=== PATIENT | male | born 1995 | race Caucasian/White ===

== ENCOUNTER 2016-10-26 19:13 | Inpatient (IN) | payer MEDICAID, OTHER ==
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
[2016-10-27] MEDS ORDERED: MAG HYDROX/AL HYDROX/SIMETH 30 ML CUP PO PRN (01:05)
[2016-10-27] MEDS ORDERED: ACETAMINOPHEN TAB 325 MG TAB PO PRN (01:05)
[2016-10-27] MEDS ORDERED: MAGNESIUM HYDROXIDE 2,400 MG/10 ML CUP PO PRN (01:05)
[2016-10-27] MEDS ORDERED: LORazepam 1 MG TAB PO PRN (01:11)
[2016-10-27] MEDS ORDERED: OLANZapine ODT 10 MG TAB PO PRN (01:12)
[2016-10-27] MEDS: CEPHALEXIN 500 MG CAP PO SCH ×4 (08:58→21:01)
[2016-10-27 09:10] LABS: Basophils % (A) 1 %; CH 30.6; Eosinophils # (A) 0.2 k/uL (0-0.7); Eosinophils % (A) 3 %; HCT 49.3 % (39.0-53.0); HDW 2.91; HGB 17.3 gm/dL (13.0-17.5); Luc # (Auto) 0.15; Luc % (Auto) 2; Lymphocytes # (A) 2.5 k/uL (1.0-4.8); Lymphocytes % (A) 33 %; MCH 30.9 pg (25.0-35.0); MCHC 35.2 g/dL (31.0-37.0); MCV 87.9 fL (80.0-100.0); Mean Platelet Volume 6.2; Monocytes # (A) 0.4 k/uL (0-1.0); Monocytes % (A) 5 %; Neutrophils # (A) 4.4 k/uL (1.3-7.7); Neutrophils % (A) 56 %; RBC 5.61 m/uL (4.30-5.90); RDW 13.1 % (11.5-15.5); WBC 7.7 k/uL (3.8-10.6); WBC (Perox) 7.45
[2016-10-27 09:47] LABS: ALT 40 U/L (21-72); AST 26 U/L (17-59); Alkaline Phosphatase 99 U/L (38-126); Anion Gap 15 mmol/L; Blood Urea Nitrogen 16 mg/dL (9-20); Calcium 10.3 mg/dL (8.4-10.2); Carbon Dioxide 27 mmol/L (22-30); Chloride 101 mmol/L (98-107); Glucose 90 mg/dL (74-99); Non-African American GFR(MDRD) >60 (>60 ml/min/1.73 sqM); Potassium 4.4 mmol/L (3.5-5.1); Sodium 143 mmol/L (137-145); Total Bilirubin 0.7 mg/dL (0.2-1.3); Total Protein 8.7 g/dL (6.3-8.2)
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
[2016-10-27] MEDS: lamoTRIgine 100 MG TAB PO SCH (16:08)
[2016-10-27] MEDS ORDERED: lamoTRIgine 100 MG TAB PO SCH (21:00)
[2016-10-27] MEDS: LACOSAMIDE 50 MG TABLET PO SCH (21:01)
[2016-10-28] MEDS: lamoTRIgine 100 MG TAB PO SCH ×3 (00:27→21:40)
[2016-10-28] MEDS: CEPHALEXIN 500 MG CAP PO SCH ×4 (09:11→21:41)
[2016-10-28] MEDS: LACOSAMIDE 50 MG TABLET PO SCH ×2 (09:12→21:40)
--- NOTE | 2016-10-28 10:11 | P.PN ---
Progress Note - Text Interval history: The patient is found in group he follows me to an interview room. He reports that his mood is down today. He reports he was able to sleep last night appetite is stable. He continues to have concerns regarding returning back to [facility]. We reviewed his medications. We discussed possibly adding an antidepressant. He just recently saw his outpatient clinician on Thursday I discussed contacting her to collaborate regarding his care. Mental status exam: The patient is alert he seated calmly hygiene is impaired he has a follow odor grooming is fair he demonstrates some gesturing with his hands that is consistent with his autism spectrum disorder diagnosis. He has abrupt speech at times and demonstrates an abnormal modulation of the tone of his voice and expression at times again related to his autism spectrum disorder. He is reporting no acute suicidal or homicidal ideation. In discussing hallucinations he states "I see the stars at night". No specific delusions endorsed. Insight and judgment limited cognitively he is limited. Plan: The patient will continue on his current medications I will confer with his outpatient nurse practitioner who recently saw him in the outpatient setting. He is encouraged to shower today as his ADLs are impaired. I will again confer with social work regarding placement options.
--- NOTE | 2016-10-28 10:17 | CONS ---
DATE OF CONSULTATION: 10/27/2016 REASON FOR CONSULT: Management of chronic medical conditions. HISTORY OF PRESENT ILLNESS: Mr. Salgado is a 21-year-old male with the past medical history of seizure disorders, ADHD, anxiety. Presented to [facility] saying that he cannot stay in the place where he is as he feels bullied by other people. Patient was also having suicidal thoughts and he also tried to kill himself with a pair of scissors. Patient has past medical history of autism, Asperger disorder, ADHD, seizure disorder. Currently, he does not have any suicidal ideation. He denies having any physical discomfort. REVIEW OF SYSTEMS: CONSTITUTIONAL: Denies having any fever, chills or rigors. RESPIRATORY: No cough. CARDIOVASCULAR: No palpitations. GI: No abdominal pain, nausea, vomiting or diarrhea. : No dysuria or hematuria. ENDOCRINE: Denies having any heat or cold intolerance. HEMATOLOGICAL: No history of easy bruising or recurrent infection. MUSCULOSKELETAL: No joint pains or aches. All the review of systems done and negative except the ones mentioned in the HPI. Past medical history is significant for seizure disorder, autism, asthma, ADHD. PAST SURGICAL HISTORY: None. SOCIAL HISTORY: Former smoking, no alcohol use. No history of drug abuse. FAMILY HISTORY: Denies having any family history of asthma or seizure disorders. On examination, patient's vital signs, temperature 97.5, heart rate 73, respiratory rate 18, blood pressure 112/55, saturating at 98% on room air. HEAD: Atraumatic, normocephalic. EYES: Pupils round and reactive to light and accommodation. NECK: No JVD. RESPIRATORY: Bilateral BS positive, no wheeze or crackles ABDOMEN: Soft, nontender, no organomegaly, bowel sounds are present. EXTREMITIES: No edema. No cyanosis. No clubbing. Peripheral pulses are palpable. PHOTO ENGRAVER: Awake, alert, oriented x3. No focal deficits. PSYCHIATRIC: Appropriate mood. SKIN: No rashes. Patient's labs: White count 7.7, hemoglobin 17.3, platelets 319, sodium 143, potassium 4.4, chloride 101, bicarb 27, BUN 16, creatinine 0.78. UDS is negative for any illicit substances. ASSESSMENT AND PLAN: 1. Depression with suicidal ideation. 2. History of asthma. 3. Seizure disorder. 4. Attention deficient hyperactivity disorder. PLAN: The patient does not have any active ongoing medical issue, acute symptoms are being managed by Psychiatry team. Will follow the patient on as-needed basis. Thank you, Dr. Nicole for the consult. RONNIE
[2016-10-28] MEDS: IBUPROFEN 600 MG TAB PO PRN (22:38)
--- NOTE | 2016-10-29 08:38 | P.PN ---
Progress Note - Text Interval history: The patient is found in the hallway he follows me to an interview room. He states he was able to sleep last night he continues to be stressed by the thought of returning to [facility] as he felt bullied there. Appetite stable. He reports feeling safe here in the hospital. I did have the opportunity to speak with his nurse practitioner with [facility] this morning. She did not recommend any medication changes at this time. She clarified that he is not specifically ordered to [facility] and he was placed there as there was no other available housing. Apparently he continues to demonstrate hoarding behavior which has caused him to be evicted from several other apartments. She felt that if a [facility] bed was available that would be appropriate temporarily. She did not feel he required an antidepressant as she recently saw him. She felt that he has done the best with the Strattera and she would consider titrating the dose further. Mental status exam: The patient is alert he seated calmly eye contact is appropriate speech is fluent. He reports his mood is okay but he is troubled as he is not sure where he will be placed next. He reports feeling safe here in the hospital with no acute suicidal ideation no homicidal ideation. He is endorsing no auditory or visual hallucinations. Hygiene is improved she did shower yesterday. He is demonstrating no verbal or physical aggressiveness. He continues to demonstrate behavior that is typical of his autism spectrum disorder in terms of affect and movements. Plan: The patient will continue on his current medication we are trying to get the Strattera brought up to the unit as it is not formulary. Again we will discuss placement opportunities. I anticipate discharging him sometime this week. We will monitor him for safety and encourage his participation in the milieu.
[2016-10-29] MEDS: CEPHALEXIN 500 MG CAP PO SCH ×4 (09:08→21:23)
[2016-10-29] MEDS: lamoTRIgine 100 MG TAB PO SCH ×2 (09:09→20:22)
[2016-10-29] MEDS: LACOSAMIDE 50 MG TABLET PO SCH ×2 (09:10→20:22)
[2016-10-29] MEDS: IBUPROFEN 600 MG TAB PO PRN (21:25)
[2016-10-30] MEDS: LACOSAMIDE 50 MG TABLET PO SCH ×2 (08:59→20:07)
[2016-10-30] MEDS: CEPHALEXIN 500 MG CAP PO SCH ×4 (08:59→20:09)
[2016-10-30] MEDS: lamoTRIgine 100 MG TAB PO SCH ×2 (09:00→20:07)
--- NOTE | 2016-10-30 09:03 | P.PN ---
Progress Note - Text Interval history: The patient is found in the dining room he follows me to an interview room. He reports that he slept well last night appetite is stable. He describes having some sinus congestion. We discussed the possibility of him having to go back to [facility] but people are looking into other options. He has been compliant with his medication. Mental status exam: The patient is alert he seated calmly eye contact is appropriate he has exaggerated smiling and laughter he does frequently change position while seated in his chair. His speech can be inadvertently abrupt. No suicidal or homicidal ideation intent or plan he is endorsing no auditory or visual hallucinations. He endorses no specific delusions. Thought process is linear during our brief session he demonstrates no tangential thinking loose associations or flight of ideas. Hygiene adequate grooming fair. He demonstrates no verbal or physical aggressiveness. Plan: The patient will continue on his current medications. We will continue to monitor him for safety. We continue to explore placement options for him but we'll discharge him tomorrow even if it is to [facility]. He appears to be stabilizing on the mental health unit with the supportive milieu. Vital signs reviewed.
[2016-10-30] MEDS ORDERED: LORazepam 2 MG/ML SYRINGE IM STA (10:26)
[2016-10-31 06:11] VITALS: BP 115/59; PULSE 78; RESP 16; TEMP 98
--- NOTE | 2016-10-31 08:54 | P.DS ---
Providers Date of admission: 10/26/16 22:58 Expected date of discharge: 10/31/16 Attending physician: Syed Nicole Consults: 10/27/16 01:05 Consult Physician Routine Consulting Provider: Frederick Smith Consult Reason/Comments: H and P with medical follow up Do you want consulting provider notified?: Yes, Notify in am Primary care physician: Peace Martini - Discharge Diagnosis(es) (1) Autism spectrum disorder Current Visit: Yes Status: Acute Priority: High (2) ADHD (attention deficit hyperactivity disorder) Current Visit: Yes Status: Acute Priority: Medium Hospital Course: Brief summary of admission note: This patient is a 21-year-old single male who was admitted to the mental health unit through the emergency room from [facility] with suicidal ideation and agitated behavior. The patient had been placed at [facility] as part of his mental health court program as there was no other housing available. The patient had recently been evicted and has a history of being evicted from numerous apartments. He was charged with assault on a precinct police captain during his last evening injection process. The patient stated he felt bullied at [facility] and felt overwhelmed. He has an established diagnosis of autism Spectrum disorder, ADHD, depression unspecified , rule out OCD. Summary of hospital course: The patient was admitted to the mental health unit he signed in voluntarily. His presenting symptoms were reviewed. He has been treated with Haldol Decanoate 50 mg every 2 weeks he has been on Lamictal and Vimpat for seizures and Strattera for ADHD symptoms. It seems that his reactions were an adjustment reaction to being placed at [facility]. I was able to speak with his outpatient prescriber Virgiina Arreola and we agreed no medication changes were required at this time. We did explore senior care placement for him temporarily however none are available. The patient was cooperative during the hospitalization he demonstrated no agitated behavior he selectively attended groups. He was evaluated by the biomed tech as part of a routine medical exam. He was treated for a folliculitis on his leg with Keflex and he has almost completed that course of antibiotics. Mental status exam: The patient is alert he is dressed in his own clothing eye contact is appropriate speech is spontaneous. He often has a exaggerated smiling affect with exaggerated laughter. He frequently changes position while seated in his chair often leaning forward during the conversation. Speech can be inadvertently loud and blunted at times as part of his autism spectrum disorder. He reports no suicidal or homicidal ideation intent or plan. He is reporting no hopelessness thinking. He is endorsing no auditory or visual hallucinations no specific delusions. Insight and judgment are chronically limited. He demonstrates no involuntary abnormal movements. He demonstrates no verbal or physical aggressiveness. He is oriented to person place and date. He does not appear hypomanic or manic. Impressions 1. Autism spectrum disorder, depression unspecified, ADHD, rule out OCD, rule out bipolar disorder 2. Asthma, folliculitis of leg 3. Recent adjustment reaction related to change in housing Plan: The patient will be discharged from the mental health unit today he will return to [facility]. He will continue his Lamictal and Vimpat for seizure control he will continue Haldol decanoate 50 mg every 2 weeks, Strattera 60 mg daily. A prescription will be written for him to complete his course of Keflex. He will continue to be monitored by [facility] and we will confirm his next outpatient appointment. He has been able to attend to his activities of daily living on the mental health unit with direction there is no imminent safety risk he is appropriate for transition back to outpatient care. Patient Condition at Discharge: Stable Plan - Discharge Summary New Discharge Prescriptions: Atomoxetine HCl [Strattera] 60 mg PO QAM #30 cap Cephalexin [Keflex] 500 mg PO QID #16 cap Haloperidol Decanoate [Haldol D] 50 mg IM Q14D #1 vial Lacosamide [Vimpat] 200 mg PO BID #60 tablet lamoTRIgine 200 mg PO BID #60 tablet Discharge Medication List Ibuprofen [Motrin] 600 mg PO Q8HR PRN 10/27/16 [History] Atomoxetine HCl [Strattera] 60 mg PO QAM #30 cap 10/31/16 [Rx] Cephalexin [Keflex] 500 mg PO QID #16 cap 10/31/16 [Rx] Haloperidol Decanoate [Haldol D] 50 mg IM Q14D #1 vial 10/31/16 [Rx] Lacosamide [Vimpat] 200 mg PO BID #60 tablet 10/31/16 [Rx] lamoTRIgine 200 mg PO BID #60 tablet 10/31/16 [Rx] Follow up Appointment(s)/Referral(s): Peace Martini MD [Primary Care Provider] - 1 Week
[2016-10-31] MEDS: LACOSAMIDE 50 MG TABLET PO SCH (09:09)
[2016-10-31] MEDS: CEPHALEXIN 500 MG CAP PO SCH (09:09)
[2016-10-31] MEDS: lamoTRIgine 100 MG TAB PO SCH (09:09)
== END 2016-10-31 09:45 | disposition home or self-care (01) | DRG 884 ==
LOC: EC 19:13 → 3MHU 22:58
PROVIDERS: ADMIT Psychiatry & Neurology Psychiatry; ATTEND Psychiatry & Neurology Psychiatry
DX: F84.0 Autistic disorder (principal); F20.9 Schizophrenia, unspecified; R45.851 Suicidal ideations; F32.9 Major depressive disorder, single episode, unspecified; F90.9 Attention-deficit hyperactivity disorder, unspecified type; F43.10 Post-traumatic stress disorder, unspecified; F43.20 Adjustment disorder, unspecified; G40.909 Epilepsy, unspecified, not intractable, without status epilepticus; J45.909 Unspecified asthma, uncomplicated; L73.9 Follicular disorder, unspecified; Z87.891 Personal history of nicotine dependence
CPT/HCPCS: 80053; 80306; 82075; 84443; 85025; 99285

== ENCOUNTER 2016-11-20 04:26 | Emergency (ER) | payer MEDICAID, OTHER ==
[2016-11-20 04:34] VITALS: TEMP 98.4
[2016-11-20] MEDS ORDERED: HYDROcodone/APAP 5-325MG 1 EACH TAB PO STA (04:35)
[2016-11-20] MEDS ORDERED: LORazepam 1 MG TAB PO STA (04:35)
--- NOTE | 2016-11-20 04:43 | ED ---
General Adult HPI - General Chief complaint: Fall Stated complaint: Facial Trauma Time Seen by Provider: 11/20/16 04:30 Source: patient, RN notes reviewed, old records reviewed Mode of arrival: EMS Limitations: no limitations - History of Present Illness Initial comments: This is a 21-year-old male the ER for evaluation. Patient coming in for evaluation of bleeding. Patient has extensive facial bleeding that he woke up with. Patient has history of seizures. Patient also has recent history of trauma as he did hit his head on a tree earlier in the day. Patient states he went to bed he was not bleeding so extensively. Patient has been taking his seizure medication as prescribed. Patient does have what appears to be significant bleeding coming out of nose. Patient denies headache, denies any specific complaints - Related Data Home Medications Medication Instructions Recorded Confirmed Ibuprofen [Motrin] 600 mg PO Q8HR PRN 10/27/16 10/27/16 Previous Rx's Medication Instructions Recorded Atomoxetine HCl [Strattera] 60 mg PO QAM #30 cap 10/31/16 Cephalexin [Keflex] 500 mg PO QID #16 cap 10/31/16 Haloperidol Decanoate [Haldol D] 50 mg IM Q14D #1 vial 10/31/16 Lacosamide [Vimpat] 200 mg PO BID #60 tablet 10/31/16 lamoTRIgine 200 mg PO BID #60 tablet 10/31/16 Allergies Allergy/AdvReac Type Severity Reaction Status Date / Time polyethylene glycol Allergy Unknown Verified 11/20/16 04:34 [From Golytely] polyethylene glycol 3350 Allergy Unknown Verified 11/20/16 04:34 [From Golytely] potassium chloride Allergy Unknown Verified 11/20/16 04:34 [From Golytely] sodium [From Golytely] Allergy Unknown Verified 11/20/16 04:34 sodium bicarbonate Allergy Unknown Verified 11/20/16 04:34 [From Golytely] sodium chloride Allergy Unknown Verified 11/20/16 04:34 [From Golytely] sodium sulfate Allergy Unknown Verified 11/20/16 04:34 [From Golytely] Mushroom AdvReac Nausea & Verified 11/20/16 04:34 Vomiting Review of Systems ROS Statement: Those systems with pertinent positive or pertinent negative responses have been documented in the HPI. ROS Other: All systems not noted in ROS Statement are negative. Past Medical History Past Medical History: Asthma, Seizure Disorder Additional Past Medical History / Comment(s): seizure, anxiety, autism, ocd, asbergers, ADHD History of Any Multi-Drug Resistant Organisms: None Reported Past Surgical History: No Surgical Hx Reported Additional Past Surgical History / Comment(s): Carpal Tunnel Repair left hand when 8 years old per patient. Past Anesthesia/Blood Transfusion Reactions: No Reported Reaction Past Psychological History: ADD/ADHD, Anxiety, Bipolar, PTSD Smoking Status: Former smoker Past Alcohol Use History: None Reported Past Drug Use History: None Reported - Past Family History Father History Unknown: Yes Mother History Unknown: Yes General Exam Limitations: no limitations General appearance: alert, in no apparent distress Head exam: Present: normocephalic, normal inspection. Absent: atraumatic ( Patient appears to have bleeding from left naris, history of oldfracture) Eye exam: Present: normal appearance, PERRL, EOMI. Absent: scleral icterus, conjunctival injection, periorbital swelling ENT exam: Present: normal exam, mucous membranes moist Neck exam: Present: normal inspection. Absent: tenderness, meningismus, lymphadenopathy Respiratory exam: Present: normal lung sounds bilaterally. Absent: respiratory distress, wheezes, rales, rhonchi, stridor Cardiovascular Exam: Present: regular rate, normal rhythm, normal heart sounds. Absent: systolic murmur, diastolic murmur, rubs, gallop, clicks GI/Abdominal exam: Present: soft, normal bowel sounds. Absent: distended, tenderness, guarding, rebound, rigid Extremities exam: Present: normal inspection, full ROM, normal capillary refill. Absent: tenderness, pedal edema, joint swelling, calf tenderness Back exam: Present: normal inspection Neurological exam: Present: alert, oriented X3, CN II-XII intact Psychiatric exam: Present: normal affect, normal mood Skin exam: Present: warm, dry, intact, normal color. Absent: rash Course Vital Signs 11/20/16 11/20/16 04:28 06:58 Temperature 98.4 F Pulse Rate 80 78 Respiratory 20 16 Rate Blood Pressure 137/85 124/76 O2 Sat by Pulse 99 98 Oximetry Medical Decision Making - Medical Decision Making 21 male the ER with nose bleed, possible worsening since seizure. Patient could 've had seizure during the night. He does suffer from seizures. Patient also does have trauma to her face yesterday. Patient's cleaned and evaluated, no or current bleeding, CT is negative for acute disease - Radiology Data Radiology results: report reviewed (CT brain C-spine and facial bones is negative for acute disease), image reviewed Disposition Clinical Impression: Concussion, Laceration Disposition: HOME SELF-CARE Condition: Good Instructions: Nosebleed (ED) Referrals: Peace Martini MD [Primary Care Provider] - 1-2 days
--- NOTE | 2016-11-20 05:45 | CT ---
EXAM: CT Maxillofacial Without Intravenous Contrast CLINICAL HISTORY: Seizure, fall, facial trauma. TECHNIQUE: Axial computed tomography images of the face without intravenous contrast. CTDI is 30.6 mGy and DLP is 550.8 mGy-cm This CT exam was performed using one or more of the following dose reduction techniques: automated exposure control, adjustment of the mA and/or kV according to patient size, and/or use of iterative reconstruction technique. Coronal reformatted images were created and reviewed. COMPARISON: No relevant prior studies available. FINDINGS: Bones/joints: Age-indeterminate nondisplaced nasal bone fractures bilaterally versus prominent vascular grooves. No displaced facial fracture. Soft tissues: Blood products present in the nares and soft tissue swelling of the lips. Orbits: Unremarkable. No intraconal retrobulbar hematoma and no CT evidence of acute globe injury. Sinuses: Trace sphenoid sinus and ethmoid air cell mucosal thickening without paranasal sinus air-fluid level. IMPRESSION: 1. No acute displaced facial fracture. 2. Age-indeterminate nondisplaced bilateral nasal bone fractures versus prominent vascular grooves. 3. Blood products in the nares and suspected soft tissue swelling of the lips.
--- NOTE | 2016-11-20 05:54 | CT ---
EXAM: CT Head Without Intravenous Contrast CLINICAL HISTORY: Seizure, fall, facial trauma. TECHNIQUE: Axial computed tomography images of the head/brain without intravenous contrast. CTDI is 57.4 mGy and DLP is 1036.5 mGy-cm This CT exam was performed using one or more of the following dose reduction techniques: automated exposure control, adjustment of the mA and/or kV according to patient size, and/or use of iterative reconstruction technique. Coronal and sagittal reformatted images were created and reviewed. COMPARISON: CT head 12/13/2015 FINDINGS: Brain: Unremarkable. No mass effect, hemorrhage, large extra-axial collection, or CT evidence of acute cortical infarction. Ventricles: Unremarkable. No midline shift or ventriculomegaly. Bones/joints: Unremarkable. No acute fracture. Soft tissues: Small left parietal and right occipital scalp contusions versus scarring. Sinuses: Unremarkable as visualized. No air-fluid level. Mastoid air cells: Unremarkable as visualized. No mastoid effusion. IMPRESSION: 1. No midline shift, hemorrhage, or CT evidence of acute cortical infarction. 2. Small left parietal and right occipital scalp contusions versus scarring without depressed calvarial fracture. 3. No mastoid effusion. EXAM: CT Cervical Spine Without Intravenous Contrast CLINICAL HISTORY: Seizure, fall, facial trauma. TECHNIQUE: Axial computed tomography images of the cervical spine without intravenous contrast. CTDI is 15.5 mGy and DLP is 336.2 mGy-cm This CT exam was performed using one or more of the following dose reduction techniques: automated exposure control, adjustment of the mA and/or kV according to patient size, and/or use of iterative reconstruction technique. Coronal and sagittal reformatted images were created and reviewed. COMPARISON: CT cervical spine 12/13/2015. FINDINGS: Vertebrae: Apparent reversal of the cervical lordosis is nonspecific on this nonweightbearing evaluation. Alignment is anatomic without spondylolisthesis. Cervical vertebral body heights are preserved without compression deformity and there is no CT evidence of acute cervical fracture. Atlantoaxial and atlantooccipital articulations are intact. Cervical facets articulate normally bilaterally without dislocation or subluxation. Discs/spinal canal/neural foramina: Mild cervical spinal canal narrowing is present diffusely. No high-grade bony spinal canal stenosis or neuroforaminal narrowing clearly evident by CT. Soft tissues: No prevertebral soft tissue thickening. Lung apices: Unremarkable as visualized. IMPRESSION: 1. No CT evidence of acute cervical fracture or traumatic subluxation. 2. Apparent reversal of the cervical lordosis is nonspecific on this nonweightbearing evaluation and may reflect positioning during exam or muscular spasm. 3. Mild diffuse cervical spinal canal stenosis without high-grade bony spinal canal or neuroforaminal narrowing evident by CT.
[2016-11-20 06:59] VITALS: BP 124/76; PULSE 78; RESP 16
== END 2016-11-20 06:58 | disposition home or self-care (01) ==
LOC: EC 04:26
DX: S06.0X9A Concussion with loss of consciousness of unspecified duration, initial encounter (principal); S01.81XA Laceration without foreign body of other part of head, initial encounter; M48.02 Spinal stenosis, cervical region; Z87.891 Personal history of nicotine dependence; Z88.8 Allergy status to other drugs, medicaments and biological substances; Z91.018 Allergy to other foods; W22.09XA Striking against other stationary object, initial encounter; Y93.89 Activity, other specified
CPT/HCPCS: 70450; 70486; 72125; 99283

== ENCOUNTER 2016-12-27 18:34 | Emergency (ER) | payer OTHER ==
--- NOTE | 2016-12-27 19:19 | ED ---
Psych HPI - General Chief Complaint: Psychiatric Symptoms Stated Complaint: Petition Time Seen by Provider: 12/27/16 18:40 Source: patient, police Mode of arrival: EMS - History of Present Illness MD Complaint: suicidal ideation Onset/Timin -: days(s) Associated Psychiatric Symptoms: depression History of same: Yes Quality: getting worse Improves With: none Worsens With: none Context: significant life stressor Associated Symptoms: denies other symptoms Treatments Prior to Arrival: none - Related Data Home Medications Medication Instructions Recorded Confirmed Ibuprofen [Motrin] 600 mg PO Q8HR PRN 10/27/16 10/27/16 Previous Rx's Medication Instructions Recorded Atomoxetine HCl [Strattera] 60 mg PO QAM #30 cap 10/31/16 Cephalexin [Keflex] 500 mg PO QID #16 cap 10/31/16 Haloperidol Decanoate [Haldol D] 50 mg IM Q14D #1 vial 10/31/16 Lacosamide [Vimpat] 200 mg PO BID #60 tablet 10/31/16 lamoTRIgine 200 mg PO BID #60 tablet 10/31/16 Atomoxetine HCl [Strattera] 80 mg PO QAM #15 cap 12/27/16 Ibuprofen [Motrin] 600 mg PO Q8HR PRN #20 tab 12/27/16 Lacosamide [Vimpat] 200 mg PO BID #28 tablet 12/27/16 lamoTRIgine [Lamictal] 200 mg PO BID #28 tablet 12/27/16 Allergies Allergy/AdvReac Type Severity Reaction Status Date / Time polyethylene glycol Allergy Unknown Verified 11/20/16 04:34 [From Golytely] polyethylene glycol 3350 Allergy Unknown Verified 11/20/16 04:34 [From Golytely] potassium chloride Allergy Unknown Verified 11/20/16 04:34 [From Golytely] sodium [From Golytely] Allergy Unknown Verified 11/20/16 04:34 sodium bicarbonate Allergy Unknown Verified 11/20/16 04:34 [From Golytely] sodium chloride Allergy Unknown Verified 11/20/16 04:34 [From Golytely] sodium sulfate Allergy Unknown Verified 11/20/16 04:34 [From Golytely] Mushroom AdvReac Nausea & Verified 11/20/16 04:34 Vomiting Review of Systems ROS Statement: Those systems with pertinent positive or pertinent negative responses have been documented in the HPI. ROS Other: All systems not noted in ROS Statement are negative. Respiratory: Denies: cough, dyspnea Cardiovascular: Denies: chest pain, palpitations, syncope Gastrointestinal: Denies: abdominal pain, vomiting, diarrhea Genitourinary: Denies: dysuria Musculoskeletal: Denies: back pain Skin: Denies: rash, lesions, change in hair/nails Neurological: Denies: headache (Medical), weakness, numbness Past Medical History Past Medical History: Asthma, Seizure Disorder Additional Past Medical History / Comment(s): seizure, anxiety, autism, ocd, asbergers, ADHD History of Any Multi-Drug Resistant Organisms: None Reported Past Surgical History: No Surgical Hx Reported Additional Past Surgical History / Comment(s): Carpal Tunnel Repair left hand when 8 years old per patient. Past Anesthesia/Blood Transfusion Reactions: No Reported Reaction Past Psychological History: ADD/ADHD, Anxiety, Bipolar, PTSD Smoking Status: Former smoker Past Alcohol Use History: None Reported Past Drug Use History: Marijuana - Past Family History Father History Unknown: Yes Mother History Unknown: Yes General Exam General appearance: alert, in no apparent distress Head exam: Present: atraumatic, normocephalic Eye exam: Present: normal appearance. Absent: scleral icterus, conjunctival injection Respiratory exam: Present: normal lung sounds bilaterally. Absent: respiratory distress, wheezes, rales, rhonchi, stridor Cardiovascular Exam: Present: regular rate, normal rhythm, normal heart sounds. Absent: systolic murmur, diastolic murmur, rubs, gallop GI/Abdominal exam: Present: soft. Absent: distended, tenderness, guarding, rebound, mass Extremities exam: Present: normal inspection, normal capillary refill. Absent: pedal edema, calf tenderness Back exam: Present: normal inspection. Absent: CVA tenderness (R), CVA tenderness (L) Psychiatric exam: Present: depressed, suicidal ideation. Absent: anxious, flat affect, manic, homicidal ideation Skin exam: Present: warm, dry, intact, normal color. Absent: rash Course Vital Signs 12/27/16 12/27/16 18:36 20:20 Temperature 99.1 F Pulse Rate 88 70 Respiratory 22 16 Rate Blood Pressure 142/70 118/73 O2 Sat by Pulse 99 99 Oximetry Disposition Clinical Impression: Acute anxiety Disposition: HOME SELF-CARE Condition: Fair Prescriptions: Atomoxetine HCl [Strattera] 80 mg PO QAM #15 cap Ibuprofen [Motrin] 600 mg PO Q8HR PRN #20 tab PRN Reason: Pain Lacosamide [Vimpat] 200 mg PO BID #28 tablet lamoTRIgine [Lamictal] 200 mg PO BID #28 tablet Referrals: Peace Martini MD [Primary Care Provider] - 1-2 days
[2016-12-27 22:17] VITALS: BP 141/79; PULSE 78; RESP 18; TEMP 97.8
== END 2016-12-27 22:40 | disposition home or self-care (01) ==
LOC: EC 18:34
DX: F41.9 Anxiety disorder, unspecified (principal); R45.851 Suicidal ideations; F32.9 Major depressive disorder, single episode, unspecified; Z87.891 Personal history of nicotine dependence; Z88.8 Allergy status to other drugs, medicaments and biological substances; Z91.048 Other nonmedicinal substance allergy status
CPT/HCPCS: 82075; 99284

== ENCOUNTER 2017-02-01 15:14 | Emergency (ER) | payer OTHER ==
[2017-02-01 15:25] VITALS: RESP 16
--- NOTE | 2017-02-01 15:29 | ED ---
General Adult HPI - General Source: patient, RN notes reviewed, old records reviewed Mode of arrival: ambulatory Limitations: no limitations <Evelio Gaviria - Last Filed: 02/01/17 15:29> <Adin Quezada - Last Filed: 02/01/17 18:35> - General Chief complaint: Psychiatric Symptoms Stated complaint: mental health Time Seen by Provider: 02/01/17 15:28 - History of Present Illness Initial comments: This is a 22-year-old male here for evaluation of psychiatric disease. Psychiatric illness. Suicidal thoughts and ideation. He does have history of psychiatric disease, patient states he wants to commit suicide by copier technician or jump off a bridge today. Patient's brought in by himself, stopped taking medications recently (Evelio Gaviria) - Related Data Home Medications Medication Instructions Recorded Confirmed Albuterol Inhaler [Ventolin Hfa 1 - 2 puff INHALATION RT-Q6H PRN 02/01/17 Inhaler] Cholecalciferol [Vitamin D3] 5,000 unit PO DAILY 02/01/17 02/01/17 Cyanocobalamin (Vitamin B-12) 1,000 mcg PO DAILY 02/01/17 02/01/17 [Vitamin B-12] Loratadine [Claritin] 10 mg PO HS 02/01/17 02/01/17 Previous Rx's Medication Instructions Recorded Haloperidol Decanoate [Haldol D] 50 mg IM Q14D #1 vial 10/31/16 Atomoxetine HCl [Strattera] 80 mg PO QAM #15 cap 12/27/16 Ibuprofen [Motrin] 600 mg PO Q8HR PRN #20 tab 12/27/16 Lacosamide [Vimpat] 200 mg PO BID #28 tablet 12/27/16 lamoTRIgine [Lamictal] 200 mg PO BID #28 tablet 12/27/16 Allergies Allergy/AdvReac Type Severity Reaction Status Date / Time polyethylene glycol Allergy Nausea & Verified 02/01/17 15:38 [From Golytely] Vomiting polyethylene glycol 3350 Allergy Nausea & Verified 02/01/17 15:38 [From Golytely] Vomiting potassium chloride Allergy Nausea & Verified 02/01/17 15:38 [From Golytely] Vomiting sodium [From Golytely] Allergy Nausea & Verified 02/01/17 15:38 Vomiting sodium bicarbonate Allergy Nausea & Verified 02/01/17 15:38 [From Golytely] Vomiting sodium chloride Allergy Nausea & Verified 02/01/17 15:38 [From Golytely] Vomiting sodium sulfate Allergy Nausea & Verified 02/01/17 15:38 [From Golytely] Vomiting Mushroom AdvReac Nausea & Verified 02/01/17 15:38 Vomiting Review of Systems ROS Other: All systems not noted in ROS Statement are negative. <Evelio Gaviria - Last Filed: 02/01/17 15:29> ROS Other: All systems not noted in ROS Statement are negative. <dAin Quezada - Last Filed: 02/01/17 18:35> ROS Statement: Those systems with pertinent positive or pertinent negative responses have been documented in the HPI. Past Medical History Past Medical History: Asthma, Seizure Disorder Additional Past Medical History / Comment(s): seizure, anxiety, autism, ocd, asbergers, ADHD History of Any Multi-Drug Resistant Organisms: None Reported Past Surgical History: No Surgical Hx Reported Additional Past Surgical History / Comment(s): Carpal Tunnel Repair left hand when 8 years old per patient. Past Anesthesia/Blood Transfusion Reactions: No Reported Reaction Past Psychological History: ADD/ADHD, Anxiety, Bipolar, PTSD Smoking Status: Never smoker Past Alcohol Use History: None Reported Past Drug Use History: None Reported - Past Family History Father History Unknown: Yes Mother History Unknown: Yes <Evelio Gaviria - Last Filed: 02/01/17 15:29> General Exam Limitations: no limitations General appearance: alert, in no apparent distress Head exam: Present: atraumatic, normocephalic, normal inspection Eye exam: Present: normal appearance, PERRL, EOMI. Absent: scleral icterus, conjunctival injection, periorbital swelling ENT exam: Present: normal exam, mucous membranes moist Neck exam: Present: normal inspection. Absent: tenderness, meningismus, lymphadenopathy Respiratory exam: Present: normal lung sounds bilaterally. Absent: respiratory distress, wheezes, rales, rhonchi, stridor Cardiovascular Exam: Present: regular rate, normal rhythm, normal heart sounds. Absent: systolic murmur, diastolic murmur, rubs, gallop, clicks GI/Abdominal exam: Present: soft, normal bowel sounds. Absent: distended, tenderness, guarding, rebound, rigid Extremities exam: Present: normal inspection, full ROM, normal capillary refill. Absent: tenderness, pedal edema, joint swelling, calf tenderness Back exam: Present: normal inspection Neurological exam: Present: alert, oriented X3, CN II-XII intact Psychiatric exam: Present: normal affect, normal mood Skin exam: Present: warm, dry, intact, normal color. Absent: rash <Evelio Gaviria - Last Filed: 02/01/17 15:29> Course <Evelio Gaviria - Last Filed: 02/01/17 15:29> <Adin Quezada - Last Filed: 02/01/17 18:35> Vital Signs 02/01/17 02/01/17 15:18 17:38 Temperature 99 F 97.8 F Pulse Rate 75 63 Respiratory 16 16 Rate Blood Pressure 129/78 128/72 O2 Sat by Pulse 98 98 Oximetry - Reevaluation(s) Reevaluation #1: 02/01/17 15:28 Patient is medically clear for psychiatric evaluation (Evelio Gaviria) Medical Decision Making <Evelio Gaviria - Last Filed: 02/01/17 15:29> <Adin Quezada - Last Filed: 02/01/17 18:35> - Medical Decision Making Patient was seen by mental health services who recommends discharge. Patient denies suicidal ideation and does contract for safety. [facility] (Adin Quezada) Disposition <Evelio Gaviria - Last Filed: 02/01/17 15:29> <Adin Quezada - Last Filed: 02/01/17 18:35> Clinical Impression: Depression Disposition: HOME SELF-CARE Condition: Stable Instructions: Depression (ED) Additional Instructions: Please discharge to [facility]. Return for worsening depression, thoughts of self- harm or other concerns. Referrals: Peace Martini MD [Primary Care Provider] - 1-2 days
[2017-02-01 17:39] VITALS: BP 128/72; PULSE 63; TEMP 97.8
== END 2017-02-01 18:47 | disposition home or self-care (01) ==
LOC: EC 15:14
DX: F32.9 Major depressive disorder, single episode, unspecified (principal); Z88.8 Allergy status to other drugs, medicaments and biological substances; Z91.018 Allergy to other foods; Z79.899 Other long term (current) drug therapy
CPT/HCPCS: 82075; 99285

== ENCOUNTER 2017-03-22 02:16 | Emergency (ER) | payer OTHER ==
[2017-03-22 02:24] VITALS: BP 130/72; PULSE 81; RESP 20; TEMP 97.5
--- NOTE | 2017-03-22 02:50 | ED ---
General Adult HPI - General Chief complaint: Upper Respiratory Infection Stated complaint: Congestion/SOB Time Seen by Provider: 03/22/17 02:34 Source: patient, RN notes reviewed Mode of arrival: ambulatory Limitations: no limitations - History of Present Illness Initial comments: 19-year-old male presents emergency chief complaint of cough for the past Past week or so. He states he did history of asthma. He states no production with the cough no fever chills. Patient states he has a cough like this in the past. Patient states is having any other symptoms at this time. Patient denies any.Patient denies any recent fever, chills, chest pain, back pain, abdominal pain, nausea vomiting, numbness or tingling, dysuria or hematuria, constipation or diarrhea, headaches or visual changes, or any other current symptoms. - Related Data Home Medications Medication Instructions Recorded Confirmed Albuterol Inhaler [Ventolin Hfa 1 - 2 puff INHALATION RT-Q6H PRN 02/01/17 Inhaler] Cholecalciferol [Vitamin D3] 5,000 unit PO DAILY 02/01/17 03/22/17 Cyanocobalamin (Vitamin B-12) 1,000 mcg PO DAILY 02/01/17 03/22/17 [Vitamin B-12] Loratadine [Claritin] 10 mg PO HS 02/01/17 03/22/17 Previous Rx's Medication Instructions Recorded Haloperidol Decanoate [Haldol D] 50 mg IM Q14D #1 vial 10/31/16 Atomoxetine HCl [Strattera] 80 mg PO QAM #15 cap 12/27/16 Ibuprofen [Motrin] 600 mg PO Q8HR PRN #20 tab 12/27/16 Lacosamide [Vimpat] 200 mg PO BID #28 tablet 12/27/16 lamoTRIgine [Lamictal] 200 mg PO BID #28 tablet 12/27/16 Albuterol Inhaler [Ventolin Hfa 1 - 2 puff INHALATION Q4-6H PRN #1 03/22/17 Inhaler] inhaler predniSONE 50 mg PO DAILY #5 tab 03/22/17 Allergies Allergy/AdvReac Type Severity Reaction Status Date / Time polyethylene glycol Allergy Nausea & Verified 03/22/17 02:24 [From Golytely] Vomiting polyethylene glycol 3350 Allergy Nausea & Verified 03/22/17 02:24 [From Golytely] Vomiting potassium chloride Allergy Nausea & Verified 03/22/17 02:24 [From Golytely] Vomiting sodium [From Golytely] Allergy Nausea & Verified 03/22/17 02:24 Vomiting sodium bicarbonate Allergy Nausea & Verified 03/22/17 02:24 [From Golytely] Vomiting sodium chloride Allergy Nausea & Verified 03/22/17 02:24 [From Golytely] Vomiting sodium sulfate Allergy Nausea & Verified 03/22/17 02:24 [From Golytely] Vomiting Mushroom AdvReac Nausea & Verified 03/22/17 02:24 Vomiting Review of Systems ROS Statement: Those systems with pertinent positive or pertinent negative responses have been documented in the HPI. ROS Other: All systems not noted in ROS Statement are negative. Past Medical History Past Medical History: Asthma, Seizure Disorder Additional Past Medical History / Comment(s): seizure, anxiety, autism, ocd, asbergers, ADHD History of Any Multi-Drug Resistant Organisms: None Reported Past Surgical History: No Surgical Hx Reported Additional Past Surgical History / Comment(s): Carpal Tunnel Repair left hand when 8 years old per patient. Past Anesthesia/Blood Transfusion Reactions: No Reported Reaction Past Psychological History: ADD/ADHD, Anxiety, Bipolar, PTSD Smoking Status: Never smoker Past Alcohol Use History: None Reported Past Drug Use History: None Reported - Past Family History Father History Unknown: Yes Mother History Unknown: Yes General Exam - General Exam Comments Initial Comments: General exam: Alert, active, comfortable in no apparent distress Head: Normocephalic Eyes: Normal reaction of pupils, equal size, normal range of extraocular motion Ears: normal external ear canals, pink tympanic membranes with normal cone of light Nose: clear with pink turbinates Throat: no erythema or exudates with normal sized tonsils Neck: no masses, no nuchal rigidity Chest: no chest wall deformity Lungs: equal air entry with no crackles or wheeze CVS: S1 and S2 normal with no audible mumurs, regular rhythm Spine: no scoliosis or deformity Skin: no rashes Neurological: No focal deficits, tone is normal in all 4 extremities Limitations: no limitations Course Vital Signs 03/22/17 03/22/17 02:21 02:32 Temperature 97.5 F L Pulse Rate 81 Respiratory 20 20 Rate Blood Pressure 130/72 O2 Sat by Pulse 97 Oximetry Medical Decision Making - Medical Decision Making 21-year-old male presents for cough it's tenderness concern for possible mild asthma exacerbation. Patient's raising refills inhaler. We discussed return for hours and follow-up and all patient's questions. He stated he understood and he is agreeable plan. All questions have been answered. Patient discharged at this time. - Radiology Data Radiology results: image reviewed Interpreted by me: Chest x-ray: Two-view: No lobar consolidation, no sign of pneumothorax osseous structures appear intact, awaiting official radiology read Disposition Clinical Impression: Asthma exacerbation Disposition: HOME SELF-CARE Condition: Stable Instructions: Asthma (ED) Additional Instructions: Please use medication as discussed. Please follow up with family doctor if symptoms have not improved over the next two days. Please return to the emergency room if your symptoms increase or worsen or for any other concerns. Prescriptions: Albuterol Inhaler [Ventolin Hfa Inhaler] 1 - 2 puff INHALATION Q4-6H PRN #1 inhaler PRN Reason: Cough predniSONE 50 mg PO DAILY #5 tab Referrals: Peace Martini MD [Primary Care Provider] - 1-2 days Time of Disposition: 03:15
--- NOTE | 2017-03-22 03:58 | XR ---
EXAM: XR Chest, 2 Views CLINICAL HISTORY: Reason: cough TECHNIQUE: Frontal and lateral views of the chest. COMPARISON: 04/04/16. FINDINGS: Lungs: Unremarkable. No consolidation. Pleural space: Unremarkable. No pneumothorax. Heart: Unremarkable. Mediastinum: Unremarkable. Bones/joints: Unremarkable. IMPRESSION: No acute cardiopulmonary disease.
== END 2017-03-22 03:18 | disposition home or self-care (01) ==
LOC: EC 02:16
DX: J45.901 Unspecified asthma with (acute) exacerbation (principal); Z79.899 Other long term (current) drug therapy; Z91.018 Allergy to other foods; Z88.8 Allergy status to other drugs, medicaments and biological substances
CPT/HCPCS: 71020; 99283

== ENCOUNTER 2017-04-07 16:06 | Emergency (ER) | payer OTHER ==
[2017-04-07 16:12] VITALS: BP 118/66; PULSE 82; RESP 18; TEMP 98.2
--- NOTE | 2017-04-07 16:42 | ED ---
General Adult HPI - General Chief complaint: Extremity Injury, Lower Stated complaint: Fall Time Seen by Provider: 04/07/17 16:27 Source: patient, RN notes reviewed Mode of arrival: ambulatory Limitations: no limitations - History of Present Illness Initial comments: Patient 21-year-old male who presents emergency room today with a chief complaint of pain to the left ankle. He does not that he fell down a few steps yesterday. Denies any head injury or loss conscious. Patient does admit to pain over the medial malleolus. He denies any other complaints or associated symptoms. Patient denies any recent fever, chills, shortness of breath, chest pain, back pain, abdominal pain, nausea or vomiting, numbness or tingling, dysuria or hematuria, constipation or diarrhea, headaches or visual changes, or any other complaints. - Related Data Home Medications Medication Instructions Recorded Confirmed Cholecalciferol [Vitamin D3] 5,000 unit PO DAILY 02/01/17 04/07/17 Cyanocobalamin (Vitamin B-12) 1,000 mcg PO DAILY 02/01/17 04/07/17 [Vitamin B-12] Loratadine [Claritin] 10 mg PO HS 02/01/17 04/07/17 Albuterol Sulfate [Proair 1 puff PO RT-Q4H PRN 04/07/17 04/07/17 Respiclick] Budesonide [Pulmicort Flexhaler] 1 puff INHALATION RT-BID 04/07/17 04/07/17 Previous Rx's Medication Instructions Recorded Haloperidol Decanoate [Haldol D] 50 mg IM Q14D #1 vial 10/31/16 Atomoxetine HCl [Strattera] 80 mg PO QAM #15 cap 12/27/16 Ibuprofen [Motrin] 600 mg PO Q8HR PRN #20 tab 12/27/16 Lacosamide [Vimpat] 200 mg PO BID #28 tablet 12/27/16 lamoTRIgine [Lamictal] 200 mg PO BID #28 tablet 12/27/16 Cephalexin [Keflex] 500 mg PO Q12HR 10 Days 04/07/17 Allergies Allergy/AdvReac Type Severity Reaction Status Date / Time Mushroom AdvReac Nausea & Verified 04/07/17 16:36 Vomiting polyethylene glycol AdvReac Nausea & Verified 04/07/17 16:36 [From Golytely] Vomiting polyethylene glycol 3350 AdvReac Nausea & Verified 04/07/17 16:36 [From Golytely] Vomiting potassium chloride AdvReac Nausea & Verified 04/07/17 16:36 [From Golytely] Vomiting sodium [From Golytely] AdvReac Nausea & Verified 04/07/17 16:36 Vomiting sodium bicarbonate AdvReac Nausea & Verified 04/07/17 16:36 [From Golytely] Vomiting sodium chloride AdvReac Nausea & Verified 04/07/17 16:36 [From Golytely] Vomiting sodium sulfate AdvReac Nausea & Verified 04/07/17 16:36 [From Golytely] Vomiting Review of Systems ROS Statement: Those systems with pertinent positive or pertinent negative responses have been documented in the HPI. ROS Other: All systems not noted in ROS Statement are negative. Past Medical History Past Medical History: Asthma, Seizure Disorder Additional Past Medical History / Comment(s): seizure, anxiety, autism, ocd, asbergers, ADHD History of Any Multi-Drug Resistant Organisms: None Reported Past Surgical History: No Surgical Hx Reported Additional Past Surgical History / Comment(s): Carpal Tunnel Repair left hand when 8 years old per patient. Past Anesthesia/Blood Transfusion Reactions: No Reported Reaction Past Psychological History: ADD/ADHD, Anxiety, Bipolar, PTSD Smoking Status: Never smoker Past Alcohol Use History: None Reported Past Drug Use History: None Reported - Past Family History Father History Unknown: Yes Mother History Unknown: Yes General Exam - General Exam Comments Initial Comments: General: The patient is awake and alert, in no distress, and does not appear acutely ill. Neck: The neck is supple, there is no tenderness or JVD. Cardiovascular: There is a regular rate and rhythm. No murmur, rub or gallop is appreciated. Respiratory: Lungs are clear to auscultation, respirations are non-labored, breath sounds are equal. No wheezes, stridor, rales, or rhonchi. Musculoskeletal: Normal appearance of the left ankle no obvious deformity. Shows good range of motion with plantar and dorsiflexion. Patient sensations are intact with pulses equal bilaterally 2+. Strength is 5/5. Neurological: A&O x 3. CN II-XII intact, There are no obvious motor or sensory deficits. Coordination appears grossly intact. Speech is normal. Skin: Skin is warm and dry and no rashes or lesions are noted. Psychiatric: Normal mood and affect. Limitations: no limitations Course Vital Signs 04/07/17 16:09 Temperature 98.2 F Pulse Rate 82 Respiratory 18 Rate Blood Pressure 118/66 O2 Sat by Pulse 98 Oximetry Medical Decision Making - Medical Decision Making Patient's x-rays negative for any acute fracture dislocation. Results were discussed with patient. There is some local redness over the medial malleolus with a ulcerated area centrally. Patient unsure when this happened or how it occurred. Patient will be placed on antibiotics cover for cellulitis. Disposition Clinical Impression: Cellulitis Disposition: HOME SELF-CARE Condition: Good Instructions: Cellulitis (ED) Additional Instructions: Please use medication as discussed. Please follow-up with family doctor in the next 2 days of symptoms have not improved. Please return to emergency room if the symptoms increase or worsen or for any other concerns. Prescriptions: Cephalexin [Keflex] 500 mg PO Q12HR 10 Days Referrals: Peace Martini MD [Primary Care Provider] - 1-2 days Time of Disposition: 17:06
--- NOTE | 2017-04-07 17:04 | XR ---
EXAMINATION TYPE: XR ankle complete LT DATE OF EXAM: 04/07/2017 COMPARISON: NONE HISTORY: Pain TECHNIQUE: 3 views of the left ankle are submitted for evaluation. FINDINGS: There is no evidence for fracture or dislocation. Ankle mortise is intact. Soft tissues are within normal limits. IMPRESSION: 1. No evidence for acute fracture.
== END 2017-04-07 17:13 | disposition home or self-care (01) ==
LOC: EC 16:06
DX: L03.116 Cellulitis of left lower limb (principal); G40.909 Epilepsy, unspecified, not intractable, without status epilepticus; J45.909 Unspecified asthma, uncomplicated; F90.9 Attention-deficit hyperactivity disorder, unspecified type; F31.9 Bipolar disorder, unspecified; Z79.899 Other long term (current) drug therapy; Z88.8 Allergy status to other drugs, medicaments and biological substances; Z91.018 Allergy to other foods; W10.9XXA Fall (on) (from) unspecified stairs and steps, initial encounter
CPT/HCPCS: 99283

== ENCOUNTER → 2017-04-14 | Outpatient (CLI) | payer OTHER ==
[2017-04-14 13:28] LABS: Basophils % (A) 1 %; CH 31.1; CHCM 34.3; Eosinophils # (A) 0.4 k/uL (0-0.7); Eosinophils % (A) 5 %; HCT 44.3 % (39.0-53.0); HDW 2.81; HGB 15.3 gm/dL (13.0-17.5); Luc # (Auto) 0.14; Luc % (Auto) 2; Lymphocytes # (A) 1.9 k/uL (1.0-4.8); Lymphocytes % (A) 26 %; MCH 31.4 pg (25.0-35.0); MCHC 34.5 g/dL (31.0-37.0); Mean Platelet Volume 6.8; Monocytes # (A) 0.4 k/uL (0-1.0); Monocytes % (A) 6 %; Neutrophils # (A) 4.6 k/uL (1.3-7.7); Neutrophils % (A) 62 %; RBC 4.87 m/uL (4.30-5.90); RDW 13.1 % (11.5-15.5); WBC 7.5 k/uL (3.8-10.6); WBC (Perox) 8.12
[2017-04-14 13:50] LABS: ALT 46 U/L (21-72); AST 19 U/L (17-59); Alkaline Phosphatase 118 U/L (38-126); Anion Gap 12 mmol/L; Blood Urea Nitrogen 14 mg/dL (9-20); Carbon Dioxide 26 mmol/L (22-30); Chloride 105 mmol/L (98-107); Glucose 102 mg/dL (74-99); Non-African American GFR(MDRD) >60 (>60 ml/min/1.73 sqM); Potassium 4.5 mmol/L (3.5-5.1); Sodium 143 mmol/L (137-145); Total Bilirubin 0.4 mg/dL (0.2-1.3); Total Protein 7.5 g/dL (6.3-8.2)
[2017-04-14 14:39] LABS: Vitamin B12 885 pg/mL (239-931)
[2017-04-20 11:35] LABS: Mis test requested (Blood) LACOSAMIDE
== END | disposition home or self-care (01) ==
LOC: LABWHC1 12:42
PROVIDERS: ATTEND Nurse Practitioner Acute Care
DX: E55.9 Vitamin D deficiency, unspecified (principal); G40.909 Epilepsy, unspecified, not intractable, without status epilepticus
CPT/HCPCS: 36415; 80053; 80175; 80339; 82306; 82607; 85025

== ENCOUNTER 2017-08-27 16:15 | Emergency (ER) | payer MEDICARE, OTHER ==
[2017-08-27 16:32] VITALS: RESP 16
[2017-08-27 16:55] LABS: Appearance,Urine Clear (Clear); Bilirubin,Urine Negative (Negative); Blood,Urine Negative (Negative); Color,Urine Yellow; Glucose,Urine (UA) Negative (Negative); Ketones,Urine Negative (Negative); Leukocyte Esterase,Urine Negative (Negative); Nitrite,Urine Negative (Negative); PH, Urine 6.5 (5.0-8.0); Protein,Urine Negative (Negative); Specific Gravity,Urine 1.016 (1.001-1.035); Urobilinogen,Urine <2.0 mg/dL (<2.0)
--- NOTE | 2017-08-27 17:07 | XR ---
EXAMINATION TYPE: XR ribs RT w pa chest xray DATE OF EXAM: 08/27/2017 COMPARISON: NONE HISTORY: Pain posterior lower rib TECHNIQUE: Two-view right ribs FINDINGS: No displaced fractures are evident. No pneumothorax is evident. T12 ribs appear rudimentary . Note is made of scoliosis within the thoracic spine. IMPRESSION: 1. Normal right ribs.
--- NOTE | 2017-08-27 17:17 | ED ---
General Adult HPI - General Chief complaint: Fall Stated complaint: Back Pain from fall Time Seen by Provider: 08/27/17 16:34 Source: patient Mode of arrival: ambulatory Limitations: no limitations - History of Present Illness Initial comments: Yossi Is a 22-year-old male with a history of developmental delay and seizure disorder who presents to the emergency department today for evaluation of a bruise on his right flank after he slipped and fell in the shower 2 nights ago. Patient was sitting showering when he lost balance, he slipped and fell, it was mechanical in nature. Patient did not pass out, he did not strike his head, he did not strike his neck. He did not lose consciousness. Patient reports that he was able to get back up and completed a shower. He reports that since that time he has had a sore spot on his right lower back ache, he noted today that there was a bruise so he came to the emergency department for evaluation. Patient denies any hematuria or pain with urination. He denies any pain with deep inspiration. He denies any shortness of breath or chest pain. Patient is not on any anticoagulant or antiplatelet medications. He reports he has been taking Motrin when necessary for the pain in his flank. - Related Data Home Medications Medication Instructions Recorded Confirmed Cholecalciferol [Vitamin D3] 5,000 unit PO DAILY 02/01/17 08/27/17 Cyanocobalamin (Vitamin B-12) 1,000 mcg PO DAILY 02/01/17 08/27/17 [Vitamin B-12] Loratadine [Claritin] 10 mg PO HS 02/01/17 08/27/17 Albuterol Sulfate [Proair 1 puff PO RT-Q4H PRN 04/07/17 08/27/17 Respiclick] Budesonide [Pulmicort Flexhaler] 1 puff INHALATION RT-BID 04/07/17 08/27/17 Lacosamide [Vimpat] 200 mg PO BID 05/15/17 08/27/17 Fluticasone Nasal [place] [Flonase 1 spray EA NOSTRIL DAILY 08/27/17 08/27/17 Nasal [place]] Previous Rx's Medication Instructions Recorded Haloperidol Decanoate [Haldol D] 50 mg IM Q14D #1 vial 10/31/16 Atomoxetine HCl [Strattera] 80 mg PO QAM #15 cap 06/10/17 Ibuprofen [Motrin] 600 mg PO Q8HR PRN #20 tab 12/27/16 lamoTRIgine [Lamictal] 200 mg PO BID #28 tablet 12/27/16 Allergies Allergy/AdvReac Type Severity Reaction Status Date / Time Mushroom AdvReac Nausea & Verified 08/27/17 16:48 Vomiting polyethylene glycol AdvReac Nausea & Verified 08/27/17 16:48 [From Golytely] Vomiting polyethylene glycol 3350 AdvReac Nausea & Verified 08/27/17 16:48 [From Golytely] Vomiting potassium chloride AdvReac Nausea & Verified 08/27/17 16:48 [From Golytely] Vomiting sodium [From Golytely] AdvReac Nausea & Verified 08/27/17 16:48 Vomiting sodium bicarbonate AdvReac Nausea & Verified 08/27/17 16:48 [From Golytely] Vomiting sodium chloride AdvReac Nausea & Verified 08/27/17 16:48 [From Golytely] Vomiting sodium sulfate AdvReac Nausea & Verified 08/27/17 16:48 [From Golytely] Vomiting narcotics AdvReac Unknown Uncoded 08/27/17 16:32 Review of Systems ROS Statement: Those systems with pertinent positive or pertinent negative responses have been documented in the HPI. ROS Other: All systems not noted in ROS Statement are negative. Constitutional: Denies: fever Eyes: Denies: vision change Respiratory: Denies: cough, dyspnea Cardiovascular: Denies: chest pain, palpitations Endocrine: Denies: fatigue Gastrointestinal: Denies: abdominal pain, nausea, vomiting Genitourinary: Reports: other (right flank pain). Denies: urgency, dysuria, frequency, hematuria Musculoskeletal: Reports: back pain Skin: Reports: change in color (bruise on right flank) Neurological: Denies: headache Hematological/Lymphatic: Denies: easy bleeding, easy bruising Past Medical History Past Medical History: Asthma, Seizure Disorder Additional Past Medical History / Comment(s): seizure, anxiety, autism, ocd, asbergers, ADHD History of Any Multi-Drug Resistant Organisms: None Reported Past Surgical History: No Surgical Hx Reported Additional Past Surgical History / Comment(s): Carpal Tunnel Repair left hand when 8 years old per patient. Past Anesthesia/Blood Transfusion Reactions: No Reported Reaction Past Psychological History: ADD/ADHD, Anxiety, Bipolar, PTSD, Schizoaffective Disorder, Schizophrenia Smoking Status: Never smoker Past Alcohol Use History: None Reported Past Drug Use History: None Reported - Past Family History Father History Unknown: Yes Mother History Unknown: Yes General Exam Limitations: no limitations General appearance: alert, in no apparent distress, other (unkempt appearance) Head exam: Present: atraumatic, normocephalic Eye exam: Present: normal appearance, PERRL, EOMI ENT exam: Present: normal exam Neck exam: Present: normal inspection, full ROM, other (no midline cervical spine tenderness) Respiratory exam: Present: normal lung sounds bilaterally. Absent: respiratory distress, wheezes, rales, rhonchi, stridor, chest wall tenderness, accessory muscle use Cardiovascular Exam: Present: regular rate, normal rhythm GI/Abdominal exam: Present: soft. Absent: distended Rectal exam: Present: deferred Extremities exam: Present: full ROM Back exam: Present: paraspinal tenderness, other (bruise to right flank approximately 6 cm x 3 cm). Absent: vertebral tenderness, rash noted Neurological exam: Present: alert, oriented X3 Psychiatric exam: Present: normal mood Skin exam: Present: warm, dry Course Vital Signs 08/27/17 16:30 Temperature 97.5 F L Pulse Rate 58 L Respiratory 16 Rate Blood Pressure 128/72 O2 Sat by Pulse 100 Oximetry Medical Decision Making - Medical Decision Making patient was seen and evaluated, vital signs were reviewed History was obtained from the patient Physical exam is remarkable for a small bruise on the right flank that appears to be healing, patient does report significant pain and has pain and tenderness of the lower ribs, x-ray will be ordered to evaluate for occult rib fracture as well as a urinalysis to evaluate for any hematuria X-ray reveals no acute rib fracture, no pneumo-thorax, no acute findings Urinalysis is without any evidence of microscopic hematuria These results were discussed with the patient who expresses relief and is agreeable with plan for discharge home questions pertaining to care were answered to the best my ability and the patient was discharged home in stable condition. - Lab Data Lab Results 08/27/17 Range/Units 16:44 Urine Color Yellow Urine Appearance Clear (Clear) Urine pH 6.5 (5.0-8.0) Ur Specific [place] 1.016 (1.001-1.035) Urine Protein Negative (Negative) Urine Glucose (UA) Negative (Negative) Urine Ketones Negative (Negative) Urine Blood Negative (Negative) Urine Nitrite Negative (Negative) Urine Bilirubin Negative (Negative) Urine Urobilinogen <2.0 (<2.0) mg/dL Ur Leukocyte Esterase Negative (Negative) Disposition Clinical Impression: Fall Disposition: HOME SELF-CARE Condition: Good Instructions: Fall Prevention for Children (ED) Referrals: Peace Martini MD [Primary Care Provider] - 1-2 days Time of Disposition: 17:18
[2017-08-27 18:04] VITALS: BP 118/70; PULSE 60; TEMP 98
== END 2017-08-27 18:08 | disposition home or self-care (01) ==
LOC: EC 16:15
DX: S30.1XXA Contusion of abdominal wall, initial encounter (principal); J45.909 Unspecified asthma, uncomplicated; G40.909 Epilepsy, unspecified, not intractable, without status epilepticus; Z91.018 Allergy to other foods; Z88.8 Allergy status to other drugs, medicaments and biological substances; Z88.5 Allergy status to narcotic agent; Z79.51 Long term (current) use of inhaled steroids; Z79.899 Other long term (current) drug therapy; W01.0XXA Fall on same level from slipping, tripping and stumbling without subsequent striking against object, initial encounter; Y93.E1 Activity, personal bathing and showering
CPT/HCPCS: 81003; 99283

== ENCOUNTER 2017-12-07 15:45 | Observation (INO) | payer MEDICARE, OTHER ==
--- NOTE | 2017-12-07 17:29 | ED ---
Psych HPI - General Chief Complaint: Psychiatric Symptoms Stated Complaint: Mental Health Time Seen by Provider: 12/07/17 16:43 Source: patient, RN notes reviewed Mode of arrival: ambulatory - History of Present Illness Initial Comments: This is a 22-year-old male with a history of depression autism and ADHD psychosis suicidal ideation the past who came in today stating he was suicidal area he states for the past 2 days he has been feeling this way states he just got out of [facility] in [place]. He states he is here for evaluation. He denies any fevers chills nausea vomiting sweats he denies any drug or alcohol use at this time he is not really give a good reason why he is suicidal. He does not seem to have a plan at this time. MD Complaint: suicidal ideation, feels depressed - Related Data Home Medications Medication Instructions Recorded Confirmed Cholecalciferol [Vitamin D3] 5,000 unit PO DAILY 02/01/17 12/07/17 Cyanocobalamin (Vitamin B-12) 1,000 mcg PO DAILY 02/01/17 12/07/17 [Vitamin B-12] Loratadine [Claritin] 10 mg PO HS 02/01/17 12/07/17 Albuterol Sulfate [Proair 1 puff PO RT-Q4H PRN 04/07/17 12/07/17 Respiclick] Budesonide [Pulmicort Flexhaler] 1 puff INHALATION RT-BID 04/07/17 12/07/17 Lacosamide [Vimpat] 200 mg PO BID 05/15/17 12/07/17 Previous Rx's Medication Instructions Recorded Haloperidol Decanoate [Haldol D] 50 mg IM Q14D #1 vial 10/31/16 Atomoxetine HCl [Strattera] 80 mg PO QAM #15 cap 12/27/16 Ibuprofen [Motrin] 600 mg PO Q8HR PRN #20 tab 12/27/16 lamoTRIgine [Lamictal] 200 mg PO BID #28 tablet 12/27/16 Allergies Allergy/AdvReac Type Severity Reaction Status Date / Time Mushroom AdvReac Nausea & Verified 12/07/17 17:17 Vomiting polyethylene glycol AdvReac Nausea & Verified 12/07/17 17:17 [From Golytely] Vomiting polyethylene glycol 3350 AdvReac Nausea & Verified 12/07/17 17:17 [From Golytely] Vomiting potassium chloride AdvReac Nausea & Verified 12/07/17 17:17 [From Golytely] Vomiting sodium [From Golytely] AdvReac Nausea & Verified 12/07/17 17:17 Vomiting sodium bicarbonate AdvReac Nausea & Verified 12/07/17 17:17 [From Golytely] Vomiting sodium chloride AdvReac Nausea & Verified 12/07/17 17:17 [From Golytely] Vomiting sodium sulfate AdvReac Nausea & Verified 12/07/17 17:17 [From Golytely] Vomiting narcotics AdvReac Unknown Uncoded 12/07/17 16:04 Review of Systems ROS Statement: Those systems with pertinent positive or pertinent negative responses have been documented in the HPI. ROS Other: All systems not noted in ROS Statement are negative. Past Medical History Past Medical History: Asthma, Seizure Disorder Additional Past Medical History / Comment(s): seizure, anxiety, autism, ocd, asbergers, ADHD, recovering alcoholic History of Any Multi-Drug Resistant Organisms: None Reported Past Surgical History: No Surgical Hx Reported Additional Past Surgical History / Comment(s): Carpal Tunnel Repair left hand when 8 years old per patient. Past Anesthesia/Blood Transfusion Reactions: No Reported Reaction Past Psychological History: ADD/ADHD, Anxiety, Bipolar, PTSD, Schizoaffective Disorder, Schizophrenia Smoking Status: Never smoker Past Alcohol Use History: None Reported Past Drug Use History: None Reported - Past Family History Father History Unknown: Yes Mother History Unknown: Yes General Exam - General Exam Comments Initial Comments: This is a well-developed well-nourished awake alert anxious male he does demonstrate pressured speech Limitations: no limitations General appearance: alert, anxious Head exam: Present: atraumatic, normocephalic, normal inspection Eye exam: Present: normal appearance, PERRL, EOMI. Absent: scleral icterus, conjunctival injection, periorbital swelling ENT exam: Present: normal exam, mucous membranes moist Neck exam: Present: normal inspection. Absent: tenderness, meningismus, lymphadenopathy Respiratory exam: Present: normal lung sounds bilaterally. Absent: respiratory distress, wheezes, rales, rhonchi, stridor Cardiovascular Exam: Present: regular rate, normal rhythm, normal heart sounds. Absent: systolic murmur, diastolic murmur, rubs, gallop, clicks GI/Abdominal exam: Present: soft, normal bowel sounds. Absent: distended, tenderness, guarding, rebound, rigid Extremities exam: Present: normal inspection, full ROM, normal capillary refill. Absent: tenderness, pedal edema, joint swelling, calf tenderness Back exam: Present: normal inspection Neurological exam: Present: alert, oriented X3, CN II-XII intact Psychiatric exam: Present: depressed, anxious, manic, suicidal ideation Skin exam: Present: warm, dry, intact, normal color. Absent: rash Course Vital Signs 12/07/17 16:04 Temperature 98.6 F Pulse Rate 67 Respiratory 18 Rate Blood Pressure 125/85 O2 Sat by Pulse 99 Oximetry - Reevaluation(s) Reevaluation #1: 12/07/17 21:33 Review of the charting from [facility] in [place] revealed the patient was admitted for evaluation for seizures. He has not been taking his medication. Medical Decision Making - Medical Decision Making I did discuss case with the psychiatric service and with Dr. Reeves. Patient will be admitted for evaluation - Lab Data Lab Results 12/07/17 Range/Units 18:05 Urine Opiates Screen Not Detected (NotDetected) Ur Oxycodone Screen Not Detected (NotDetected) Urine Methadone Screen Not Detected (NotDetected) Ur Propoxyphene Screen Not Detected (NotDetected) Ur Barbiturates Screen Not Detected (NotDetected) U Tricyclic Antidepress Not Detected (NotDetected) Ur Phencyclidine Scrn Not Detected (NotDetected) Ur Amphetamines Screen Not Detected (NotDetected) U Methamphetamines Scrn Not Detected (NotDetected) U Benzodiazepines Scrn Not Detected (NotDetected) Urine Cocaine Screen Not Detected (NotDetected) U Marijuana (THC) Screen Not Detected (NotDetected) Disposition Clinical Impression: Depression, Suicidal ideation, Seizure disorder, Noncompliance Disposition: ADMITTED IP TO THIS [facility] Condition: Stable Referrals: Peace Martini MD [Primary Care Provider] - 1-2 days
[2017-12-07 18:23] LABS: Amphetamine Screen,Urine Not Detected (NotDetected); Barbiturate Screen,Urine Not Detected (NotDetected); Benzodiazepines Screen,Urine Not Detected (NotDetected); Cocaine Screen,Urine Not Detected (NotDetected); Methadone Screen, Urine Not Detected (NotDetected); Opiate Screen,Urine Not Detected (NotDetected); Oxycodone Screen, Urine Not Detected (NotDetected); Phencyclidine Screen,Urine Not Detected (NotDetected); Tricyclic Antidepressant,Urine Not Detected (NotDetected); Urn Cannabinoid Scrn Not Detected (NotDetected)
[2017-12-07] MEDS ORDERED: NALOXONE 0.4 MG/ML 1 ML VIAL IV PRN (21:36)
[2017-12-07] MEDS ORDERED: ALBUTEROL NEBULIZED 2.5 MG/3 ML INHALATION PRN (21:39)
[2017-12-07] MEDS ORDERED: HALOPERIDOL DECANOATE 50 MG/ML 1 ML VIAL IM SCH (21:45)
[2017-12-07 23:08] LABS: Basophils # (A) 0.1 k/uL (0-0.2); Basophils % (A) 1 %; Eosinophils # (A) 0.2 k/uL (0-0.7); Eosinophils % (A) 2 %; HCT 45.7 % (39.0-53.0); HGB 15.6 gm/dL (13.0-17.5); Lymphocytes # (A) 2.8 k/uL (1.0-4.8); Lymphocytes % (A) 28 %; MCHC 34.2 g/dL (31.0-37.0); MCV 84.8 fL (80.0-100.0); Mean Platelet Volume 6.9; Monocytes # (A) 0.4 k/uL (0-1.0); Monocytes % (A) 4 %; Neutrophils # (A) 6.4 k/uL (1.3-7.7); Neutrophils % (A) 64 %; Platelet Count 308 k/uL (150-450); RBC 5.39 m/uL (4.30-5.90); RDW 12.7 % (11.5-15.5)
[2017-12-07 23:27] LABS: ALT 65 U/L (21-72); AST 25 U/L (17-59); Albumin 4.6 g/dL (3.5-5.0); Alkaline Phosphatase 86 U/L (38-126); Anion Gap 15 mmol/L; Blood Urea Nitrogen 19 mg/dL (9-20); Calcium 10.3 mg/dL (8.4-10.2); Carbon Dioxide 25 mmol/L (22-30); Chloride 101 mmol/L (98-107); Glucose 92 mg/dL (74-99); Potassium 4.3 mmol/L (3.5-5.1); Sodium 141 mmol/L (137-145); Total Bilirubin 0.5 mg/dL (0.2-1.3); Total Protein 7.5 g/dL (6.3-8.2)
[2017-12-07] MEDS ORDERED: ACETAMINOPHEN TAB 500 MG TAB PO PRN (23:44)
[2017-12-08] MEDS: lamoTRIgine 100 MG TAB PO SCH ×3 (00:06→20:13)
[2017-12-08] MEDS: LORATADINE 10 MG TAB PO SCH ×2 (00:06→20:13)
--- NOTE | 2017-12-08 06:46 | HP ---
HISTORY AND PHYSICAL DATE OF SERVICE: 12/07/2017 CHIEF COMPLAINT: Suicidal ideation. HISTORY OF PRESENT ILLNESS: This is a 22-year-old gentleman with a past medical history of seizure disorder, history of asthma, anxiety, autism, OCD, Asperger's, ADHD and bipolar, schizoaffective disorder being followed by [facility] in the outpatient setting was recently evaluated in [facility] for seizures. The patient was discharged on lacosamide and as well as Lamictal and the patient had significant suicidal ideation. Patient admitted for further evaluation and treatment. The patient's last seizure was on Thursday according to him. There is no history of any fever, rigors. No history of headache, loss of consciousness or seizures at this time. PAST MEDICAL HISTORY: History of asthma, seizure disorder history as mentioned earlier, anxiety, autism, OCD, Asperger's, ADHD. MEDICATIONS: Medications prior to admission include home medications are: 1. Claritin 10 mg at bedtime. 2. Motrin 600 mg q.8 p.r.n. 3. Strattera 80 mg q.a.m. 4. ProAir 1 puff q.4 p.r.n. 5. Lamictal 200 mg p.o. b.i.d. 6. Vimpat 200 mg p.o. b.i.d. 7. Haldol D 50 mg IM q.14 days. 8. Vitamin B12, 1000 mcg p.o. daily. 9. Vitamin D3, 5000 daily. 10.Pulmicort 1 puff b.i.d. ALLERGIES: Allergies are MUSHROOM, GOLYTELY and NARCOTICS. FAMILY HISTORY: No history of heart disease or strokes in the family. SOCIAL HISTORY: No history of smoking. No history of alcohol intake. REVIEW OF SYSTEMS: ENT: No diminished hearing or diminished vision. CARDIOVASCULAR SYSTEM: No angina. RESPIRATORY SYSTEM: No cough or hemoptysis. GI: No nausea, vomiting. : No dysuria. NERVOUS SYSTEM: As mentioned earlier. ALLERGY/IMMUNOLOGY: Asthma. MUSCULOSKELETAL: As mentioned earlier. HEMATOLOGY/ONCOLOGY: No history of anemia. ENDOCRINE: No history of diabetes mellitus or hypothyroidism. CONSTITUTIONAL: As mentioned earlier. DERMATOLOGY: Negative. RHEUMATOLOGY: Negative. PSYCHIATRY: As mentioned earlier. PHYSICAL EXAMINATION: Patient is alert and oriented x3. Pulse 67, blood pressure 125/85, respiration 18, temperature 98.6, pulse ox 99% on room air. HEENT: Conjunctivae normal. Oral mucosa moist. Neck is no jugular venous distention. No carotid bruit. No lymph node enlargement. Dry skin on the shoulders present. CARDIOVASCULAR: S1 and S2 muffled. No S3, no S4. RESPIRATORY: Breath sounds diminished in the bases. No rhonchi, no crackles. ABDOMEN: Soft, nontender. No mass palpable. No hepatosplenomegaly. LEGS: No edema, no swelling. NERVOUS SYSTEM: Higher functions as mentioned earlier. Cranial nerves 2 through 12 grossly intact. Moves all 4 limbs. No focal motor or sensory deficits. LYMPHATICS: No lymphadenopathy of the neck, axillae or groin. SKIN: No ulcer, rash or bleeding. LABS: CBC within normal limits and calcium is 10.3. Otherwise, labs are normal. ASSESSMENT: 1. Suicidal ideation with severe depression. 2. History of recent seizure disorder and evaluation at [facility]. 3. History of asthma. 4. History of anxiety. 5. History of autism. 6. History of obsessive-compulsive disorder. 7. History of Asperger's. 8. History of bipolar schizophrenia. 9. FULL CODE. RECOMMENDATIONS AND DISCUSSION: This 22-year-old gentleman who presented with multiple complex medical issues, we will monitor the patient closely. Continue the current medications and symptomatic treatment. Will observe the patient 24 hours and if the patient is seizure-free, the patient may be transferred to psych floor. I will also get a neurology continued evaluation. Also resume the home medications. The basic labs have been ordered and further recommendation to follow. MMODL / IJN: [id number] /
[2017-12-08] MEDS ORDERED: BUDESONIDE 0.5 MG/2 ML NEBU INHALATION SCH (08:00)
[2017-12-08] MEDS: IBUPROFEN 600 MG TAB PO PRN ×2 (08:56→22:25)
[2017-12-08] MEDS: CYANOCOBALAMIN 500 MCG TAB PO SCH (08:56)
[2017-12-08] MEDS: CHOLECALCIFEROL 1,000 UNIT TAB PO SCH (08:56)
[2017-12-08] MEDS: Atomoxetine Hcl [Strattera] 80 MG PO SCH (10:33)
[2017-12-08] MEDS: LACOSAMIDE 50 MG TABLET PO SCH ×2 (11:30→20:13)
--- NOTE | 2017-12-08 13:07 | P.CN ---
Psychiatric Consult - . Consult date: 12/08/17 Consult:: IDENTIFYING DATA: The patient is a 22-year-old single male who has a history of an autistic spectrum disorder. HISTORY OF PRESENT ILLNESS: He presented to the emergency room initially with the complaint that he is homeless and requested assistance with temporary housing. After the nurse informed him that half-way beds were not available he complained of "being suicidal). The ER nurse contacted his guardian who is unaware of his whereabouts. The guardian completed the petition and obtained a court order for treatment. In the petition the guardian wrote that he is been agitated and argumentative. He has been refusing mental health treatment and has not been compliant with medication. I reviewed the medical record and interviewed the patient. He complained of feeling depressed and having thoughts of suicide. He denied experiencing classic symptoms of depression including anhedonia, lack of appetite, impairments in sleep, persistent guilt etc. He complained of feeling anxious but that this did not describe persistent and severe anxiety that interfered with his ability to function. He talked "aliens" speaking to him and "telling me things." He was either unable or unwilling to provide more information about these apparent auditory hallucinations. He denied visual hallucinations or tactile hallucinations. He did not express ideas reference, thought insertion, thought broadcasting or thought control. PAST PSYCHIATRIC HISTORY: He has a history of mental health treatment in multiple psychiatric hospitalizations since he was 9 years old. He was last admitted to our psychiatric unit in in October 2016. His discharge diagnoses include autism spectrum disorder and ADHD. His discharge medications included Strattera 60 mg daily, Haldol decanoate 50 mg IM every 14 days and Lamictal 20 mg twice a day. He was referred to [facility] for continued outpatient treatment. He is vague about recent contacts with mental health treatment. PAST MEDICAL HISTORY: He history of seizure disorder.. SUBSTANCE USE HISTORY: He denied use of alcohol or drugs. The past psychiatric records indicate a history of marijuana use.. FAMILY PSYCHIATRIC/SUBSTANCE USE HISTORY: He is adopted and we don't have information about his biological family. SOCIAL HISTORY: He is currently homeless after receiving a 30 day eviction notice. He was unwilling or unable to share the reason for the eviction. He has a guardian and receives social security disability. MENTAL STATUS EXAM: He presented as a casually groomed young male who is laying comfortably in bed. He made eye contact and appeared to attend to the interview. He appeared to have poor dentition but no prominent physical physical abnormalities. He had a bright facial expression. He is alert and oriented to person, place and time. He did not show psychomotor retardation or agitation. He did not display abnormal movements. His affect was stable and appropriate. We talked about depression and suicidal ideation and he at times would smile and laugh. He describes suicidal ideation or wishes. He denied homicidal ideation. He described feelings of hopelessness and helplessness particularly with regard to his housing situation. He did not express ideas reference, paranoid ideation or delusions. His thinking was concrete but his associations were coherent. He did not express neologisms or blocking. He described auditory hallucinations in his descriptions appeared to be true auditory hallucinations. Global impression is intellect is below average. DIAGNOSIS: Autistic spectrum disorder, adjustment disorder with disturbance of mood and conduct, housing problems, poor compliance with mental health treatment PLAN: Transferred to the psychiatric unit when medically stable. 12/08/17 12:51
--- NOTE | 2017-12-08 18:37 | DS ---
DISCHARGE SUMMARY FINAL DIAGNOSES: 1. Suicidal ideation with severe depression. 2. History of recent seizure disorder which was evaluated at [facility]. 3. History of asthma. 4. Anxiety. 5. Autism. 6. History of obsessive-compulsive disorder. 7. History of Asperger's. 8. History of bipolar. 9. Schizophrenia. 10.FULL CODE. DISCHARGE DISPOSITION: Patient transferred to inpatient psych for further evaluation and treatment. HISTORY OF PRESENT ILLNESS: This 22-year-old gentleman with a past medical history of multiple medical problems as mentioned earlier was admitted with suicidal ideation with severe depression and other psychiatric issues. The patient had a seizure disorder and was recently evaluated in [facility], currently free of seizures. Neurology evaluation has been sought. The patient improved significantly. On exam, vital signs are stable. Cardio system: S1, S2. Abdomen soft. Nervous system: No focal deficits. DISCHARGE ADVICE AND MEDICATIONS: 1. Diet is cardiac diet. 2. Activity limited until followup. 3. Follow up with primary physician in 1-2 days after discharge. MEDICATIONS: 1. Tylenol 500 mg q.6h p.r.n. 2. Albuterol 1 puff q.4h p.r.n. 3. Strattera 80 mg p.o. q.a.m. 4. Pulmicort Flexhaler 1 puff b.i.d. 5. Vitamin D3 5000 daily. 6. Vitamin B12 1000 mg p.o. daily. 7. Haldol 50 mg IM Q 14 days per psych. 8. Motrin 600 mg q.8h p.r.n. 9. Vimpat 200 mg p.o. b.i.d. 10.Lamictal 200 mg p.o. b.i.d. 11.Claritin 10 mg q.h.s. Once again the patient is being discharged in stable condition with guarded prognosis. MMODL / IJN: [id number] /
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
[2017-12-08 19:57] VITALS: RESP 16
[2017-12-09] MEDS ORDERED: BUDESONIDE 0.5 MG/2 ML NEBU INHALATION SCH (07:08)
[2017-12-09] MEDS: lamoTRIgine 100 MG TAB PO SCH (08:17)
[2017-12-09] MEDS: CYANOCOBALAMIN 500 MCG TAB PO SCH (08:17)
[2017-12-09] MEDS: CHOLECALCIFEROL 1,000 UNIT TAB PO SCH (08:18)
[2017-12-09] MEDS: LACOSAMIDE 50 MG TABLET PO SCH (08:20)
[2017-12-09] MEDS: Atomoxetine Hcl [Strattera] 80 MG PO SCH (08:23)
[2017-12-09 09:12] VITALS: BP 113/69; PULSE 76; TEMP 98.7
[2017-12-09] MEDS: IBUPROFEN 600 MG TAB PO PRN (10:46)
--- NOTE | 2017-12-09 11:24 | XR ---
EXAMINATION TYPE: XR foot complete RT DATE OF EXAM: 12/09/2017 CLINICAL HISTORY: pain TECHNIQUE: Frontal, lateral and oblique images of the right foot are obtained. COMPARISON: 08/18/2014 FINDINGS: There is no acute fracture/dislocation evident. The joint spaces appear within normal pyle its. The overlying soft tissue appears unremarkable. IMPRESSION: There is no acute fracture or dislocation. ICD 10 NO FRACTURE, INITIAL EVALUATION
--- NOTE | 2017-12-09 15:16 | PN ---
PROGRESS NOTE DATE OF SERVICE: 12/08/2017 This 22-year-old gentleman admitted for severe depression with suicidal ideation, also history of seizure disorder. No chest pain. No palpitations. No fever. PHYSICAL EXAM: Vitals are stable. CARDIOVASCULAR SYSTEM: S1, S2. RESPIRATION: Breath sounds diminished at the bases, no rhonchi, no crackles. ABDOMEN: Soft, nontender. No mass palpable. LEGS: No edema, no swelling. NERVOUS SYSTEM: Higher functions as mentioned earlier, moves all 4 limbs, no focal deficits. LABS: Reviewed. ASSESSMENT: 1. Suicidal ideation with severe depression. 2. History of recent seizure disorder, workup elsewhere. 3. Asthma. 4. Anxiety. 5. Autism. 6. Obsessive-compulsive disorder. 7. History of Asperger's. 8. history of bipolar. RECOMMENDATION: Recommend to continue current management and continue symptomatic treatment. Continue seizure medication, continue with the neurology evaluation. Otherwise, I would recommend also a foot x-ray also because of the foot pain. Symptomatic treatment. Further recommendations to follow. MMODL / IJN: [id number] /
--- NOTE | 2017-12-09 20:28 | DS ---
DISCHARGE SUMMARY DISCHARGE ADDENDUM: DATE OF SERVICE: 12/09/2017 This 22-year-old gentleman admitted with suicidal ideation is being closely monitored. Psychiatry has recommended psych evaluation and the patient will be petitioned and certified and transferred to Inpatient Psych for further evaluation and treatment. Please refer to my previous dictation for list of diagnoses and list of recommended medications. On exam, vitals are stable. CARDIOVASCULAR SYSTEM: S1, S2 muffled. ABDOMEN: Soft. NERVOUS SYSTEM: No focal deficit. Patient has history of seizure disorder. I recommend continued followup with Neurology as well. MMODL / IJN: [id number] /
--- NOTE | 2017-12-10 19:35 | CONS ---
CONSULTATION DATE OF SERVICE: 12/10/2017. REASON FOR CONSULTATION: Cellulitis and right foot pain, other medical issues requested by psychiatric. HISTORY OF PRESENT ILLNESS: This 22-year-old gentleman with a past medical history of multiple medical problems including asthma, autistic spectrum, obsessive-compulsive, Asperger's, was recently admitted medically for suicidal ideation and patient also seizure disorder and the patient was transferred to inpatient psych. The patient is also complaining of right foot pain. The x-ray done on the medical floor was negative. Patient has some erythema which is not improving well at this time. There is no history of fever , rigors or chills. No history of headache, loss of consciousness, seizures. The patient is followed by [facility] in the outpatient setting. PAST MEDICAL HISTORY: History of asthma, seizure disorder, history of anxiety, autism aspect, ADHD, bipolar. MEDICATIONS: Prior to admission: 1. Lamictal 200 mg p.o. b.i.d. 2. Claritin 10 mg q.h.s. 3. Vimpat 200 mg p.o. b.i.d. 4. Motrin 600 mg q.8h p.r.n. 5. Haldol D 50 mg IM Q 14 days. 6. Vitamin B12 1000 mcg p.o. daily. 7. Vitamin D3 5000 daily. 8. Pulmicort Flexhaler 1 puff b.i.d. 9. Strata 80 mg p.o. q.a.m. 10.ProAir 1 puff q.4h. 11.Tylenol 500 mg q.6h p.r.n. ALLERGIES: MUSHROOMS, GOLYTELY AND NARCOTICS. FAMILY HISTORY: Unknown. SOCIAL HISTORY: No history of smoking. No history of alcohol intake. REVIEW OF SYSTEMS: ENT: No diminished hearing or vision. CARDIOVASCULAR: No angina or palpitations. RESPIRATIONS: No cough or hemoptysis. GI no nausea. No vomiting. no dysuria. NERVOUS SYSTEM: No numbness or weakness. ALLERGY/IMMUNOLOGY: No asthma or hayfever. MUSCULOSKELETAL: As mentioned earlier. HEMATOLOGY/ONCOLOGY: No history of anemia. ENDOCRINE: No history of diabetes or hypothyroidism. CONSTITUTIONAL: As mentioned earlier. RHEUMATOLOGY: Negative. DERMATOLOGY: Negative. PSYCHIATRIC: As mentioned earlier. PHYSICAL EXAM: GENERAL: Patient is alert, oriented times three. VITAL SIGNS: Pulse 71, blood pressure 120/57. Respirations: 16, temperature 98.2, pulse ox normal. HEENT: Conjunctivae normal. Oral mucosa moist. NECK: No jugular venous distention. No carotid bruit. No lymph node enlargement. CARDIOVASCULAR: S1-S2. No S3, no S4. RESPIRATORY: Breath sounds diminished in the bases. No rhonchi. No crackles. ABDOMEN: Soft, nontender. No mass palpable. LEGS: No edema, no swelling. Right foot minimally tender and some areas of cellulitis present. NERVOUS SYSTEM: Higher functions as mentioned earlier, moves all 4 limbs, no focal motor or sensory deficits. LYMPHATICS: No lymph nodes palpable in the neck, axillae or groin. SKIN: No ulcers, rashes or bleeding. LAB STUDIES: At this time shows hemoglobin A1c 4.9, LDL is 109. ASSESSMENT: 1. Suicidal ideation. 2. Cellulitis of the right hand status post trauma. 3. History of recent seizure disorder workup elsewhere. 4. Asthma. 5. Anxiety. 7. Obsessive-compulsive disorder. 8. History of Asperger's. 9. History of bipolar. RECOMMENDATIONS AND DISCUSSION: Recommend to continue current management and symptomatic treatment. Recommend continue with symptomatic treatment of cellulitis and pain with Motrin. A course of Bactrim is recommended with local antibiotics. Otherwise the patient may be asked to follow up with primary physician closely. X-rays are normal. The rest of the medications and recommendation per psych and continue the anti seizure medications and would also recommend close follow up with a neurologist in the outpatient setting also. Discussed with the patient. Discussed with AGNIESZKA / YULIYA: [id number] / MT[place]
== END 2017-12-09 11:58 ==
LOC: EC 15:45 → 3SUR 21:36
PROVIDERS: ADMIT Internal Medicine; ATTEND Internal Medicine
DX: R45.851 Suicidal ideations (principal); F31.9 Bipolar disorder, unspecified; F84.5 Asperger's syndrome; F25.9 Schizoaffective disorder, unspecified; Z91.19 Patient's noncompliance with other medical treatment and regimen; G40.909 Epilepsy, unspecified, not intractable, without status epilepticus; J45.909 Unspecified asthma, uncomplicated; F90.9 Attention-deficit hyperactivity disorder, unspecified type; F42.9 Obsessive-compulsive disorder, unspecified; F10.21 Alcohol dependence, in remission; F43.10 Post-traumatic stress disorder, unspecified; F12.11 Cannabis abuse, in remission; F41.9 Anxiety disorder, unspecified; L03.115 Cellulitis of right lower limb; X58.XXXA Exposure to other specified factors, initial encounter; Z79.51 Long term (current) use of inhaled steroids; Z79.899 Other long term (current) drug therapy; Z88.5 Allergy status to narcotic agent; Z88.8 Allergy status to other drugs, medicaments and biological substances; Z91.018 Allergy to other foods
CPT/HCPCS: 99285 ×2; 96372; 82075; 94640; 80053; 80175; 85025; 80339; 80306; 73630; G0378 ×3; J1631

== ENCOUNTER 2017-12-08 20:29 | Inpatient (IN) | payer MEDICARE ==
[2017-12-09] MEDS ORDERED: MAG HYDROX/AL HYDROX/SIMETH 30 ML CUP PO PRN (16:16)
[2017-12-09] MEDS ORDERED: MAGNESIUM HYDROXIDE 2,400 MG/10 ML CUP PO PRN (16:16)
[2017-12-09] MEDS ORDERED: LORazepam 1 MG TAB PO PRN (16:16)
[2017-12-09] MEDS: IBUPROFEN 600 MG TAB PO PRN (18:56)
[2017-12-09] MEDS: lamoTRIgine 100 MG TAB PO SCH (21:08)
[2017-12-09] MEDS: LORATADINE 10 MG TAB PO SCH (21:08)
[2017-12-09] MEDS: LACOSAMIDE 50 MG TABLET PO SCH (21:08)
[2017-12-09] MEDS: BUDESONIDE 0.5 MG/2 ML NEBU INHALATION SCH (21:32)
[2017-12-09] MEDS: ACETAMINOPHEN TAB 325 MG TAB PO PRN (22:42)
[2017-12-10 01:40] LABS: Cholesterol 180 mg/dL (<200); HDL Cholesterol 45 mg/dL (40-60); LDL Cholesterol,Calculated 109 mg/dL (0-99); Triglycerides 132 mg/dL (<150)
[2017-12-10] MEDS: BUDESONIDE 0.5 MG/2 ML NEBU INHALATION SCH ×2 (08:57→19:26)
[2017-12-10] MEDS: CYANOCOBALAMIN 500 MCG TAB PO SCH (08:58)
[2017-12-10] MEDS: CHOLECALCIFEROL 1,000 UNIT TAB PO SCH (08:58)
[2017-12-10] MEDS: LACOSAMIDE 50 MG TABLET PO SCH ×2 (08:59→20:51)
[2017-12-10] MEDS: lamoTRIgine 100 MG TAB PO SCH ×2 (08:59→20:52)
[2017-12-10] MEDS: IBUPROFEN 600 MG TAB PO PRN (08:59)
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
[2017-12-10] MEDS ORDERED: HALOPERIDOL DECANOATE 50 MG/ML 1 ML VIAL IM SCH (12:55)
[2017-12-10 14:09] LABS: Hemoglobin A1C 4.9 % (4.0-6.0)
[2017-12-10] MEDS: IBUPROFEN 400 MG TAB PO PRN (17:54)
[2017-12-10] MEDS: LORATADINE 10 MG TAB PO SCH (20:52)
[2017-12-10] MEDS: SULFAMETHOX-TMP 800-160MG 1 EACH TAB PO SCH (20:52)
[2017-12-11] MEDS: CHOLECALCIFEROL 1,000 UNIT TAB PO SCH (08:44)
[2017-12-11] MEDS: CYANOCOBALAMIN 500 MCG TAB PO SCH (08:44)
[2017-12-11] MEDS: LACOSAMIDE 50 MG TABLET PO SCH ×2 (08:45→21:12)
[2017-12-11] MEDS: SULFAMETHOX-TMP 800-160MG 1 EACH TAB PO SCH ×2 (08:45→21:13)
[2017-12-11] MEDS: lamoTRIgine 100 MG TAB PO SCH ×2 (08:45→21:13)
[2017-12-11] MEDS: BACITRACIN 500 UNIT/GM OINT 28.4 GM TUBE TOPICAL SCH (08:46)
[2017-12-11] MEDS: BUDESONIDE 0.5 MG/2 ML NEBU INHALATION SCH ×2 (08:52→20:40)
[2017-12-11] MEDS: MULTIVITAMINS, THERA 1 EACH TAB PO SCH (11:39)
[2017-12-11] MEDS: IBUPROFEN 400 MG TAB PO PRN ×2 (12:50→21:58)
--- NOTE | 2017-12-11 14:20 | P.PN ---
Subjective Progress Note Date: 12/11/17 Principal diagnosis: Autistic spectrum disorder, seizure disorder, ADHD, adjustment disorder with disturbance of mood and behavior I reviewed the medical record, interviewed the patient and discussed his treatment and treatment plan during team meeting. He was without complaint and his only concern is where he will live when his discharge. He alleged that he is not spoke with his guardian since he was admitted to the hospital. He denied feeling depressed or having thoughts of or suicide. He denied experiencing auditory or visual hallucinations. He denied feeling paranoid or frightened. We submitted the second Clinical Certificate and supporting material to probate court to proceed with involuntary hospitalization yesterday. Objective - Vital Signs Vital signs: Vital Signs Temp 97.9 F 12/11/17 05:56 Pulse 72 12/11/17 09:02 Resp 16 12/11/17 05:56 BP 136/60 12/11/17 05:56 Pulse Ox - Psychiatric Psychiatric Comment(s): He presented as a disheveled appearing young male with long disheveled hair. He made eye contact and appeared to attend to interview. He had a prominent overbite and a slow shuffling gait. He had a bright almost inappropriate facial expression. He was alert and oriented to person, place and time. He showed no abnormality of psychomotor activity and no abnormal movements. His speech was spontaneous with slight increase in rate and rhythm. His affect was bright, stable and appropriate. He denied suicidal ideation or wishes. He denied homicidal ideation. He denied feeling hopeless, helpless or worthless. He did not express ideas reference, paranoid ideation or delusional thoughts. His thinking was very concrete but his associations were coherent and goal directed. He denied hallucinations and did not appear to be responding to internal stimuli. Assessment and Plan (1) Adjustment disorder with mixed disturbance of emotions and conduct Current Visit: Yes Status: Acute Priority: Low Code(s): F43.25 - ADJUSTMENT DISORDER W MIXED DISTURB OF EMOTIONS AND CONDUCT SNOMED Code(s): 34064778 (2) ADHD (attention deficit hyperactivity disorder) Current Visit: No Status: Chronic Priority: Medium Code(s): F90.9 - ATTENTION-DEFICIT HYPERACTIVITY DISORDER, UNSPECIFIED TYPE SNOMED Code(s): 272613894 (3) Autism spectrum disorder Current Visit: No Status: Chronic Priority: High Code(s): F84.0 - AUTISTIC DISORDER SNOMED Code(s): 75221024 (4) Suicidal ideation Current Visit: No Status: Resolved Priority: Low Code(s): R45.851 - SUICIDAL IDEATIONS SNOMED Code(s): 3795833 Plan: Continue inpatient hospitalization pending the probate hearing for involuntary hospitalization. Continue Haldol Decanoate 50 mg IM every 2 weeks (last injection was 12/07/2017). The medication prescribed for the treatment of his ADHD, Strattera, is nonformulary. Encourage participation in therapeutic groups and activities. Evaluate clinical status response to treatment daily basis.
--- NOTE | 2017-12-11 20:00 | PN ---
PROGRESS NOTE DATE OF SERVICE: 12/11/2017. INTERVAL HISTORY: This 22-year-old gentleman who was admitted to the medical floor was subsequently transferred to psych floor. The patient also had cellulitis of the right foot, status post trauma. X-rays are normal. Currently the patient has some difficulty in walking and erythema appears to be spreading is some fluctuation with possible abscess also considered. Patient is on broad-spectrum antibiotics. No chest pain. No palpitations. No fever. PHYSICAL EXAM: GENERAL: Alert and oriented x3. VITAL SIGNS: Pulse 80, blood pressure 130/60, respirations 16, temperature 97.2, pulse ox normal. HEENT: Conjunctivae normal. Oral mucosa moist. NECK: No jugular venous distention. No carotid bruit. No lymph node enlargement. CARDIOVASCULAR: S1, S2. RESPIRATIONS: Breath sounds diminished in the bases. No rhonchi. No crackles. ABDOMEN: Soft. NERVOUS SYSTEM: No focal deficits. Examination of the foot: Erythema, tenderness and possible fluctuance, swelling also present. LABS: Noted. ASSESSMENT: 1. Cellulitis of the right foot with possible abscess, status post trauma. 2. Suicidal ideation. 3. History of recent seizure disorder with workup elsewhere. 4. Asthma. 5. Anxiety. 6. Obsessive-compulsive disorder history. 7. History of Asperger's. 8. History of bipolar. RECOMMENDATIONS AND DISCUSSION: Recommend to continue current medications, management and symptomatic treatment. Recommend to continue antibiotics. Recommend infectious disease evaluation. Continue the rest of medications. Further recommendations to follow. MMODL / IJN: [id number] /
[2017-12-11] MEDS: LORATADINE 10 MG TAB PO SCH (21:13)
[2017-12-12] MEDS: BACITRACIN 500 UNIT/GM OINT 28.4 GM TUBE TOPICAL SCH (08:32)
[2017-12-12] MEDS: MULTIVITAMINS, THERA 1 EACH TAB PO SCH (08:33)
[2017-12-12] MEDS: LACOSAMIDE 50 MG TABLET PO SCH ×2 (08:33→20:18)
[2017-12-12] MEDS: CYANOCOBALAMIN 500 MCG TAB PO SCH (08:33)
[2017-12-12] MEDS: lamoTRIgine 100 MG TAB PO SCH ×2 (08:33→20:15)
[2017-12-12] MEDS: SULFAMETHOX-TMP 800-160MG 1 EACH TAB PO SCH ×2 (08:33→20:15)
[2017-12-12] MEDS: CHOLECALCIFEROL 1,000 UNIT TAB PO SCH (08:33)
[2017-12-12] MEDS: BUDESONIDE 0.5 MG/2 ML NEBU INHALATION SCH ×2 (09:14→21:12)
--- NOTE | 2017-12-12 16:13 | CONS ---
CONSULTATION DATE OF SERVICE: 12/12/2017. REASON FOR CONSULTATION: Right foot wound and cellulitis. HISTORY OF PRESENT ILLNESS: The patient is a 22-year-old male with significant past psychiatric history of autistic spectrum disorder with auditory hallucination. The patient apparently did receive an eviction notice from his landlord. Afterwards the patient rode his bike to [facility], and the patient apparently was admitted to psych facility in [place]. Subsequently brought . The patient presented back to the [facility] ER with chief complaints of a suicidal ideation with an alien recommending him to jump off the [place]. The patient subsequently has been admitted to the psych floor for further management of the same. The patient apparently has developed a blister from his long ride from [place] to [place] riding his bike that apparently has to some superficial wound and surrounding swelling and redness for which infectious disease was consulted for further recommendations regarding antibiotic and local wound care. The patient complaining of some dull aching pain to the area about 5/10, though seemed telling me it has improved from when he has been admitted in the hospital. Overall swelling and redness is improved. Wound seemed to have closed, currently being treated with bacitracin cream and there is no drainage from it. The patient denies having any other active symptoms to me at this point and no wound on any other part of the body. REVIEW OF SYSTEMS: CONSTITUTIONAL: Positive for weakness. No fever. Eyes: No complaint. ENT: No complaint. Respiratory: Occasional cough. Cardiovascular no complaint. Genitourinary: No complaint. Gastrointestinal: No complaint. Musculoskeletal as per HPI. Integumentary as per HPI. Psychological as per HPI. Neurological: No complaint. PAST MEDICAL HISTORY: Significant for seizure disorder, anxiety, autism, ADHD, recovering alcoholic and asthma. PAST SURGICAL HISTORY: Carpal tunnel repair of left hand. SOCIAL HISTORY: Denies smoking, drinking or drug use. FAMILY HISTORY: No pertinent findings noticed. ALLERGIES: TO MULTIPLE MEDICATIONS INCLUDE SODIUM BICARBONATE, POTASSIUM CHLORIDE, POLYETHYLENE GLYCOL. MEDICATIONS: Medications include the patient is currently on: Tylenol, Maalox, Ventolin, Pulmicort, vitamin D3, vitamin B12, Motrin, Vimpat, Lamictal, Claritin, Ativan, Milk of magnesia, Bactrim DS 1 b.i.d. EXAMINATION: Blood pressure 121/57, pulse of 70, temperature 98. . General description is a young male up in the chair in no distress. HEENT examination: No pallor or scleral icterus. Oral mucosa membranes moist. No pharyngeal thrush. Neck: Trachea central. No thyromegaly. Lungs unlabored breathing. Clear to auscultation anteriorly. No wheeze or crackles. Heart S1, S2. Regular rate and rhythm. ABDOMEN: Soft, no tenderness. No guarding or rigidity. Extremities: No edema of the feet. Examination of the right foot on the dorsum aspect two small wounds which seems to have dried up. Some surrounding swelling. Minimal redness and no drainage was noticed. Neurologic: The patient is awake, alert, and oriented . Mood and affect seems to be normal. LABS: He did have a lipid panel that was normal. BUN and creatinine were normal on 12/07 when he presented to hospital. DIAGNOSTIC IMPRESSION AND PLAN: Patient with right foot wound cellulitis likely from his irritation from the shoes that he was wearing from his long bicycle ride from [place] to [place] and likely from a gram-positive skin checo such as Staph and Strep. PLAN: 1. Recommend a short course of oral Bactrim DS 1 b.i.d. for about a week. 2. Discontinue bacitracin the wound has dried up. 3. Check his basic metabolic panel in the next 2-3 days to make sure his creatinine remains to be normal. 4. RN has been advised if any worsening has been noted to notify me right away. Otherwise the patient will be seen in the next day or 2. Thank you for this consultation. MMODL / IJN: [id number] /
[2017-12-12] MEDS: IBUPROFEN 400 MG TAB PO PRN (17:47)
[2017-12-12] MEDS: LORATADINE 10 MG TAB PO SCH (20:15)
[2017-12-12] MEDS: ACETAMINOPHEN TAB 325 MG TAB PO PRN (20:19)
--- NOTE | 2017-12-12 21:20 | P.PN ---
Progress Note - Text Progress Note Date: 12/12/17 Patient was seen today. States he believes in paranormal activities and talks to aliens. He claims aliens told him to kill himself and he listens to them. Reports feeling suicidal some extent today out any active plan. He states he is a compulsive gambler. He also states he talks to heavenly father. He reports feeling dizzy and attributes it to being started on an antibiotic. He laughs inappropriately at times. Anger agitation or irritability reported. He states he needs help with the placement. He states he is homeless. 22-year-old male, appears his stated age, with marginal grooming and hygiene. He maintains good eye contact. No abnormal movements noted. Speech and thought processes are tangential. His mood is reported as good and affect labile. Reports auditory hallucinations. Denies visual hallucinations. He is delusional. He denies current active suicidal or homicidal intentions. He is alert and oriented 4. Continue Haldol Decanoate 50 mg IM every 2 weeks (last injection was 12/07/2017) . Monitor for symptoms.
[2017-12-13] MEDS: BUDESONIDE 0.5 MG/2 ML NEBU INHALATION SCH ×2 (08:14→20:45)
[2017-12-13] MEDS: LACOSAMIDE 50 MG TABLET PO SCH ×2 (09:13→20:05)
[2017-12-13] MEDS: MULTIVITAMINS, THERA 1 EACH TAB PO SCH (09:13)
[2017-12-13] MEDS: CYANOCOBALAMIN 500 MCG TAB PO SCH (09:13)
[2017-12-13] MEDS: SULFAMETHOX-TMP 800-160MG 1 EACH TAB PO SCH ×2 (09:13→20:05)
[2017-12-13] MEDS: lamoTRIgine 100 MG TAB PO SCH ×2 (09:13→20:05)
[2017-12-13] MEDS: CHOLECALCIFEROL 1,000 UNIT TAB PO SCH (09:13)
[2017-12-13] MEDS: IBUPROFEN 400 MG TAB PO PRN ×2 (09:14→17:26)
--- NOTE | 2017-12-13 19:38 | P.PN ---
Progress Note - Text Progress Note Date: 12/13/17 Patient was seen today. Thoughts being compliant with his medications. Side effects reported. rePorts feeling all right. He laughs inappropriately. He talks to aliens. He also reports talking to God who tells him to be strong. He reports good sleep and appetite. No anger, agitation or irritability reported. He reports fleeting suicidal thoughts. 22-year-old male, dressed in a hospital gown. His grooming and hygiene are marginal. He maintains good eye contact. No abnormal movements noted. Speech and thought processes are tangential. Mood is reported as all right affect appropriate. Reports auditory hallucinations. Denies visual hallucinations. Has bizarre delusions. He denies current suicidal or homicidal ideations. He is alert and oriented 4. Insight and judgment are limited. Continue Haldol Decanoate 50 mg IM every 2 weeks (last injection was 12/07/2017) . Monitor for symptoms. Encourage participation in [facility] and therapeutic groups Worker to coordinate discharge planning and placement.
[2017-12-13] MEDS: LORATADINE 10 MG TAB PO SCH (20:04)
[2017-12-13] MEDS: ALBUTEROL NEBULIZED 2.5 MG/3 ML INHALATION PRN (23:20)
[2017-12-14] MEDS: CYANOCOBALAMIN 500 MCG TAB PO SCH (08:47)
[2017-12-14] MEDS: lamoTRIgine 100 MG TAB PO SCH ×2 (08:47→20:42)
[2017-12-14] MEDS: CHOLECALCIFEROL 1,000 UNIT TAB PO SCH (08:47)
[2017-12-14] MEDS: IBUPROFEN 400 MG TAB PO PRN ×2 (08:48→17:00)
[2017-12-14] MEDS: LACOSAMIDE 50 MG TABLET PO SCH ×2 (08:48→20:42)
[2017-12-14] MEDS: SULFAMETHOX-TMP 800-160MG 1 EACH TAB PO SCH ×2 (08:48→20:42)
[2017-12-14] MEDS: BUDESONIDE 0.5 MG/2 ML NEBU INHALATION SCH ×2 (09:00→21:45)
[2017-12-14] MEDS: MULTIVITAMINS, THERA 1 EACH TAB PO SCH (10:52)
--- NOTE | 2017-12-14 12:41 | P.PN ---
Subjective Progress Note Date: 12/14/17 Principal diagnosis: Autistic spectrum disorder, seizure disorder, ADHD, adjustment disorder with disturbance of mood and behavior I reviewed the medical record, interviewed the patient and discussed his treatment and treatment plan during team meeting. He spoke with the psychiatrist on-call over the weekend and agreed to a trial of Wellbutrin for the treatment of ADHD symptoms. He complained that the Strattera was ineffective and he stopped taking "a while ago". He denied side effects to the initial doses of Wellbutrin. He denied problems or concerns about that and wishing to leave the hospital. He is not spoke with his guardian spoke with the liaison from [facility]. He would like to be discharge either to a [facility] or to the [facility]. Objective - Vital Signs Vital signs: Vital Signs Temp 97.7 F 12/13/17 06:23 Pulse 88 12/13/17 23:26 Resp 16 12/13/17 20:08 BP 132/77 12/13/17 20:08 Pulse Ox Intake & Output 12/13/17 12/14/17 12/14/17 18:59 06:59 18:59 Weight 89.9 kg - Psychiatric Psychiatric Comment(s): He presented as a tall young male with long disheveled hair and wearing a hospital gown. He is pleasant on approach, maintained eye contact and appeared to attend to the interview. He had a bright facial expression. He showed no abnormality of psychomotor activity. His gait was slow and slightly unsteady. His speech was spontaneous with increased rate, rhythm and volume. He had no articulation difficulties. His affect was elevated but appropriate. He denied suicidal ideation or wishes. He denied homicidal ideation. He denied depressive cognitions such as hopelessness, helplessness or worthlessness. He did not express ideas reference, paranoid ideation or delusional thoughts. His thinking was concrete but his associations were organized and goal directed. He denied hallucinations and did not appear to be responding to internal stimuli. Assessment and Plan (1) Adjustment disorder with mixed disturbance of emotions and conduct Current Visit: Yes Status: Acute Priority: Low Code(s): F43.25 - ADJUSTMENT DISORDER W MIXED DISTURB OF EMOTIONS AND CONDUCT SNOMED Code(s): 04263171 (2) ADHD (attention deficit hyperactivity disorder) Current Visit: No Status: Chronic Priority: Medium Code(s): F90.9 - ATTENTION-DEFICIT HYPERACTIVITY DISORDER, UNSPECIFIED TYPE SNOMED Code(s): 606854630 (3) Autism spectrum disorder Current Visit: No Status: Chronic Priority: High Code(s): F84.0 - AUTISTIC DISORDER SNOMED Code(s): 64538398 Plan: Continue inpatient hospitalization pending the probate hearing for involuntary hospitalization. We are waiting the hearing for involuntary hospitalization. Continue Haldol Decanoate 50 mg IM every 2 weeks (last injection was 12/07/2017) . Per patient's request discontinue outpatient prescription of Strattera and begin a trial of bupropion XL 150 mg daily for the treatment of ADHD symptoms. Social work to coordinate disposition aftercare with [facility] and the patient's guardian. Encourage participation in therapeutic groups and activities. Evaluate clinical status response to treatment daily basis.
[2017-12-14] MEDS: LORATADINE 10 MG TAB PO SCH (20:43)
[2017-12-15] MEDS: CYANOCOBALAMIN 500 MCG TAB PO SCH (08:00)
[2017-12-15] MEDS: LACOSAMIDE 50 MG TABLET PO SCH ×2 (08:03→20:49)
[2017-12-15] MEDS: buPROPion XL 150 MG TAB.ER.24H PO SCH (08:04)
[2017-12-15] MEDS: CHOLECALCIFEROL 1,000 UNIT TAB PO SCH (08:04)
[2017-12-15] MEDS: lamoTRIgine 100 MG TAB PO SCH ×2 (08:04→20:49)
[2017-12-15] MEDS: BUDESONIDE 0.5 MG/2 ML NEBU INHALATION SCH ×2 (08:41→20:19)
--- NOTE | 2017-12-15 12:53 | P.PN ---
Subjective Progress Note Date: 12/15/17 Principal diagnosis: Autistic spectrum disorder, seizure disorder, ADHD, adjustment disorder with disturbance of mood and behavior I reviewed the medical record, interviewed the patient and discussed his treatment and treatment plan during team meeting. He stated he prefers Wellbutrin over Strattera alleging that he feels as though he is able concentrate better with the Wellbutrin. He requested to continue the medication after discharge. He denied problems or concerns other than wishing to be discharged. He denied that he is "hearing the voices of aliens". Select are He understood that we could not discharge him until after at these different men hearing and he has a residence. He again stated that he would like to be discharge either to a [facility] or to the [facility]. Objective - Vital Signs Vital signs: Vital Signs Temp 97.8 F 12/15/17 06:31 Pulse 73 12/15/17 06:31 Resp 14 12/15/17 06:31 BP 124/62 12/15/17 06:31 Pulse Ox - Additional findings Additional findings: He presented as a tall young male with long disheveled hair and wearing a hospital gown. He is pleasant on approach, maintained eye contact and appeared to attend to the interview. He had a bright facial expression. He showed no abnormality of psychomotor activity. His gait was slow and slightly unsteady. His speech was spontaneous with increased rate, rhythm and volume. He had no articulation difficulties. His affect was elevated but appropriate. He denied suicidal ideation or wishes. He denied homicidal ideation. He denied depressive cognitions such as hopelessness, helplessness or worthlessness. He did not express ideas reference, paranoid ideation or delusional thoughts. His thinking was concrete but his associations were organized and goal directed. He alleged that he hears "the voice of the Lord" but he did not appear to be responding to internal stimuli. Assessment and Plan (1) Adjustment disorder with mixed disturbance of emotions and conduct Current Visit: Yes Status: Acute Priority: Low Code(s): F43.25 - ADJUSTMENT DISORDER W MIXED DISTURB OF EMOTIONS AND CONDUCT SNOMED Code(s): 46267870 (2) ADHD (attention deficit hyperactivity disorder) Current Visit: No Status: Chronic Priority: Medium Code(s): F90.9 - ATTENTION-DEFICIT HYPERACTIVITY DISORDER, UNSPECIFIED TYPE SNOMED Code(s): 878093767 (3) Autism spectrum disorder Current Visit: No Status: Chronic Priority: High Code(s): F84.0 - AUTISTIC DISORDER SNOMED Code(s): 22528941 Plan: Continue inpatient hospitalization pending the probate hearing for involuntary hospitalization. Continue Haldol Decanoate 50 mg IM every 2 weeks (last injection was 12/07/2017). Continue Wellbutrin XL 150 mg daily for the treatment of ADHD symptoms. Social work to coordinate disposition aftercare with [facility] and the patient's guardian. Encourage participation in therapeutic groups and activities. Evaluate clinical status response to treatment daily basis.
[2017-12-15] MEDS: MULTIVITAMINS, THERA 1 EACH TAB PO SCH (13:18)
--- NOTE | 2017-12-15 19:31 | PN ---
PROGRESS NOTE DATE OF SERVICE: 12/15/2017. REASON FOR FOLLOWUP: Right foot wound cellulitis. INTERVAL HISTORY: The patient is afebrile. The patient's overall right foot swelling and redness has improved. The patient is able to put on his shoes and walk on it. No chest pain, shortness of breath or cough. No abdominal pain. EXAMINATION: Blood pressure 134/62 with a pulse of 73, temperature 97.8. He is currently on room air. General description is a young male up in the room in no distress. RESPIRATORY SYSTEM: Unlabored breathing. Clear to auscultation anteriorly. HEART: S1, S2. Regular rate and rhythm. ABDOMEN: Soft. No tenderness. Right foot swelling and redness has almost resolved. DIAGNOSTIC IMPRESSION AND PLAN: Patient with right foot wound with secondary cellulitis. The patient did have overall improvement and resolution of the cellulitis. Antibiotic has been safely discontinued. No need for further antibiotic on discharge. Continue supportive care. MMODL / IJN: [id number] /
[2017-12-15] MEDS: LORATADINE 10 MG TAB PO SCH (20:50)
[2017-12-16] MEDS: LACOSAMIDE 50 MG TABLET PO SCH ×2 (08:00→20:53)
[2017-12-16] MEDS: CYANOCOBALAMIN 500 MCG TAB PO SCH (08:00)
[2017-12-16] MEDS: buPROPion XL 150 MG TAB.ER.24H PO SCH (08:00)
[2017-12-16] MEDS: CHOLECALCIFEROL 1,000 UNIT TAB PO SCH (08:00)
[2017-12-16] MEDS: lamoTRIgine 100 MG TAB PO SCH ×2 (08:00→20:53)
[2017-12-16] MEDS: BUDESONIDE 0.5 MG/2 ML NEBU INHALATION SCH ×2 (08:55→20:38)
[2017-12-16] MEDS: MULTIVITAMINS, THERA 1 EACH TAB PO SCH (12:35)
[2017-12-16] MEDS: IBUPROFEN 400 MG TAB PO PRN ×2 (12:36→21:07)
--- NOTE | 2017-12-16 13:38 | P.PN ---
Subjective Progress Note Date: 12/16/17 Principal diagnosis: Autistic spectrum disorder, seizure disorder, ADHD, adjustment disorder with disturbance of mood and behavior I reviewed the medical record, interviewed the patient and discussed his treatment and treatment plan during team meeting. He deferred the probate hearing after meeting with his prosecuting attorney this morning. He asked me to discontinue the prescription for Claritin because it makes him feel "high". He stated that he does not want subjective experience because he is afraid that he may want to him to "use drugs again". He inquired about discharge and I explained that his guardian wants him placed in a long-term. The high school social studies tutor is involved and informed the treatment team that no beds are available at this time. She will call on a daily basis until she was able to secure a bed. He denied that he is "hearing the voices of aliens". Objective - Vital Signs Vital signs: Vital Signs Temp 98.2 F 12/16/17 00:04 Pulse 80 12/16/17 09:04 Resp 16 12/16/17 00:04 BP 128/74 12/16/17 00:04 Pulse Ox - Psychiatric Psychiatric Comment(s): He presented as a tall young male with long disheveled hair and wearing a hospital gown. He is pleasant on approach, maintained eye contact and appeared to attend to the interview. He had a bright facial expression. He showed no abnormality of psychomotor activity. His gait was slow and slightly unsteady. His speech was spontaneous with increased rate, rhythm and volume. He had no articulation difficulties. His affect was elevated but appropriate. He denied suicidal ideation or wishes. He denied homicidal ideation. He denied depressive cognitions such as hopelessness, helplessness or worthlessness. He did not express ideas reference, paranoid ideation or delusional thoughts. His thinking was concrete but his associations were organized and goal directed. He denied current auditory hallucinations and did not appear to be responding to internal stimuli. Assessment and Plan Assessment: He appears moderately mentally ill and much improved from admission. (1) Adjustment disorder with mixed disturbance of emotions and conduct Current Visit: Yes Status: Acute Priority: Low Code(s): F43.25 - ADJUSTMENT DISORDER W MIXED DISTURB OF EMOTIONS AND CONDUCT SNOMED Code(s): 64196522 (2) ADHD (attention deficit hyperactivity disorder) Current Visit: No Status: Chronic Priority: Medium Code(s): F90.9 - ATTENTION-DEFICIT HYPERACTIVITY DISORDER, UNSPECIFIED TYPE SNOMED Code(s): 383995873 (3) Autism spectrum disorder Current Visit: No Status: Chronic Priority: High Code(s): F84.0 - AUTISTIC DISORDER SNOMED Code(s): 69705616 Plan: Continue inpatient hospitalization until we are able to find an adult foster half-way and community. Discontinue Claritin 10 mg daily. Continue Haldol Decanoate 50 mg IM every 2 weeks (last injection was 12/07/2017). Continue Wellbutrin XL 150 mg daily for the treatment of ADHD symptoms. He will receive mental health aftercare through [facility]. Encourage participation in therapeutic groups and activities. Evaluate clinical status response to treatment daily basis.
[2017-12-17] MEDS: BUDESONIDE 0.5 MG/2 ML NEBU INHALATION SCH ×2 (08:02→21:59)
[2017-12-17] MEDS: LACOSAMIDE 50 MG TABLET PO SCH ×2 (09:00→21:03)
[2017-12-17] MEDS: CYANOCOBALAMIN 500 MCG TAB PO SCH (09:00)
[2017-12-17] MEDS: MULTIVITAMINS, THERA 1 EACH TAB PO SCH (09:01)
[2017-12-17] MEDS: buPROPion XL 150 MG TAB.ER.24H PO SCH (09:01)
[2017-12-17] MEDS: CHOLECALCIFEROL 1,000 UNIT TAB PO SCH (09:01)
[2017-12-17] MEDS: lamoTRIgine 100 MG TAB PO SCH ×2 (09:01→21:03)
[2017-12-18] MEDS: LACOSAMIDE 50 MG TABLET PO SCH ×2 (09:02→20:36)
[2017-12-18] MEDS: lamoTRIgine 100 MG TAB PO SCH ×2 (09:02→20:37)
[2017-12-18] MEDS: CYANOCOBALAMIN 500 MCG TAB PO SCH (09:02)
[2017-12-18] MEDS: buPROPion XL 150 MG TAB.ER.24H PO SCH (09:02)
[2017-12-18] MEDS: CHOLECALCIFEROL 1,000 UNIT TAB PO SCH (09:02)
[2017-12-18] MEDS: BUDESONIDE 0.5 MG/2 ML NEBU INHALATION SCH ×2 (10:41→20:24)
--- NOTE | 2017-12-18 10:43 | P.PN ---
Subjective Progress Note Date: 12/18/17 Principal diagnosis: Autistic spectrum disorder, seizure disorder, ADHD, adjustment disorder with disturbance of mood and behavior I reviewed the medical record, interviewed the patient and discussed his treatment and treatment plan during team meeting. He talked about having been the same high school class is a female patient who was recently admitted to the hospital. He alleged that they are engaged to be but wishes the engagement and marriage to keep he kept a secret. (The other patient is in her mid 30s and did not have been in the same classroom.) He alleges that he wears a women's stress because he is "bisexual. ... You know like I feel like a woman inside." He alleges that he wears female clothing in the community. He is anxious about discharge and again inquired about the status of nursing home availability. He denied that he is "hearing the voices of aliens". He denied side effects to his current medications. Objective - Vital Signs Vital signs: Vital Signs Temp 98.2 F 12/18/17 06:46 Pulse 77 12/18/17 06:46 Resp 16 12/18/17 06:46 BP 129/65 12/18/17 06:46 Pulse Ox - Psychiatric Psychiatric Comment(s): He presented as a slightly disheveled appearing young male with poor dentition. He was wearing a women's dress under a hospital gown. He made eye contact and appeared to attend to the interview. He had a bright facial expression. He was alert and oriented to person, place and time. He showed no abnormality of psychomotor activity; he is not restless, agitated or displayed abnormal movements. His speech was spontaneous with slightly increased rate but normal rhythm and volume. His affect was elevated but appropriate. He denied suicidal ideation or wishes. He denied homicidal ideation. He denied feeling hopeless, helpless or worthless. He did not express ideas of reference or paranoid ideation. He expressed a false and unfounded belief as described above. His thinking was concrete but his associations appeared organized. He denied current auditory, visual or olfactory hallucinations and did not appear to be responding to internal stimuli. Assessment and Plan Assessment: He appears moderately mentally ill and much improved from admission. (1) Adjustment disorder with mixed disturbance of emotions and conduct Current Visit: Yes Status: Acute Priority: Low Code(s): F43.25 - ADJUSTMENT DISORDER W MIXED DISTURB OF EMOTIONS AND CONDUCT SNOMED Code(s): 63067380 (2) ADHD (attention deficit hyperactivity disorder) Current Visit: No Status: Chronic Priority: Medium Code(s): F90.9 - ATTENTION-DEFICIT HYPERACTIVITY DISORDER, UNSPECIFIED TYPE SNOMED Code(s): 501992504 (3) Autism spectrum disorder Current Visit: No Status: Chronic Priority: High Code(s): F84.0 - AUTISTIC DISORDER SNOMED Code(s): 14131572 Plan: Continue inpatient hospitalization until [facility] secures an adult foster long-term. Continue Haldol Decanoate 50 mg IM every 2 weeks (last injection was 12/07/2017). Continue Wellbutrin XL 150 mg daily for the treatment of ADHD symptoms. Continue Lamictal 200 mg by mouth twice a day and Vimpat 200 mg by mouth twice a day for the treatment of seizure disorder. He will receive mental health aftercare through [facility]. Encourage participation in therapeutic groups and activities. Evaluate clinical status response to treatment daily basis.
[2017-12-18] MEDS: MULTIVITAMINS, THERA 1 EACH TAB PO SCH (11:59)
[2017-12-18] MEDS: IBUPROFEN 400 MG TAB PO PRN ×2 (21:31→21:34)
[2017-12-19] MEDS: lamoTRIgine 100 MG TAB PO SCH ×2 (08:32→20:04)
[2017-12-19] MEDS: CHOLECALCIFEROL 1,000 UNIT TAB PO SCH (08:32)
[2017-12-19] MEDS: LACOSAMIDE 50 MG TABLET PO SCH ×2 (08:32→20:04)
[2017-12-19] MEDS: CYANOCOBALAMIN 500 MCG TAB PO SCH (08:32)
[2017-12-19] MEDS: buPROPion XL 150 MG TAB.ER.24H PO SCH (08:32)
[2017-12-19] MEDS: MULTIVITAMINS, THERA 1 EACH TAB PO SCH (11:16)
[2017-12-19] MEDS: BUDESONIDE 0.5 MG/2 ML NEBU INHALATION SCH ×2 (11:21→21:05)
--- NOTE | 2017-12-19 18:56 | PN ---
PROGRESS NOTE DATE OF SERVICE: 12/19/2017 CHIEF COMPLAINT: The patient was admitted for auditory hallucinations with command hallucinations and suicide thoughts. INTERVAL HISTORY: Patient has been doing fairly well. He had a quiet evening last night. He slept well. Today he has been up. He comes out in the day area. He interacts with others. He has been attending groups. He tends to present with a bright manner. Sometimes his thoughts are a little disorganized. He can have concrete thoughts at times. He seems a little regressive in his manner. He tends to be somewhat restless and a little overactive. He reports no problems with his medications. We were able to review discharge planning issues. He anticipates going into an adult foster facility in the area soon. He has not had change in his general health. He tolerates his psychotropic medications. MENTAL STATUS: Patient was restless. He had an intense manner. He smiled. He was spontaneous and some of the time his thoughts seem to ramble and be disconnected from the subject at hand. On the other hand, he did respond to questions appropriately. ASSESSMENT: We will continue his current psychotropic medications. He has received a dose of Haldol Decanoate 50 mg IM. He is also on Wellbutrin 150 mg a day and Lamictal 200 mg twice a day. In addition, he is on Vimpat 200 mg twice a day. We will continue to focus on stabilization and discharge planning. AGNIESZKA / YULIYA: [id number] / MTDSolis
[2017-12-20] MEDS: CYANOCOBALAMIN 500 MCG TAB PO SCH (08:51)
[2017-12-20] MEDS: buPROPion XL 150 MG TAB.ER.24H PO SCH (08:51)
[2017-12-20] MEDS: LACOSAMIDE 50 MG TABLET PO SCH ×2 (08:51→20:04)
[2017-12-20] MEDS: CHOLECALCIFEROL 1,000 UNIT TAB PO SCH (08:51)
[2017-12-20] MEDS: lamoTRIgine 100 MG TAB PO SCH ×2 (08:51→20:04)
[2017-12-20] MEDS: BUDESONIDE 0.5 MG/2 ML NEBU INHALATION SCH (09:30)
[2017-12-20] MEDS: MULTIVITAMINS, THERA 1 EACH TAB PO SCH (11:38)
--- NOTE | 2017-12-20 14:52 | PN ---
PROGRESS NOTE DATE OF SERVICE: 12/20/2017. CHIEF COMPLAINT: The patient was admitted for auditory hallucinations with command hallucinations and suicide thoughts. INTERVAL HISTORY: Patient has been doing fairly well. He had a quiet evening last night. He slept well. Today he has been up. He wanders about the unit. He interacts with others. He seems to have a good energy. He attends groups. His thinking tends to be concrete. He does participate. His mood has been even if not somewhat upbeat. He understands the plan of discharge to a foster home. He says that there are administrative issues needed to be addressed as part of the discharge plans, though he is hopeful to be discharged soon. He has not had change in his general health. He tolerates his psychotropic medications. MENTAL STATUS: Patient gave good eye contact. He was somewhat restless. He smiled throughout the interview. He made some tangential comments. His mood was positive. He was not distressed at all. ASSESSMENT: I will continue the current diagnosis and treatment plan. We will continue psychotropic medications the same. The patient is doing well. I anticipate discharge early in the week. MMTAPANL / YULIYA: [id number] /
[2017-12-21] MEDS: BUDESONIDE 0.5 MG/2 ML NEBU INHALATION SCH ×3 (00:19→20:00)
[2017-12-21 06:37] VITALS: RESP 16
[2017-12-21] MEDS: LACOSAMIDE 50 MG TABLET PO SCH ×2 (08:31→20:56)
[2017-12-21] MEDS: CHOLECALCIFEROL 1,000 UNIT TAB PO SCH (08:32)
[2017-12-21] MEDS: MULTIVITAMINS, THERA 1 EACH TAB PO SCH (08:32)
[2017-12-21] MEDS: CYANOCOBALAMIN 500 MCG TAB PO SCH (08:32)
[2017-12-21] MEDS: lamoTRIgine 100 MG TAB PO SCH ×2 (08:32→20:56)
[2017-12-21] MEDS: buPROPion XL 150 MG TAB.ER.24H PO SCH (08:32)
[2017-12-21] MEDS: IBUPROFEN 400 MG TAB PO PRN ×2 (08:33→21:05)
[2017-12-21] MEDS ORDERED: HALOPERIDOL DECANOATE 50 MG/ML 1 ML VIAL IM SCH ×2 (09:00→12:00)
[2017-12-21] MEDS: ALBUTEROL NEBULIZED 2.5 MG/3 ML INHALATION PRN (09:03)
--- NOTE | 2017-12-21 11:21 | P.PN ---
Subjective Progress Note Date: 12/21/17 Principal diagnosis: Autistic spectrum disorder, seizure disorder, ADHD, adjustment disorder with disturbance of mood and behavior I reviewed the medical record, interviewed the patient and discussed his treatment and treatment plan during team meeting. He was animated and alleged that [facility] told them they found a retirement. He asked if we could "Skip" his family meeting because he does not wish us to contact his girlfriend. He alleged that she has a history of a substance use problem and a family meeting might trigger a relapse. He denied that he is "hearing the voices of aliens". He denied side effects to his current medications. According to the social sciences research scientist, [facility] has not identified a retirement. Objective - Vital Signs Vital signs: Vital Signs Temp 98.4 F 12/21/17 06:29 Pulse 72 12/21/17 09:12 Resp 16 12/21/17 06:29 BP 123/69 12/21/17 06:29 Pulse Ox Intake & Output 12/20/17 12/21/17 12/21/17 18:59 06:59 18:59 Weight 85 kg - Psychiatric Psychiatric Comment(s): He presented as a casually groomed young male who was wearing men's clothing. Early in the day he was wearing a women's stress and had his hair in pigtails. He made eye contact and appeared to attend to the interview. He had a bright almost inappropriate facial expression. He was alert and oriented to person, place and time. He showed no abnormality of psychomotor activity; he is not restless, agitated or displayed abnormal movements. His speech was spontaneous with slightly increased rate but normal rhythm and volume. His affect was elevated but appropriate. He denied suicidal ideation or wishes. He denied homicidal ideation. He denied feeling hopeless, helpless or worthless. He did not express ideas of reference or paranoid ideation. He expressed a false and unfounded belief as described above. His thinking was concrete but his associations appeared organized. He denied current auditory, visual or olfactory hallucinations and did not appear to be responding to internal stimuli. Assessment and Plan Assessment: He appears moderately mentally ill and much improved from admission. (1) Adjustment disorder with mixed disturbance of emotions and conduct Current Visit: Yes Status: Resolved Priority: Low Code(s): F43.25 - ADJUSTMENT DISORDER W MIXED DISTURB OF EMOTIONS AND CONDUCT SNOMED Code(s): 62789396 (2) ADHD (attention deficit hyperactivity disorder) Current Visit: No Status: Chronic Priority: Medium Code(s): F90.9 - ATTENTION-DEFICIT HYPERACTIVITY DISORDER, UNSPECIFIED TYPE SNOMED Code(s): 799980056 (3) Autism spectrum disorder Current Visit: No Status: Chronic Priority: High Code(s): F84.0 - AUTISTIC DISORDER SNOMED Code(s): 31834446 Plan: Continue inpatient hospitalization until [facility] secures an adult foster usp. Haldol Decanoate 50 mg IM today since his last injection was 12/07/2017. Continue Wellbutrin XL 150 mg daily for the treatment of ADHD symptoms. Continue Lamictal 200 mg by mouth twice a day and Vimpat 200 mg by mouth twice a day for the treatment of seizure disorder. He will receive mental health aftercare through [facility]. Encourage participation in therapeutic groups and activities. Evaluate clinical status response to treatment daily basis.
[2017-12-21 14:53] VITALS: BMI 25.4
[2017-12-22] MEDS: BUDESONIDE 0.5 MG/2 ML NEBU INHALATION SCH ×2 (09:09→21:06)
[2017-12-22] MEDS: IBUPROFEN 400 MG TAB PO PRN (09:20)
[2017-12-22] MEDS: LACOSAMIDE 50 MG TABLET PO SCH ×2 (09:20→21:00)
[2017-12-22] MEDS: buPROPion XL 150 MG TAB.ER.24H PO SCH (09:20)
[2017-12-22] MEDS: CYANOCOBALAMIN 500 MCG TAB PO SCH (09:20)
[2017-12-22] MEDS: CHOLECALCIFEROL 1,000 UNIT TAB PO SCH (09:20)
[2017-12-22] MEDS: lamoTRIgine 100 MG TAB PO SCH ×2 (09:20→21:00)
[2017-12-22] MEDS: MULTIVITAMINS, THERA 1 EACH TAB PO SCH (12:20)
--- NOTE | 2017-12-22 14:05 | P.PN ---
Subjective Progress Note Date: 12/22/17 Principal diagnosis: Autistic spectrum disorder, seizure disorder, ADHD, adjustment disorder with disturbance of mood and behavior I reviewed the medical record, interviewed the patient and discussed his treatment and treatment plan during team meeting. He is anxious about discharge and is impatient to find a senior care. He requested to stop receiving injections of Haldol Decanoate and requested that I discontinued the prescription for Ativan as the injections and the Ativan remind him when he was abusing drugs. I agreed to discontinue the Ativan but told him I could not discontinue the Haldol Decanoate without the approval of [facility]. He denied that he is "hearing the voices of aliens". He denied side effects to his current medications. According to the healthcare social worker, [facility] has not identified a senior care. Objective - Vital Signs Vital signs: Vital Signs Temp 97.6 F 12/22/17 06:08 Pulse 85 12/22/17 06:08 Resp 16 12/22/17 06:08 BP 119/69 12/22/17 06:08 Pulse Ox Intake & Output 12/21/17 12/22/17 12/22/17 18:59 06:59 18:59 Weight 85 kg - Psychiatric Psychiatric Comment(s): He presented as a casually groomed young male who was wearing men's clothing. He made eye contact and appeared to attend to the interview. He had a bright facial expression. He was alert and oriented to person, place and time. He showed no abnormality of psychomotor activity; he is not restless, agitated or displayed abnormal movements. His speech was spontaneous with normal rate, rhythm and volume. His affect was elevated but appropriate. He denied suicidal ideation or wishes. He denied homicidal ideation. He denied feeling hopeless, helpless or worthless. He did not express ideas of reference or paranoid ideation. He expressed a false and unfounded belief as described above. His thinking was concrete but his associations appeared organized. He denied current auditory, visual or olfactory hallucinations and did not appear to be responding to internal stimuli. Assessment and Plan Assessment: He appears mildly to moderately mentally ill and much improved from admission. (1) Adjustment disorder with mixed disturbance of emotions and conduct Current Visit: Yes Status: Resolved Priority: Low Code(s): F43.25 - ADJUSTMENT DISORDER W MIXED DISTURB OF EMOTIONS AND CONDUCT SNOMED Code(s): 93928805 (2) ADHD (attention deficit hyperactivity disorder) Current Visit: No Status: Chronic Priority: Medium Code(s): F90.9 - ATTENTION-DEFICIT HYPERACTIVITY DISORDER, UNSPECIFIED TYPE SNOMED Code(s): 467604169 (3) Autism spectrum disorder Current Visit: No Status: Chronic Priority: High Code(s): F84.0 - AUTISTIC DISORDER SNOMED Code(s): 72805703 Plan: Continue inpatient hospitalization until [facility] secures an adult foster long-term. Continue Haldol Decanoate 50 mg IM today since his last injection was 12/21/2017. Continue Wellbutrin XL 150 mg daily for the treatment of ADHD symptoms. Per patient's request, discontinue Ativan 1 mg 3 times a day when necessary. Continue Lamictal 200 mg by mouth twice a day and Vimpat 200 mg by mouth twice a day for the treatment of seizure disorder. He will receive mental health aftercare through [facility]. Encourage participation in therapeutic groups and activities. Evaluate clinical status response to treatment daily basis.
[2017-12-23] MEDS: BUDESONIDE 0.5 MG/2 ML NEBU INHALATION SCH ×2 (07:13→20:48)
[2017-12-23] MEDS: LACOSAMIDE 50 MG TABLET PO SCH ×2 (09:16→20:58)
[2017-12-23] MEDS: CYANOCOBALAMIN 500 MCG TAB PO SCH (09:16)
[2017-12-23] MEDS: CHOLECALCIFEROL 1,000 UNIT TAB PO SCH (09:16)
[2017-12-23] MEDS: lamoTRIgine 100 MG TAB PO SCH ×2 (09:17→20:58)
[2017-12-23] MEDS: buPROPion XL 150 MG TAB.ER.24H PO SCH (09:17)
[2017-12-23] MEDS: MULTIVITAMINS, THERA 1 EACH TAB PO SCH (12:14)
--- NOTE | 2017-12-23 14:41 | P.PN ---
Subjective Progress Note Date: 12/23/17 Principal diagnosis: Autistic spectrum disorder, seizure disorder, ADHD, adjustment disorder with disturbance of mood and behavior I reviewed the medical record, interviewed the patient and discussed his treatment and treatment plan during team meeting. He was excited to learn that his guardian had agreed to the plan to discharge him to a motel with the support of the Mobile Crisis Team from [facility]. He denied problems or concerns. He denied that he is "hearing the voices of aliens". He denied side effects to his current medications. He is posed no management problem and required no emergency medication for behavioral dyscontrol. He attends most therapeutic groups and activities. Objective - Vital Signs Vital signs: Vital Signs Temp 97.8 F 12/23/17 06:35 Pulse 81 12/23/17 06:35 Resp 16 12/23/17 06:35 BP 121/60 12/23/17 06:35 Pulse Ox - Psychiatric Psychiatric Comment(s): He presented as a casually groomed young male who was wearing a woman' s dress He made eye contact and appeared to attend to the interview. He had a bright almost elated facial expression. He was alert and oriented to person, place and time. He showed no abnormality of psychomotor activity; he is not restless, agitated or displayed abnormal movements. His speech was loud and spontaneous. His affect was elevated but appropriate. He denied suicidal ideation or wishes. He denied homicidal ideation. He denied feeling hopeless, helpless or worthless. He did not express ideas of reference or paranoid ideation. His thinking was concrete but his associations appeared organized. He denied current auditory, visual or olfactory hallucinations and did not appear to be responding to internal stimuli. Assessment and Plan Assessment: He appears mildly to minimally ill and much improved from admission. (1) Adjustment disorder with mixed disturbance of emotions and conduct Current Visit: Yes Status: Resolved Priority: Low Code(s): F43.25 - ADJUSTMENT DISORDER W MIXED DISTURB OF EMOTIONS AND CONDUCT SNOMED Code(s): 70414090 (2) ADHD (attention deficit hyperactivity disorder) Current Visit: No Status: Chronic Priority: Medium Code(s): F90.9 - ATTENTION-DEFICIT HYPERACTIVITY DISORDER, UNSPECIFIED TYPE SNOMED Code(s): 141612401 (3) Autism spectrum disorder Current Visit: No Status: Chronic Priority: High Code(s): F84.0 - AUTISTIC DISORDER SNOMED Code(s): 01823094 Plan: Discharge him once the discharge plan described above is finalized. Continue Haldol Decanoate 50 mg IM today since his last injection was 12/21/2017. Continue Wellbutrin XL 150 mg daily for the treatment of ADHD symptoms. Continue Lamictal 200 mg by mouth twice a day and Vimpat 200 mg by mouth twice a day for the treatment of seizure disorder. He will receive mental health aftercare through [facility]. Encourage participation in therapeutic groups and activities. Evaluate clinical status response to treatment daily basis.
[2017-12-24 07:10] VITALS: BP 105/51; PULSE 65; TEMP 97.6
[2017-12-24] MEDS: BUDESONIDE 0.5 MG/2 ML NEBU INHALATION SCH (08:09)
[2017-12-24] MEDS: CHOLECALCIFEROL 1,000 UNIT TAB PO SCH (09:42)
[2017-12-24] MEDS: buPROPion XL 150 MG TAB.ER.24H PO SCH (09:42)
[2017-12-24] MEDS: lamoTRIgine 100 MG TAB PO SCH (09:43)
[2017-12-24] MEDS: CYANOCOBALAMIN 500 MCG TAB PO SCH (09:43)
[2017-12-24] MEDS: LACOSAMIDE 50 MG TABLET PO SCH (09:43)
[2017-12-24] MEDS: MULTIVITAMINS, THERA 1 EACH TAB PO SCH (12:34)
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
[2017-12-24] MEDS: IBUPROFEN 400 MG TAB PO PRN (14:23)
== END 2017-12-24 14:28 | disposition home or self-care (01) | DRG 882 ==
LOC: 3MHU 12-09 12:02
PROVIDERS: ADMIT Psychiatry & Neurology Psychiatry; ATTEND Psychiatry & Neurology Psychiatry
DX: F43.25 Adjustment disorder with mixed disturbance of emotions and conduct (principal); L03.115 Cellulitis of right lower limb; R45.851 Suicidal ideations; F10.21 Alcohol dependence, in remission; F20.9 Schizophrenia, unspecified; F32.9 Major depressive disorder, single episode, unspecified; F41.9 Anxiety disorder, unspecified; F42.9 Obsessive-compulsive disorder, unspecified; F79 Unspecified intellectual disabilities; F84.5 Asperger's syndrome; F90.9 Attention-deficit hyperactivity disorder, unspecified type; G40.909 Epilepsy, unspecified, not intractable, without status epilepticus; J45.909 Unspecified asthma, uncomplicated; Z59.0 Homelessness; Z62.810 Personal history of physical and sexual abuse in childhood; Z79.899 Other long term (current) drug therapy; Z91.83 Wandering in diseases classified elsewhere
CPT/HCPCS: 80061; 83036; 94640

== ENCOUNTER 2018-01-04 01:27 | Emergency (ER) | payer MEDICARE ==
[2018-01-04 01:35] VITALS: BP 120/74; PULSE 80; RESP 18; TEMP 98.7
--- NOTE | 2018-01-04 01:48 | ED ---
General Adult HPI - General Chief complaint: Recheck/Abnormal Lab/Rx Stated complaint: High Blood Pressure Time Seen by Provider: 01/04/18 01:36 Source: patient, RN notes reviewed Mode of arrival: ambulatory Limitations: no limitations - History of Present Illness Initial comments: This a 22-year-old male presents emergency Department with complaints of elevated blood pressure. Patient states that he went to the pharmacy and checked his blood pressure is 120/81 and states that it read high and was told to seek medical attention. Patient has no specific complaints. Denies chest pain, shortness breath, headache, dizziness, nausea, vomiting, diarrhea constipation. - Related Data Home Medications Medication Instructions Recorded Confirmed Cholecalciferol [Vitamin D3] 5,000 unit PO DAILY 02/01/17 12/09/17 Cyanocobalamin (Vitamin B-12) 1,000 mcg PO DAILY 02/01/17 12/09/17 [Vitamin B-12] Loratadine [Claritin] 10 mg PO HS 02/01/17 12/09/17 Albuterol Sulfate [Proair 1 puff PO RT-Q4H PRN 04/07/17 12/09/17 Respiclick] Budesonide [Pulmicort Flexhaler] 1 puff INHALATION RT-BID 04/07/17 12/09/17 Lacosamide [Vimpat] 200 mg PO BID 05/15/17 12/09/17 Previous Rx's Medication Instructions Recorded Haloperidol Decanoate [Haldol D] 50 mg IM Q14D #1 vial 10/31/16 Ibuprofen [Motrin] 600 mg PO Q8HR PRN #20 tab 12/27/16 lamoTRIgine [Lamictal] 200 mg PO BID #28 tablet 12/27/16 Acetaminophen Tab [Tylenol] 500 mg PO Q6HR PRN tab 12/08/17 buPROPion XL [Wellbutrin XL] 150 mg PO DAILY #30 tab.er.24h 12/24/17 Allergies Allergy/AdvReac Type Severity Reaction Status Date / Time Mushroom AdvReac Nausea & Verified 01/04/18 01:35 Vomiting polyethylene glycol AdvReac Nausea & Verified 01/04/18 01:35 [From Golytely] Vomiting polyethylene glycol 3350 AdvReac Nausea & Verified 01/04/18 01:35 [From Golytely] Vomiting potassium chloride AdvReac Nausea & Verified 01/04/18 01:35 [From Golytely] Vomiting sodium [From Golytely] AdvReac Nausea & Verified 01/04/18 01:35 Vomiting sodium bicarbonate AdvReac Nausea & Verified 01/04/18 01:35 [From Golytely] Vomiting sodium chloride AdvReac Nausea & Verified 01/04/18 01:35 [From Golytely] Vomiting sodium sulfate AdvReac Nausea & Verified 01/04/18 01:35 [From Golytely] Vomiting narcotics AdvReac Unknown Uncoded 01/04/18 01:35 Review of Systems ROS Statement: Those systems with pertinent positive or pertinent negative responses have been documented in the HPI. ROS Other: All systems not noted in ROS Statement are negative. Past Medical History Past Medical History: Asthma, Seizure Disorder Additional Past Medical History / Comment(s): seizure, anxiety, autism, ocd, asbergers, ADHD, recovering alcoholic History of Any Multi-Drug Resistant Organisms: None Reported Past Surgical History: No Surgical Hx Reported Additional Past Surgical History / Comment(s): Carpal Tunnel Repair left hand when 8 years old per patient. Past Anesthesia/Blood Transfusion Reactions: No Reported Reaction Past Psychological History: ADD/ADHD, Anxiety, Bipolar, PTSD, Schizoaffective Disorder, Schizophrenia Smoking Status: Never smoker Past Alcohol Use History: None Reported Past Drug Use History: None Reported - Past Family History Father History Unknown: Yes Mother History Unknown: Yes General Exam Limitations: no limitations General appearance: alert, in no apparent distress Head exam: Present: atraumatic, normocephalic, normal inspection Eye exam: Present: normal appearance, PERRL, EOMI. Absent: scleral icterus, conjunctival injection, periorbital swelling ENT exam: Present: normal exam, mucous membranes moist Neck exam: Present: normal inspection. Absent: tenderness, meningismus, lymphadenopathy Respiratory exam: Present: normal lung sounds bilaterally. Absent: respiratory distress, wheezes, rales, rhonchi, stridor Cardiovascular Exam: Present: regular rate, normal rhythm, normal heart sounds. Absent: systolic murmur, diastolic murmur, rubs, gallop, clicks Course Vital Signs 01/04/18 01:32 Temperature 98.7 F Pulse Rate 80 Respiratory 18 Rate Blood Pressure 120/74 O2 Sat by Pulse 97 Oximetry Medical Decision Making - Medical Decision Making 22-year-old male presented for blood pressure recheck. Patient has normal blood pressure at this time. Patient was educated follow-up blood pressure return parameters were discussed. Disposition Clinical Impression: Blood pressure check, Normal blood pressure Disposition: HOME SELF-CARE Condition: Stable Instructions: How to Take a Blood Pressure (ED) Additional Instructions: Please return to the Emergency Department if symptoms worsen or any other concerns. Is patient prescribed a controlled substance at d/c from ED?: No Referrals: Peace Martini MD [Primary Care Provider] - 1-2 days Time of Disposition: 01:47
== END 2018-01-04 01:58 | disposition home or self-care (01) ==
LOC: EC 01:27
DX: Z01.30 Encounter for examination of blood pressure without abnormal findings (principal); G40.909 Epilepsy, unspecified, not intractable, without status epilepticus; J45.909 Unspecified asthma, uncomplicated; Z79.51 Long term (current) use of inhaled steroids; Z79.899 Other long term (current) drug therapy; Z88.5 Allergy status to narcotic agent; Z88.8 Allergy status to other drugs, medicaments and biological substances; Z91.018 Allergy to other foods
CPT/HCPCS: 99283

== ENCOUNTER 2018-01-11 16:48 | Emergency (ER) | payer MEDICARE ==
--- NOTE | 2018-01-11 18:05 | XR ---
EXAMINATION TYPE: XR Hip RT and AP Pelvis DATE OF EXAM: 01/11/2018 COMPARISON: NONE HISTORY: Right hip pain TECHNIQUE: A single AP view of the pelvis is obtained. Two views of the right hip are obtained. FINDINGS: 3 views of the pelvis and right hip were obtained. The pelvic ring is intact. Proximal rig ht femur and hip joint appear normal. There is no sign of hip dysplasia. Sacroiliac joints appear nor mal. IMPRESSION: Negative pelvis and right hip exam.
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
[2018-01-11 18:33] VITALS: BP 120/70; PULSE 74; RESP 16; TEMP 97
== END 2018-01-11 18:33 | disposition home or self-care (01) ==
LOC: EC 16:48
DX: M25.551 Pain in right hip (principal); J45.909 Unspecified asthma, uncomplicated; G40.909 Epilepsy, unspecified, not intractable, without status epilepticus; Z79.51 Long term (current) use of inhaled steroids; Z79.899 Other long term (current) drug therapy; Z88.5 Allergy status to narcotic agent; Z88.8 Allergy status to other drugs, medicaments and biological substances; Z91.018 Allergy to other foods; V19.9XXA Pedal cyclist (driver) (passenger) injured in unspecified traffic accident, initial encounter
CPT/HCPCS: 73502; 99283

== ENCOUNTER 2018-02-09 18:07 | Emergency (ER) | payer MEDICARE, OTHER ==
--- NOTE | 2018-02-09 20:07 | ED ---
General Adult HPI - General Chief complaint: Upper Respiratory Infection Stated complaint: Diarrhea Time Seen by Provider: 02/09/18 20:01 Source: patient, RN notes reviewed Mode of arrival: ambulatory Limitations: no limitations - History of Present Illness Initial comments: Patient 22-year-old male presented to the emergency room today with a chief complaint of cough congestion and diarrhea. Patient states that symptoms started yesterday. He does admit to cough after being out in the rain. He states that he's had some positive sputum production. Does admit to a history of asthma stating he does use an inhaler as needed. The patient also admits to some diarrhea that started this morning. He denies any signs of blood in the stool. He denies any complaints or symptoms. Patient denies any recent fever, chills, shortness of breath, chest pain, back pain, abdominal pain, numbness or tingling, headaches or visual changes, or any other complaints. - Related Data Home Medications Medication Instructions Recorded Confirmed Cholecalciferol [Vitamin D3] 5,000 unit PO DAILY 02/01/17 02/09/18 Cyanocobalamin (Vitamin B-12) 1,000 mcg PO DAILY 02/01/17 02/09/18 [Vitamin B-12] Albuterol Sulfate [Proair 1 puff PO RT-Q4H PRN 04/07/17 02/09/18 Respiclick] Budesonide [Pulmicort Flexhaler] 1 puff INHALATION RT-BID 04/07/17 02/09/18 Lacosamide [Vimpat] 200 mg PO BID 05/15/17 02/09/18 Previous Rx's Medication Instructions Recorded Haloperidol Decanoate [Haldol D] 50 mg IM Q14D #1 vial 10/31/16 Ibuprofen [Motrin] 600 mg PO Q8HR PRN #20 tab 12/27/16 lamoTRIgine [Lamictal] 200 mg PO BID #28 tablet 12/27/16 buPROPion XL [Wellbutrin XL] 150 mg PO DAILY #30 tab.er.24h 12/24/17 Azithromycin [Zithromax Z-pack] 0 mg PO DIRECTED #6 tab 02/09/18 Allergies Allergy/AdvReac Type Severity Reaction Status Date / Time Mushroom AdvReac Nausea & Verified 02/09/18 20:27 Vomiting polyethylene glycol AdvReac Nausea & Verified 02/09/18 20:27 [From Golytely] Vomiting polyethylene glycol 3350 AdvReac Nausea & Verified 02/09/18 20:27 [From Golytely] Vomiting potassium chloride AdvReac Nausea & Verified 02/09/18 20:27 [From Golytely] Vomiting sodium [From Golytely] AdvReac Nausea & Verified 02/09/18 20:27 Vomiting sodium bicarbonate AdvReac Nausea & Verified 02/09/18 20:27 [From Golytely] Vomiting sodium chloride AdvReac Nausea & Verified 02/09/18 20:27 [From Golytely] Vomiting sodium sulfate AdvReac Nausea & Verified 02/09/18 20:27 [From Golytely] Vomiting narcotics AdvReac Unknown Uncoded 02/09/18 18:16 Review of Systems ROS Statement: Those systems with pertinent positive or pertinent negative responses have been documented in the HPI. ROS Other: All systems not noted in ROS Statement are negative. Past Medical History Past Medical History: Asthma, Seizure Disorder Additional Past Medical History / Comment(s): seizure, anxiety, autism, ocd, asbergers, ADHD, recovering alcoholic History of Any Multi-Drug Resistant Organisms: None Reported Past Surgical History: No Surgical Hx Reported Additional Past Surgical History / Comment(s): Carpal Tunnel Repair left hand when 8 years old per patient. Past Anesthesia/Blood Transfusion Reactions: No Reported Reaction Past Psychological History: ADD/ADHD, Anxiety, Bipolar, PTSD, Schizoaffective Disorder, Schizophrenia Smoking Status: Never smoker Past Alcohol Use History: None Reported Past Drug Use History: None Reported - Past Family History Father History Unknown: Yes Mother History Unknown: Yes General Exam - General Exam Comments Initial Comments: General: The patient is awake and alert, in no distress, and does not appear acutely ill. Eye: Pupils are equal, round and reactive to light, extra-ocular movements are intact. No nystagmus. There is normal conjunctiva bilaterally. No signs of icterus. Ears, nose, mouth and throat: There are moist mucous membranes and no oral lesions. Neck: The neck is supple, there is no tenderness or JVD. Cardiovascular: There is a regular rate and rhythm. No murmur, rub or gallop is appreciated. Respiratory: Lungs are clear to auscultation, respirations are non-labored, breath sounds are equal. No wheezes, stridor, rales, or rhonchi. Gastrointestinal: Soft, non-distended, non-tender abdomen without masses or organomegaly noted. There is no rebound or guarding present. No CVA tenderness. Musculoskeletal: Normal ROM, no tenderness. Strength 5/5. Sensation intact. Neurological: A&O x 3. CN II-XII intact, There are no obvious motor or sensory deficits. Coordination appears grossly intact. Speech is normal. Skin: Skin is warm and dry and no rashes or lesions are noted. Psychiatric: Cooperative, appropriate mood & affect, normal judgment. Limitations: no limitations Course Vital Signs 02/09/18 18:14 Temperature 98.7 F Pulse Rate 100 Respiratory 20 Rate Blood Pressure 120/82 O2 Sat by Pulse 97 Oximetry Medical Decision Making - Medical Decision Making Patient's chest x-ray reviewed as negative for any acute abnormalities. Patient does have history of asthma. Does admit to spin production. Patient advised to increase fluids for his diarrhea and some swelling. No abdominal pain. Will be discharged home with a Z-pack for symptoms of bronchitis and history of asthma. He is advised follow-up family doctor return for any other concerns. Disposition Clinical Impression: Acute bronchitis Disposition: HOME SELF-CARE Condition: Good Instructions: Acute Bronchitis (ED) Additional Instructions: Please use medication as discussed. Please follow-up with family doctor in the next 2 days of symptoms have not improved. Please return to emergency room if the symptoms increase or worsen or for any other concerns. Prescriptions: Azithromycin [Zithromax Z-pack] 0 mg PO DIRECTED #6 tab Is patient prescribed a controlled substance at d/c from ED?: No Referrals: [facility] [Primary Care Provider] - 1-2 days Time of Disposition: 20:35
--- NOTE | 2018-02-09 20:21 | XR ---
EXAMINATION TYPE: XR chest 2V DATE OF EXAM: 02/09/2018 COMPARISON: 03/22/2017 HISTORY: Diarrhea cough TECHNIQUE: Frontal and lateral views of the chest are obtained. FINDINGS: Heart and mediastinum are normal. Lungs are clear. Diaphragm is normal. Bony thorax appear s normal. IMPRESSION: Normal chest. No change.
[2018-02-09 20:48] VITALS: BP 119/61; PULSE 57; RESP 18; TEMP 98.8
== END 2018-02-09 20:45 | disposition home or self-care (01) ==
LOC: EC 18:07
DX: J20.9 Acute bronchitis, unspecified (principal); J45.909 Unspecified asthma, uncomplicated; R19.7 Diarrhea, unspecified; G40.909 Epilepsy, unspecified, not intractable, without status epilepticus; F90.9 Attention-deficit hyperactivity disorder, unspecified type; F31.9 Bipolar disorder, unspecified; F25.9 Schizoaffective disorder, unspecified; F43.10 Post-traumatic stress disorder, unspecified; F84.0 Autistic disorder; Z79.51 Long term (current) use of inhaled steroids; Z79.899 Other long term (current) drug therapy; Z88.6 Allergy status to analgesic agent; Z88.8 Allergy status to other drugs, medicaments and biological substances; Z91.018 Allergy to other foods
CPT/HCPCS: 71046; 99283

== ENCOUNTER 2018-04-21 16:51 | Emergency (ER) | payer MEDICARE, OTHER ==
--- NOTE | 2018-04-21 18:06 | ED ---
Anxiety HPI - General Chief Complaint: Anxiety Stated Complaint: ANXIETY Time Seen by Provider: 04/21/18 16:58 Source: patient Mode of arrival: EMS - History of Present Illness Initial Comments: 22-year-old male patient presents to the emergency department today for complaints of increased anxiety. Patient has an extensive past mental health history. Patient [facility] but he ran out [facility] these yesterday. Patient states that he now has nowhere to go or stay which is making him anxious.. Patient states he has missed his last 2 doses of his usual medications. Patient states he didn't have any water or anything to drink to take them. Patient denies any suicidal or homicidal ideation. Denies any alcohol or drug use. Patient states he is feeling well physically and has no medical concerns. Patient denies any recent rash, fever, chills, shortness breath, chest pain, abdominal pain, nausea, vomiting, diarrhea, constipation, back pain, numbness, tingling, dizziness, weakness, hematuria, dysuria, urinary urgency, urinary frequency, headache, visual changes, or any other complaints. - Related Data Home Medications: Home Medications Medication Instructions Recorded Confirmed Albuterol Sulfate [Proair 1 puff PO RT-Q4H PRN 04/07/17 04/21/18 Respiclick] Cyclobenzaprine HCl 5 mg PO BID PRN 04/21/18 04/21/18 Fluticasone Nasal [place] [Flonase 1 spray EA NOSTRIL DAILY 04/21/18 04/21/18 Nasal [place]] Lacosamide [Vimpat] 200 mg PO BID 04/21/18 04/21/18 [place]+D 1 tab PO DAILY 04/21/18 04/21/18 lamoTRIgine [LaMICtal] 200 mg PO BID 04/21/18 04/21/18 Previous Rx's Medication Instructions Recorded Ibuprofen [Motrin] 600 mg PO Q8HR PRN #20 tab 12/27/16 Allergies/Adverse Reactions: Allergies Allergy/AdvReac Type Severity Reaction Status Date / Time Mushroom AdvReac Nausea & Verified 04/21/18 17:52 Vomiting polyethylene glycol AdvReac Nausea & Verified 04/21/18 17:52 [From Golytely] Vomiting polyethylene glycol 3350 AdvReac Nausea & Verified 04/21/18 17:52 [From Golytely] Vomiting potassium chloride AdvReac Nausea & Verified 04/21/18 17:52 [From Golytely] Vomiting sodium [From Golytely] AdvReac Nausea & Verified 04/21/18 17:52 Vomiting sodium bicarbonate AdvReac Nausea & Verified 04/21/18 17:52 [From Golytely] Vomiting sodium chloride AdvReac Nausea & Verified 04/21/18 17:52 [From Golytely] Vomiting sodium sulfate AdvReac Nausea & Verified 04/21/18 17:52 [From Golytely] Vomiting narcotics AdvReac Unknown Uncoded 04/21/18 16:57 Review of Systems ROS Statement: Those systems with pertinent positive or pertinent negative responses have been documented in the HPI. ROS Other: All systems not noted in ROS Statement are negative. Past Medical History Past Medical History: Asthma, Seizure Disorder Additional Past Medical History / Comment(s): seizure, anxiety, autism, ocd, asbergers, ADHD, recovering alcoholic History of Any Multi-Drug Resistant Organisms: None Reported Past Surgical History: No Surgical Hx Reported Additional Past Surgical History / Comment(s): Carpal Tunnel Repair left hand when 8 years old per patient. Past Anesthesia/Blood Transfusion Reactions: No Reported Reaction Past Psychological History: ADD/ADHD, Anxiety, Bipolar, PTSD, Schizoaffective Disorder, Schizophrenia Smoking Status: Never smoker Past Alcohol Use History: None Reported Past Drug Use History: None Reported - Past Family History Father History Unknown: Yes Mother History Unknown: Yes General Exam Limitations: no limitations General appearance: alert, in no apparent distress, other (Physical well- developed, well-nourished adult male patient in no acute distress. ) Eye exam: Present: normal appearance, PERRL, EOMI. Absent: scleral icterus, conjunctival injection, periorbital swelling ENT exam: Present: normal exam, normal oropharynx, mucous membranes moist Respiratory exam: Present: normal lung sounds bilaterally. Absent: respiratory distress, wheezes, rales, rhonchi, stridor Cardiovascular Exam: Present: regular rate, normal rhythm, normal heart sounds. Absent: systolic murmur, diastolic murmur, rubs, gallop, clicks GI/Abdominal exam: Present: soft, normal bowel sounds. Absent: distended, tenderness, guarding, rebound, rigid Neurological exam: Present: alert, oriented X3, CN II-XII intact Psychiatric exam: Present: normal affect, normal mood Skin exam: Present: warm, dry, intact, normal color. Absent: rash Course Vital Signs 04/21/18 04/21/18 17:00 18:24 Temperature 98.3 F 98.1 F Pulse Rate 77 76 Respiratory 18 18 Rate Blood Pressure 132/76 129/75 O2 Sat by Pulse 95 99 Oximetry Medical Decision Making - Medical Decision Making 22-year-old male patient presented to the emergency department today for increased anxiety related to having no place to stay tonight. Patient denies any suicidal or homicidal ideation. He was not intoxicated. He was seen and evaluated by Simon from [facility] who has found a place for him to go this evening. She has a couple ablated with the patient's public guardian who has arranged a hotel room this evening. They will reevaluate tomorrow to follow-up with the plan for him. He will be transferred by cab to the hotel. Patient verbalizes understanding and agrees with this plan. - Lab Data Lab Results 04/21/18 Range/Units 19:22 Urine Opiates Screen Not Detected (NotDetected) Ur Oxycodone Screen Not Detected (NotDetected) Urine Methadone Screen Not Detected (NotDetected) Ur Propoxyphene Screen Not Detected (NotDetected) Ur Barbiturates Screen Not Detected (NotDetected) U Tricyclic Antidepress Not Detected (NotDetected) Ur Phencyclidine Scrn Not Detected (NotDetected) Ur Amphetamines Screen Not Detected (NotDetected) U Methamphetamines Scrn Not Detected (NotDetected) U Benzodiazepines Scrn Not Detected (NotDetected) Urine Cocaine Screen Not Detected (NotDetected) U Marijuana (THC) Screen Not Detected (NotDetected) Disposition Clinical Impression: Homelessness, Anxiety Disposition: HOME SELF-CARE Condition: Good Instructions: Anxiety (ED) Additional Instructions: He'll be staying at the [facility] tonight. Follow-up with your guardian for further direction tomorrow. Return here immediately for any new, worsening, or concerning symptoms. Is patient prescribed a controlled substance at d/c from ED?: No Referrals: [facility] [Primary Care Provider] - 1-2 days Time of Disposition: 19:30
[2018-04-21 18:25] VITALS: BP 129/75; PULSE 76; RESP 18; TEMP 98.1
[2018-04-21 19:37] LABS: Amphetamine Screen,Urine Not Detected (NotDetected); Barbiturate Screen,Urine Not Detected (NotDetected); Benzodiazepines Screen,Urine Not Detected (NotDetected); Cocaine Screen,Urine Not Detected (NotDetected); Methadone Screen, Urine Not Detected (NotDetected); Opiate Screen,Urine Not Detected (NotDetected); Oxycodone Screen, Urine Not Detected (NotDetected); Phencyclidine Screen,Urine Not Detected (NotDetected); Tricyclic Antidepressant,Urine Not Detected (NotDetected); Urn Cannabinoid Scrn Not Detected (NotDetected)
== END 2018-04-21 19:36 | disposition home or self-care (01) ==
LOC: EC 16:51
DX: F41.9 Anxiety disorder, unspecified (principal); Z59.0 Homelessness; J45.909 Unspecified asthma, uncomplicated; G40.909 Epilepsy, unspecified, not intractable, without status epilepticus; F31.9 Bipolar disorder, unspecified; Z79.51 Long term (current) use of inhaled steroids; Z79.899 Other long term (current) drug therapy; Z88.5 Allergy status to narcotic agent; Z88.8 Allergy status to other drugs, medicaments and biological substances; Z91.018 Allergy to other foods
CPT/HCPCS: 80306; 99284

== ENCOUNTER 2018-04-21 21:58 | Emergency (ER) | payer MEDICARE, OTHER ==
[2018-04-21 22:08] VITALS: RESP 18
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
[2018-04-21 23:36] LABS: Amphetamine Screen,Urine Not Detected (NotDetected); Barbiturate Screen,Urine Not Detected (NotDetected); Benzodiazepines Screen,Urine Not Detected (NotDetected); Cocaine Screen,Urine Not Detected (NotDetected); Methadone Screen, Urine Not Detected (NotDetected); Opiate Screen,Urine Not Detected (NotDetected); Oxycodone Screen, Urine Not Detected (NotDetected); Phencyclidine Screen,Urine Not Detected (NotDetected); Tricyclic Antidepressant,Urine Detected (NotDetected); Urn Cannabinoid Scrn Not Detected (NotDetected)
[2018-04-22 09:37] VITALS: BP 130/66; PULSE 87; TEMP 98.2
== END 2018-04-22 09:37 | disposition home or self-care (01) ==
LOC: EC 21:58
DX: F39 Unspecified mood [affective] disorder (principal); J45.909 Unspecified asthma, uncomplicated; G40.909 Epilepsy, unspecified, not intractable, without status epilepticus; F41.9 Anxiety disorder, unspecified; F84.0 Autistic disorder; F42.9 Obsessive-compulsive disorder, unspecified; F90.9 Attention-deficit hyperactivity disorder, unspecified type; F43.10 Post-traumatic stress disorder, unspecified; F25.9 Schizoaffective disorder, unspecified; Z79.51 Long term (current) use of inhaled steroids; Z79.899 Other long term (current) drug therapy; Z88.8 Allergy status to other drugs, medicaments and biological substances; Z91.018 Allergy to other foods
CPT/HCPCS: 80306; 82075; 99284; 99285

== ENCOUNTER 2018-05-04 02:17 | Emergency (ER) | payer MEDICARE, OTHER ==
[2018-05-04 03:03] LABS: Amphetamine Screen,Urine Not Detected (NotDetected); Barbiturate Screen,Urine Not Detected (NotDetected); Benzodiazepines Screen,Urine Not Detected (NotDetected); Cocaine Screen,Urine Not Detected (NotDetected); Methadone Screen, Urine Not Detected (NotDetected); Opiate Screen,Urine Not Detected (NotDetected); Oxycodone Screen, Urine Not Detected (NotDetected); Phencyclidine Screen,Urine Not Detected (NotDetected); Tricyclic Antidepressant,Urine Not Detected (NotDetected); Urn Cannabinoid Scrn Not Detected (NotDetected)
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
[2018-05-04] MEDS ORDERED: IBUPROFEN 400 MG TAB PO STA (05:08)
[2018-05-04 05:50] VITALS: BP 143/70; PULSE 72; RESP 16; TEMP 97.8
== END 2018-05-04 05:51 | disposition home or self-care (01) ==
LOC: EC 02:17
DX: F39 Unspecified mood [affective] disorder (principal); F84.0 Autistic disorder; F42.9 Obsessive-compulsive disorder, unspecified; F90.9 Attention-deficit hyperactivity disorder, unspecified type; F41.9 Anxiety disorder, unspecified; F25.0 Schizoaffective disorder, bipolar type; F43.10 Post-traumatic stress disorder, unspecified; J45.909 Unspecified asthma, uncomplicated; G40.909 Epilepsy, unspecified, not intractable, without status epilepticus; Z79.51 Long term (current) use of inhaled steroids; Z79.899 Other long term (current) drug therapy; Z91.018 Allergy to other foods; Z88.8 Allergy status to other drugs, medicaments and biological substances
CPT/HCPCS: 80306; 99285

== ENCOUNTER 2018-05-24 15:04 | Emergency (ER) | payer MEDICARE, OTHER ==
[2018-05-24 15:14] VITALS: BP 144/81; PULSE 81; TEMP 98
[2018-05-24 15:22] VITALS: RESP 16
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
--- NOTE | 2018-05-24 15:40 | XR ---
EXAMINATION TYPE: XR chest 2V DATE OF EXAM: 05/24/2018 COMPARISON: 02/09/2018 HISTORY: Chest pain TECHNIQUE: Frontal and lateral views of the chest are obtained. FINDINGS: There is no focal air space opacity. No evidence for pneumothorax. No pleural effusion. The cardiac silhouette size is within normal limits. The osseous structures are grossly intact. IMPRESSION: 1. No acute cardiopulmonary process.
--- NOTE | 2018-05-24 15:40 | XR ---
EXAMINATION TYPE: XR forearm RT DATE OF EXAM: 05/24/2018 CLINICAL HISTORY: pain TECHNIQUE: Frontal and lateral images of the right forearm are obtained. COMPARISON: None. FINDINGS: There is no acute fracture/dislocation evident. The joint spaces appear within normal limi ts. The overlying soft tissue appears unremarkable. IMPRESSION: There is no acute fracture or dislocation. ICD 10 NO FRACTURE, INITIAL EVALUATION
--- NOTE | 2018-05-24 15:41 | XR ---
EXAMINATION TYPE: XR humerus RT DATE OF EXAM: 05/24/2018 CLINICAL HISTORY: pain COMPARISON: NONE TECHNIQUE: Frontal and lateral images of the right humerus are obtained. FINDINGS: There is no acute fracture/dislocation evident. The joint spaces appear within normal limi ts. The overlying soft tissue appears unremarkable. IMPRESSION: There is no acute fracture or dislocation. ICD 10 NO FRACTURE, INITIAL EVALUATION
== END 2018-05-24 17:04 | disposition home or self-care (01) ==
LOC: EC 15:04
DX: J06.9 Acute upper respiratory infection, unspecified (principal); J45.909 Unspecified asthma, uncomplicated; G40.909 Epilepsy, unspecified, not intractable, without status epilepticus; F90.9 Attention-deficit hyperactivity disorder, unspecified type; F41.9 Anxiety disorder, unspecified; F42.9 Obsessive-compulsive disorder, unspecified; F84.0 Autistic disorder; F25.9 Schizoaffective disorder, unspecified; Z79.51 Long term (current) use of inhaled steroids; Z79.899 Other long term (current) drug therapy; Z91.018 Allergy to other foods; Z88.5 Allergy status to narcotic agent; Z88.8 Allergy status to other drugs, medicaments and biological substances
CPT/HCPCS: 71046; 87081; 87430; 99284

== ENCOUNTER 2018-07-03 22:36 | Emergency (ER) | payer MEDICARE, OTHER ==
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
[2018-07-03 23:39] LABS: Basophils # (A) 0.1 k/uL (0-0.2); Basophils % (A) 1 %; Eosinophils # (A) 0.2 k/uL (0-0.7); Eosinophils % (A) 3 %; HGB 14.3 gm/dL (13.0-17.5); Lymphocytes # (A) 3.1 k/uL (1.0-4.8); Lymphocytes % (A) 41 %; MCH 28.8 pg (25.0-35.0); MCHC 33.3 g/dL (31.0-37.0); MCV 86.5 fL (80.0-100.0); Mean Platelet Volume 6.6; Monocytes # (A) 0.4 k/uL (0-1.0); Monocytes % (A) 5 %; Neutrophils # (A) 3.6 k/uL (1.3-7.7); Neutrophils % (A) 48 %; Platelet Count 303 k/uL (150-450); RBC 4.97 m/uL (4.30-5.90); RDW 12.7 % (11.5-15.5); WBC 7.5 k/uL (3.8-10.6)
[2018-07-03 23:52] LABS: Acetaminophen <10.0 ug/mL; Alcohol <10 mg/dL; Anion Gap 10 mmol/L; Blood Urea Nitrogen 28 mg/dL (9-20); Calcium 9.7 mg/dL (8.4-10.2); Carbon Dioxide 26 mmol/L (22-30); Chloride 104 mmol/L (98-107); Glucose 109 mg/dL (74-99); Potassium 4.2 mmol/L (3.5-5.1); Salicylate <1.0 mg/dL; Sodium 140 mmol/L (137-145)
[2018-07-04 01:26] LABS: Appearance,Urine Clear (Clear); Bilirubin,Urine Negative (Negative); Blood,Urine Negative (Negative); Color,Urine Yellow; Glucose,Urine (UA) Negative (Negative); Ketones,Urine Negative (Negative); Leukocyte Esterase,Urine Negative (Negative); Nitrite,Urine Negative (Negative); Protein,Urine Negative (Negative); Specific Gravity,Urine 1.021 (1.001-1.035); Urobilinogen,Urine <2.0 mg/dL (<2.0)
[2018-07-04 01:51] LABS: Amphetamine Screen,Urine Not Detected (NotDetected); Barbiturate Screen,Urine Not Detected (NotDetected); Benzodiazepines Screen,Urine Not Detected (NotDetected); Cocaine Screen,Urine Not Detected (NotDetected); Methadone Screen, Urine Not Detected (NotDetected); Opiate Screen,Urine Not Detected (NotDetected); Oxycodone Screen, Urine Not Detected (NotDetected); Phencyclidine Screen,Urine Not Detected (NotDetected); Tricyclic Antidepressant,Urine Not Detected (NotDetected); Urn Cannabinoid Scrn Not Detected (NotDetected)
[2018-07-04 08:22] VITALS: RESP 20
[2018-07-04] MEDS ORDERED: lamoTRIgine 100 MG TAB PO STA (11:46)
[2018-07-04] MEDS ORDERED: LACOSAMIDE 150 MG TABLET PO STA (11:46)
[2018-07-04 13:22] VITALS: BP 128/68; PULSE 72; TEMP 98
== END 2018-07-04 13:22 ==
LOC: EC 22:36
DX: F31.9 Bipolar disorder, unspecified (principal); R45.851 Suicidal ideations; Z91.14 Patient's other noncompliance with medication regimen; J45.909 Unspecified asthma, uncomplicated; G40.909 Epilepsy, unspecified, not intractable, without status epilepticus; F25.9 Schizoaffective disorder, unspecified; Z79.899 Other long term (current) drug therapy; Z88.8 Allergy status to other drugs, medicaments and biological substances; Z88.5 Allergy status to narcotic agent; Z91.018 Allergy to other foods
CPT/HCPCS: 82075; 36415; 80048; 85025; 81003; 80306; 83520 ×2; 99285; G0480; 80320

== ENCOUNTER 2018-08-15 23:05 | Emergency (ER) | payer MEDICARE, OTHER ==
--- NOTE | 2018-08-16 00:07 | XR ---
EXAMINATION TYPE: XR ankle limited LT DATE OF EXAM: 08/15/2018 COMPARISON: NONE HISTORY: Ankle pain TECHNIQUE: 2 views FINDINGS: There is soft tissue mild swelling over the lateral malleolus. I see no fracture nor disloc ation. Ankle mortise is anatomic. IMPRESSION: Soft tissue swelling. No fracture.
--- NOTE | 2018-08-16 01:23 | ED ---
General Adult HPI - General Chief complaint: Psychiatric Symptoms Stated complaint: Mental Health Time Seen by Provider: 08/15/18 23:09 Source: EMS Mode of arrival: EMS Limitations: no limitations - History of Present Illness Initial comments: Yossi is a pleasant 23-year-old male with significant psychiatric history who is brought to the emergency department today by EMS and police for evaluation of suicidal statements. Patient reportedly said that he wanted to and that he was going to walk to the train tracks. Patient was at a [employer] this evening when [employer] contacted PD to remove the patient at which time patient made the statements. Patient has done this multiple times in the past. Upon arrival patient expresses concern about swelling in his left ankle after twisting it 2-3 days ago though he was ambulatory at the time of arrival. He also expresses concern that his feet may be becoming infected because he has wet socks all the time. - Related Data Home Medications Medication Instructions Recorded Confirmed Albuterol Inhaler [Ventolin Hfa 1 puff INHALATION RT-Q4H PRN 04/21/18 08/15/18 Inhaler] Budesonide [Pulmicort Flexhaler] 1 puff INHALATION RT-BID 04/21/18 08/15/18 Cholecalciferol [Vitamin D3] 5,000 unit PO DAILY 04/21/18 08/15/18 Cyanocobalamin (Vitamin B-12) 1,000 mcg PO DAILY 04/21/18 08/15/18 [Vitamin B-12] Cyclobenzaprine HCl 5 mg PO BID PRN 04/21/18 08/15/18 Fluticasone Nasal [place] [Flonase 1 spray EA NOSTRIL DAILY 04/21/18 08/15/18 Nasal [place]] Lacosamide [Vimpat] 200 mg PO BID 04/21/18 08/15/18 lamoTRIgine [LaMICtal] 200 mg PO BID 04/21/18 08/15/18 Ibuprofen [Motrin] 600 mg PO TID PRN 06/18/18 08/15/18 [place] 1 tab PO DAILY 06/18/18 08/15/18 DULoxetine HCL [Cymbalta] 40 mg PO DAILY 08/15/18 08/15/18 Paliperidone IM [Invega Sustenna] 156 mg IM Q28D 08/15/18 08/15/18 Allergies Allergy/AdvReac Type Severity Reaction Status Date / Time Mushroom AdvReac Nausea & Verified 08/15/18 23:38 Vomiting polyethylene glycol AdvReac Nausea & Verified 08/15/18 23:38 [From Golytely] Vomiting polyethylene glycol 3350 AdvReac Nausea & Verified 08/15/18 23:38 [From Golytely] Vomiting potassium chloride AdvReac Nausea & Verified 08/15/18 23:38 [From Golytely] Vomiting sodium [From Golytely] AdvReac Nausea & Verified 08/15/18 23:38 Vomiting sodium bicarbonate AdvReac Nausea & Verified 08/15/18 23:38 [From Golytely] Vomiting sodium chloride AdvReac Nausea & Verified 08/15/18 23:38 [From Golytely] Vomiting sodium sulfate AdvReac Nausea & Verified 08/15/18 23:38 [From Golytely] Vomiting narcotics AdvReac Unknown Uncoded 08/15/18 23:15 Review of Systems ROS Statement: Those systems with pertinent positive or pertinent negative responses have been documented in the HPI. ROS Other: All systems not noted in ROS Statement are negative. Past Medical History Past Medical History: Asthma, Seizure Disorder Additional Past Medical History / Comment(s): seizure, anxiety, autism, ocd, asbergers, ADHD, recovering alcoholic, History of Any Multi-Drug Resistant Organisms: None Reported Past Surgical History: No Surgical Hx Reported Additional Past Surgical History / Comment(s): Carpal Tunnel Repair left hand when 8 years old per patient.,, Past Anesthesia/Blood Transfusion Reactions: No Reported Reaction Past Psychological History: ADD/ADHD, Anxiety, Bipolar, PTSD, Schizoaffective Disorder, Schizophrenia Smoking Status: Never smoker Past Alcohol Use History: None Reported Past Drug Use History: None Reported - Past Family History Father History Unknown: Yes Mother History Unknown: Yes General Exam - General Exam Comments Initial Comments: Physical Exam GENERAL: Patient is well-developed and well-nourished. Patient is nontoxic and well- hydrated and is in no distress. HENT: Normocephalic, Atraumatic. EYES: PERRL, EOMI PULMONARY: Unlabored respirations. No audible rales rhonchi or wheezing was noted. CARDIOVASCULAR: There is a regular rate and rhythm without any murmurs gallops or rubs. ABDOMEN: Soft and nontender with normal bowel sounds. SKIN: There is skin breakdown on the bilateral plantar surfaces of the feet, this is consistent with trench foot or immersion injury likely due to the patient wearing wet shoes and walking : Deferred NEUROLOGIC: Patient is alert and oriented x3. Moving all extremities spontaneously MUSCULOSKELETAL: Normal extremities with adequate strength and full range of motion. No lower extremity swelling or edema. No calf tenderness. PSYCHIATRIC: Situational depression patient expresses disappointment in the care he has received from his public guardian and a desire for his needs to be heard. Limitations: no limitations Limitations: no limitations Course Vital Signs 08/15/18 23:10 Temperature 97.5 F L Pulse Rate 81 Respiratory 18 Rate Blood Pressure 137/91 O2 Sat by Pulse 100 Oximetry Medical Decision Making - Medical Decision Making Patient was seen and evaluated history was obtained from the patient patient's concern about swelling in his left ankle, I suspect he has a brain of the left anterior talo fibular ligament as he does have swelling over the left lateral foot. However I will order an x-ray to evaluate for any underlying fracture. Patient also medically cleared for evaluation by psychiatry [place] X-rays no acute injuries will provide the patient with Govind wrap and discussed sprain care Patient was evaluated by EPS nurse who recommends outpatient workup I feel the patient is safe for discharge home at this time. Disposition Clinical Impression: Depression Disposition: HOME SELF-CARE Condition: Good Instructions (If sedation given, give patient instructions): Depression (DC), Acute Hypothermia (ED) Is patient prescribed a controlled substance at d/c from ED?: No Referrals: [facility] [Primary Care Provider] - 1-2 days
[2018-08-16 02:43] VITALS: BP 131/82; PULSE 74; RESP 20; TEMP 97.9
== END 2018-08-16 03:04 | disposition home or self-care (01) ==
LOC: EC 23:05
DX: F43.21 Adjustment disorder with depressed mood (principal); M79.89 Other specified soft tissue disorders; R23.8 Other skin changes; R45.851 Suicidal ideations; J45.909 Unspecified asthma, uncomplicated; G40.909 Epilepsy, unspecified, not intractable, without status epilepticus; F31.9 Bipolar disorder, unspecified; F84.5 Asperger's syndrome; F41.9 Anxiety disorder, unspecified; F20.9 Schizophrenia, unspecified; Z88.5 Allergy status to narcotic agent; Z88.8 Allergy status to other drugs, medicaments and biological substances; Z91.018 Allergy to other foods; Z79.51 Long term (current) use of inhaled steroids; Z79.899 Other long term (current) drug therapy; X50.1XXA Overexertion from prolonged static or awkward postures, initial encounter
CPT/HCPCS: 82075; 99285

== ENCOUNTER 2018-08-24 19:31 | Emergency (ER) | payer MEDICARE, OTHER ==
[2018-08-24] MEDS ORDERED: LORazepam 1 MG TAB PO STA (19:50)
[2018-08-24 19:58] VITALS: BP 129/80; PULSE 79; RESP 16; TEMP 98.3
[2018-08-24 20:26] LABS: Glucose,Whole Blood 87 mg/dL (75-99)
--- NOTE | 2018-08-24 20:26 | ED ---
Syncope HPI - General Chief Complaint: Syncope Stated Complaint: FALL Time Seen by Provider: 08/24/18 19:46 Source: patient Mode of arrival: EMS Limitations: no limitations - History of Present Illness MD Complaint: loss of consciousness, collapsed, seizure -: minutes(s) Prodromal Symptoms: none Description of Event: other (weakness) -: second(s) Witnessed: no Injuries Sustained Associated with Event: None Current Symptoms: back to baseline History: seizure disorder, previous syncopal episode Context: at rest, standing up Treatments Prior to Arrival: none - Related Data Home Medications Medication Instructions Recorded Confirmed Budesonide [Pulmicort Flexhaler] 1 puff INHALATION RT-BID 04/21/18 08/24/18 Cholecalciferol [Vitamin D3] 5,000 unit PO DAILY 04/21/18 08/24/18 Cyanocobalamin (Vitamin B-12) 1,000 mcg PO DAILY 04/21/18 08/24/18 [Vitamin B-12] Cyclobenzaprine HCl 5 mg PO BID PRN 04/21/18 08/24/18 Lacosamide [Vimpat] 200 mg PO BID 04/21/18 08/24/18 lamoTRIgine [LaMICtal] 200 mg PO BID 04/21/18 08/24/18 Ibuprofen [Motrin] 600 mg PO TID PRN 06/18/18 08/24/18 [place] 1 tab PO DAILY 06/18/18 08/24/18 DULoxetine HCL [Cymbalta] 40 mg PO DAILY 08/15/18 08/24/18 Paliperidone IM [Invega Sustenna] 156 mg IM Q28D 08/15/18 08/24/18 Albuterol Sulfate [Proair 1 puff PO RT-Q6H PRN 08/24/18 08/24/18 Respiclick] Allergies Allergy/AdvReac Type Severity Reaction Status Date / Time Mushroom AdvReac Nausea & Verified 08/24/18 20:09 Vomiting polyethylene glycol AdvReac Nausea & Verified 08/24/18 20:09 [From Golytely] Vomiting polyethylene glycol 3350 AdvReac Nausea & Verified 08/24/18 20:09 [From Golytely] Vomiting potassium chloride AdvReac Nausea & Verified 08/24/18 20:09 [From Golytely] Vomiting sodium [From Golytely] AdvReac Nausea & Verified 08/24/18 20:09 Vomiting sodium bicarbonate AdvReac Nausea & Verified 08/24/18 20:09 [From Golytely] Vomiting sodium chloride AdvReac Nausea & Verified 08/24/18 20:09 [From Golytely] Vomiting sodium sulfate AdvReac Nausea & Verified 08/24/18 20:09 [From Golytely] Vomiting narcotics AdvReac Unknown Uncoded 08/15/18 23:15 Review of Systems ROS Statement: Those systems with pertinent positive or pertinent negative responses have been documented in the HPI. ROS Other: All systems not noted in ROS Statement are negative. Past Medical History Past Medical History: Asthma, Seizure Disorder Additional Past Medical History / Comment(s): seizure, anxiety, autism, ocd, asbergers, ADHD, recovering alcoholic, History of Any Multi-Drug Resistant Organisms: None Reported Past Surgical History: No Surgical Hx Reported Additional Past Surgical History / Comment(s): Carpal Tunnel Repair left hand when 8 years old per patient.,, Past Anesthesia/Blood Transfusion Reactions: No Reported Reaction Past Psychological History: ADD/ADHD, Anxiety, Bipolar, PTSD, Schizoaffective Disorder, Schizophrenia Smoking Status: Never smoker Past Alcohol Use History: None Reported Past Drug Use History: None Reported - Past Family History Father History Unknown: Yes Mother History Unknown: Yes General Exam Limitations: no limitations General appearance: alert, in no apparent distress Head exam: Present: atraumatic, normocephalic, normal inspection Eye exam: Present: normal appearance, PERRL, EOMI. Absent: scleral icterus, conjunctival injection, periorbital swelling ENT exam: Present: normal exam, mucous membranes moist Neck exam: Present: normal inspection. Absent: tenderness, meningismus, lymphadenopathy Respiratory exam: Present: normal lung sounds bilaterally. Absent: respiratory distress, wheezes, rales, rhonchi, stridor Cardiovascular Exam: Present: regular rate, normal rhythm, normal heart sounds. Absent: systolic murmur, diastolic murmur, rubs, gallop, clicks GI/Abdominal exam: Present: soft, normal bowel sounds. Absent: distended, tenderness, guarding, rebound, rigid Extremities exam: Present: normal inspection, full ROM, normal capillary refill. Absent: tenderness, pedal edema, joint swelling, calf tenderness Back exam: Present: normal inspection Neurological exam: Present: alert, oriented X3, CN II-XII intact Psychiatric exam: Present: normal affect, normal mood Skin exam: Present: warm, dry, intact, normal color. Absent: rash Course Vital Signs 08/24/18 19:54 Temperature 98.3 F Pulse Rate 79 Respiratory 16 Rate Blood Pressure 129/80 O2 Sat by Pulse 98 Oximetry - Reevaluation(s) Reevaluation #1: 08/24/18 20:24 medical record Reviewed Reevaluation #2: 08/24/18 20:24 patient is without any significant syncope or seizure EKG Findings - EKG Comments: EKG Findings:: EKG shows sinus rhythm rate of 80, RI 196, QRS 06, QTc 447 Medical Decision Making - Medical Decision Making 23 male the ER with syncope versus seizure. Patient syncopal event is just like his prior seizure events. At this point patient can be discharged home as he was is without significant seizure syncope here in the ER Disposition Clinical Impression: Seizure disorder, Vasovagal syncope Disposition: HOME SELF-CARE Condition: Good Instructions (If sedation given, give patient instructions): Syncope (ED) Is patient prescribed a controlled substance at d/c from ED?: No Referrals: [facility] [Primary Care Provider] - 1-2 days
== END 2018-08-24 20:55 | disposition home or self-care (01) ==
LOC: EC 19:31
DX: G40.909 Epilepsy, unspecified, not intractable, without status epilepticus (principal); R55 Syncope and collapse; J45.909 Unspecified asthma, uncomplicated; F42.9 Obsessive-compulsive disorder, unspecified; F90.9 Attention-deficit hyperactivity disorder, unspecified type; F41.9 Anxiety disorder, unspecified; F43.10 Post-traumatic stress disorder, unspecified; F25.9 Schizoaffective disorder, unspecified; F84.0 Autistic disorder; Z79.51 Long term (current) use of inhaled steroids; Z79.899 Other long term (current) drug therapy; Z91.018 Allergy to other foods; Z88.8 Allergy status to other drugs, medicaments and biological substances; Z88.5 Allergy status to narcotic agent
CPT/HCPCS: 36415; 99284

== ENCOUNTER 2018-10-02 09:04 | Emergency (ER) | payer MEDICARE, OTHER ==
[2018-10-02 09:08] VITALS: PULSE 66; RESP 18; TEMP 97.4
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
[2018-10-02 09:29] VITALS: BP 115/81
== END 2018-10-02 10:15 | disposition home or self-care (01) ==
LOC: EC 09:04
DX: S00.81XA Abrasion of other part of head, initial encounter (principal); J45.909 Unspecified asthma, uncomplicated; G40.909 Epilepsy, unspecified, not intractable, without status epilepticus; F31.9 Bipolar disorder, unspecified; F41.9 Anxiety disorder, unspecified; F20.9 Schizophrenia, unspecified; Z88.5 Allergy status to narcotic agent; Z88.8 Allergy status to other drugs, medicaments and biological substances; Z91.018 Allergy to other foods; Z79.51 Long term (current) use of inhaled steroids; Z79.52 Long term (current) use of systemic steroids; Z79.899 Other long term (current) drug therapy; V18.4XXA Pedal cycle driver injured in noncollision transport accident in traffic accident, initial encounter; Y93.55 Activity, bike riding
CPT/HCPCS: 99284

== ENCOUNTER 2018-12-17 03:17 | Emergency (ER) | payer MEDICARE, OTHER ==
[2018-12-17 03:25] VITALS: BP 109/71; PULSE 61; RESP 20; TEMP 98.3
[2018-12-17] MEDS ORDERED: IBUPROFEN 600 MG TAB PO STA (03:30)
--- NOTE | 2018-12-17 03:46 | XR ---
EXAM: XR Left Foot Complete, 3 or More Views CLINICAL HISTORY: ITS.REASON XR Reason: Pain TECHNIQUE: Frontal, lateral and oblique views of the left foot. COMPARISON: No relevant prior studies available. FINDINGS: See Impression. IMPRESSION: No acute or healing fracture or malalignment. Joint spaces are maintained. Triangular-shaped small radiopaque foreign body projects along the superficial/volar aspect of the right foot near the second metatarsal neck, for example. Soft tissues unremarkable
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
== END 2018-12-17 04:18 | disposition home or self-care (01) ==
LOC: EC 03:17
DX: S93.602A Unspecified sprain of left foot, initial encounter (principal); S90.852A Superficial foreign body, left foot, initial encounter; J45.909 Unspecified asthma, uncomplicated; G40.909 Epilepsy, unspecified, not intractable, without status epilepticus; F25.0 Schizoaffective disorder, bipolar type; F41.9 Anxiety disorder, unspecified; Z79.51 Long term (current) use of inhaled steroids; Z79.899 Other long term (current) drug therapy; Z88.8 Allergy status to other drugs, medicaments and biological substances; Z91.018 Allergy to other foods; Z88.5 Allergy status to narcotic agent; W18.42XA Slipping, tripping and stumbling without falling due to stepping into hole or opening, initial encounter
CPT/HCPCS: 99283

== ENCOUNTER 2018-12-28 00:25 | Inpatient (IN) | payer MEDICARE, MEDICAID ==
--- NOTE | 2018-12-28 00:48 | ED ---
Psych HPI - General Chief Complaint: Psychiatric Symptoms Stated Complaint: Mental Health Source: patient, police Mode of arrival: ambulatory - History of Present Illness Initial Comments: Cody is a 23-year-old gentleman well-known to the emergency department due to his frequent visits for psychiatric evaluation. Today patient is brought in by police for evaluation after he was petitioned by [facility] for being noncompliant with his medications. Patient states that he is transgender he wants to begin hormonal therapy to transition from male to female, his doctors will not allow him to do so so he was refusing to take any medications at this time. Patient admits he has been noncompliant with his psychiatric medications or therapy and visits [facility]. - Related Data Home Medications Medication Instructions Recorded Confirmed Budesonide [Pulmicort Flexhaler] 1 puff INHALATION RT-BID 04/21/18 12/17/18 Cholecalciferol [Vitamin D3] 5,000 unit PO DAILY 04/21/18 12/17/18 Cyanocobalamin (Vitamin B-12) 1,000 mcg PO DAILY 04/21/18 12/17/18 [Vitamin B-12] Cyclobenzaprine HCl 5 mg PO BID PRN 04/21/18 12/17/18 Lacosamide [Vimpat] 200 mg PO BID 04/21/18 12/17/18 lamoTRIgine [LaMICtal] 200 mg PO BID 04/21/18 12/17/18 Ibuprofen [Motrin] 600 mg PO TID PRN 06/18/18 12/17/18 [place] 1 tab PO DAILY 06/18/18 12/17/18 DULoxetine HCL [Cymbalta] 40 mg PO DAILY 08/15/18 12/17/18 Paliperidone IM [Invega Sustenna] 156 mg IM Q28D 08/15/18 12/17/18 Fluticasone Nasal [place] [Flonase 1 spr EA NOSTRIL DAILY 10/02/18 12/17/18 Nasal [place]] Levofloxacin [Levaquin] 500 mg PO DAILY 10/02/18 12/17/18 Loratadine [Claritin] 10 mg PO DAILY 10/02/18 12/17/18 Promethazine 6.25MG/5Ml [Phenergan 5 ml PO Q8H 10/02/18 12/17/18 Syrup] predniSONE 40 mg PO DAILY 10/02/18 12/17/18 Previous Rx's Medication Instructions Recorded Ibuprofen [Motrin] 600 mg PO Q8HR PRN #30 tab 12/17/18 Allergies Allergy/AdvReac Type Severity Reaction Status Date / Time Mushroom AdvReac Nausea & Verified 12/28/18 00:35 Vomiting polyethylene glycol AdvReac Nausea & Verified 12/28/18 00:35 [From Golytely] Vomiting polyethylene glycol 3350 AdvReac Nausea & Verified 12/28/18 00:35 [From Golytely] Vomiting potassium chloride AdvReac Nausea & Verified 12/28/18 00:35 [From Golytely] Vomiting sodium [From Golytely] AdvReac Nausea & Verified 12/28/18 00:35 Vomiting sodium bicarbonate AdvReac Nausea & Verified 12/28/18 00:35 [From Golytely] Vomiting sodium chloride AdvReac Nausea & Verified 12/28/18 00:35 [From Golytely] Vomiting sodium sulfate AdvReac Nausea & Verified 12/28/18 00:35 [From Golytely] Vomiting narcotics AdvReac Unknown Uncoded 12/28/18 00:35 Review of Systems ROS Statement: Those systems with pertinent positive or pertinent negative responses have been documented in the HPI. ROS Other: All systems not noted in ROS Statement are negative. Past Medical History Past Medical History: Asthma, Seizure Disorder Additional Past Medical History / Comment(s): seizure, anxiety, autism, ocd, asbergers, ADHD, recovering alcoholic, History of Any Multi-Drug Resistant Organisms: None Reported Past Surgical History: No Surgical Hx Reported Additional Past Surgical History / Comment(s): Carpal Tunnel Repair left hand when 8 years old per patient.,, Past Anesthesia/Blood Transfusion Reactions: No Reported Reaction Past Psychological History: ADD/ADHD, Anxiety, Bipolar, PTSD, Schizoaffective Disorder, Schizophrenia Smoking Status: Never smoker Past Alcohol Use History: None Reported Past Drug Use History: Marijuana - Past Family History Father History Unknown: Yes Mother History Unknown: Yes General Exam - General Exam Comments Initial Comments: Physical Exam GENERAL: Patient is well-developed and well-nourished. Patient is nontoxic and well-hydrated and is in no distress. Unkempt, poor hygiene HENT: Normocephalic, Atraumatic. EYES: PERRL, EOMI PULMONARY: Unlabored respirations. CARDIOVASCULAR: RRR ABDOMEN: Soft and nontender with normal bowel sounds. SKIN: Skin is clear with no lesions or rashes and otherwise unremarkable. Dirty : Deferred NEUROLOGIC: Patient is alert and oriented x3. Moving all extremities spontaneously MUSCULOSKELETAL: Normal extremities with adequate strength and full range of motion. No lower extremity swelling or edema. No calf tenderness. PSYCHIATRIC: Child like demeanor Denies SI/HI Limitations: altered mental status Course Vital Signs 12/28/18 00:31 Temperature 98.2 F Pulse Rate 68 Respiratory 18 Rate Blood Pressure 126/75 O2 Sat by Pulse 95 Oximetry Medical Decision Making - Medical Decision Making The patient was seen and evaluated history is obtained from patient and police Patient's petitioned by [facility] for noncompliance with treatment plan patient admits he has been noncompliant with treatment plan Patient was medically cleared for evaluation by psych, he was evaluated by the emergency psychiatric services nurse accepted the floor. Patient is agreeable. - Lab Data Lab Results 12/28/18 Range/Units 01:10 Urine Opiates Screen Not Detected (NotDetected) Ur Oxycodone Screen Not Detected (NotDetected) Urine Methadone Screen Not Detected (NotDetected) Ur Propoxyphene Screen Not Detected (NotDetected) Ur Barbiturates Screen Not Detected (NotDetected) U Tricyclic Antidepress Not Detected (NotDetected) Ur Phencyclidine Scrn Not Detected (NotDetected) Ur Amphetamines Screen Not Detected (NotDetected) U Methamphetamines Scrn Not Detected (NotDetected) U Benzodiazepines Scrn Not Detected (NotDetected) Urine Cocaine Screen Not Detected (NotDetected) U Marijuana (THC) Screen Not Detected (NotDetected) Disposition Clinical Impression: Non compliance w medication regimen Disposition: TRANSFER TO PSYCH HOSP/UNIT Condition: Stable
[2018-12-28 01:39] LABS: Amphetamine Screen,Urine Not Detected (NotDetected); Barbiturate Screen,Urine Not Detected (NotDetected); Benzodiazepines Screen,Urine Not Detected (NotDetected); Cocaine Screen,Urine Not Detected (NotDetected); Methadone Screen, Urine Not Detected (NotDetected); Opiate Screen,Urine Not Detected (NotDetected); Oxycodone Screen, Urine Not Detected (NotDetected); Phencyclidine Screen,Urine Not Detected (NotDetected); Tricyclic Antidepressant,Urine Not Detected (NotDetected); Urn Cannabinoid Scrn Not Detected (NotDetected)
[2018-12-28] MEDS ORDERED: MAGNESIUM HYDROXIDE 2,400 MG/10 ML CUP PO PRN (03:29)
[2018-12-28] MEDS ORDERED: ACETAMINOPHEN TAB 325 MG TAB PO PRN (03:29)
[2018-12-28] MEDS ORDERED: LORazepam 1 MG TAB PO PRN (03:29)
[2018-12-28] MEDS ORDERED: MAG HYDROX/AL HYDROX/SIMETH 30 ML CUP PO PRN (03:29)
[2018-12-28 04:00] VITALS: BMI 25.8
[2018-12-28 04:41] LABS: Appearance,Urine Clear (Clear); Bilirubin,Urine Negative (Negative); Blood,Urine Negative (Negative); Color,Urine Yellow; Glucose,Urine (UA) Negative (Negative); Ketones,Urine Negative (Negative); Leukocyte Esterase,Urine Negative (Negative); Nitrite,Urine Negative (Negative); PH, Urine 5.5 (5.0-8.0); Protein,Urine Negative (Negative); Specific Gravity,Urine 1.021 (1.001-1.035)
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
[2018-12-28] MEDS: LACOSAMIDE 50 MG TABLET PO SCH ×2 (10:27→19:52)
[2018-12-28] MEDS: lamoTRIgine 25 MG TAB PO SCH ×2 (10:27→19:53)
[2018-12-28] MEDS: IBUPROFEN 600 MG TAB PO PRN ×2 (10:28→19:53)
[2018-12-28] MEDS: CYCLOBENZAPRINE 5 MG TAB PO PRN ×2 (10:40→19:53)
[2018-12-28 12:45] LABS: Basophils % (A) 0 %; Eosinophils # (A) 0.2 k/uL (0-0.7); Eosinophils % (A) 2 %; HCT 47.5 % (39.0-53.0); HGB 15.9 gm/dL (13.0-17.5); Lymphocytes # (A) 2.7 k/uL (1.0-4.8); Lymphocytes % (A) 23 %; MCH 28.8 pg (25.0-35.0); MCHC 33.5 g/dL (31.0-37.0); Mean Platelet Volume 7.3; Monocytes # (A) 0.4 k/uL (0-1.0); Monocytes % (A) 4 %; Neutrophils # (A) 8.2 k/uL (1.3-7.7); Neutrophils % (A) 70 %; Platelet Count 310 k/uL (150-450); RBC 5.52 m/uL (4.30-5.90); RDW 14.9 % (11.5-15.5); WBC 11.7 k/uL (3.8-10.6)
[2018-12-28 13:17] LABS: ALT 31 U/L (21-72); AST 20 U/L (17-59); African American GFR (CKD) >90 (>60 ml/min/1.73 sqM); Albumin 4.9 g/dL (3.5-5.0); Alkaline Phosphatase 117 U/L (38-126); Anion Gap 13 mmol/L; Bilirubin, Delta 0.1 mg/dL (0.0-0.2); Bilirubin,Unconjugated 0.5 mg/dL (0.0-1.1); Blood Urea Nitrogen 16 mg/dL (9-20); Calcium 10.3 mg/dL (8.4-10.2); Carbon Dioxide 23 mmol/L (22-30); Chloride 106 mmol/L (98-107); Cholesterol 203 mg/dL (<200); Glucose 90 mg/dL (74-99); HDL Cholesterol 44 mg/dL (40-60); LDL Cholesterol,Calculated 123 mg/dL (0-99); Potassium 4.5 mmol/L (3.5-5.1); Sodium 142 mmol/L (137-145); Total Bilirubin 0.6 mg/dL (0.2-1.3); Total Protein 8.1 g/dL (6.3-8.2); Triglycerides 179 mg/dL (<150)
--- NOTE | 2018-12-29 00:45 | P.HPIM ---
History of Present Illness H&P Date: 12/29/18 The patient is a 23 yo M (identifies as female and prefers to be called Leilani) with a PMH of schizoaffective disorder, asthma, and seizure disorder presented to the ED via petition due to non-compliance with medications. The patient has a public guardian, and reports issues with her with regards to some of his medications and testing for his thyroid and liver. The patient also reports non-compliance with his anti-seizure medications and notes that he has been self-treating his epilepsy with OTC "Carriere fly-trap pills over the past year. He notes that his last seizure was 1 year ago and that he has been following with a neurologist. He further notes that he has been taking OTC supplements for his transition from male to female since he is unable to afford hormonal therapy(reviewed the exact supplement that patient has been taking for past 2-3 years: MTF Kit, ingredients: Pueraria Mirifica, [address], Licorice root, Fennel seed, Fenugreek seed, dong quai, black cohos, saw palmetto. He receives social security benefits and collects bottles. He notes chronic mild RUQ pain but otherwise denied any additional complaints. Denied fever, chills, chest pain, SOB, nausea, vomiting, dizziness, headache, diarrhea, or constipation. He notes the RUQ pain is intermittent, with no specific inciting or alleviating factors. Review of Systems Pertinent positives and negatives as discussed in HPI, a complete review of systems was performed and all other systems are negative. Past Medical History Past Medical History: Asthma, Seizure Disorder Additional Past Medical History / Comment(s): seizure, anxiety, autism, ocd, asbergers, ADHD, recovering alcoholic, History of Any Multi-Drug Resistant Organisms: None Reported Past Surgical History: No Surgical Hx Reported Additional Past Surgical History / Comment(s): Carpal Tunnel Repair left hand when 8 years old per patient.,, Past Anesthesia/Blood Transfusion Reactions: No Reported Reaction Past Psychological History: ADD/ADHD, Anxiety, Bipolar, PTSD, Schizoaffective Disorder, Schizophrenia Smoking Status: Never smoker Past Alcohol Use History: None Reported Additional Past Alcohol Use History / Comment(s): last drink over two years ago Past Drug Use History: Marijuana - Past Family History Father History Unknown: Yes Family Medical History: Hypertension Mother History Unknown: Yes Family Medical History: Hypertension Medications and Allergies Home Medications Medication Instructions Recorded Confirmed Type Budesonide [Pulmicort Flexhaler] 1 puff INHALATION RT-BID 04/21/18 12/28/18 History Cholecalciferol [Vitamin D3] 5,000 unit PO DAILY 04/21/18 12/28/18 History Cyanocobalamin (Vitamin B-12) 1,000 mcg PO DAILY 04/21/18 12/28/18 History [Vitamin B-12] Cyclobenzaprine HCl 5 mg PO BID PRN 04/21/18 12/28/18 History Lacosamide [Vimpat] 200 mg PO BID 04/21/18 12/28/18 History lamoTRIgine [LaMICtal] 200 mg PO BID 04/21/18 12/28/18 History Ibuprofen [Motrin] 600 mg PO TID PRN 06/18/18 12/28/18 History [place] 1 tab PO DAILY 06/18/18 12/28/18 History DULoxetine HCL [Cymbalta] 40 mg PO DAILY 08/15/18 12/28/18 History Paliperidone IM [Invega Sustenna] 156 mg IM Q28D 08/15/18 12/28/18 History Fluticasone Nasal [place] [Flonase 1 spr EA NOSTRIL DAILY 10/02/18 12/28/18 History Nasal [place]] Levofloxacin [Levaquin] 500 mg PO DAILY 10/02/18 12/28/18 History Loratadine [Claritin] 10 mg PO DAILY 10/02/18 12/28/18 History Promethazine 6.25MG/5Ml [Phenergan 5 ml PO Q8H 10/02/18 12/28/18 History Syrup] predniSONE 40 mg PO DAILY 10/02/18 12/28/18 History Ibuprofen [Motrin] 600 mg PO Q8HR PRN #30 tab 12/17/18 12/28/18 Rx Allergies Allergy/AdvReac Type Severity Reaction Status Date / Time Mushroom AdvReac Nausea & Verified 12/28/18 04:24 Vomiting polyethylene glycol AdvReac Nausea & Verified 12/28/18 04:24 [From Golytely] Vomiting polyethylene glycol 3350 AdvReac Nausea & Verified 12/28/18 04:24 [From Golytely] Vomiting potassium chloride AdvReac Nausea & Verified 12/28/18 04:24 [From Golytely] Vomiting sodium [From Golytely] AdvReac Nausea & Verified 12/28/18 04:24 Vomiting sodium bicarbonate AdvReac Nausea & Verified 12/28/18 04:24 [From Golytely] Vomiting sodium chloride AdvReac Nausea & Verified 12/28/18 04:24 [From Golytely] Vomiting sodium sulfate AdvReac Nausea & Verified 12/28/18 04:24 [From Golytely] Vomiting narcotics AdvReac Unknown Uncoded 12/28/18 04:24 Physical Exam Vitals: Vital Signs Temp Pulse Pulse Resp BP BP Pulse Ox 12/28/18 03:52 98.0 F 68 16 132/72 97 12/28/18 00:31 98.2 F 68 18 126/75 95 Intake and Output 12/28/18 12/28/18 12/29/18 14:59 22:59 06:59 Other: Weight 81.647 kg General: non toxic, no distress, disheveled male, dressed in women's clothing, appears at stated age, normal weight Derm: no unusual rashes/lesions no unusual ecchymoses, warm, dry Head: atraumatic, normocephalic, symmetric Eyes: EOMI, no lid lag, anicteric sclera, pupils equal round reactive to light ENT: Nose and ears atraumatic, no thrush, no pharyngeal erythema Neck: No thyromegaly, no cervical lymphadenopathy, trachea midline, supple, no thyroid nodules palpated Mouth: no lip lesion, mucus membranes moist Cardiovascular: S1S2 reg, no murmur, positive posterior tibial pulse bilateral, no edema, capillary refill less than 2 seconds Lungs: CTA bilateral, no rhonchi, no rales , no accessory muscle use Abdominal: soft, mild right upper quadrant tenderness, no guarding, no appreciable organomegaly, normal bowel sounds Ext: no gross muscle atrophy, muscle strength 5 out of 5 in all 4 extremities grossly, no contractures, Neuro: CN II-XI grossly intact, light touch intact all 4 extremities, finger to nose within normal limits, Psych: Alert, oriented, appropriate affect Results CBC & Chem 7: 12/28/18 12:05 12/28/18 12:05 Labs: Abnormal Lab Results - Last 24 Hours (Table) 12/28/18 12/28/18 Range/Units 12:05 12:05 WBC 11.7 H (3.8-10.6) k/uL Neutrophils # 8.2 H (1.3-7.7) k/uL Calcium 10.3 H (8.4-10.2) mg/dL Triglycerides 179 H (<150) mg/dL Cholesterol 203 H (<200) mg/dL LDL Cholesterol, Calc 123 H (0-99) mg/dL TSH 6.520 H (0.465-4.680) mIU/L Thrombosis Risk Factor Assmnt - Choose All That Apply Any of the Below Risk Factors Present?: Yes Each Factor Represents 1 point: Obesity (BMI >25) Other Risk Factors: No Other congenital or acquired thrombophilia - If yes, enter type in comment: No Thrombosis Risk Factor Assessment Total Risk Factor Score: 1 Thrombosis Risk Factor Assessment Level: Low Risk Assessment and Plan Plan: Abnormal TSH -Check T3, T4 RUQ tenderness -Obtain US Borderline hypercalcemia -Monitor for now Leukocytosis -No signs of active infection -Monitor for now OTC Supplement use -Strongly advised patient against use of the supplements -Discussed the potential risks and side-effects of these non-FDA regulated supplements with unsubstantiated claims -Discussed with patient that in order for transition from male to female, the patient would need to follow-up with an appropriate provider in an outpatient setting to possibly receive hormone therapy and that he should avoid supplement use Seizure disorder -C/w medications as per psychiatry Schizoaffective disorder -As per psychiatry Asthma -Resume home medications Thank you for allowing us to participate in the care of this patient. We will follow peripherally. Do not hesitate to contact us with questions. Someone can be reached from the [facility] hospitalist group at all hours of the day at [phone].
[2018-12-29 06:44] VITALS: PULSE 75
[2018-12-29 09:55] LABS: Basophils % (A) 1 %; Eosinophils # (A) 0.3 k/uL (0-0.7); Eosinophils % (A) 4 %; HCT 48.8 % (39.0-53.0); HGB 16.3 gm/dL (13.0-17.5); Lymphocytes % (A) 39 %; MCH 29.3 pg (25.0-35.0); MCHC 33.3 g/dL (31.0-37.0); MCV 87.8 fL (80.0-100.0); Mean Platelet Volume 6.6; Monocytes # (A) 0.4 k/uL (0-1.0); Monocytes % (A) 5 %; Neutrophils # (A) 3.8 k/uL (1.3-7.7); Neutrophils % (A) 50 %; Platelet Count 292 k/uL (150-450); RBC 5.56 m/uL (4.30-5.90); RDW 13.1 % (11.5-15.5); WBC 7.7 k/uL (3.8-10.6)
[2018-12-29] MEDS: lamoTRIgine 25 MG TAB PO SCH ×2 (09:57→20:48)
[2018-12-29] MEDS: LACOSAMIDE 50 MG TABLET PO SCH ×2 (09:57→20:48)
[2018-12-29 10:02] LABS: African American GFR (CKD) >90 (>60 ml/min/1.73 sqM); Anion Gap 8 mmol/L; Blood Urea Nitrogen 18 mg/dL (9-20); Calcium 10.2 mg/dL (8.4-10.2); Carbon Dioxide 29 mmol/L (22-30); Chloride 105 mmol/L (98-107); Glucose 83 mg/dL (74-99); Potassium 4.5 mmol/L (3.5-5.1); Sodium 142 mmol/L (137-145)
[2018-12-29 10:18] LABS: T4, Free (Free Thyroxine) 0.93 ng/dL (0.78-2.19)
--- NOTE | 2018-12-29 11:12 | P.PN ---
Progress Note - Text Interval history: The patient is found in the [facility] he follows me to an interview room. He indicates his mood is fine. He reports that he is contacting the [place] protection agency to fight for LG BT rights. He states that he feels his guardian is obstructing him from transitioning from male to female. We spent some time discussing his line of thought. We discussed that not only would his guardian have to approve but his clinicians would as well. He was informed that he has to demonstrate clinical stability and objective thinking in order to proceed with his desired transition. We reviewed that his recent behavior of dragging numerous belongings out in his front yard does not demonstrate rational behavior. The patient sat calmly and listened during this explanation but he appeared to have impaired insight into the conversation. He has no questions or concerns regarding his medication. He remains agreeable with us restarting his anticonvulsants and titrating the doses as clinically appropriate. He describes some abdominal pain and he underwent an abdominal ultrasound today we are awaiting that report. Liver enzymes came back within normal limits. The internal medicine physician spent some time discussing all of the supplements the patient has been taking and he was encouraged to abstain from those. It is possible that the supplements contributed to elevated liver enzymes. Mental status exam: The patient is a 23-year-old male. He has a disheveled appearance he is dressed in female clothing. He has a full aldrich. He has a bright affect. He will demonstrate exaggerated laughter in general and at odd times in the conversation. He is reporting no suicidal or homicidal thoughts he is reporting no auditory or visual hallucinations or any specific delusions. He does convey feelings of persecution that he is being kept from transitioning to a female. He demonstrates some mild hyperactivity which I assume is chronic in nature. He demonstrates no verbal or physical aggressiveness. He demonstrates no involuntary repetitive movements. Insight and judgment limited. Plan: The patient will continue his current psychotropic medications. We will plan to titrate the Vimpat and Lamictal 1 possible. Social work will contact patient's guardian to discuss his return home. The patient has a hearing scheduled Thursday for a mental health review. The patient appears approximated to his known baseline function. He does require further coping skill development in terms of his behavioral choices. Vital signs reviewed.
--- NOTE | 2018-12-29 11:59 | US ---
EXAMINATION TYPE: US abdomen limited DATE OF EXAM: 12/29/2018 COMPARISON: NONE CLINICAL HISTORY: elevated liver enzymes. Elevated LFT's EXAM MEASUREMENTS: Liver Length: 19.4 cm Gallbladder Wall: 0.2 cm CBD: 0.2 cm Right Kidney: 12.3 x 4.9 x 5.3 cm Pt fidgety during exam, unable to hold breath, somewhat difficult exam Pancreas: wnl, tail obscured by overlying bowel gas Liver: Enlarged. There is increased echogenicity of the hepatic parenchyma with diminished visualiza tion of the portal triads most commonly relating to hepatic steatosis and limiting evaluation for und erlying hepatic masses. Gallbladder: Nondependent 3 mm polyp is seen without shadowing. Possible additional 2 mm polyp is pr esent. Evidence for sonographic Marie's sign: No CBD: wnl Right Kidney: Cyst upper pole= 1.0 x 0.7 x 0.9 cm . This demonstrates increased through transmission . IMPRESSION: 1. Sonographic findings most commonly related to hepatic steatosis. Correlate with liver function francesco t results. 2. Gallbladder polyps measuring up to 3 mm. Annual surveillance is recommended for polyps of this siz e. 3. Simple appearing 1.0 cm right renal cyst.
[2018-12-29] MEDS: IBUPROFEN 600 MG TAB PO PRN (20:52)
[2018-12-30] MEDS: LACOSAMIDE 50 MG TABLET PO SCH ×2 (09:09→20:42)
[2018-12-30] MEDS: lamoTRIgine 25 MG TAB PO SCH ×2 (09:10→20:42)
--- NOTE | 2018-12-30 11:23 | P.PN ---
Progress Note - Text Interval history: The patient is found in the [facility] with the [facility] peer developer support engineer. He follows me to an interview room. He states that he has an opportunity to go to a residential in the area. He agrees that he should go to a group myke for additional support and structure. We reviewed his psychotropic medications. We discussed augmenting the invega with an oral dose of invega and we discussed titrating the Lamictal further. Again we reviewed his behaviors prior to this admission and discussed appropriate alternatives. Mental status exam: The patient is alert he is dressed in the same clothing he has shaved his aldrich off. He has a disheveled appearance overall. Eye contact is appropriate speech is fluent. He remains hyperactive while seated in his chair. Speech is fluent nonpressured. Affect is overly bright. He is reporting no suicidal or homicidal ideation intent or plan. He is endorsing no auditory or visual hallucinations at this time. He has demonstrated no agitated behavior. He demonstrates no involuntary repetitive movements. He does demonstrate future oriented thinking. He continues to demonstrate exaggerated or inappropriate laughter at times. Continues to demonstrate a nonverbal other and's at the conclusion of some of his sentences. Plan: The patient will continue on his current medications however we will titrate the Lamictal to 50 mg twice daily and I will order invega 3 mg at bedtime. Consideration will be given to increasing his Invega Sustenna dose wh en it is due next week. We will monitor him for safety. As we are waiting for him to further stabilize we are looking for appropriate placement. He is encouraged to continue participating in the milieu.
[2018-12-30] MEDS ORDERED: PALIPERIDONE 3 MG TAB.ER.24 PO SCH (21:00)
[2018-12-30] MEDS: IBUPROFEN 600 MG TAB PO PRN (23:51)
[2018-12-31 06:50] VITALS: BP 122/90; RESP 15; TEMP 98.6
[2018-12-31] MEDS: lamoTRIgine 25 MG TAB PO SCH (09:00)
[2018-12-31] MEDS: LACOSAMIDE 50 MG TABLET PO SCH (09:00)
--- NOTE | 2018-12-31 11:52 | P.DS ---
Providers Date of admission: 12/28/18 03:24 Expected date of discharge: 12/31/18 Attending physician: Syed Nicole Consults: 12/28/18 03:29 Consult Physician Routine Consulting Provider: [facility] Consult Reason/Comments: For H & P for Medical Management Do you want consulting provider notified?: Yes Primary care physician: [facility] - Discharge Diagnosis(es) (1) Schizoaffective disorder Current Visit: Yes Status: Acute Priority: High (2) Autism spectrum disorder Current Visit: Yes Status: Acute Priority: High (3) ADHD (attention deficit hyperactivity disorder) Current Visit: No Status: Chronic Priority: Medium Hospital Course: Brief summary of admission note: This patient is a 23-year-old single male who identifies as a female who was admitted to the mental health unit on a pickup order. The patient is well known to this inpatient service. He carries a diagnosis of schizoaffective disorder autism spectrum disorder and ADHD. He had been missing appointments and not taking some of his oral medication. He had gone off of his anti-seizure medication which was of significant concern. It was reported that the patient had drag many of his belongings and appliances out onto the front yard of his home. We were told that he had damaged the inside of his home as well. He described being frustrated that he was being kept from transitioning to a female and he blamed his guardian and the [facility]. For full details please refer to my psychiatric evaluation dated 12/28/2018. Summary of hospital course: The patient was admitted involuntarily on an existing court order. We reviewed his presenting symptoms and treatment options. His Lamictal was restarted and titrated as well as the Vimpat. During the course of the admission I did add invega 3 mg at bedtime to supplement his Depo form of the medication. He is not due for his next injection mental in 2018. The patient demonstrated no aggressive behavior. He has been pleasant and cooperative and easily directed. Due to the damage cause to his home he is not able to return there. We determined that [facility] placement would be the most appropriate for him upon discharge from the mental health unit. He did participate in a mental health review hearing with probate Court. He was seen by internal medicine for routine history and physical exam. Social work met with the patient several times for completion of the psychosocial assessment and for discharge planning purposes. Mental status exam: The patient is a 23-year-old male appearing his stated age. He is dressed in female clothing his hairs disheveled a portion of it is pulled back in a ponytail. He has some of his nails painted. He has his shirt stuffed to simulate breasts. Eye contact is appropriate. He is chronically hyperactive. He demonstrates nonverbal utterances at the end of many statements. He continues to demonstrate exaggerated laughter. Chronically he varies the intonation of his voice and appears to be calm unintentionally loud at times. He is reporting his mood is good affect is quite bright. He reports no suicidal or homicidal ideation intent or plan. He endorses no feelings of anger or irritability. He does not feel anxious at this time. He demonstrates no verbal or physical aggressiveness. He demonstrates no involuntary repetitive movements. He can demonstrate some tangential thinking. Insight and judgment chronically limited but grossly intact in terms of evaluating him for discharge. Impressions 1. Schizoaffective disorder, autism spectrum disorder, history ADHD 2. Epilepsy, asthma Plan: The patient is being discharged mental health unit today he will be residing at [facility] at least temporarily. He will continue on invega 3 mg at bedtime as a temporary supplement. He is due for his next Invega Sustenna injection on 01/06/2019. Consideration could be given to using the 234 mg dose. The Lamictal has been restarted and at this point titrated to 50 mg twice daily, Vimpat has been restarted and that has been titrated to 150 mg twice daily. Both of the antiepileptics will require further titration. He is instructed to abstain from any use of alcohol marijuana or illicit drugs as they will elevate his safety risk and provoke mood and psychotic symptoms. At this time there is no imminent safety risk is appropriate for transition back to outpatient care. Social work has been in contact with community mental health as well as the patient's guardian to coordinate this discharge. The patient's instructed to return to the hospital with any acute safety concerns. Patient Condition at Discharge: Stable Plan - Discharge Summary New Discharge Prescriptions: New Paliperidone [Invega] 3 mg PO HS #7 tab.er.24 Paliperidone IM [Invega Sustenna] 234 mg IM DIRECTED #1 syr lamoTRIgine [LaMICtal] 50 mg PO BID #60 tab Lacosamide [Vimpat] 150 mg PO BID #60 tablet Continue Cyclobenzaprine HCl 5 mg PO BID PRN PRN Reason: Muscle Spasm Budesonide [Pulmicort Flexhaler] 1 puff INHALATION RT-BID Cholecalciferol [Vitamin D3 (25 Mcg = 1000 Iu)] 5,000 unit PO DAILY Cyanocobalamin (Vitamin B-12) [Vitamin B-12] 1,000 mcg PO DAILY Ibuprofen [Motrin] 600 mg PO TID PRN PRN Reason: Pain Fluticasone Nasal [place] [Flonase Nasal [place]] 1 spr EA NOSTRIL DAILY Discontinued Lacosamide [Vimpat] 200 mg PO BID lamoTRIgine [LaMICtal] 200 mg PO BID Bivins 1 tab PO DAILY DULoxetine HCL [Cymbalta] 40 mg PO DAILY Paliperidone IM [Invega Sustenna] 156 mg IM Q28D Promethazine 6.25MG/5Ml [Phenergan Syrup] 5 ml PO Q8H predniSONE 40 mg PO DAILY Levofloxacin [Levaquin] 500 mg PO DAILY Loratadine [Claritin] 10 mg PO DAILY Ibuprofen [Motrin] 600 mg PO Q8HR PRN #30 tab PRN Reason: Pain Discharge Medication List Budesonide [Pulmicort Flexhaler] 1 puff INHALATION RT-BID 04/21/18 [History] Cholecalciferol [Vitamin D3 (25 Mcg = 1000 Iu)] 5,000 unit PO DAILY 04/21/18 [History] Cyanocobalamin (Vitamin B-12) [Vitamin B-12] 1,000 mcg PO DAILY 04/21/18 [History] Cyclobenzaprine HCl 5 mg PO BID PRN 04/21/18 [History] Ibuprofen [Motrin] 600 mg PO TID PRN 06/18/18 [History] Fluticasone Nasal [place] [Flonase Nasal [place]] 1 spr EA NOSTRIL DAILY 10/02/18 [History] Lacosamide [Vimpat] 150 mg PO BID #60 tablet 12/31/18 [Rx] Paliperidone IM [Invega Sustenna] 234 mg IM DIRECTED #1 syr 12/31/18 [Rx] Paliperidone [Invega] 3 mg PO HS #7 tab.er.24 12/31/18 [Rx] lamoTRIgine [LaMICtal] 50 mg PO BID #60 tab 12/31/18 [Rx] Follow up Appointment(s)/Referral(s): [facility] [Primary Care Provider] - 1-2 days
[2018-12-31] MEDS ORDERED: LACOSAMIDE 50 MG TABLET PO SCH (21:00)
== END 2018-12-31 13:41 | disposition home or self-care (01) | DRG 885 ==
LOC: EC 00:25 → 3MHU 03:24
PROVIDERS: ADMIT Psychiatry & Neurology Psychiatry; ATTEND Psychiatry & Neurology Psychiatry
DX: F25.9 Schizoaffective disorder, unspecified (principal); E83.52 Hypercalcemia; G40.909 Epilepsy, unspecified, not intractable, without status epilepticus; F64.9 Gender identity disorder, unspecified; F43.10 Post-traumatic stress disorder, unspecified; F31.9 Bipolar disorder, unspecified; F10.21 Alcohol dependence, in remission; F84.0 Autistic disorder; F42.9 Obsessive-compulsive disorder, unspecified; F90.9 Attention-deficit hyperactivity disorder, unspecified type; D72.829 Elevated white blood cell count, unspecified; J45.909 Unspecified asthma, uncomplicated; R74.8 Abnormal levels of other serum enzymes; T42.76XA Underdosing of unspecified antiepileptic and sedative-hypnotic drugs, initial encounter; Z91.128 Patient's intentional underdosing of medication regimen for other reason; R94.6 Abnormal results of thyroid function studies; F12.11 Cannabis abuse, in remission; F15.11 Other stimulant abuse, in remission; F14.11 Cocaine abuse, in remission; Z79.51 Long term (current) use of inhaled steroids; Z79.52 Long term (current) use of systemic steroids; Z79.899 Other long term (current) drug therapy; Z91.5 Personal history of self-harm; Z62.810 Personal history of physical and sexual abuse in childhood; Z88.5 Allergy status to narcotic agent; Z88.8 Allergy status to other drugs, medicaments and biological substances; Z91.018 Allergy to other foods; Z82.49 Family history of ischemic heart disease and other diseases of the circulatory system
CPT/HCPCS: 76705; 80048; 80053; 80061; 80306; 81003; 82075; 82248; 83036; 84439; 84443; 84481; 85025; 99285

== ENCOUNTER 2019-01-23 13:27 | Emergency (ER) | payer MEDICARE, OTHER ==
--- NOTE | 2019-01-23 13:34 | ED ---
General Adult HPI - General Stated complaint: rt ankle injury Time Seen by Provider: 01/23/19 13:27 Source: RN notes reviewed - History of Present Illness Initial comments: This is a 23-year-old male who presents emergency Department complaining of right foot pain. Patient states she tripped and twisted his right foot and other some swelling on the lateral aspect of his right foot. Patient states she was able to ambulate on it about 8 blocks until he can call EMS. Patient denies any ankle pain patient denies any pain patient denies any hip pain. Patient denies any other problems or injuries. - Related Data Home Medications Medication Instructions Recorded Confirmed Budesonide [Pulmicort Flexhaler] 1 puff INHALATION RT-BID 04/21/18 01/23/19 Cholecalciferol [Vitamin D3 (25 5,000 unit PO DAILY 04/21/18 01/23/19 Mcg = 1000 Iu)] Cyanocobalamin (Vitamin B-12) 1,000 mcg PO DAILY 04/21/18 01/23/19 [Vitamin B-12] Cyclobenzaprine HCl 5 mg PO BID PRN 04/21/18 01/23/19 Ibuprofen [Motrin] 600 mg PO TID PRN 06/18/18 01/23/19 Fluticasone Nasal [place] [Flonase 1 spray EA NOSTRIL DAILY 10/02/18 01/23/19 Nasal [place]] Albuterol Sulfate [Proair 1 puff PO RT-Q4H PRN 01/23/19 01/23/19 Respiclick] Evening [place] Oil 500 mg PO DAILY 01/23/19 01/23/19 Lacosamide [Vimpat] 200 mg PO BID 01/23/19 01/23/19 Loratadine [Alavert] 10 mg PO DAILY 01/23/19 01/23/19 Multivitamins, Thera [Multivitamin 2 tab PO DAILY 01/23/19 01/23/19 (formulary)] Paliperidone IM [Invega Sustenna] 234 mg IM Q28D 01/23/19 01/23/19 lamoTRIgine [LaMICtal] 200 mg PO BID 01/23/19 01/23/19 Allergies Allergy/AdvReac Type Severity Reaction Status Date / Time Mushroom AdvReac Nausea & Verified 01/23/19 13:41 Vomiting polyethylene glycol AdvReac Nausea & Verified 01/23/19 13:41 [From Golytely] Vomiting polyethylene glycol 3350 AdvReac Nausea & Verified 01/23/19 13:41 [From Golytely] Vomiting potassium chloride AdvReac Nausea & Verified 01/23/19 13:41 [From Golytely] Vomiting sodium [From Golytely] AdvReac Nausea & Verified 01/23/19 13:41 Vomiting sodium bicarbonate AdvReac Nausea & Verified 01/23/19 13:41 [From Golytely] Vomiting sodium chloride AdvReac Nausea & Verified 01/23/19 13:41 [From Golytely] Vomiting sodium sulfate AdvReac Nausea & Verified 01/23/19 13:41 [From Golytely] Vomiting narcotics AdvReac Unknown Uncoded 01/23/19 13:34 Review of Systems ROS Statement: Those systems with pertinent positive or pertinent negative responses have been documented in the HPI. ROS Other: All systems not noted in ROS Statement are negative. Past Medical History Past Medical History: Asthma, Seizure Disorder Additional Past Medical History / Comment(s): seizure, anxiety, autism, ocd, asbergers, ADHD, recovering alcoholic, History of Any Multi-Drug Resistant Organisms: None Reported Past Surgical History: No Surgical Hx Reported Additional Past Surgical History / Comment(s): Carpal Tunnel Repair left hand when 8 years old per patient.,, Past Anesthesia/Blood Transfusion Reactions: No Reported Reaction Past Psychological History: ADD/ADHD, Anxiety, Bipolar, PTSD, Schizoaffective Disorder, Schizophrenia Smoking Status: Never smoker Past Alcohol Use History: None Reported Additional Past Alcohol Use History / Comment(s): last drink over two years ago Past Drug Use History: Marijuana - Past Family History Father History Unknown: Yes Family Medical History: Hypertension Mother History Unknown: Yes Family Medical History: Hypertension General Exam - General Exam Comments Initial Comments: GENERAL Patient is well-developed and well-nourished. Patient is in mild distress. EYES Patient's pupils are equal and round. Extraocular motion is intact SKIN Unremarkable NEURO The patient is alert and oriented 3 PYSCH Patient has normal interpersonal interactions. MUSCULOSKELETAL Lateral aspect of the right foot is swollen and tender to palpation. There is no ankle swelling or tenderness. Patient has no knee pain. Course Vital Signs 01/23/19 13:30 Temperature 98.3 F Pulse Rate 74 Respiratory 18 Rate Blood Pressure 118/83 O2 Sat by Pulse 96 Oximetry Disposition Clinical Impression: Foot sprain Disposition: HOME SELF-CARE Condition: Good Instructions (If sedation given, give patient instructions): Foot Sprain (ED) Is patient prescribed a controlled substance at d/c from ED?: No Referrals: [facility] [Primary Care Provider] - 1-2 days Time of Disposition: 14:10
[2019-01-23 13:35] VITALS: BP 118/83; RESP 18
--- NOTE | 2019-01-23 13:48 | XR ---
EXAMINATION TYPE: XR foot complete RT DATE OF EXAM: 01/23/2019 COMPARISON: 06/18/2018 HISTORY: Pain TECHNIQUE: Three views are submitted. FINDINGS: The osseous structures are intact. There is no acute fracture or dislocation. Arthropathy of the f irst MTP. Benign-appearing cyst within the calcaneus. IMPRESSION: 1. No acute fracture or dislocation. If symptoms persist, follow-up exam in 7 to 10 days could be ob tained. 2. First MTP joint arthropathy
[2019-01-23 14:31] VITALS: PULSE 76; TEMP 98
== END 2019-01-23 14:21 | disposition home or self-care (01) ==
LOC: EC 13:27
DX: S93.601A Unspecified sprain of right foot, initial encounter (principal); J45.909 Unspecified asthma, uncomplicated; G40.909 Epilepsy, unspecified, not intractable, without status epilepticus; F31.9 Bipolar disorder, unspecified; F41.9 Anxiety disorder, unspecified; F25.9 Schizoaffective disorder, unspecified; Z79.51 Long term (current) use of inhaled steroids; Z79.899 Other long term (current) drug therapy; Z88.8 Allergy status to other drugs, medicaments and biological substances; Z88.5 Allergy status to narcotic agent; Z91.018 Allergy to other foods; X50.1XXA Overexertion from prolonged static or awkward postures, initial encounter; Y93.01 Activity, walking, marching and hiking
CPT/HCPCS: 99283

== ENCOUNTER 2019-03-21 19:52 | Emergency (ER) | payer MEDICARE, OTHER ==
[2019-03-21 20:00] VITALS: BP 136/80; PULSE 75; RESP 20; TEMP 98.2
--- NOTE | 2019-03-21 20:29 | ED ---
Psych HPI - General Chief Complaint: Psychiatric Symptoms Stated Complaint: Suicidal Time Seen by Provider: 03/21/19 20:17 Source: patient, family, RN notes reviewed, old records reviewed Mode of arrival: ambulatory - History of Present Illness Initial Comments: This is a 22-year-old male with history depression and suicidal ideation is back today complaining of feeling depressed and suicidal. He has no particular plan. He apparently was removed from his residence and has been watering states for the past couple days. He denies any headache dizziness blurry vision nausea vomiting or other symptoms. MD Complaint: suicidal ideation, feels depressed - Related Data Home Medications Medication Instructions Recorded Confirmed Budesonide [Pulmicort Flexhaler] 1 puff INHALATION RT-BID 04/21/18 03/21/19 Cholecalciferol [Vitamin D3 (25 5,000 unit PO DAILY 04/21/18 03/21/19 Mcg = 1000 Iu)] Cyanocobalamin (Vitamin B-12) 1,000 mcg PO DAILY 04/21/18 03/21/19 [Vitamin B-12] Cyclobenzaprine HCl 5 mg PO BID PRN 04/21/18 03/21/19 Ibuprofen [Motrin] 600 mg PO TID PRN 06/18/18 03/21/19 Fluticasone Nasal [place] [Flonase 1 spray EA NOSTRIL DAILY 10/02/18 03/21/19 Nasal [place]] Albuterol Sulfate [Proair 1 puff INHALATION RT-Q6H PRN 01/23/19 03/21/19 Respiclick] Evening [place] Oil 500 mg PO DAILY 01/23/19 03/21/19 Loratadine [Alavert] 10 mg PO DAILY 01/23/19 03/21/19 Multivitamins, Thera [Multivitamin 1 tab PO BID 01/23/19 03/21/19 (formulary)] Paliperidone IM [Invega Sustenna] 234 mg IM Q28D 01/23/19 03/21/19 lamoTRIgine [LaMICtal] 200 mg PO BID 01/23/19 03/21/19 Lacosamide [Vimpat] 150 mg PO BID 03/21/19 03/21/19 SILVER sulfADIAZINE Cream 1 applic TOPICAL BID 03/21/19 03/21/19 [Silvadene 1% Cream] Allergies Allergy/AdvReac Type Severity Reaction Status Date / Time Mushroom AdvReac Nausea & Verified 03/21/19 20:45 Vomiting polyethylene glycol AdvReac Nausea & Verified 03/21/19 20:45 [From Golytely] Vomiting polyethylene glycol 3350 AdvReac Nausea & Verified 03/21/19 20:45 [From Golytely] Vomiting potassium chloride AdvReac Nausea & Verified 03/21/19 20:45 [From Golytely] Vomiting sodium [From Golytely] AdvReac Nausea & Verified 03/21/19 20:45 Vomiting sodium bicarbonate AdvReac Nausea & Verified 03/21/19 20:45 [From Golytely] Vomiting sodium chloride AdvReac Nausea & Verified 03/21/19 20:45 [From Golytely] Vomiting sodium sulfate AdvReac Nausea & Verified 03/21/19 20:45 [From Golytely] Vomiting narcotics AdvReac Unknown Uncoded 03/21/19 20:45 Review of Systems ROS Statement: Those systems with pertinent positive or pertinent negative responses have been documented in the HPI. ROS Other: All systems not noted in ROS Statement are negative. Past Medical History Past Medical History: Asthma, Seizure Disorder Additional Past Medical History / Comment(s): seizure, anxiety, autism, ocd, asbergers, ADHD, recovering alcoholic, History of Any Multi-Drug Resistant Organisms: None Reported Past Surgical History: No Surgical Hx Reported Additional Past Surgical History / Comment(s): Carpal Tunnel Repair left hand when 8 years old per patient.,, Past Anesthesia/Blood Transfusion Reactions: No Reported Reaction Past Psychological History: ADD/ADHD, Anxiety, Bipolar, PTSD, Schizoaffective Disorder, Schizophrenia Smoking Status: Never smoker Past Alcohol Use History: None Reported Past Drug Use History: Marijuana - Past Family History Father History Unknown: Yes Family Medical History: Hypertension Mother History Unknown: Yes Family Medical History: Hypertension General Exam - General Exam Comments Initial Comments: This is a well-developed asthenic appearing male who is awake alert oriented 3 he does have severe body odor to the time of exam Limitations: no limitations General appearance: alert, in no apparent distress Head exam: Present: atraumatic, normocephalic, normal inspection Eye exam: Present: normal appearance, PERRL, EOMI. Absent: scleral icterus, conjunctival injection, periorbital swelling ENT exam: Present: normal exam, mucous membranes moist Neck exam: Present: normal inspection. Absent: tenderness, meningismus, lymphadenopathy Respiratory exam: Present: normal lung sounds bilaterally. Absent: respiratory distress, wheezes, rales, rhonchi, stridor Cardiovascular Exam: Present: regular rate, normal rhythm, normal heart sounds. Absent: systolic murmur, diastolic murmur, rubs, gallop, clicks GI/Abdominal exam: Present: soft, normal bowel sounds. Absent: distended, tenderness, guarding, rebound, rigid Extremities exam: Present: normal inspection, full ROM, normal capillary refill. Absent: tenderness, pedal edema, joint swelling, calf tenderness Back exam: Present: normal inspection Neurological exam: Present: alert, oriented X3, CN II-XII intact Psychiatric exam: Present: depressed, suicidal ideation Skin exam: Present: warm, dry, intact, normal color. Absent: rash Course Vital Signs 03/21/19 19:57 Temperature 98.2 F Pulse Rate 75 Respiratory 20 Rate Blood Pressure 136/80 O2 Sat by Pulse 99 Oximetry Medical Decision Making - Medical Decision Making The patient was evaluated by the psychiatric service and found not to be wrist himself or anyone else at this time he will be discharged he has in contact with the act team - Radiology Data Radiology results: report reviewed (I did review the imaging and report no acute findings.), image reviewed Disposition Clinical Impression: Adjustment reaction, Depression Disposition: HOME SELF-CARE Condition: Good Instructions (If sedation given, give patient instructions): Depression (ED), Anxiety (ED) Is patient prescribed a controlled substance at d/c from ED?: No Referrals: [facility] [Primary Care Provider] - 1-2 days
--- NOTE | 2019-03-21 21:35 | XR ---
EXAMINATION TYPE: XR chest 2V DATE OF EXAM: 03/21/2019 COMPARISON: NONE HISTORY: Cough TECHNIQUE: Frontal and lateral views of the chest are obtained. FINDINGS: Heart and mediastinum are normal. Lungs are clear. Diaphragm is normal. Bony thorax appear s normal. IMPRESSION: Normal chest
== END 2019-03-21 22:22 | disposition home or self-care (01) ==
LOC: EC 19:52
DX: F43.20 Adjustment disorder, unspecified (principal); F31.30 Bipolar disorder, current episode depressed, mild or moderate severity, unspecified; R45.851 Suicidal ideations; F25.9 Schizoaffective disorder, unspecified; G40.909 Epilepsy, unspecified, not intractable, without status epilepticus; F31.9 Bipolar disorder, unspecified; F41.9 Anxiety disorder, unspecified; J45.909 Unspecified asthma, uncomplicated; Z79.51 Long term (current) use of inhaled steroids; Z79.899 Other long term (current) drug therapy; Z91.018 Allergy to other foods; Z88.5 Allergy status to narcotic agent; Z88.8 Allergy status to other drugs, medicaments and biological substances
CPT/HCPCS: 71046; 82075; 99285

== ENCOUNTER 2019-03-28 12:41 | Emergency (ER) | payer MEDICARE, OTHER ==
--- NOTE | 2019-03-28 13:03 | ED ---
General Adult HPI - General Chief complaint: Recheck/Abnormal Lab/Rx Stated complaint: facial swelling Time Seen by Provider: 03/28/19 12:50 Source: patient, RN notes reviewed Mode of arrival: wheelchair Limitations: no limitations - History of Present Illness Initial comments: This a 23-year-old male presents emergency Department chief complaint severe left-sided facial swelling. Patient states his last one to days she's had worsening progressive swelling of his left side of his face. Patient states he has pain from his upper dentition to his left eye. He reports fevers and chills at home. Patient states that he has some bad teeth that he knows well. Patient states that he is not taking any recent medications for this. No ear pain denies any difficulty swelling no sore throat. - Related Data Home Medications Medication Instructions Recorded Confirmed Budesonide [Pulmicort Flexhaler] 1 puff INHALATION RT-BID 04/21/18 03/28/19 Cholecalciferol [Vitamin D3 (25 5,000 unit PO DAILY 04/21/18 03/28/19 Mcg = 1000 Iu)] Cyanocobalamin (Vitamin B-12) 1,000 mcg PO DAILY 04/21/18 03/28/19 [Vitamin B-12] Cyclobenzaprine HCl 5 mg PO DAILY PRN 04/21/18 03/28/19 Ibuprofen [Motrin] 600 mg PO TID PRN 06/18/18 03/28/19 Fluticasone Nasal [place] [Flonase 1 spray EA NOSTRIL DAILY 10/02/18 03/28/19 Nasal [place]] Loratadine [Alavert] 10 mg PO DAILY 01/23/19 03/28/19 Paliperidone IM [Invega Sustenna] 234 mg IM Q28D 01/23/19 03/28/19 lamoTRIgine [LaMICtal] 200 mg PO BID 01/23/19 03/28/19 Lacosamide [Vimpat] 150 mg PO BID 03/21/19 03/28/19 Albuterol Inhaler [Ventolin Hfa 1 puff INHALATION RT-Q4H PRN 03/28/19 03/28/19 Inhaler] Previous Rx's Medication Instructions Recorded Clindamycin HCl 300 mg PO Q6HR #40 cap 03/28/19 Allergies Allergy/AdvReac Type Severity Reaction Status Date / Time Mushroom AdvReac Nausea & Verified 03/28/19 13:45 Vomiting polyethylene glycol AdvReac Nausea & Verified 03/28/19 13:45 [From Golytely] Vomiting polyethylene glycol 3350 AdvReac Nausea & Verified 03/28/19 13:45 [From Golytely] Vomiting potassium chloride AdvReac Nausea & Verified 03/28/19 13:45 [From Golytely] Vomiting sodium [From Golytely] AdvReac Nausea & Verified 03/28/19 13:45 Vomiting sodium bicarbonate AdvReac Nausea & Verified 03/28/19 13:45 [From Golytely] Vomiting sodium chloride AdvReac Nausea & Verified 03/28/19 13:45 [From Golytely] Vomiting sodium sulfate AdvReac Nausea & Verified 03/28/19 13:45 [From Golytely] Vomiting narcotics AdvReac Unknown Uncoded 03/28/19 13:45 Review of Systems ROS Statement: Those systems with pertinent positive or pertinent negative responses have been documented in the HPI. ROS Other: All systems not noted in ROS Statement are negative. Past Medical History Past Medical History: Asthma, Seizure Disorder Additional Past Medical History / Comment(s): seizure, anxiety, autism, ocd, asbergers, ADHD, recovering alcoholic, History of Any Multi-Drug Resistant Organisms: None Reported Past Surgical History: No Surgical Hx Reported Additional Past Surgical History / Comment(s): Carpal Tunnel Repair left hand when 8 years old per patient.,, Past Anesthesia/Blood Transfusion Reactions: No Reported Reaction Past Psychological History: ADD/ADHD, Anxiety, Bipolar, PTSD, Schizoaffective Disorder, Schizophrenia Smoking Status: Never smoker Past Alcohol Use History: None Reported Past Drug Use History: Marijuana - Past Family History Father History Unknown: Yes Family Medical History: Hypertension Mother History Unknown: Yes Family Medical History: Hypertension General Exam Limitations: no limitations General appearance: alert, in no apparent distress Head exam: Present: atraumatic, normocephalic, normal inspection Eye exam: Present: PERRL, EOMI, periorbital swelling (Left). Absent: normal appearance, scleral icterus, conjunctival injection ENT exam: Present: mucous membranes moist, TM's normal bilaterally, normal external ear exam. Absent: normal exam, normal oropharynx (Multiple dental caries, missing dentition, severe swelling the left side of the face with tenderness) Neck exam: Present: normal inspection, full ROM. Absent: tenderness, meningis mus, lymphadenopathy Respiratory exam: Present: normal lung sounds bilaterally. Absent: respiratory distress, wheezes, rales, rhonchi, stridor Cardiovascular Exam: Present: regular rate, normal rhythm, normal heart sounds. Absent: systolic murmur, diastolic murmur, rubs, gallop, clicks Back exam: Absent: CVA tenderness (R), CVA tenderness (L) Skin exam: Present: warm, dry, intact, normal color. Absent: rash Course Vital Signs 03/28/19 12:43 Temperature 98.6 F Pulse Rate 102 H Respiratory 18 Rate Blood Pressure 126/84 O2 Sat by Pulse 97 Oximetry Medical Decision Making - Medical Decision Making 23-year-old male presents emergency apartment for left-sided facial pain. CT shows evidence of cellulitis no drainable fluid collection. Patient was given Rocephin emergency department we discharged on clindamycin. Case discussed with Dr. Quezada close follow-up and return parameters were discussed. - Lab Data Result diagrams: 03/28/19 13:15 03/28/19 13:15 Lab Results 03/28/19 03/28/19 03/28/19 Range/Units 13:15 13:15 13:15 WBC 9.9 (3.8-10.6) k/uL RBC 5.37 (4.30-5.90) m/uL Hgb 15.8 (13.0-17.5) gm/dL Hct 45.5 (39.0-53.0) % MCV 84.6 (80.0-100.0) fL MCH 29.5 (25.0-35.0) pg MCHC 34.8 (31.0-37.0) g/dL RDW 12.9 (11.5-15.5) % Plt Count 246 (150-450) k/uL Neutrophils % 74 % Lymphocytes % 15 % Monocytes % 7 % Eosinophils % 1 % Basophils % 1 % Neutrophils # 7.3 (1.3-7.7) k/uL Lymphocytes # 1.5 (1.0-4.8) k/uL Monocytes # 0.7 (0-1.0) k/uL Eosinophils # 0.1 (0-0.7) k/uL Basophils # 0.1 (0-0.2) k/uL Sodium 137 (137-145) mmol/L Potassium 3.7 (3.5-5.1) mmol/L Chloride 97 L (98-107) mmol/L Carbon Dioxide 26 (22-30) mmol/L Anion Gap 14 mmol/L BUN 14 (9-20) mg/dL Creatinine 0.65 L (0.66-1.25) mg/dL Est GFR (CKD-EPI)AfAm >90 (>60 ml/min/1.73 sqM) Est GFR (CKD-EPI)NonAf >90 (>60 ml/min/1.73 sqM) Glucose 105 H (74-99) mg/dL Plasma Lactic Acid Russell 1.0 (0.7-2.0) mmol/L Calcium 9.8 (8.4-10.2) mg/dL Disposition Clinical Impression: Dental infection, Facial cellulitis Disposition: HOME SELF-CARE Condition: Stable Instructions (If sedation given, give patient instructions): Cellulitis (ED) Additional Instructions: Please return to the Emergency Department if symptoms worsen or any other concerns. Prescriptions: Clindamycin HCl 300 mg PO Q6HR #40 cap Is patient prescribed a controlled substance at d/c from ED?: No Referrals: [facility] [Primary Care Provider] - 1-2 days Time of Disposition: 14:56
[2019-03-28 13:38] LABS: Basophils # (A) 0.1 k/uL (0-0.2); Basophils % (A) 1 %; Eosinophils # (A) 0.1 k/uL (0-0.7); Eosinophils % (A) 1 %; HCT 45.5 % (39.0-53.0); HGB 15.8 gm/dL (13.0-17.5); Lymphocytes # (A) 1.5 k/uL (1.0-4.8); Lymphocytes % (A) 15 %; MCH 29.5 pg (25.0-35.0); MCHC 34.8 g/dL (31.0-37.0); MCV 84.6 fL (80.0-100.0); Mean Platelet Volume 6.4; Monocytes # (A) 0.7 k/uL (0-1.0); Monocytes % (A) 7 %; Neutrophils # (A) 7.3 k/uL (1.3-7.7); Neutrophils % (A) 74 %; Platelet Count 246 k/uL (150-450); RBC 5.37 m/uL (4.30-5.90); RDW 12.9 % (11.5-15.5); WBC 9.9 k/uL (3.8-10.6)
[2019-03-28 14:06] LABS: African American GFR (CKD) >90 (>60 ml/min/1.73 sqM); Anion Gap 14 mmol/L; Blood Urea Nitrogen 14 mg/dL (9-20); Calcium 9.8 mg/dL (8.4-10.2); Carbon Dioxide 26 mmol/L (22-30); Chloride 97 mmol/L (98-107); Glucose 105 mg/dL (74-99); Potassium 3.7 mmol/L (3.5-5.1); Sodium 137 mmol/L (137-145)
--- NOTE | 2019-03-28 14:41 | CT ---
EXAMINATION TYPE: CT facial bones w con DATE OF EXAM: 03/28/2019 COMPARISON: 11/20/2016 HISTORY: Lt facial swelling CT DLP: 471.2 mGycm Automated exposure control for dose reduction was used. CONTRAST: CT scan of the facial bones is performed with IV Contrast, patient injected with 100 mL of Isovue 300 . TECHNIQUE: CT scan of the sinuses is performed without contrast, axial images are obtained, coronal r eformatted images are also reviewed. FINDINGS: There is extensive left facial swelling noted. Streak artifact from dental amalgam does limit evaluation. There is fluid anterior to the left masset er musculature without defined collection to suggest abscess at this time. There is evidence of denta l caries. No bony destructive process identified. Mild left maxillary chronic sinusitis. IMPRESSION: 1. Left facial cellulitis. Fluid collection anterior to the left masseter without definable collectio n to suggest discrete abscess at this time. No bony destructive process. Scattered dental caries.
[2019-03-28 15:17] VITALS: BP 123/79; PULSE 100; RESP 16; TEMP 98.3
== END 2019-03-28 15:10 | disposition home or self-care (01) ==
LOC: EC 12:41
DX: L03.211 Cellulitis of face (principal); K04.7 Periapical abscess without sinus; J45.909 Unspecified asthma, uncomplicated; G40.909 Epilepsy, unspecified, not intractable, without status epilepticus; F25.0 Schizoaffective disorder, bipolar type; Z79.51 Long term (current) use of inhaled steroids; Z79.899 Other long term (current) drug therapy; Z91.018 Allergy to other foods; Z88.8 Allergy status to other drugs, medicaments and biological substances; Z88.5 Allergy status to narcotic agent
CPT/HCPCS: 36415; 80048; 83605; 85025; 87040; 70487; 99284; 96365; J0696; Q9967

== ENCOUNTER 2019-07-09 21:18 | Emergency (ER) | payer MEDICARE, OTHER ==
--- NOTE | 2019-07-09 22:26 | ED ---
Psych HPI - General Chief Complaint: Psychiatric Symptoms Stated Complaint: Mental Health Time Seen by Provider: 07/09/19 21:37 Source: patient Mode of arrival: ambulatory - History of Present Illness Initial Comments: this patient is 24-year-old man with history of mood disorder who states that over the past few days his mood has Been worse than usual. He states that he has been stressed by a number of factors. He had an argument with a friend over money. He states that he also is probably going to be evicted from his residence today. He states that he is been feeling more depressed and having thoughts of suicide. MD Complaint: suicidal ideation, feels depressed -: days(s) Associated Psychiatric Symptoms: depression History of same: Yes Quality: getting worse Improves With: none Worsens With: none Context: significant life stressor - Related Data Home Medications Medication Instructions Recorded Confirmed Budesonide [Pulmicort Flexhaler] 1 puff INHALATION RT-BID 04/21/18 03/28/19 Cholecalciferol [Vitamin D3 (25 5,000 unit PO DAILY 04/21/18 03/28/19 Mcg = 1000 Iu)] Cyanocobalamin (Vitamin B-12) 1,000 mcg PO DAILY 04/21/18 03/28/19 [Vitamin B-12] Cyclobenzaprine HCl 5 mg PO DAILY PRN 04/21/18 03/28/19 Ibuprofen [Motrin] 600 mg PO TID PRN 06/18/18 03/28/19 Fluticasone Nasal [place] [Flonase 1 spray EA NOSTRIL DAILY 10/02/18 03/28/19 Nasal [place]] Loratadine [Alavert] 10 mg PO DAILY 01/23/19 03/28/19 Paliperidone IM [Invega Sustenna] 234 mg IM Q28D 01/23/19 03/28/19 lamoTRIgine [LaMICtal] 200 mg PO BID 01/23/19 03/28/19 Lacosamide [Vimpat] 150 mg PO BID 03/21/19 03/28/19 Albuterol Inhaler [Ventolin Hfa 1 puff INHALATION RT-Q4H PRN 03/28/19 03/28/19 Inhaler] Previous Rx's Medication Instructions Recorded Clindamycin HCl 300 mg PO Q6HR #40 cap 03/28/19 Allergies Allergy/AdvReac Type Severity Reaction Status Date / Time Mushroom AdvReac Nausea & Verified 03/28/19 13:45 Vomiting polyethylene glycol AdvReac Nausea & Verified 03/28/19 13:45 [From Golytely] Vomiting polyethylene glycol 3350 AdvReac Nausea & Verified 03/28/19 13:45 [From Golytely] Vomiting potassium chloride AdvReac Nausea & Verified 03/28/19 13:45 [From Golytely] Vomiting sodium [From Golytely] AdvReac Nausea & Verified 03/28/19 13:45 Vomiting sodium bicarbonate AdvReac Nausea & Verified 03/28/19 13:45 [From Golytely] Vomiting sodium chloride AdvReac Nausea & Verified 03/28/19 13:45 [From Golytely] Vomiting sodium sulfate AdvReac Nausea & Verified 03/28/19 13:45 [From Golytely] Vomiting narcotics AdvReac Unknown Uncoded 03/28/19 13:45 Review of Systems ROS Statement: Those systems with pertinent positive or pertinent negative responses have been documented in the HPI. ROS Other: All systems not noted in ROS Statement are negative. Constitutional: Denies: fever ENT: Denies: throat pain Respiratory: Denies: cough, dyspnea Cardiovascular: Denies: chest pain, palpitations Gastrointestinal: Denies: abdominal pain, nausea, vomiting Musculoskeletal: Denies: back pain Neurological: Denies: headache, weakness Psychiatric: Reports: depression, auditory hallucinations, suicidal thoughts. Denies: visual hallucinations, homicidal thoughts Past Medical History Past Medical History: Asthma, Seizure Disorder Additional Past Medical History / Comment(s): seizure, anxiety, autism, ocd, asbergers, ADHD, recovering alcoholic, History of Any Multi-Drug Resistant Organisms: None Reported Past Surgical History: No Surgical Hx Reported Additional Past Surgical History / Comment(s): Carpal Tunnel Repair left hand when 8 years old per patient.,, Past Anesthesia/Blood Transfusion Reactions: No Reported Reaction Past Psychological History: ADD/ADHD, Anxiety, Bipolar, PTSD, Schizoaffective Disorder, Schizophrenia Smoking Status: Never smoker Past Alcohol Use History: None Reported Past Drug Use History: Marijuana - Past Family History Father History Unknown: Yes Family Medical History: Hypertension Mother History Unknown: Yes Family Medical History: Hypertension General Exam Limitations: no limitations General appearance: alert, in no apparent distress Head exam: Present: atraumatic, normocephalic Eye exam: Present: normal appearance. Absent: scleral icterus, conjunctival inj ection Neck exam: Present: normal inspection, full ROM. Absent: tenderness, meningismus Respiratory exam: Present: normal lung sounds bilaterally. Absent: respiratory distress, wheezes, rales, rhonchi, stridor Cardiovascular Exam: Present: regular rate, normal rhythm, normal heart sounds. Absent: systolic murmur, diastolic murmur, rubs, gallop GI/Abdominal exam: Present: soft. Absent: distended, tenderness, guarding, rebound, rigid, mass Neurological exam: Present: alert Psychiatric exam: Present: normal affect, depressed, suicidal ideation. Absent: agitated, anxious, flat affect, manic, homicidal ideation Skin exam: Present: warm, dry, intact, normal color. Absent: rash Course Vital Signs 07/09/19 07/10/19 21:28 06:00 Temperature 98.0 F Pulse Rate 80 66 Respiratory 18 16 Rate Blood Pressure 122/60 108/69 O2 Sat by Pulse 97 95 Oximetry Medical Decision Making - Lab Data Lab Results 07/09/19 Range/Units 23:43 Urine Opiates Screen Not Detected (NotDetected) Ur Oxycodone Screen Not Detected (NotDetected) Urine Methadone Screen Not Detected (NotDetected) Ur Propoxyphene Screen Not Detected (NotDetected) Ur Barbiturates Screen Not Detected (NotDetected) U Tricyclic Antidepress Not Detected (NotDetected) Ur Phencyclidine Scrn Not Detected (NotDetected) Ur Amphetamines Screen Not Detected (NotDetected) U Methamphetamines Scrn Not Detected (NotDetected) U Benzodiazepines Scrn Not Detected (NotDetected) Urine Cocaine Screen Not Detected (NotDetected) U Marijuana (THC) Screen Not Detected (NotDetected) Disposition Clinical Impression: Mood disorder Disposition: HOME SELF-CARE Condition: Good Instructions (If sedation given, give patient instructions): Mood Disorders (ED) Is patient prescribed a controlled substance at d/c from ED?: No Referrals: [facility] [Primary Care Provider] - 1-2 days
[2019-07-10 00:18] LABS: Amphetamine Screen,Urine Not Detected (NotDetected); Benzodiazepines Screen,Urine Not Detected (NotDetected); Cocaine Screen,Urine Not Detected (NotDetected); Methadone Screen, Urine Not Detected (NotDetected); Opiate Screen,Urine Not Detected (NotDetected); Phencyclidine Screen,Urine Not Detected (NotDetected); Tricyclic Antidepressant,Urine Not Detected (NotDetected); Urn Cannabinoid Scrn Not Detected (NotDetected)
[2019-07-10 00:19] LABS: Barbiturate Screen,Urine Not Detected (NotDetected); Oxycodone Screen, Urine Not Detected (NotDetected)
[2019-07-10 06:58] VITALS: RESP 16
[2019-07-10 07:40] VITALS: BP 151/78; PULSE 78; TEMP 97.8
== END 2019-07-10 08:06 | disposition home or self-care (01) ==
LOC: EC 21:18
DX: F32.9 Major depressive disorder, single episode, unspecified (principal); R45.851 Suicidal ideations; J45.909 Unspecified asthma, uncomplicated; F25.9 Schizoaffective disorder, unspecified; F41.9 Anxiety disorder, unspecified; G40.909 Epilepsy, unspecified, not intractable, without status epilepticus; Z79.51 Long term (current) use of inhaled steroids; Z79.899 Other long term (current) drug therapy; Z88.8 Allergy status to other drugs, medicaments and biological substances; Z91.048 Other nonmedicinal substance allergy status; Z91.018 Allergy to other foods
CPT/HCPCS: 80306; 82075; 99285

== ENCOUNTER 2019-08-28 10:19 | Emergency (ER) | payer MEDICARE, OTHER ==
[2019-08-28 10:35] VITALS: BP 119/83; PULSE 95; RESP 18; TEMP 98.5
[2019-08-28] MEDS ORDERED: CLINDAMYCIN 150 MG CAP PO STA (10:39)
[2019-08-28] MEDS ORDERED: IBUPROFEN 600 MG TAB PO STA (10:39)
--- NOTE | 2019-08-28 10:44 | ED ---
ENT HPI - General Chief complaint: Dental/Oral Stated complaint: dental infection Time Seen by Provider: 08/28/19 10:35 Source: patient, RN notes reviewed Mode of arrival: ambulatory Limitations: no limitations - History of Present Illness Initial comments: 24-year-old male presents emergency Department for right-sided facial swelling. Patient states it started overnight with increased swelling, mild pain. Patient does admit that he's had multiple prior dental infections in the past. He has minimal pain no fevers or chills no trismus. Patient offers no other complaints. Patient denies any headache, dizziness, neck pain or neck stiffness - Related Data Home Medications Medication Instructions Recorded Confirmed Budesonide [Pulmicort Flexhaler] 1 puff INHALATION RT-BID 04/21/18 03/28/19 Cholecalciferol [Vitamin D3 (25 5,000 unit PO DAILY 04/21/18 03/28/19 Mcg = 1000 Iu)] Cyanocobalamin (Vitamin B-12) 1,000 mcg PO DAILY 04/21/18 03/28/19 [Vitamin B-12] Cyclobenzaprine HCl 5 mg PO DAILY PRN 04/21/18 03/28/19 Ibuprofen [Motrin] 600 mg PO TID PRN 06/18/18 03/28/19 Fluticasone Nasal [place] [Flonase 1 spray EA NOSTRIL DAILY 10/02/18 03/28/19 Nasal [place]] Loratadine [Alavert] 10 mg PO DAILY 01/23/19 03/28/19 Paliperidone IM [Invega Sustenna] 234 mg IM Q28D 01/23/19 03/28/19 lamoTRIgine [LaMICtal] 200 mg PO BID 01/23/19 03/28/19 Lacosamide [Vimpat] 150 mg PO BID 03/21/19 03/28/19 Albuterol Inhaler [Ventolin Hfa 1 puff INHALATION RT-Q4H PRN 03/28/19 03/28/19 Inhaler] Previous Rx's Medication Instructions Recorded Clindamycin HCl 300 mg PO Q6HR #40 cap 03/28/19 Clindamycin HCl 300 mg PO Q6HR #40 cap 08/28/19 Ibuprofen [Motrin] 600 mg PO Q8HR PRN #30 tab 08/28/19 Allergies Allergy/AdvReac Type Severity Reaction Status Date / Time Mushroom AdvReac Nausea & Verified 08/28/19 10:35 Vomiting polyethylene glycol AdvReac Nausea & Verified 08/28/19 10:35 [From Golytely] Vomiting polyethylene glycol 3350 AdvReac Nausea & Verified 08/28/19 10:35 [From Golytely] Vomiting potassium chloride AdvReac Nausea & Verified 08/28/19 10:35 [From Golytely] Vomiting sodium [From Golytely] AdvReac Nausea & Verified 08/28/19 10:35 Vomiting sodium bicarbonate AdvReac Nausea & Verified 08/28/19 10:35 [From Golytely] Vomiting sodium chloride AdvReac Nausea & Verified 08/28/19 10:35 [From Golytely] Vomiting sodium sulfate AdvReac Nausea & Verified 08/28/19 10:35 [From Golytely] Vomiting narcotics AdvReac Unknown Uncoded 08/28/19 10:35 Review of Systems ROS Statement: Those systems with pertinent positive or pertinent negative responses have been documented in the HPI. ROS Other: All systems not noted in ROS Statement are negative. Past Medical History Past Medical History: Asthma, Seizure Disorder Additional Past Medical History / Comment(s): seizure, anxiety, autism, ocd, asbergers, ADHD, recovering alcoholic, History of Any Multi-Drug Resistant Organisms: None Reported Past Surgical History: No Surgical Hx Reported Additional Past Surgical History / Comment(s): Carpal Tunnel Repair left hand when 8 years old per patient.,, Past Anesthesia/Blood Transfusion Reactions: No Reported Reaction Past Psychological History: ADD/ADHD, Anxiety, Bipolar, PTSD, Schizoaffective Disorder, Schizophrenia Smoking Status: Never smoker Past Alcohol Use History: None Reported Past Drug Use History: None Reported - Past Family History Father History Unknown: Yes Family Medical History: Hypertension Mother History Unknown: Yes Family Medical History: Hypertension General Exam Limitations: no limitations General appearance: alert, in no apparent distress Head exam: Present: atraumatic, normocephalic, normal inspection Eye exam: Present: normal appearance, PERRL, EOMI. Absent: scleral icterus, conjunctival injection, periorbital swelling, periorbital tenderness ENT exam: Present: mucous membranes moist, TM's normal bilaterally, normal external ear exam. Absent: normal exam, normal oropharynx (Edentulous, multiple dental caries, no drainable abscess, mild swelling right maxillary region) Neck exam: Present: normal inspection, full ROM. Absent: tenderness, meningismus, lymphadenopathy Respiratory exam: Present: normal lung sounds bilaterally. Absent: respiratory distress, wheezes, rales, rhonchi, stridor Cardiovascular Exam: Present: regular rate, normal rhythm, normal heart sounds. Absent: systolic murmur, diastolic murmur, rubs, gallop, clicks Course Vital Signs 08/28/19 10:31 Temperature 98.5 F Pulse Rate 95 Respiratory 18 Rate Blood Pressure 119/83 O2 Sat by Pulse 98 Oximetry Medical Decision Making - Medical Decision Making 44-year-old male presented for right-sided facial swelling. This is related to a dental infection. Patient was started on clindamycin. Given initial dosing in the emergency department. Patient will follow-up with the dental clinic and return for any worsening symptoms. Disposition Clinical Impression: Dental abscess, Toothache Disposition: HOME SELF-CARE Condition: Stable Instructions (If sedation given, give patient instructions): Toothache (ED), Dental Abscess (ED) Additional Instructions: Please return to the Emergency Department if symptoms worsen or any other concerns. Prescriptions: Clindamycin HCl 300 mg PO Q6HR #40 cap Ibuprofen [Motrin] 600 mg PO Q8HR PRN #30 tab PRN Reason: Pain Is patient prescribed a controlled substance at d/c from ED?: No Referrals: [facility] [Primary Care Provider] - 1-2 days Time of Disposition: 10:44
== END 2019-08-28 10:52 | disposition home or self-care (01) ==
LOC: EC 10:19
DX: K04.7 Periapical abscess without sinus (principal); K02.9 Dental caries, unspecified; K08.109 Complete loss of teeth, unspecified cause, unspecified class; J45.909 Unspecified asthma, uncomplicated; G40.909 Epilepsy, unspecified, not intractable, without status epilepticus; F84.0 Autistic disorder; F31.9 Bipolar disorder, unspecified; F20.9 Schizophrenia, unspecified; Z88.5 Allergy status to narcotic agent; Z88.8 Allergy status to other drugs, medicaments and biological substances; Z91.018 Allergy to other foods; Z79.51 Long term (current) use of inhaled steroids; Z79.899 Other long term (current) drug therapy
CPT/HCPCS: 99283

== ENCOUNTER 2019-12-23 13:08 | Emergency (ER) | payer MEDICARE, OTHER ==
[2019-12-23 13:17] VITALS: PULSE 79
--- NOTE | 2019-12-23 14:32 | XR ---
EXAMINATION TYPE: XR knee 4V RT DATE OF EXAM: 12/23/2019 CLINICAL HISTORY: Pain after fall injury 10 days ago. TECHNIQUE: Three views of the right knee are obtained. A fourth sunrise view is acquired. COMPARISON: None. FINDINGS: There is no acute fracture/dislocation evident in right knee. The tri-compartment joint s paces appear within normal limits. Patellar articulation satisfactory on the sunrise view. The overly ing soft tissue appears unremarkable. IMPRESSION: There is no acute fracture or dislocation in the right knee.
--- NOTE | 2019-12-23 14:33 | XR ---
EXAMINATION TYPE: XR ankle complete RT DATE OF EXAM: 12/23/2019 CLINICAL HISTORY: Right ankle pain after fall TECHNIQUE: Frontal, lateral and oblique images of the right ankle are obtained. COMPARISON: 2016 tibia and fibula x-ray FINDINGS: There is no acute fracture/dislocation evident in the right ankle. 5 mm corticated bone f ragment inferior to the lateral malleolus is unchanged from 2016. This again may represent an accesso ry ossicle or sequela of remote injury. The ankle mortise appears within normal limits. The overlyin g soft tissue appears unremarkable. IMPRESSION: There is no acute fracture or dislocation in the right ankle.
--- NOTE | 2019-12-23 15:13 | ED ---
General Adult HPI - General Chief complaint: Extremity Injury, Lower Stated complaint: RT knee pain Time Seen by Provider: 12/23/19 13:19 Source: patient, EMS, RN notes reviewed, old records reviewed Mode of arrival: EMS Limitations: no limitations - History of Present Illness Initial comments: 24-year-old male patient passed no history of autism, ADHD presents to the for chief complaint of right ankle and knee pain. Patient reports that he was walking when he stumbled and fell forward onto his right knee. He complains right knee pain. Also does report that he has some mild ankle pain. States the pain is worse with walking. Denies any trauma head or neck. Denies any other complaints. Systemic: Pt denies fatigue, fever/chills, rash. Pt denies weakness, night sweats, weight loss. Neuro: Pt denies headache, visual disturbances, syncope or pre-syncope. HEENT: Pt denies ocular discharge or irritation, otalgia, rhinorrhea, pharyngitis or notable lymphadenopathy. Cardiopulmonary: Pt denies chest pain, SOB, heart palpitations, dyspnea on exertion. Abdominal/GI: Pt denies abdominal pain, n/v/d. : Pt denies dysuria, burning w/ urination, frequency/urgency. Denies new onset urinary or bowel incontinence. MSK: Pt denies loss of strength. Neuro: Pt denies new onset weakness, paresthesias. - Related Data Home Medications Medication Instructions Recorded Confirmed Budesonide [Pulmicort Flexhaler] 1 puff INHALATION RT-BID 04/21/18 03/28/19 Cholecalciferol [Vitamin D3 (25 5,000 unit PO DAILY 04/21/18 03/28/19 Mcg = 1000 Iu)] Cyanocobalamin (Vitamin B-12) 1,000 mcg PO DAILY 04/21/18 03/28/19 [Vitamin B-12] Cyclobenzaprine HCl 5 mg PO DAILY PRN 04/21/18 03/28/19 Ibuprofen [Motrin] 600 mg PO TID PRN 06/18/18 03/28/19 Fluticasone Nasal [place] [Flonase 1 spray EA NOSTRIL DAILY 10/02/18 03/28/19 Nasal [place]] Loratadine [Alavert] 10 mg PO DAILY 01/23/19 03/28/19 Paliperidone IM [Invega Sustenna] 234 mg IM Q28D 01/23/19 03/28/19 lamoTRIgine [LaMICtal] 200 mg PO BID 01/23/19 03/28/19 Lacosamide [Vimpat] 150 mg PO BID 03/21/19 03/28/19 Albuterol Inhaler (Mhu) [Ventolin 1 puff INHALATION RT-Q4H PRN 03/28/19 03/28/19 Hfa Inhaler] Previous Rx's Medication Instructions Recorded Clindamycin HCl 300 mg PO Q6HR #40 cap 03/28/19 Clindamycin HCl 300 mg PO Q6HR #40 cap 08/28/19 Ibuprofen [Motrin] 600 mg PO Q8HR PRN #30 tab 08/28/19 Allergies Allergy/AdvReac Type Severity Reaction Status Date / Time Mushroom AdvReac Nausea & Verified 08/28/19 10:35 Vomiting polyethylene glycol AdvReac Nausea & Verified 08/28/19 10:35 [From Golytely] Vomiting polyethylene glycol 3350 AdvReac Nausea & Verified 08/28/19 10:35 [From Golytely] Vomiting potassium chloride AdvReac Nausea & Verified 08/28/19 10:35 [From Golytely] Vomiting sodium [From Golytely] AdvReac Nausea & Verified 08/28/19 10:35 Vomiting sodium bicarbonate AdvReac Nausea & Verified 08/28/19 10:35 [From Golytely] Vomiting sodium chloride AdvReac Nausea & Verified 08/28/19 10:35 [From Golytely] Vomiting sodium sulfate AdvReac Nausea & Verified 08/28/19 10:35 [From Golytely] Vomiting narcotics AdvReac Unknown Uncoded 08/28/19 10:35 Review of Systems ROS Statement: Those systems with pertinent positive or pertinent negative responses have been documented in the HPI. ROS Other: All systems not noted in ROS Statement are negative. Past Medical History Past Medical History: Asthma, Seizure Disorder Additional Past Medical History / Comment(s): seizure, anxiety, autism, ocd, asbergers, ADHD, recovering alcoholic, History of Any Multi-Drug Resistant Organisms: None Reported Past Surgical History: No Surgical Hx Reported Additional Past Surgical History / Comment(s): Carpal Tunnel Repair left hand when 8 years old per patient.,, Past Anesthesia/Blood Transfusion Reactions: No Reported Reaction Past Psychological History: ADD/ADHD, Anxiety, Bipolar, PTSD, Schizoaffective Disorder, Schizophrenia Smoking Status: Never smoker Past Alcohol Use History: None Reported Past Drug Use History: None Reported - Past Family History Father History Unknown: Yes Family Medical History: Hypertension Mother History Unknown: Yes Family Medical History: Hypertension General Exam - General Exam Comments Initial Comments: Constitutional: NAD, AOX3, Pt has pleasant affect. HEENT: NC/AT, trachea midline, neck supple, no lymphadenopathy. Posterior pharynx non erythematous, without exudates. External ears appear normal, without discharge. Mucous membranes moist. Eyes PERRLA, EOM intact. There is no scleral icterus. No pallor noted. Cardiopulmonary: RRR, no murmurs, rubs or gallops, no JVD noted. Lungs CTAB in anterior and posterior nevarez. No peripheral edema. Abdominal exam: Abdomen soft and non-distended. Abdomen non-tender to palpation in all 4 quadrants. Bowel sounds active in LLQ. No hepatosplenomegaly. No ecchymosis Neuro: CN II-XII grossly intact. No nuchal rigidity. No raccon eyes, no rockwell sign, no hemotympanum. No cervical spinal tenderness. MSK: Anterior knee mildly tender to palpation right sided. Lateral malleolus ankle nontender palpation. No tibia-fibula tenderness. No foot tenderness. Neurovascularly intact. Full active range of motion is intact. Limitations: no limitations Course Vital Signs 12/23/19 13:09 Temperature 98.6 F Pulse Rate 79 Respiratory 16 Rate Blood Pressure 123/77 O2 Sat by Pulse 97 Oximetry Medical Decision Making - Medical Decision Making 24-year-old male patient passed no history of autism, ADHD presents to the for chief complaint of right ankle and knee pain. Patient reports that he was walking when he stumbled and fell forward onto his right knee. He complains right knee pain. Also does report that he has some mild ankle pain. States the pain is worse with walking. Denies any trauma head or neck. Denies any other complaints. Pt VSS, afebrile. Physical exam displayed: Anterior knee mildly tender to palpation right sided. Lateral malleolus ankle nontender palpation. No tibia-fibula tenderness. No foot tenderness. Neurovascularly intact. Full active range of motion is intact. Plain films are negative. Patient will be discharged with knee immobilizer, Govind wrap and ankle. Denies use crutches not bear weight on right lower extremity and follow up with orthopedic consult primary care provider. Case discussed with Dr. Harman. Disposition Clinical Impression: Knee sprain, Ankle sprain Disposition: HOME SELF-CARE Condition: Stable Instructions (If sedation given, give patient instructions): Knee Sprain (ED), Ankle Sprain (ED) Additional Instructions: Follow-up with primary care provider orthopedic consult tomorrow. Use crutches, continue to wear knee immobilizer. Do not bear weight on right lower extremity. Return to ER if condition worsens. Is patient prescribed a controlled substance at d/c from ED?: No Referrals: [facility] [Primary Care Provider] - 1-2 days Luly Garcia DO [Doctor of Osteopathic Medicine] - 1-2 days
[2019-12-23 15:36] VITALS: BP 126/79; RESP 18; TEMP 97.6
== END 2019-12-23 15:37 | disposition home or self-care (01) ==
LOC: EC 13:08
DX: S83.91XA Sprain of unspecified site of right knee, initial encounter (principal); S93.401A Sprain of unspecified ligament of right ankle, initial encounter; F84.0 Autistic disorder; J45.909 Unspecified asthma, uncomplicated; G40.909 Epilepsy, unspecified, not intractable, without status epilepticus; Z88.5 Allergy status to narcotic agent; Z88.8 Allergy status to other drugs, medicaments and biological substances; Z91.018 Allergy to other foods; Z79.51 Long term (current) use of inhaled steroids; Z79.899 Other long term (current) drug therapy; W01.0XXA Fall on same level from slipping, tripping and stumbling without subsequent striking against object, initial encounter; Y93.01 Activity, walking, marching and hiking; Y92.89 Other specified places as the place of occurrence of the external cause
CPT/HCPCS: 73564; 73610; 99284; L1830

== ENCOUNTER 2020-03-21 17:29 | Emergency (ER) | payer MEDICARE, OTHER ==
[2020-03-21 17:36] VITALS: BP 133/85; PULSE 96; RESP 18; TEMP 98.8
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
== END 2020-03-21 18:11 | disposition home or self-care (01) ==
LOC: EC 17:29
DX: R04.0 Epistaxis (principal); S09.92XA Unspecified injury of nose, initial encounter; J45.909 Unspecified asthma, uncomplicated; G40.909 Epilepsy, unspecified, not intractable, without status epilepticus; F31.9 Bipolar disorder, unspecified; F41.9 Anxiety disorder, unspecified; F20.9 Schizophrenia, unspecified; Z79.51 Long term (current) use of inhaled steroids; Z79.899 Other long term (current) drug therapy; Z91.018 Allergy to other foods; Z88.8 Allergy status to other drugs, medicaments and biological substances; Z88.5 Allergy status to narcotic agent; Y04.0XXA Assault by unarmed brawl or fight, initial encounter
CPT/HCPCS: 99284

== ENCOUNTER 2020-07-19 09:01 | Emergency (ER) | payer MEDICARE, OTHER ==
[2020-07-19 09:11] VITALS: RESP 18
[2020-07-19] MEDS ORDERED: AMPICILLIN-SULBACTAM 3 GM in SODIUM CHLORIDE 0.9% 100 ML IVPB STA (09:54)
[2020-07-19] MEDS ORDERED: SODIUM CHLORIDE 0.9% 1,000 ML IV STA (09:54)
[2020-07-19 10:18] LABS: Basophils % (A) 0 %; Eosinophils # (A) 0.1 k/uL (0-0.7); Eosinophils % (A) 1 %; HCT 46.6 % (39.0-53.0); HGB 16.1 gm/dL (13.0-17.5); Lymphocytes # (A) 1.6 k/uL (1.0-4.8); Lymphocytes % (A) 11 %; MCHC 34.6 g/dL (31.0-37.0); MCV 86.5 fL (80.0-100.0); Mean Platelet Volume 6.7; Monocytes # (A) 0.7 k/uL (0-1.0); Monocytes % (A) 5 %; Neutrophils # (A) 11.3 k/uL (1.3-7.7); Neutrophils % (A) 81 %; Platelet Count 261 k/uL (150-450); RBC 5.39 m/uL (4.30-5.90); RDW 12.4 % (11.5-15.5); WBC 13.9 k/uL (3.8-10.6)
[2020-07-19 10:29] LABS: ALT 55 U/L (4-49); AST 21 U/L (17-59); African American GFR (CKD) >90 (>60 ml/min/1.73 sqM); Alkaline Phosphatase 81 U/L (38-126); Anion Gap 12 mmol/L; Blood Urea Nitrogen 15 mg/dL (9-20); Calcium 10.1 mg/dL (8.4-10.2); Carbon Dioxide 26 mmol/L (22-30); Chloride 100 mmol/L (98-107); Glucose 129 mg/dL (74-99); Non-African American GFR(CKD) >90 (>60 ml/min/1.73 sqM); Sodium 138 mmol/L (137-145); Total Bilirubin 1.1 mg/dL (0.2-1.3); Total Protein 8.3 g/dL (6.3-8.2)
--- NOTE | 2020-07-19 10:30 | ED ---
General Adult HPI - General Chief complaint: Dental/Oral Stated complaint: Oral Pain Time Seen by Provider: 07/19/20 09:16 Source: patient, RN notes reviewed Mode of arrival: ambulatory Limitations: no limitations - History of Present Illness Initial comments: 25-year-old male presents to the emergency room for a chief complaint of dental pain. Patient states he started to develop left-sided facial swelling and pain earlier this week. States that yesterday he was started on amoxicillin. First dose was sometime in the morning. Patient states that the swelling has worsened. States it is swelling his upper lip. Patient denies any swelling under his tongue. Denies any difficulty swallowing or neck stiffness. Denies fevers, does admit to chills.Patient has no other complaints at this time including shortness of breath, chest pain, abdominal pain, nausea or vomiting, headache, or visual changes. - Related Data Home Medications Medication Instructions Recorded Confirmed Budesonide [Pulmicort Flexhaler] 1 puff INHALATION RT-BID 04/21/18 03/28/19 Ibuprofen [Motrin] 600 mg PO TID PRN 06/18/18 03/28/19 Fluticasone Nasal [place] [Flonase 1 spray EA NOSTRIL DAILY 10/02/18 03/28/19 Nasal [place]] Loratadine [Alavert] 10 mg PO DAILY 01/23/19 03/28/19 Paliperidone IM [Invega Sustenna] 234 mg IM Q28D 01/23/19 03/28/19 lamoTRIgine [LaMICtal] 200 mg PO BID 01/23/19 03/28/19 Albuterol Sulfate [Ventolin HFA] 2 puff INHALATION RT-Q4H PRN 07/19/20 07/19/20 Lacosamide [Vimpat] 200 mg PO BID 07/19/20 07/19/20 Montelukast Sodium [Singulair] 10 mg PO HS 07/19/20 07/19/20 Paliperidone [Invega] 3 mg PO DAILY 07/19/20 07/19/20 Prazosin HCl 1 mg PO HS 07/19/20 07/19/20 Previous Rx's Medication Instructions Recorded Penicillin V Potassium [Pen Vee K] 500 mg PO Q6H 10 Days #40 tablet 07/19/20 Allergies Allergy/AdvReac Type Severity Reaction Status Date / Time Mushroom AdvReac Nausea & Verified 07/19/20 11:37 Vomiting polyethylene glycol AdvReac Nausea & Verified 07/19/20 11:37 [From Golytely] Vomiting polyethylene glycol 3350 AdvReac Nausea & Verified 07/19/20 11:37 [From Golytely] Vomiting potassium chloride AdvReac Nausea & Verified 07/19/20 11:37 [From Golytely] Vomiting sodium [From Golytely] AdvReac Nausea & Verified 07/19/20 11:37 Vomiting sodium bicarbonate AdvReac Nausea & Verified 07/19/20 11:37 [From Golytely] Vomiting sodium chloride AdvReac Nausea & Verified 07/19/20 11:37 [From Golytely] Vomiting sodium sulfate AdvReac Nausea & Verified 07/19/20 11:37 [From Golytely] Vomiting narcotics AdvReac Unknown Uncoded 03/21/20 17:37 Review of Systems ROS Statement: Those systems with pertinent positive or pertinent negative responses have been documented in the HPI. ROS Other: All systems not noted in ROS Statement are negative. Past Medical History Past Medical History: Asthma, Seizure Disorder Additional Past Medical History / Comment(s): seizure, anxiety, autism, ocd, asbergers, ADHD, recovering alcoholic, History of Any Multi-Drug Resistant Organisms: None Reported Past Surgical History: No Surgical Hx Reported Additional Past Surgical History / Comment(s): Carpal Tunnel Repair left hand when 8 years old per patient.,, Past Anesthesia/Blood Transfusion Reactions: No Reported Reaction Past Psychological History: ADD/ADHD, Anxiety, Bipolar, PTSD, Schizoaffective Disorder, Schizophrenia Smoking Status: Never smoker Past Alcohol Use History: None Reported Past Drug Use History: None Reported - Past Family History Father History Unknown: Yes Family Medical History: Hypertension Mother History Unknown: Yes Family Medical History: Hypertension General Exam Limitations: no limitations General appearance: alert, in no apparent distress Head exam: Present: atraumatic, normocephalic, normal inspection Eye exam: Present: normal appearance, PERRL, EOMI. Absent: scleral icterus, conjunctival injection, periorbital swelling ENT exam: Present: normal exam, mucous membranes moist, TM's normal bilaterally, normal external ear exam. Absent: normal oropharynx (Patient has poor dentition noted. He does have swelling over the maxillary area extending up to the left inferior orbit of the left side of the face. There is no drainable or palpable abscess along the gumline. No sublingual edema. No edema extending into the neck.) Neck exam: Present: normal inspection, full ROM. Absent: tenderness, meningismus, lymphadenopathy Respiratory exam: Present: normal lung sounds bilaterally. Absent: respiratory distress, wheezes, rales, rhonchi, stridor Cardiovascular Exam: Present: regular rate, normal rhythm, normal heart sounds. Absent: systolic murmur, diastolic murmur, rubs, gallop, clicks Course Vital Signs 07/19/20 07/19/20 09:07 11:00 Temperature 98.8 F 98 F Pulse Rate 96 92 Respiratory 18 18 Rate Blood Pressure 130/82 133/94 O2 Sat by Pulse 98 97 Oximetry Medical Decision Making - Medical Decision Making Vitals are stable. Patient does have edema noted over the left maxillary area extending up under the left eye. He has very poor dentition on exam. CBC does show mild leukocytosis. CMP unremarkable. Initially I was unable to locate a periapical abscess. Therefore CT was performed. This did show cellulitis over the left side of the face with confluent edema but no discrete abscess yoly ntified. 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 I did apply pressure to this area and purulent material was expelled. Patient was placed on inappropriate dosing of a moxicillin for a four-day course. I therefore wrote patient a prescription for penicillin that he will take instead. I discussed that he may not have had improvement in symptoms as he has not been on antibiotics for over 24 hours and that it should start to improve at this point over the next day or so. If it worsens he will return here to the emergency room. He is not having any sublingual edema, difficulty swallowing or breathing, or any distress. He follows at [facility] and will call for an appointment as soon as possible. I discussed this case and reviewed lab and CT results with attending Dr. Quezada who agrees with this assessment and treatment plan. - Lab Data Result diagrams: 07/19/20 10:07 07/19/20 10:07 Lab Results 07/19/20 07/19/20 07/19/20 Range/Units 10:07 10:07 10:07 WBC 13.9 H (3.8-10.6) k/uL RBC 5.39 (4.30-5.90) m/uL Hgb 16.1 (13.0-17.5) gm/dL Hct 46.6 (39.0-53.0) % MCV 86.5 (80.0-100.0) fL MCH 30.0 (25.0-35.0) pg MCHC 34.6 (31.0-37.0) g/dL RDW 12.4 (11.5-15.5) % Plt Count 261 (150-450) k/uL MPV 6.7 Neutrophils % 81 % Lymphocytes % 11 % Monocytes % 5 % Eosinophils % 1 % Basophils % 0 % Neutrophils # 11.3 H (1.3-7.7) k/uL Lymphocytes # 1.6 (1.0-4.8) k/uL Monocytes # 0.7 (0-1.0) k/uL Eosinophils # 0.1 (0-0.7) k/uL Basophils # 0.0 (0-0.2) k/uL Sodium 138 (137-145) mmol/L Potassium 4.0 (3.5-5.1) mmol/L Chloride 100 (98-107) mmol/L Carbon Dioxide 26 (22-30) mmol/L Anion Gap 12 mmol/L BUN 15 (9-20) mg/dL Creatinine 0.76 (0.66-1.25) mg/dL Est GFR (CKD-EPI)AfAm >90 (>60 ml/min/1.73 sqM) Est GFR (CKD-EPI)NonAf >90 (>60 ml/min/1.73 sqM) Glucose 129 H (74-99) mg/dL Plasma Lactic Acid Russell 1.0 (0.7-2.0) mmol/L Calcium 10.1 (8.4-10.2) mg/dL Total Bilirubin 1.1 (0.2-1.3) mg/dL AST 21 (17-59) U/L ALT 55 H (4-49) U/L Alkaline Phosphatase 81 (38-126) U/L Total Protein 8.3 H (6.3-8.2) g/dL Albumin 5.0 (3.5-5.0) g/dL Disposition Clinical Impression: Dental infection Disposition: HOME SELF-CARE Condition: Good Instructions (If sedation given, give patient instructions): Dental Abscess (ED) Additional Instructions: Please take penicillin instead of amoxicillin prescription. Please ice the area. Try to sleep with your head up. Follow-up with your doctor in one to 2 days. Return to the emergency room for any worsening symptoms. [facility] [address] [place] [address] (existing clients only) New clients: [phone] 1st consult: $50 (includes XRs) Usually 30% less than private dentist for visits after. [employer] Have to pay $50 for Xrays and rest is covered [phone] Prescriptions: Penicillin V Potassium [Pen Vee K] 500 mg PO Q6H 10 Days #40 tablet Is patient prescribed a controlled substance at d/c from ED?: No Referrals: [facility] [Primary Care Provider] - 1-2 days Time of Disposition: 11:43
--- NOTE | 2020-07-19 10:53 | CT ---
EXAMINATION TYPE: CT facial bones w con DATE OF EXAM: 07/19/2020 COMPARISON: 04/07/2019 HISTORY: 25-year-old male Left sided facial swelling with dental pain. TECHNIQUE: Contiguous axial scanning of the facial bones performed with IV Contrast, patient injected with 100 mL of Isovue 300. Coronal reconstructions performed. CT DLP: 487.2 mGycm Automated exposure control for dose reduction was used. FINDINGS: There is recurrence of prominent soft tissue swelling along the left side of the face including anter ior to the left mandible, maxilla, and left infraorbital region. Areas of confluent edema are present anterior to the left masseter muscle. No discrete abscess format ion. [id number] mucosal thickening left maxillary sinus and mild within the right maxillary sinus. S cattered trace mucosal thickening anterior ethmoid air cells. Bilateral palatine tonsillar hypertrophy is demonstrated. Prominent upper cervical lymph nodes on both sides measuring up to 2.0 cm short axis, likely reactive . These were present on 03/28/2019 as well. Multiple dental caries are present throughout. There is a 7 mm. Focal periapical lucency/abscess invo lving the left maxillary first molar. This was present on the prior exam as well. Visualized orbits and globes are intact. Visualized intracranial structures show no gross abnormality . IMPRESSION: 1. CELLULITIS ALONG THE LEFT SIDE OF THE FACE OVERLYING THE LEFT SIDE OF THE JAW TO THE LEFT INFRAORB ITAL REGION. CONFLUENT EDEMA IS PRESENT ANTERIOR TO THE LEFT MASSETER MUSCLE BUT NO DISCRETE ABSCESS IS IDENTIFIED. 2. 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 3. MILD CHRONIC PARANASAL SINUS DISEASE, MILD TO MODERATE WITHIN THE LEFT MAXILLARY SINUS.
[2020-07-19 11:10] VITALS: BP 133/94; PULSE 92; TEMP 98
[2020-07-19] MEDS ORDERED: PENICILLIN VK 500MG STARTER 4 TAB BTL PO STA (11:44)
== END 2020-07-19 11:59 | disposition home or self-care (01) ==
LOC: EC 09:01
DX: K04.7 Periapical abscess without sinus (principal); L03.211 Cellulitis of face; D72.829 Elevated white blood cell count, unspecified; K02.9 Dental caries, unspecified; J45.909 Unspecified asthma, uncomplicated; G40.909 Epilepsy, unspecified, not intractable, without status epilepticus; F84.0 Autistic disorder; F31.9 Bipolar disorder, unspecified; F25.9 Schizoaffective disorder, unspecified; F43.10 Post-traumatic stress disorder, unspecified; Z79.51 Long term (current) use of inhaled steroids; Z79.899 Other long term (current) drug therapy; Z91.018 Allergy to other foods; Z88.8 Allergy status to other drugs, medicaments and biological substances; Z88.5 Allergy status to narcotic agent; Z91.09 Other allergy status, other than to drugs and biological substances
CPT/HCPCS: 36415; 80053; 83605; 85025; 87040; 70487; 99283; 96365; 96361; J0295; Q9967

== ENCOUNTER 2020-09-19 18:23 | Emergency (ER) | payer MEDICARE, OTHER ==
[2020-09-19 18:34] VITALS: BP 129/84; PULSE 98; RESP 17; TEMP 98.3
[2020-09-19] MEDS ORDERED: BACITRACIN OINT 1 EACH PACKET TOPICAL ONE (18:44)
[2020-09-19] MEDS ORDERED: LIDOCAINE 1% INJ 10MG/ML (20 ML MDV) SQ ONE (18:44)
--- NOTE | 2020-09-19 18:47 | ED ---
Wound/Laceration HPI - General Chief Complaint: Wound/Laceration Stated Complaint: R Hand Injury Time Seen by Provider: 09/19/20 18:33 Source: patient Mode of arrival: ambulatory Limitations: no limitations - History of Present Illness Initial Comments: Patient is a 25-year-old male presenting to the emergency Department with complaints of a laceration to his left hand. Patient states just prior to arrival he was using a reciprocating saw to cut some metal when it slipped and actually cut his right thumb. Patient has a wound on the inside part of his right thumb. There is no active bleeding. Patient initially states he is unsure of his tetanus vaccine, however records here indicate that it is up-to-date. Patient is not on a blood thinner. He has no further complaints. - Related Data Home Medications Medication Instructions Recorded Confirmed Budesonide [Pulmicort Flexhaler] 1 puff INHALATION RT-BID PRN 04/21/18 07/19/20 Ibuprofen [Motrin] 600 mg PO BID PRN 06/18/18 07/19/20 Fluticasone Nasal [place] [Flonase 1 spray EA NOSTRIL DAILY 10/02/18 07/19/20 Nasal [place]] Loratadine [Alavert] 10 mg PO DAILY 01/23/19 07/19/20 Paliperidone IM [Invega Sustenna] 234 mg IM Q28D 01/23/19 07/19/20 lamoTRIgine [LaMICtal] 200 mg PO BID 01/23/19 07/19/20 Albuterol Sulfate [Ventolin HFA] 2 puff INHALATION RT-Q4H PRN 07/19/20 07/19/20 Lacosamide [Vimpat] 200 mg PO BID 07/19/20 07/19/20 Montelukast Sodium [Singulair] 10 mg PO HS 07/19/20 07/19/20 Paliperidone [Invega] 3 mg PO DAILY 07/19/20 07/19/20 Prazosin HCl 1 mg PO HS 07/19/20 07/19/20 Previous Rx's Medication Instructions Recorded Penicillin V Potassium [Pen Vee K] 500 mg PO Q6H 10 Days #40 tablet 07/19/20 Allergies Allergy/AdvReac Type Severity Reaction Status Date / Time Mushroom AdvReac Nausea & Verified 09/19/20 18:29 Vomiting polyethylene glycol AdvReac Nausea & Verified 09/19/20 18:29 [From Golytely] Vomiting polyethylene glycol 3350 AdvReac Nausea & Verified 09/19/20 18:29 [From Golytely] Vomiting potassium chloride AdvReac Nausea & Verified 09/19/20 18:29 [From Golytely] Vomiting sodium [From Golytely] AdvReac Nausea & Verified 09/19/20 18:29 Vomiting sodium bicarbonate AdvReac Nausea & Verified 09/19/20 18:29 [From Golytely] Vomiting sodium chloride AdvReac Nausea & Verified 09/19/20 18:29 [From Golytely] Vomiting sodium sulfate AdvReac Nausea & Verified 09/19/20 18:29 [From Golytely] Vomiting narcotics AdvReac Unknown Uncoded 03/21/20 17:37 Review of Systems ROS Statement: Those systems with pertinent positive or pertinent negative responses have been documented in the HPI. ROS Other: All systems not noted in ROS Statement are negative. Past Medical History Past Medical History: Asthma, Seizure Disorder Additional Past Medical History / Comment(s): seizure, anxiety, autism, ocd, asbergers, ADHD, recovering alcoholic, History of Any Multi-Drug Resistant Organisms: None Reported Past Surgical History: No Surgical Hx Reported Additional Past Surgical History / Comment(s): Carpal Tunnel Repair left hand when 8 years old per patient.,, Past Anesthesia/Blood Transfusion Reactions: No Reported Reaction Past Psychological History: ADD/ADHD, Anxiety, Bipolar, PTSD, Schizoaffective Disorder, Schizophrenia Smoking Status: Vaper Past Alcohol Use History: None Reported Past Drug Use History: None Reported - Past Family History Father History Unknown: Yes Family Medical History: Hypertension Mother History Unknown: Yes Family Medical History: Hypertension General Exam - General Exam Comments Initial Comments: GENERAL: Patient is well-developed and well-nourished. Patient is nontoxic and in no acute distress. HEAD: Atraumatic, normocephalic. EYES: Pupils equal round and reactive to light, extraocular movements intact, sclera anicteric, conjunctiva are normal. Eyelids were unremarkable. ENT: Nares patent, oropharynx clear without exudates. Moist mucous membranes. NECK: Normal range of motion, supple without lymphadenopathy or JVD. LUNGS: Unlabored respirations. Breath sounds clear to auscultation bilaterally and equal. No wheezes rales or rhonchi. HEART: Regular rate and rhythm without murmurs, rubs or gallops. ABDOMEN: Soft, nontender, normoactive bowel sounds. No guarding, no rebound. No masses appreciated. : Deferred MUSCULOSKELETAL: Normal extremities with adequate strength and normal range of motion, no pitting or edema. No clubbing or cyanosis. Patient has full range of motion of the left thumb and fingers. His neurovascular impact. NEUROLOGICAL: Patient is alert and oriented x 3. Normal speech, normal gait. PSYCH: Normal mood, normal affect. SKIN: Warm, Dry, normal turgor, no rashes. Patient has a 1 cm laceration to the medial aspect of the left thumb just proximal to the IP joint. No active bleeding. Limitations: no limitations Course Vital Signs 09/19/20 18:25 Temperature 98.3 F Pulse Rate 98 Respiratory 17 Rate Blood Pressure 129/84 O2 Sat by Pulse 96 Oximetry Procedures - Laceration Laceration #1 Consent Obtained: verbal consent Indication: laceration Site: hand (Left thumb) Size (cm): 1 Description: linear Depth: simple, single layer Anesthetic Used: lidocaine 1% Anesthesia Technique: local infiltration Amount (mls): 3 Pre-repair: irrigated extensively Type of Sutures: nylon Size of Sutures: 5-0 Number of Sutures: 3 Technique: simple, interrupted Patient Tolerated Procedure: well Medical Decision Making - Medical Decision Making Patient is a 25-year-old male here with a 1 cm laceration to his left thumb. Bleeding is controlled. His tetanus vaccine is up-to-date, he received one here in 2014. Patient's wound was cleaned, closed with 3, 50 sutures. Patient tolerated procedure well. Stitches need to removed in 7-10 days. He will keep wound clean and dry and covered while he is working. Patient is stable for discharge. Patient is in agreement with this plan of care. Return parameters were discussed with the patient and they verbalized understanding. Case discussed with Dr. Morrison. Disposition Clinical Impression: Laceration of left thumb Disposition: HOME SELF-CARE Condition: Stable Instructions (If sedation given, give patient instructions): Care For Your Stitches (ED) Additional Instructions: Please return to the Emergency Department if symptoms worsen or any other concerns. Stitches need to be removed in 7-10 days. Please keep wound clean and dry, may wash hands as normal. Cover while working. Is patient prescribed a controlled substance at d/c from ED?: No Referrals: [facility] [Primary Care Provider] - 1-2 days
== END 2020-09-19 20:00 | disposition home or self-care (01) ==
LOC: EC 18:23
DX: S61.012A Laceration without foreign body of left thumb without damage to nail, initial encounter (principal); J45.909 Unspecified asthma, uncomplicated; F41.9 Anxiety disorder, unspecified; Z79.1 Long term (current) use of non-steroidal anti-inflammatories (NSAID); Z79.51 Long term (current) use of inhaled steroids; W26.8XXA Contact with other sharp object(s), not elsewhere classified, initial encounter
CPT/HCPCS: 99283; 12001; J2001

== ENCOUNTER 2023-11-16 17:21 | Inpatient (IN) | payer MEDICARE, MEDICAID ==
--- NOTE | 2023-11-16 17:40 | ED ---
General Adult HPI - General Source: patient, RN notes reviewed Mode of arrival: ambulatory Limitations: no limitations <Fletcher Feldman - Last Filed: 11/16/23 17:40> - General Source: patient, RN notes reviewed, old records reviewed <Chepe Sutton - Last Filed: 11/16/23 22:06> - General Chief complaint: Psychiatric Symptoms Stated complaint: Mental Health Time Seen by Provider: 11/16/23 17:32 - History of Present Illness Initial comments: 28-year-old male presented to the ED with complaints of suicidal ideation. Denies homicidal ideation. Of note, patient prefers to be referred to as Leilani. (Fletcher Feldman) Patient is a 28-year-old male with past medical history remarkable for psychiatric illness who presents emergency department complaining of suicidal ideations. Patient was petition. Sat out in traffic waiting for strike by vehicle. This did not occur. Was brought in for further evaluation. he has not been taking his medications. Does have a history of seizure disorder. Denies homicidal ideations, times complaints. Denies any visual auditory hallucinations. Has no other acute complaints. Presents for psychiatric evaluation. (Chepe Sutton) - Related Data Home Medications Medication Instructions Recorded Confirmed Ibuprofen [Motrin] 600 mg PO TID PRN 06/18/18 11/16/23 Fluticasone Nasal [place] [Flonase 1 spray EA NOSTRIL DAILY PRN 10/02/18 11/16/23 Nasal [place]] Loratadine [Alavert] 10 mg PO DAILY 01/23/19 11/16/23 Albuterol Sulfate [Ventolin HFA] 2 puff INHALATION RT-Q4H PRN 07/19/20 11/16/23 Lacosamide [Vimpat] 200 mg PO BID 07/19/20 11/16/23 Montelukast Sodium [Singulair] 10 mg PO HS 07/19/20 11/16/23 Ascorbic Acid [Vitamin C] 1,000 mg PO DAILY 11/16/23 11/16/23 Benzonatate [Tessalon Perle] 200 mg PO TID 11/16/23 11/16/23 Cholecalciferol [Vitamin D3 (125 125 mcg PO DAILY 11/16/23 11/16/23 Mcg = 5000 Iu)] Famotidine [Pepcid] 20 mg PO DAILY 11/16/23 11/16/23 Fenofibrate [Lofibra] 54 mg PO DAILY 11/16/23 11/16/23 Fluticasone Furoate [Arnuity 2 puff INHALATION RT-DAILY 11/16/23 11/16/23 Ellipta] Gabapentin [Neurontin] 100 mg PO TID PRN 11/16/23 11/16/23 Paliperidone Palmitate [Invega 1,560 mg IM Q180D 11/16/23 11/16/23 Hafyera] Sodium Chloride [Saline Mist] 2 spray EA NOSTRIL BID PRN 11/16/23 11/16/23 lamoTRIgine 100 mg PO BID 11/16/23 11/16/23 lamoTRIgine [LaMICtal] 150 mg PO BID 11/16/23 11/16/23 Allergies Allergy/AdvReac Type Severity Reaction Status Date / Time hydroxyzine [From Vistaril] AdvReac Unknown Verified 11/16/23 20:15 Mushroom AdvReac Nausea & Verified 11/16/23 20:15 Vomiting polyethylene glycol AdvReac Nausea & Verified 11/16/23 20:15 [From Golytely] Vomiting polyethylene glycol 3350 AdvReac Nausea & Verified 11/16/23 20:15 [From Golytely] Vomiting potassium chloride AdvReac Nausea & Verified 11/16/23 20:15 [From Golytely] Vomiting sodium [From Golytely] AdvReac Nausea & Verified 11/16/23 20:15 Vomiting sodium bicarbonate AdvReac Nausea & Verified 11/16/23 20:15 [From Golytely] Vomiting sodium chloride AdvReac Nausea & Verified 11/16/23 20:15 [From Golytely] Vomiting sodium sulfate AdvReac Nausea & Verified 11/16/23 20:15 [From Golytely] Vomiting narcotics AdvReac Nausea & Uncoded 11/16/23 20:15 Vomiting Review of Systems ROS Other: All systems not noted in ROS Statement are negative. <Fletcher Feldman - Last Filed: 11/16/23 17:40> ROS Other: All systems not noted in ROS Statement are negative. <Chepe Sutton - Last Filed: 11/16/23 22:06> ROS Statement: Those systems with pertinent positive or pertinent negative responses have been documented in the HPI. Review of Systems: CONST: Denies fever EYES: Denies blurry vision ENT: Denies nasal congestion C/V: Denies Chest pain RESP: Denies shortness of breath GI: Denies abdominal pain : Denies dysuria SKIN: Denies rash. MSK: Denies joint pain. NEURO: Denies headache (Chepe Sutton) Past Medical History Past Medical History: Asthma, Seizure Disorder Additional Past Medical History / Comment(s): seizure, anxiety, autism, ocd, asbergers, ADHD, recovering alcoholic, History of Any Multi-Drug Resistant Organisms: None Reported Past Surgical History: No Surgical Hx Reported Additional Past Surgical History / Comment(s): Carpal Tunnel Repair left hand when 8 years old per patient.,, Past Anesthesia/Blood Transfusion Reactions: No Reported Reaction Past Psychological History: ADD/ADHD, Anxiety, Bipolar, PTSD, Schizoaffective Disorder, Schizophrenia Smoking Status: Vaper Past Alcohol Use History: None Reported Past Drug Use History: None Reported - Past Family History Father History Unknown: Yes Family Medical History: Hypertension Mother History Unknown: Yes Family Medical History: Hypertension <Fletcher Feldman - Last Filed: 11/16/23 17:40> General Exam Limitations: no limitations <Fletcher Feldman - Last Filed: 11/16/23 17:40> <Chepe Sutton - Last Filed: 11/16/23 22:06> - General Exam Comments Initial Comments: Visual Physical Exam Vital signs reviewed General: Well-appearing, nontoxic, no acute distress. Head: Normocephalic, atraumatic Eyes: PERRLA, EOMI ENT: Airway patent Chest: Nonlabored breathing Skin: No visual rash, normal skin tone Neuro: Alert and oriented 3 Musculoskeletal: No gross abnormalities (Fletcher Feldman) General: Appears in no acute distress. HEAD: Normal with no signs of head trauma. EYES: PERRLA, EOMI ENT: Hearing grossly intact, normal oropharynx. RESPIRATORY: Clear breath sounds bilaterally. No wheezes, rales, or rhonchi. C/V: Regular rate and rhythm. S1 and S2 auscultated, ABD: Abd is soft, nontender, nondistended EXT: Normal range of motion, no obvious deformity SKIN: No rashes or lesions observed on exposed skin. NEURO: Alert and oriented x 4 (Chepe Sutton) Course Vital Signs 11/16/23 17:31 Temperature 98.4 F Pulse Rate 74 Respiratory 18 Rate Blood Pressure 110/68 O2 Sat by Pulse 96 Oximetry Medical Decision Making <Fletcher Feldman - Last Filed: 11/16/23 17:40> <Chepe Sutton - Last Filed: 11/16/23 22:06> - Medical Decision Making Quicknote portion performed. Signed Fletcher Feldman PA-C (Fletcher Feldman) Was pt. sent in by a medical professional or institution (, PA, CONSTRUCTION CREW MEMBER, urgent care, hospital, or shelter...) When possible be specific @ -No Did you speak to anyone other than the patient for history (EMS, parent, family, police, friend...)? What history was obtained from this source @ -No Did you review nursing and triage notes (agree or disagree)? Why? @ -I reviewed and agree with nursing and triage notes Were old charts reviewed (outside hosp., previous admission, EMS record, old EKG, old radiological studies, urgent care reports/EKG's, shelter records)? Report findings @ -Old charts reviewed Differential Diagnosis (chest pain, altered mental status, abdominal pain women, abdominal pain men, vaginal bleeding, weakness, fever, dyspnea, syncope, headache, dizziness, GI bleed, back pain, seizure, CVA, palpatations, mental health, musculoskeletal)? @ -Differential Mental Health Depression, anxiety, bipolar, psychosis, schizophrenia, borderline personality, situational depression, adjustment disorder, behavioral disorder, brain tumor, malingering, substance abuse, encephalopathy, medication reaction, dementia, hypothyroidism, degenerative neurologic disorder, lupus.... This is not meant to be all-inclusive list EKG interpreted by me (3pts min.). @ -None done X-rays interpreted by me (1pt min.). @ -None done CT interpreted by me (1pt min.). @ -None done U/S interpreted by me (1pt. min.). @ -None done What testing was considered but not performed or refused? (CT, X-rays, U/S, labs)? Why? @ -None What meds were considered but not given or refused? Why? @ -None Did you discuss the management of the patient with other professionals (professionals i.e. , PA, CONSTRUCTION CREW MEMBER, lab, RT, psych nurse, clinical social work aide, slot key person, teacher, airconditioning drafting officer, egg caser)? Give summary @ -EPS notified of the consult. Was smoking cessation discussed for >3mins.? @ -No Was critical care preformed (if so, how long)? @ -No Were there social determinants of health that impacted care today? How? (Homelessness, low income, unemployed, alcoholism, drug addiction, transportat ion, low edu. Level, literacy, decrease access to med. care, usp, rehab)? @ -No Was there de-escalation of care discussed even if they declined (Discuss DNR or withdrawal of care, Hospice)? DNR status @ -No What co-morbidities impacted this encounter? (DM, HTN, Smoking, COPD, CAD, Cancer, CVA, ARF, Chemo, Hep., AIDS, mental health diagnosis, sleep apnea, morbid obesity)? @ -None Was patient admitted / discharged? Hospital course, mention meds given and route, prescriptions, significant lab abnormalities, going to OR and other pertinent info. @ -Patient presents for psychiatric evaluation. Was petitioned for suicidal ideations. Sitter ordered. Suicide precautions placed. BAT is 0. UDS is pending. Vital signs within acceptable limits. Patient's home seizure meds were reordered for the patient. At this time, patient is medically cleared for evaluation by psychiatry. Disposition pending psychiatric evaluation. EPS notified of the consult. EPS evaluated patient and determined that patient does meet inpatient criteria. Clinical certificate completed by myself. Undiagnosed new problem with uncertain prognosis? @ -No Drug Therapy requiring intensive monitoring for toxicity (Heparin, Nitro, Insulin, Cardizem)? @ -No Were any procedures done? @ -No Diagnosis/symptom? @ -Suicidal ideations, medication noncompliance Acute, or Chronic, or Acute on Chronic? @ -Acute Uncomplicated (without systemic symptoms) or Complicated (systemic symptoms)? @ -Complicated Side effects of treatment? @ -None Exacerbation, Progression, or Severe Exacerbation] @ -No Poses a threat to life or bodily function? @ -Yes (Chepe Sutton) Disposition <Fletcher Feldman - Last Filed: 11/16/23 17:40> Time of Disposition: 22:06 <Chepe Sutton - Last Filed: 11/16/23 22:06> Clinical Impression: Noncompliance with medication regimen, Suicidal ideation Disposition: TRANSFER TO PSYCH HOSP/UNIT Condition: Stable Referrals: [facility] [Primary Care Provider] - 1-2 days
[2023-11-16] MEDS ORDERED: FLUTICASONE 50MCG/SPRAY NASAL 16GM EA NOSTRIL PRN (20:14)
[2023-11-16] MEDS ORDERED: lamoTRIgine 100 MG TAB PO SCH (21:00)
[2023-11-16] MEDS: lamoTRIgine 100 MG TAB PO SCH (21:02)
[2023-11-16] MEDS: LACOSAMIDE 50 MG TABLET PO SCH (21:13)
[2023-11-16 22:27] LABS: Amphetamine Screen,Urine Not Detected (NotDetected); Barbiturate Screen,Urine Not Detected (NotDetected); Benzodiazepines Screen,Urine Not Detected (NotDetected); Cocaine Screen,Urine Not Detected (NotDetected); Methadone Screen, Urine Not Detected (NotDetected); Opiate Screen,Urine Not Detected (NotDetected); Oxycodone Screen, Urine Not Detected (NotDetected); Phencyclidine Screen,Urine Not Detected (NotDetected); Tricyclic Antidepressant,Urine Not Detected (NotDetected); Urn Cannabinoid Scrn Not Detected (NotDetected)
[2023-11-17] MEDS ORDERED: HALOPERIDOL LACTATE 5 MG/ML 1 ML VIAL IM PRN (00:04)
[2023-11-17] MEDS ORDERED: LORazepam 2 MG/ML INJ IM PRN (00:04)
[2023-11-17] MEDS ORDERED: traZODone HCL 50 MG TAB PO PRN (00:04)
[2023-11-17] MEDS ORDERED: MAGNESIUM HYDROXIDE 2,400 MG/30 ML CUP PO PRN (00:04)
[2023-11-17] MEDS ORDERED: MAG HYDROX/AL HYDROX/SIMETH 355 ML BOTTLE PO PRN (00:04)
[2023-11-17] MEDS ORDERED: LORazepam 1 MG TAB PO PRN (00:04)
[2023-11-17 01:33] LABS: Amorphous Sediment,Urine Many /hpf; Appearance,Urine Turbid (Clear); Bilirubin,Urine Negative (Negative); Blood,Urine Negative (Negative); Color,Urine Yellow; Glucose,Urine (UA) Negative (Negative); Ketones,Urine Negative (Negative); Leukocyte Esterase,Urine Negative (Negative); Mucus,Urine Many /hpf; Nitrite,Urine Negative (Negative); PH, Urine 5.5 (5.0-8.0); Protein,Urine Trace (Negative); Specific Gravity,Urine 1.027 (1.001-1.035)
[2023-11-17] MEDS: FAMOTIDINE 20 MG TAB PO SCH (10:18)
[2023-11-17] MEDS: NICOTINE 14MG/24HR PATCH TRANSDERM SCH (10:20)
[2023-11-17] MEDS: NON FORMULARY DRUG (Fluticasone Furoate [Arnuity Ellipta] 100 MCG Blst.W.Dev) INHALATION SCH (10:21)
[2023-11-17 11:41] LABS: Basophils # (A) 0.1 k/uL (0-0.2); Basophils % (A) 1 %; Eosinophils # (A) 0.2 k/uL (0-0.7); Eosinophils % (A) 2 %; HCT 47.4 % (39.0-53.0); HGB 16.1 gm/dL (13.0-17.5); Lymphocytes % (A) 30 %; MCH 30.2 pg (25.0-35.0); MCHC 33.9 g/dL (31.0-37.0); Mean Platelet Volume 7.6; Monocytes # (A) 0.5 k/uL (0-1.0); Monocytes % (A) 7 %; Neutrophils # (A) 3.9 k/uL (1.3-7.7); Neutrophils % (A) 58 %; Platelet Count 325 k/uL (150-450); RBC 5.33 m/uL (4.30-5.90); RDW 12.8 % (11.5-15.5); WBC 6.7 k/uL (3.8-10.6)
--- NOTE | 2023-11-17 11:45 | P.CN ---
Psychiatric Consult - . Consult date: 11/17/23 Consult:: 11/17/23 11:18 IDENTIFYING DATA: Patient is a 28-year-old transgender female, currently homeless, collects SSI. HPI: Patient presented to the hospital yesterday being petitioned for apparently going onto the road attending to be hit by cars and claiming he was suicidal. Patient appeared to be fairly disheveled today was seen wandering the hallways agreeable to speak to caption writer. Patient states that he has been dealing with homelessness for the past few weeks, states that he left the usp because "they said I did not need it anymore". Patient has very poor insight, states that he was feeling more depressed lately, hearing voices mainly negative in nature, was feeling hopeless, was thinking about past trauma and almost and all was his homelessness. States that anxiety level is also high. Claims that he was feeling suicidal and wanted to either be shot by someone or hit by cars, was laying on the road. Patient claims that he still having suicidal thoughts, no plan today, denying any homicidal ideations. At this time patient denies any visual hallucinations. Patient denies any flight of ideas racing thoughts and increased in goal directed behavior. Patient does claim that he has been following up with [facility] and just received his long-acting injection Invega heyfara on 11/11 patient admits to using no recreational drugs except for cigarettes occasionally. PAST PSYCHIATRIC HISTORY: Patient has a history of schizoaffective disorder, autism spectrum disorder and ADHD. Patient is currently on Invega hayfera 1560 mg every 6 months last dose given on 11/11, next dose to be due on 05/12. Patient is also on Lamictal for mood stabilization. Patient has been psychiatrically admitted several times in the past, last hospitalization was in 2021 in [place]. Patient currently follows up at [facility] with Dr. Corrigan. He states that he had a suicide attempt in 2021 when he attempted to jump in the river. Past Medical History: Asthma, Seizure Disorder Additional Past Medical History / Comment(s): seizure, anxiety, autism, ocd, asbergers, ADHD, recovering alcoholic, History of Any Multi-Drug Resistant Organisms: None Reported Past Surgical History: No Surgical Hx Reported Additional Past Surgical History / Comment(s): Carpal Tunnel Repair left hand when 8 years old per patient.,, Past Anesthesia/Blood Transfusion Reactions: No Reported Reaction Past Psychological History: ADD/ADHD, Anxiety, Bipolar, PTSD, Schizoaffective D isorder, Schizophrenia Smoking Status: Vaper Past Alcohol Use History: None Reported Past Drug Use History: None Reported ALLERGIES: as per EMR CHEMICAL DEPENDENCY HISTORY: as per HPI FAMILY PSYCHIATRIC/SUBSTANCE USE HISTORY: Denies SOCIAL HISTORY: Patient was born and raised in [place] and then also raised all over. Claims that he had an unstable operating, claims that he completed high school. States that he has been in longterm and also snf several times in the past for various different charges. He is currently homeless, collects SSI. MENTAL STATUS EXAM: General Appearance: Patient appears to be disheveled in appearance, sunburned, long hair and a aldrich, stated age is alert, directable, and attempts to c ooperate. Patient appears to have poor hygiene and grooming. Behavior: Patient is seated without any agitated behavior. Attempts to cooperate Speech: Patient's speech is fluent and nonpressured. Mood/Affect: Patient reports their mood is depressed and anxious, affect is congruent Suicidality/Homicidality: Patient denies having any homicidal ideation intent or plan. Admits to suicidal thoughts, no plan Perceptions: Patient denies any visual hallucinations admits to auditory hallucinations. Though content/process: There is no evidence of any delusional thought content and thought process is linear and goal-directed. Edison Memory and concentration: AOX3, grossly intact for the purposes of this session. Can spell "WORLD" backwards Judgment and insight: Poor chronically STRENGTHS/WEAKNESSES: strength is that patient is resilient. Weakness is that patient has poor judgment and is impulsive, patient is also homeless INTELLECT: Average IMPRESSIONS: Schizoaffective disorder Autism spectrum disorder History of ADHD PLAN: -Patient is admitted under voluntary status to [facility] for stabilization of psychiatric symptoms and safety. Patient has signed adult voluntary form and medication consent and is placed in patient's chart. -Medications : Patient received invega hayfera 1560 mg IM on 11/11 and next dose will be due in 6 months at [facility] on 05/12. Will start supplemental p.o. Invega 3 mg nightly, Zoloft 50 mg nightly for mood/anxiety. Continue with home dose of Lamictal -Ativan and Haldol PRN for agitation/aggression -Patient was informed of the risks, benefits and side effects of the medication and patient verbally consented to taking the medications. Patient signed med consent form and was placed in chart. -Internal Medicine consult to perform medical evaluation and physical. -NRT -nicotine patch -SW on board for discharge planning. Encourage patient to participate in groups to work on coping skills. Once patient becomes more psychiatrically stable, will look into prison admission or other housing options. 11/17/23 11:35 11/17/23 11:40
[2023-11-17 12:00] LABS: ALT 337 U/L (4-49); AST 173 U/L (17-59); African American GFR (CKD) >90 (>60 ml/min/1.73 sqM); Albumin 4.5 g/dL (3.5-5.0); Alkaline Phosphatase 76 U/L (38-126); Anion Gap 9 mmol/L; Bilirubin, Delta 0.4 mg/dL (0.0-0.2); Bilirubin,Unconjugated 0.3 mg/dL (0.0-1.1); Blood Urea Nitrogen 17 mg/dL (9-20); Calcium 9.5 mg/dL (8.4-10.2); Carbon Dioxide 25 mmol/L (22-30); Chloride 107 mmol/L (98-107); Glucose 90 mg/dL (74-99); Non-African American GFR(CKD) >90 (>60 ml/min/1.73 sqM); Potassium 4.3 mmol/L (3.5-5.1); Sodium 141 mmol/L (137-145); Total Bilirubin 0.7 mg/dL (0.2-1.3); Total Protein 7.2 g/dL (6.3-8.2)
[2023-11-17] MEDS: IBUPROFEN 600 MG TAB PO PRN (13:01)
--- NOTE | 2023-11-17 14:49 | P.CONS ---
History of Present Illness - Reason for Consult Consult date: 11/17/23 - History of Present Illness This is a pleasant 28-year-old male who is issues with homelessness and comes into the hospital with complaints of suicidal ideation was found sitting in traffic wanting to be hit by a car. He does endorse continued suicidal ideations today. He states that he is not in contact with his parents states that they are both . He has a medical history of asthma, seizure disorder, autism, OCD, ADHD with prior history of alcohol abuse. There is also medical history of schizoaffective disorder and schizophrenia. Patient does not endorse any alcohol or tobacco use and denies any other drug use at this time. Patient was admitted to the hospital for psychiatric evaluation. He denies any chest discomfort he is not having any shortness of breath no nausea vomiting or diarrhea. He is alert x 3 at the time of my evaluation. His blood work is unremarkable with the exception of an AST of 173 and ALT of 337. Urine drug toxicology is negative his urinalysis does not suggest any type of urinary tract infection, his viral panel is negative for influenza RSV and COVID. REVIEW OF SYSTEMS: CONSTITUTIONAL: No fever, no malaise, no fatigue. HEENT: No recent visual problems or hearing problems. Denied any sore throat. CARDIOVASCULAR: No chest pain, orthopnea, PND, no palpitations, no syncope. PULMONARY: No shortness of breath, no cough, no hemoptysis. GASTROINTESTINAL: No diarrhea, no nausea, no vomiting, no abdominal pain. NEUROLOGICAL: No headaches, no weakness, no numbness. HEMATOLOGICAL: Denies any bleeding or petechiae. GENITOURINARY: Denies any burning micturition, frequency, or urgency. MUSCULOSKELETAL/RHEUMATOLOGICAL: Denies any joint pain, swelling, or any muscle pain. ENDOCRINE: Denies any polyuria or polydipsia. The rest of the 14-point review of systems is negative. PHYSICAL EXAMINATION: GENERAL: The patient is alert and oriented x3, not in any acute distress. Well developed, well nourished. HEENT: Pupils are round and equally reacting to light. EOMI. No scleral icterus. No conjunctival pallor. Normocephalic, atraumatic. No pharyngeal erythema. No thyromegaly. CARDIOVASCULAR: S1 and S2 present. No murmurs, rubs, or gallops. PULMONARY: Chest is clear to auscultation, no wheezing or crackles. ABDOMEN: Soft, nontender, nondistended, normoactive bowel sounds. No palpable organomegaly. MUSCULOSKELETAL: No joint swelling or deformity. EXTREMITIES: No cyanosis, clubbing, or pedal edema. NEUROLOGICAL: Gross neurological examination did not reveal any focal deficits. SKIN: No rashes. Assessment Suicidal Ideation Homelessness Hx of schizophrenia/schizoaffective disorder Hx of seizure disorder Transaminitis under investigation Hx of asthma Hx anxiety/depression/PTSD/ADD Hx of alcohol abuse, none currently GI prophylaxis Full Code Plan Continue on gabapentin, lacosamide and lamictal Gallbladder ultrasound in the AM Check hepatitis panel Continue albuterol as needed All other medications per psychiatry Thank you for this consultation we will continue to follow along as needed this hospital stay. The impression and plan of care has been dictated by Kaela Olivarez Nurse Practitioner as directed. Dr. Pipo MD I have performed a history and physical examination and medical decision making of this patient, discussed the same with the dictator, and agree with the dictators assessment and plan as written, documented as a scribe. Based on total visit time, I have performed more than 50% of this visit. Past Medical History Past Medical History: Asthma, Seizure Disorder Additional Past Medical History / Comment(s): seizure, anxiety, autism, ocd, asbergers, ADHD, recovering alcoholic x8 years History of Any Multi-Drug Resistant Organisms: None Reported Past Surgical History: No Surgical Hx Reported Additional Past Surgical History / Comment(s): Carpal Tunnel Repair left hand when 8 years old per patient.,, Past Anesthesia/Blood Transfusion Reactions: No Reported Reaction Past Psychological History: ADD/ADHD, Anxiety, Bipolar, PTSD, Schizoaffective Disorder, Schizophrenia Smoking Status: Vaper Past Alcohol Use History: None Reported Additional Past Alcohol Use History / Comment(s): last drink eight years ago Past Drug Use History: None Reported - Past Family History Father History Unknown: Yes Family Medical History: Hypertension Mother History Unknown: Yes Family Medical History: Hypertension Medications and Allergies Home Medications Medication Instructions Recorded Confirmed Type Ibuprofen [Motrin] 600 mg PO TID PRN 06/18/18 11/16/23 History Fluticasone Nasal [place] [Flonase 1 spray EA NOSTRIL DAILY PRN 10/02/18 11/16/23 History Nasal [place]] Loratadine [Alavert] 10 mg PO DAILY 01/23/19 11/16/23 History Albuterol Sulfate [Ventolin HFA] 2 puff INHALATION RT-Q4H PRN 07/19/20 11/16/23 History Lacosamide [Vimpat] 200 mg PO BID 07/19/20 11/16/23 History Montelukast Sodium [Singulair] 10 mg PO HS 07/19/20 11/16/23 History Ascorbic Acid [Vitamin C] 1,000 mg PO DAILY 11/16/23 11/16/23 History Benzonatate [Tessalon Perle] 200 mg PO TID 11/16/23 11/16/23 History Cholecalciferol [Vitamin D3 (125 125 mcg PO DAILY 11/16/23 11/16/23 History Mcg = 5000 Iu)] Famotidine [Pepcid] 20 mg PO DAILY 11/16/23 11/16/23 History Fenofibrate [Lofibra] 54 mg PO DAILY 11/16/23 11/16/23 History Fluticasone Furoate [Arnuity 2 puff INHALATION RT-DAILY 11/16/23 11/16/23 History Ellipta] Gabapentin [Neurontin] 100 mg PO TID PRN 11/16/23 11/16/23 History Paliperidone Palmitate [Invega 1,560 mg IM Q180D 11/16/23 11/16/23 History Hafyera] Sodium Chloride [Saline Mist] 2 spray EA NOSTRIL BID PRN 11/16/23 11/16/23 History lamoTRIgine 100 mg PO BID 11/16/23 11/16/23 History lamoTRIgine [LaMICtal] 150 mg PO BID 11/16/23 11/16/23 History Allergies Allergy/AdvReac Type Severity Reaction Status Date / Time hydroxyzine [From Vistaril] AdvReac Unknown Verified 11/17/23 00:17 Mushroom AdvReac Nausea & Verified 11/17/23 00:17 Vomiting polyethylene glycol AdvReac Nausea & Verified 11/17/23 00:17 [From Golytely] Vomiting polyethylene glycol 3350 AdvReac Nausea & Verified 11/17/23 00:17 [From Golytely] Vomiting potassium chloride AdvReac Nausea & Verified 11/17/23 00:17 [From Golytely] Vomiting sodium [From Golytely] AdvReac Nausea & Verified 11/17/23 00:17 Vomiting sodium bicarbonate AdvReac Nausea & Verified 11/17/23 00:17 [From Golytely] Vomiting sodium chloride AdvReac Nausea & Verified 11/17/23 00:17 [From Golytely] Vomiting sodium sulfate AdvReac Nausea & Verified 11/17/23 00:17 [From Golytely] Vomiting narcotics AdvReac Nausea & Uncoded 11/17/23 00:17 Vomiting Physical Exam Vitals: Vital Signs Temp Pulse Pulse Resp BP BP Pulse Ox 11/17/23 01:01 97.5 F L 78 15 128/70 11/16/23 17:31 98.4 F 74 18 110/68 96 Intake and Output 11/16/23 11/17/23 11/17/23 22:59 06:59 14:59 Other: Weight 54.431 kg 94.858 kg Results CBC & Chem 7: 11/17/23 11:06 11/17/23 11:06 Labs: Abnormal Lab Results - Last 24 Hours (Table) 11/16/23 Range/Units 21:40 Urine Protein Trace H (Negative) Amorphous Sediment Many H (None) /hpf Urine Mucus Many H (None) /hpf Assessment and Plan Time with Patient: Less than 30
[2023-11-17] MEDS: PALIPERIDONE 3 MG TAB.ER.24 PO SCH (20:18)
[2023-11-17] MEDS: SERTRALINE 50 MG TAB PO SCH (20:18)
[2023-11-17 21:47] LABS: Hepatitis A Antibody IgM Nonreactive (Nonreactive); Hepatitis B Core IgM Nonreactive (Nonreactive); Hepatitis B Surface Antigen Nonreactive (Nonreactive); Hepatitis C IgG Antibody Nonreactive (Nonreactive)
[2023-11-17 22:11] LABS: Chol/HDL Ratio 4.49 Ratio; LDL Cholesterol,Calculated 96.3 mg/dL (0.0-131.0)
--- NOTE | 2023-11-18 08:08 | US ---
EXAMINATION TYPE: US abdomen limited DATE OF EXAM: 11/18/2023 COMPARISON: 12/29/2018. CLINICAL INDICATION: Male, 28 years old with history of gallbladder,liver; Abd pain TECHNIQUE: Multiple sonographic images of the right upper quadrant are obtained. FINDINGS: EXAM MEASUREMENTS: Liver Length: 20.8 cm Gallbladder Wall: 0.2 cm CBD: 0.5 cm Right Kidney: 10.6 x 4.9 x 5.2 cm Pancreas: wnl Liver: enlarged and difficult to penetrate Gallbladder: wnl Evidence for sonographic Marie's sign: no CBD: wnl Right Kidney: wnl IMPRESSION: 1. No evidence for acute process. 2. Hepatic steatosis.
[2023-11-18] MEDS: ALBUTEROL HFA INHALER INHALATION PRN (08:59)
--- NOTE | 2023-11-18 11:38 | P.PN ---
Progress Note - Text Progress Note Date: 11/18/23 Interval History: Patient was seen wandering the hallways and was directable and agreeable to tanya doran with automobile and property underwriter in the office. Patient states he is doing ok today. He is asking about his blood results, automobile and property underwriter reviewed results, and patient satisfied with results. Patient states he is sleeping well, and his appetite is good. He is going to some groups. Patient is wondering when he will be discharged, automobile and property underwriter explained to patient that there has to be a plan with his guardian and [facility]. At this time patient denies any suicidal or homicidal ideations, intent or plan. Patient denies any auditory, visual hallucinations and denies any paranoia or delusions. Patient denies any side effects from the medications and has been compliant with meds. MENTAL STATUS EXAM: General Appearance: Patient appears to be disheveled in appearance, sunburned, long hair and a aldrich, stated age is alert, directable, and attempts to cooperate. Patient appears to have poor hygiene and grooming. Behavior: Patient is seated without any agitated behavior. Attempts to cooperate Speech: Patient's speech is fluent and nonpressured. Mood/Affect: Patient reports their mood is ok, affect is congruent Suicidality/Homicidality: Patient denies having any homicidal ideation intent or plan. Denies any suicidal thoughts, no plan Perceptions: Patient denies any visual hallucinations admits to auditory hallucinations. Though content/process: There is no evidence of any delusional thought content and thought process is linear and goal-directed. [place], improving mildly Memory and concentration: AOX3, grossly intact for the purposes of this session. Judgment and insight: Poor chronically IMPRESSIONS: Schizoaffective disorder Autism spectrum disorder History of ADHD PLAN: -Patient is admitted under voluntary status to MHU for stabilization of psychiatric symptoms and safety. Patient has signed adult voluntary form and medication consent and is placed in patient's chart. -Medications : Patient received invega hayfera 1560 mg IM on 11/11 and next dose will be due in 6 months at [facility] on 05/12. Invega 3 mg nightly, Zoloft 50 mg nightly for mood/anxiety. increase Lamictal 200mg bid for mood stabilization/depression. patient is not admitting to a rash. -Ativan and Haldol PRN for agitation/aggression -NRT -nicotine patch -SW on board for discharge planning. Encourage patient to participate in groups to work on coping skills. Once patient becomes more psychiatrically stable, will look into snf admission or other housing options as approved by gianni.
[2023-11-18] MEDS: lamoTRIgine 100 MG TAB PO SCH (21:02)
[2023-11-18] MEDS: ACETAMINOPHEN TAB 325 MG TAB PO PRN (21:58)
[2023-11-18] MEDS: GABAPENTIN 100 MG CAP PO PRN (23:42)
--- NOTE | 2023-11-19 11:54 | P.PN ---
Progress Note - Text Progress Note Date: 11/19/23 Interval History: Patient was seen wandering the hallways and was directable and agreeable to tanya doran with mortgage underwriter in the office. Patient states he is pretty sore today, however his mood is pretty good. He states his anxiety is subsiding. He is going to groups. He states that his appetite is good. At this time patient denies any suicidal or homicidal ideations, intent or plan. Patient denies any auditory, visual hallucinations and denies any paranoia or delusions. Patient denies any side effects from the medications and has been compliant with meds. MENTAL STATUS EXAM: General Appearance: Patient appears to be disheveled in appearance, sunburned, long hair and a aldrich, stated age is alert, directable, and attempts to cooperate. Patient appears to have poor hygiene and grooming. Behavior: Patient is seated without any agitated behavior. Attempts to cooperate Speech: Patient's speech is fluent and nonpressured. Mood/Affect: Patient reports their mood is pretty good today, affect is congruent and concrete Suicidality/Homicidality: Patient denies having any homicidal ideation intent or plan. Denies any suicidal thoughts, no plan Perceptions: Patient denies any visual hallucinations admits to auditory hallucinations. Though content/process: There is no evidence of any delusional thought content and thought process is linear and goal-directed. [place], improving mildly Memory and concentration: AOX3, grossly intact for the purposes of this session. Judgment and insight: Poor chronically, mildly improving IMPRESSIONS: Schizoaffective disorder Autism spectrum disorder History of ADHD PLAN: -Patient is admitted under voluntary status to MHU for stabilization of psychi atric symptoms and safety. Patient has signed adult voluntary form and medication consent and is placed in patient's chart. -Medications : Patient received Invega Hayfera 1560 mg IM on 11/11 and next dose will be due in 6 months at [facility] on 05/12. Invega 3 mg nightly, Zoloft 50 mg nightly for mood/anxiety. Lamictal 200mg bid for mood stabilization/depression. patient is not admitting to a rash. -Ativan and Haldol PRN for agitation/aggression -NRT -nicotine patch -SW on board for discharge planning. Encourage patient to participate in groups to work on coping skills. Likely discharge tomorrow, to a intermediate or low cost motel, as approved by him guardian
[2023-11-19] MEDS: methocarbamoL 500 MG TAB PO PRN (18:31)
--- NOTE | 2023-11-20 11:06 | P.PN ---
Progress Note - Text Progress Note Date: 11/20/23 Interval History: Patient was seen wandering the hallways and was directable and agreeable to tanya doran with handbook writer in the office. Patient states he is doing ok today. He states his anxiety is starting to improve. He is going to groups. He states that his appetite is good. Cnc Machine Programmer told patient that [facility] called and got him placement at [facility] home, and can be discharged to there Thursday. Patient agreeable. At this time patient denies any suicidal or homicidal ideations, intent or plan. Patient denies any auditory, visual hallucinations and denies any paranoia or delusions. Patient denies any side effects from the medications and has been compliant with meds. MENTAL STATUS EXAM: General Appearance: Patient appears to be disheveled in appearance, sunburned, long hair and a aldrich, stated age is alert, directable, and attempts to cooperate. Patient appears to have poor hygiene and grooming. Behavior: Patient is seated without any agitated behavior. Attempts to cooperate Speech: Patient's speech is fluent and nonpressured. Mood/Affect: Patient reports their mood is ok today, affect is congruent and concrete Suicidality/Homicidality: Patient denies having any homicidal ideation intent or plan. Denies any suicidal thoughts, no plan Perceptions: Patient denies any visual hallucinations admits to auditory hallucinations. Though content/process: There is no evidence of any delusional thought content and thought process is linear and goal-directed. [place], improving mildly Memory and concentration: AOX3, grossly intact for the purposes of this session. Judgment and insight: Poor chronically, mildly improving IMPRESSIONS: Schizoaffective disorder Autism spectrum disorder History of ADHD PLAN: -Patient is admitted under voluntary status to MHU for stabilization of psychiatric symptoms and safety. Patient has signed adult voluntary form and medication consent and is placed in patient's chart. -Medications : Patient received Invega Hayfera 1560 mg IM on 11/11 and next dose will be due in 6 months at [facility] on 05/12. Invega 3 mg nightly, Zoloft 50 mg nightly for mood/anxiety. Lamictal 200mg bid for mood stabilization/depression. patient is not admitting to a rash. -Ativan and Haldol PRN for agitation/aggression -NRT -nicotine patch -SW on board for discharge planning. Encourage patient to participate in groups to work on coping skills. Discharge Thursday to [facility] senior living, as this was approved by his guardian and [facility]
--- NOTE | 2023-11-21 12:38 | P.PN ---
Progress Note - Text Progress Note Date: 11/21/23 Interval history: Patient was seen wandering the hallways and was directable and agreeable to s peak with database report writer. Patient appears to have mild improvement in his hygiene and grooming, denies any problems at this time. States that he was a "a bit dizzy last night" however states that he was able to sleep fairly throughout the night, claims his appetite is fair, denying any paranoia or delusions, states that his mood and anxiety been improving. At this time patient denies any suicidal or homicidal ideations intent or plan. Denies any Auditory or visual hallucinations. Patient denies any side effects from the medications and has been compliant with meds. Mental status exam: General Appearance: Patient appears to have a aldrich, be stated age is alert, directable, and cooperative. Behavior: No agitated behavior. Patient is calm and directable Speech: Patient's speech is fluent and nonpressured. Mood/Affect: Mood is improving mildly, affect is congruent and constricted. Suicidality/Homicidality: Patient denies having any suicidal or homicidal ideation intent or plan. Perceptions: Patient denies any auditory or visual hallucinations. Though content/process: There is no evidence of any delusional thought content and thought process is linear and goal-directed. [place] Memory and concentration: AOX3, grossly intact for the purposes of this session Judgment and insight: Poor, improving mildly Assessment/Plan: Continue with current diagnosis. Patient continues to meet criteria for inpatient psychiatric admission for symptom stabilization and safety. Patient will be maintained on current psychotropic medication regimen. Monitor for medication compliance and for any psychotropic medication side effects. Will continue to monitor ongoing response to treatment. Encouraged participation in milieu.
[2023-11-22 07:42] VITALS: RESP 14
--- NOTE | 2023-11-22 11:01 | P.PN ---
Progress Note - Text Progress Note Date: 11/22/23 Interval history: Patient was seen wandering the hallways and was directable and agreeable to s peak with filing writer. Patient states that she is doing fine, was fairly concrete today. Denied any overnight issues, states that she is mainly keeping herself on the unit. Denies any problems with appetite at this time, not endorsing any delusions or paranoia. Remains focused on discharge likely tomorrow to [facility]. At this time patient denies any suicidal or homicidal ideations intent or plan. Denies any Auditory or visual hallucinations. Patient denies any side effects from the medications and has been compliant with meds. Mental status exam: General Appearance: Patient appears to have a aldrich, be stated age is alert, directable, and cooperative. Hygiene and grooming mildly improving since yesterday. Behavior: No agitated behavior. Patient is calm and directable Speech: Patient's speech is fluent and nonpressured. Mood/Affect: Mood is improving mildly, affect is congruent and constricted. Suicidality/Homicidality: Patient denies having any suicidal or homicidal ideation intent or plan. Perceptions: Patient denies any auditory or visual hallucinations. Though content/process: There is no evidence of any delusional thought content and thought process is linear and goal-directed. [place], improving mildly Memory and concentration: AOX3, grossly intact for the purposes of this session Judgment and insight: Poor, improving mildly Assessment/Plan: Continue with current diagnosis. Patient continues to meet criteria for inpatient psychiatric admission for symptom stabilization and safety. Patient will be maintained on current psychotropic medication regimen. Monitor for medication compliance and for any psychotropic medication side effects. Will continue to monitor ongoing response to treatment. Encouraged participation in milieu. We discharge tomorrow to [facility].
[2023-11-22] MEDS: haloperidoL 5 MG TAB PO PRN (18:48)
[2023-11-23 07:32] VITALS: BP 109/53; PULSE 54; TEMP 97.1
--- NOTE | 2023-11-23 09:49 | P.DS ---
Providers Date of admission: 11/16/23 23:52 Expected date of discharge: 11/23/23 Attending physician: Shawn Jackson MD Consults: 11/17/23 00:04 Consult Physician Routine Consulting Provider: Deidre Tirado Consult Reason/Comments: For H&P for Medical Follow up Do you want consulting provider notified?: Yes, Notify in am Primary care physician: [facility] Diagnosis(es) (1) Schizoaffective disorder Current Visit: Yes Status: Acute Priority: High (2) Autism spectrum disorder Current Visit: No Status: Acute Priority: High (3) ADHD (attention deficit hyperactivity disorder) Current Visit: No Status: Chronic Priority: Medium Hospital Course: Admission HPI: Admission note was completed by tech writer "Patient presented to the hospital yesterday being petitioned for apparently going onto the road attending to be hit by cars and claiming he was suicidal. Patient appeared to be fairly disheveled today was seen wandering the hallways agreeable to speak to tech writer. Patient states that he has been dealing with homelessness for the past few weeks, states that he left the [place] [facility] because "they said I did not need it anymore". Patient has very poor insight, states that he was feeling more depressed lately, hearing voices mainly negative in nature, was feeling hopeless, was thinking about past trauma and almost and all was his homelessness. States that anxiety level is also high. Claims that he was feeling suicidal and wanted to either be shot by someone or hit by cars, was laying on the road. Patient claims that he still having suicidal thoughts, no plan today, denying any homicidal ideations. At this time patient denies any visual hallucinations. Patient denies any flight of ideas racing thoughts and increased in goal directed behavior. Patient does claim that he has been following up with [facility] and just received his long-acting injection Invega heyfara on 11/11 patient admits to using no recreational drugs except for cigarettes occasionally." Hospital course: Upon admission to the unit patient was directable and agreeable to commence treatment and signed adult voluntary form. Patient got along well with other patients on the unit and followed unit protocol. Patient was compliant with the medications and denied any side effects throughout hospital course. Patient was recently given Invega Hayfera 1560 mg IM on 11/11 at [facility], next dose will be due in 6 months on 05/12/2024. Patient was started on small dose of Invega 3 mg nightly p.o. to bridge the gap and as a supplement. Zoloft 50 mg nightly for mood/anxiety, Lamictal 200 mg twice daily for mood stabilization/depression, patient was advised of the risk of the potential rash however did not report any while on the medication on the unit. Patient spoke of his stressors and engaged in therapy both group and individual. Patient was also seen by medical team for history and physical exam. Throughout the course of the hospitalization patient gradually improved with regards to mood, anxiety, psychosis, sleep and returned back to their baseline level of functioning. On the day of discharge patient denied any suicidal or homicidal ideations intent or plan denied any auditory or visual hallucinations. Patient endorsed wanting to live for his health and f amily. The patient denied any access to guns or weapons. Patient denied any paranoia and did not endorse any delusions. Patient does not have a significant history of substance abuse and was counseled on abstaining from all substances including alcohol and marijuana. Patient was also counseled on the medications and need for regular compliance and was encouraged to follow-up with their outpatient appointment for mental health and also for primary care. Patient will be going to [place] [facility] for closer monitoring upon discharge today. Mental status exam: General Appearance: Patient appears to have a aldrich, unkempt hair, stated age is alert, pleasant, and cooperative. Patient is in no acute distress and has improved hygiene and grooming Behavior: Patient is calmly seated without any agitated behavior. Speech: Patient's speech is fluent and nonpressured. Mood/Affect: Patient reports their mood is "good", affect is congruent and euthymic. Suicidality/Homicidality: Patient denies having any suicidal or homicidal ideation intent or plan. Perceptions: Patient denies any auditory or visual hallucinations. Though content/process: There is no evidence of any delusional thought content and thought process is linear and goal-directed. Memory and concentration: AOX3, grossly intact for the purposes of this session. Can spell "WORLD" backwards correctly. Judgment and insight: Chronically poor, however has improved with guarded prognosis Impression: Schizoaffective disorder Autism spectrum disorder History of ADHD Plan: -Continue with discharge today as patient has improved and stabilized psychiatrically and is not currently an imminent threat to himself and/or others. Patient will remain at chronically elevated risk for harm to self and/or others due to his impulsivity -Continue medications: Invega Hayfera 1560 mg IM on 11/11 and next dose will be due on 05/12/24. Continue with Invega p.o. 3 mg nightly for supplementation and to bridge patient onto the injection. Zoloft 50 mg nightly for mood/anxiety, Lamictal 200 mg twice daily for mood stabilization/depression. -Patient was counseled on the need for medication compliance and appropriate follow-up at mental health and also primary care for medical issues. Patient verbalized understanding and agreed. -Social work to help coordinate patient's discharge stated to [place] [facility]. Social work also to arrange for patients follow up appointments with [facility] for psychiatric care along with follow up with primary care provider. -Patient counseled on abstaining from recreational drugs and marijuana and alcohol. Was informed/educated on the adverse effects on their physical and mental health. Patient verbally agreed and understood. -Patient was instructed to return to the hospital or seek immediate medical care if their psychiatric or medical symptoms do worsen or reoccur. Allergies Allergy/AdvReac Type Severity Reaction Status Date / Time hydroxyzine from Vistaril AdvReac Unknown Verified 11/17/23 00:17 Mushroom AdvReac Nausea & Verified 11/17/23 00:17 Vomiting polyethylene glycol AdvReac Nausea & Verified 11/17/23 00:17 From Golytely Vomiting polyethylene glycol 3350 AdvReac Nausea & Verified 11/17/23 00:17 From Golytely Vomiting potassium chloride AdvReac Nausea & Verified 11/17/23 00:17 From Golytely Vomiting sodium from Golytely AdvReac Nausea & Verified 11/18/23 08:37 Vomiting sodium bicarbonate AdvReac Nausea & Verified 11/17/23 00:17 From Golytely Vomiting sodium chloride AdvReac Nausea & Verified 11/17/23 00:17 From Golytely Vomiting sodium sulfate AdvReac Nausea & Verified 11/17/23 00:17 From Golytely Vomiting narcotics AdvReac Nausea & Uncoded 11/17/23 00:17 Vomiting Laboratory Results WBC 6.7 k/uL (3.8-10.6) 11/17/23 11:06 RBC 5.33 m/uL (4.30-5.90) 11/17/23 11:06 Hgb 16.1 gm/dL (13.0-17.5) 11/17/23 11:06 Hct 47.4 % (39.0-53.0) 11/17/23 11:06 MCV 89.0 fL (80.0-100.0) 11/17/23 11:06 MCH 30.2 pg (25.0-35.0) 11/17/23 11:06 MCHC 33.9 g/dL (31.0-37.0) 11/17/23 11:06 RDW 12.8 % (11.5-15.5) 11/17/23 11:06 Plt Count 325 k/uL (150-450) 11/17/23 11:06 MPV 7.6 11/17/23 11:06 Neutrophils % 58 % 11/17/23 11:06 Lymphocytes % 30 % 11/17/23 11:06 Monocytes % 7 % 11/17/23 11:06 Eosinophils % 2 % 11/17/23 11:06 Basophils % 1 % 11/17/23 11:06 Neutrophils # 3.9 k/uL (1.3-7.7) 11/17/23 11:06 Lymphocytes # 2.0 k/uL (1.0-4.8) 11/17/23 11:06 Monocytes # 0.5 k/uL (0-1.0) 11/17/23 11:06 Eosinophils # 0.2 k/uL (0-0.7) 11/17/23 11:06 Basophils # 0.1 k/uL (0-0.2) 11/17/23 11:06 Sodium 141 mmol/L (137-145) 11/17/23 11:06 Potassium 4.3 mmol/L (3.5-5.1) 11/17/23 11:06 Chloride 107 mmol/L (98-107) 11/17/23 11:06 Carbon Dioxide 25 mmol/L (22-30) 11/17/23 11:06 Anion Gap 9 mmol/L 11/17/23 11:06 BUN 17 mg/dL (9-20) 11/17/23 11:06 Creatinine 0.87 mg/dL (0.66-1.25) 11/17/23 11:06 Est GFR (CKD-EPI)AfAm >90 (>60 ml/min/1.73 sqM) 11/17/23 11:06 Est GFR (CKD-EPI)NonAf >90 (>60 ml/min/1.73 sqM) 11/17/23 11:06 Glucose 90 mg/dL (74-99) 11/17/23 11:[address] Glu mg/dL 103 mg/dL 11/17/23 11:06 Hemoglobin A1c 5.2 % (<=6.0) 11/17/23 11:06 Calcium 9.5 mg/dL (8.4-10.2) 11/17/23 11:06 Total Bilirubin 0.7 mg/dL (0.2-1.3) 11/17/23 11:06 Conjugated Bilirubin 0.0 mg/dL (0.0-0.3) 11/17/23 11:06 Unconjugated Bilirubin 0.3 mg/dL (0.0-1.1) 11/17/23 11:06 Delta Bilirubin 0.4 mg/dL (0.0-0.2) H 11/17/23 11:06 AST 173 U/L (17-59) H 11/17/23 11:06 ALT 337 U/L (4-49) H 11/17/23 11:06 Alkaline Phosphatase 76 U/L (38-126) 11/17/23 11:06 Total Protein 7.2 g/dL (6.3-8.2) 11/17/23 11:06 Albumin 4.5 g/dL (3.5-5.0) 11/17/23 11:06 Triglycerides 113.00 mg/dL (0.00-149.00) 11/17/23 11:06 Cholesterol 153.00 mg/dL (0.00-200.00) 11/17/23 11:06 LDL Cholesterol, Calc 96.3 mg/dL (0.0-131.0) 11/17/23 11:06 VLDL Cholesterol, Calc 22.60 mg/dL (5.00-40.00) 11/17/23 11:06 HDL Cholesterol 34.10 mg/dL (40.00-60.00) L 11/17/23 11:06 Cholesterol/HDL Ratio 4.49 Ratio 11/17/23 11:06 TSH 0.839 mIU/L (0.465-4.680) 11/17/23 11:06 Urine Color Yellow 11/16/23 21:40 Urine Appearance Turbid (Clear) 11/16/23 21:40 Urine pH 5.5 (5.0-8.0) 11/16/23 21:40 Ur Specific Apex 1.027 (1.001-1.035) 11/16/23 21:40 Urine Protein Trace (Negative) H 11/16/23 21:40 Urine Glucose (UA) Negative (Negative) 11/16/23 21:40 Urine Ketones Negative (Negative) 11/16/23 21:40 Urine Blood Negative (Negative) 11/16/23 21:40 Urine Nitrite Negative (Negative) 11/16/23 21:40 Urine Bilirubin Negative (Negative) 11/16/23 21:40 Urine Urobilinogen 2.0 mg/dL (<2.0) 11/16/23 21:40 Ur Leukocyte Esterase Negative (Negative) 11/16/23 21:40 Amorphous Sediment Many /hpf (None) H 11/16/23 21:40 Urine Mucus Many /hpf (None) H 11/16/23 21:40 Urine Opiates Screen Not Detected (NotDetected) 11/16/23 21:20 Ur Oxycodone Screen Not Detected (NotDetected) 11/16/23 21:20 Urine Methadone Screen Not Detected (NotDetected) 11/16/23 21:20 Ur Barbiturates Screen Not Detected (NotDetected) 11/16/23 21:20 U Tricyclic Antidepress Not Detected (NotDetected) 11/16/23 21:20 Ur Phencyclidine Scrn Not Detected (NotDetected) 11/16/23 21:20 Ur Amphetamines Screen Not Detected (NotDetected) 11/16/23 21:20 U Methamphetamines Scrn Not Detected (NotDetected) 11/16/23 21:20 U Benzodiazepines Scrn Not Detected (NotDetected) 11/16/23 21:20 Urine Cocaine Screen Not Detected (NotDetected) 11/16/23 21:20 U Marijuana (THC) Screen Not Detected (NotDetected) 11/16/23 21:20 Hepatitis A IgM Ab Nonreactive (Nonreactive) 11/17/23 11:06 Hep Bs Antigen Nonreactive (Nonreactive) 11/17/23 11:06 Hep B Core IgM Ab Nonreactive (Nonreactive) 11/17/23 11:06 Hep C IgG Ab Nonreactive (Nonreactive) 11/17/23 11:06 Influenza Type A (PCR) Not Detected (Not Detectd) 11/16/23 22:45 Influenza Type B (PCR) Not Detected (Not Detectd) 11/16/23 22:45 RSV (PCR) Not Detected (Not Detectd) 11/16/23 22:45 SARS-CoV-2 (PCR) Not Detected (Not Detectd) 11/16/23 22:45 Vital Signs Temp 97.1 F L 11/23/23 06:47 Pulse 54 L 11/23/23 06:47 Resp 14 11/23/23 06:47 BP 109/53 11/23/23 06:47 Pulse Ox 97 11/21/23 09:10 FiO2 Intake & Output 11/22/23 11/23/23 11/23/23 18:59 06:59 18:59 Weight 95.7 kg Patient Condition at Discharge: Stable Plan - Discharge Summary Discharge Rx Participant: Yes New Discharge Prescriptions: New Paliperidone [Invega] 3 mg PO HS 30 Days #30 tab methocarbamoL [Robaxin] 500 mg PO BID PRN 30 Days #60 tab PRN Reason: Muscle Spasm lamoTRIgine [LaMICtal] 200 mg PO BID 30 Days #120 tab Ibuprofen [Motrin] 600 mg PO Q6HR PRN #0 tab PRN Reason: Moderate Pain (Scale 4 To 6) Sertraline [Zoloft] 50 mg PO HS 30 Days #30 tab Continue Fluticasone Nasal [place] [Flonase Nasal [place]] 1 spray EA NOSTRIL DAILY PRN PRN Reason: Allergy Symptoms Loratadine [Alavert] 10 mg PO DAILY Gabapentin [Neurontin] 100 mg PO TID PRN PRN Reason: anxiety per [facility] Paliperidone Palmitate [Invega Hafyera] 1,560 mg IM Q180D Lacosamide [Vimpat] 200 mg PO BID 30 Days #60 tab Fluticasone Furoate [Arnuity Ellipta] 2 puff INHALATION RT-DAILY #1 each Famotidine [Pepcid] 20 mg PO DAILY 30 Days #30 tab Albuterol Sulfate [Ventolin HFA] 2 puff INHALATION RT-Q4H PRN #1 each PRN Reason: Shortness Of Breath Discontinued Ibuprofen [Motrin] 600 mg PO TID PRN PRN Reason: Pain Montelukast Sodium [Singulair] 10 mg PO HS Ascorbic Acid [Vitamin C] 1,000 mg PO DAILY Sodium Chloride [Saline Mist] 2 spray EA NOSTRIL BID PRN PRN Reason: Allergy Symptoms/congestion lamoTRIgine 100 mg PO BID lamoTRIgine [LaMICtal] 150 mg PO BID Benzonatate [Tessalon Perle] 200 mg PO TID Cholecalciferol [Vitamin D3 (125 Mcg = 5000 Iu)] 125 mcg PO DAILY Fenofibrate [Lofibra] 54 mg PO DAILY Discharge Medication List Fluticasone Nasal [place] [Flonase Nasal [place]] 1 spray EA NOSTRIL DAILY PRN 10/02/18 [History] Loratadine [Alavert] 10 mg PO DAILY 01/23/19 [History] Gabapentin [Neurontin] 100 mg PO TID PRN 11/16/23 [History] Paliperidone Palmitate [Invega Hafyera] 1,560 mg IM Q180D 11/16/23 [History] Albuterol Sulfate [Ventolin HFA] 2 puff INHALATION RT-Q4H PRN #1 each 11/23/23 [Rx] Famotidine [Pepcid] 20 mg PO DAILY 30 Days #30 tab 11/23/23 [Rx] Fluticasone Furoate [Arnuity Ellipta] 2 puff INHALATION RT-DAILY #1 each 11/23/23 [Rx] Ibuprofen [Motrin] 600 mg PO Q6HR PRN #0 tab 11/23/23 [Rx] Lacosamide [Vimpat] 200 mg PO BID 30 Days #60 tab 11/23/23 [Rx] Paliperidone [Invega] 3 mg PO HS 30 Days #30 tab 11/23/23 [Rx] Sertraline [Zoloft] 50 mg PO HS 30 Days #30 tab 11/23/23 [Rx] lamoTRIgine [LaMICtal] 200 mg PO BID 30 Days #120 tab 11/23/23 [Rx] methocarbamoL [Robaxin] 500 mg PO BID PRN 30 Days #60 tab 11/23/23 [Rx] Follow up Appointment(s)/Referral(s): [facility] [Primary Care Provider] - 1-2 days Patient Instructions/Handouts: Depression (DC), Schizoaffective Disorder (DC) Activity/Diet/Wound Care/Special Instructions: Avoid the use of street drugs and alcohol. Take all medications as prescribed. When you are in need of refills on your medications, please contact your medical provider and/or outpatient psychiatrist/provider to have this done. Please go to your scheduled outpatient appointment for aftercare treatment. If symptoms return or become worse, call the crisis line at and/or go to the nearest emergency room for evaluation. National Suicide Hotline 988 Discharge Disposition: OTHER INSTITUTION NOT DEFINED
== END 2023-11-23 11:44 | disposition home or self-care (01) | DRG 885 ==
LOC: EC 17:21 → 3MHU 23:52
PROVIDERS: ADMIT Psychiatry & Neurology Psychiatry; ATTEND Psychiatry & Neurology Psychiatry
DX: F25.9 Schizoaffective disorder, unspecified (principal); Z59.00 Homelessness unspecified; F42.9 Obsessive-compulsive disorder, unspecified; F43.10 Post-traumatic stress disorder, unspecified; F43.21 Adjustment disorder with depressed mood; F84.0 Autistic disorder; F90.9 Attention-deficit hyperactivity disorder, unspecified type; G40.909 Epilepsy, unspecified, not intractable, without status epilepticus; J44.89 Other specified chronic obstructive pulmonary disease; Z59.6 Low income; F10.21 Alcohol dependence, in remission; Z79.899 Other long term (current) drug therapy; Z91.148 Patient's other noncompliance with medication regimen for other reason; Z11.52 Encounter for screening for COVID-19
CPT/HCPCS: 76705; 80053; 80061; 80074; 80306; 81001; 82075; 82248; 83036; 84443; 85025; 87636; 99285

== ENCOUNTER 2024-04-02 04:27 | Emergency (ER) | payer MEDICARE, OTHER ==
[2024-04-02 04:42] VITALS: TEMP 98.5
--- NOTE | 2024-04-02 06:15 | ED ---
ENT HPI - General Chief complaint: ENT Stated complaint: Headache,Earache Time Seen by Provider: 04/02/24 04:45 Source: patient Mode of arrival: ambulatory Limitations: no limitations - History of Present Illness Initial comments: 28-year-old male who presents emergency department reporting right ear pain. States that the pain has been going on since this evening. Denies decreased hearing. No ringing in the ears. No drainage. He has not taken anything for the pain. He denies fevers. No sore throat. No sick contacts with similar sym ptoms. No other alleviating, precipitating or modifying factors - Related Data Home Medications Medication Instructions Recorded Confirmed Fluticasone Nasal [place] [Flonase 1 spray EA NOSTRIL DAILY PRN 10/02/18 11/16/23 Nasal [place]] Loratadine [Alavert] 10 mg PO DAILY 01/23/19 11/16/23 Gabapentin [Neurontin] 100 mg PO TID PRN 11/16/23 11/16/23 Paliperidone Palmitate [Invega 1,560 mg IM Q180D 11/16/23 11/16/23 Hafyera] Previous Rx's Medication Instructions Recorded Albuterol Sulfate [Ventolin HFA] 2 puff INHALATION RT-Q4H PRN #1 11/23/23 each Famotidine [Pepcid] 20 mg PO DAILY 30 Days #30 tab 11/23/23 Fluticasone Furoate [Arnuity 2 puff INHALATION RT-DAILY #1 each 11/23/23 Ellipta] Ibuprofen [Motrin] 600 mg PO Q6HR PRN #0 tab 11/23/23 Lacosamide [Vimpat] 200 mg PO BID 30 Days #60 tab 11/23/23 Paliperidone [Invega] 3 mg PO HS 30 Days #30 tab 11/23/23 Sertraline [Zoloft] 50 mg PO HS 30 Days #30 tab 11/23/23 lamoTRIgine [LaMICtal] 200 mg PO BID 30 Days #120 tab 11/23/23 methocarbamoL [Robaxin] 500 mg PO BID PRN 30 Days #60 tab 11/23/23 Ofloxacin 0.3% Ophth Soln [Ocuflox 10 drops RIGHT EAR DAILY 7 Days 04/02/24 Ophth Soln] #10 ml Allergies Allergy/AdvReac Type Severity Reaction Status Date / Time hydroxyzine [From Vistaril] AdvReac Unknown Verified 04/02/24 04:42 Mushroom AdvReac Nausea & Verified 04/02/24 04:42 Vomiting polyethylene glycol AdvReac Nausea & Verified 04/02/24 04:42 [From Golytely] Vomiting polyethylene glycol 3350 AdvReac Nausea & Verified 04/02/24 04:42 [From Golytely] Vomiting potassium chloride AdvReac Nausea & Verified 04/02/24 04:42 [From Golytely] Vomiting sodium [From Golytely] AdvReac Nausea & Verified 04/02/24 04:42 Vomiting sodium bicarbonate AdvReac Nausea & Verified 04/02/24 04:42 [From Golytely] Vomiting sodium chloride AdvReac Nausea & Verified 04/02/24 04:42 [From Golytely] Vomiting sodium sulfate AdvReac Nausea & Verified 04/02/24 04:42 [From Golytely] Vomiting narcotics AdvReac Nausea & Uncoded 04/02/24 04:42 Vomiting Review of Systems ROS Statement: Those systems with pertinent positive or pertinent negative responses have been documented in the HPI. ROS Other: All systems not noted in ROS Statement are negative. Past Medical History Past Medical History: Asthma, Seizure Disorder Additional Past Medical History / Comment(s): seizure, anxiety, autism, ocd, asbergers, ADHD, recovering alcoholic x8 years History of Any Multi-Drug Resistant Organisms: None Reported Past Surgical History: No Surgical Hx Reported Additional Past Surgical History / Comment(s): Carpal Tunnel Repair left hand when 8 years old per patient.,, Past Anesthesia/Blood Transfusion Reactions: No Reported Reaction Past Psychological History: ADD/ADHD, Anxiety, Bipolar, PTSD, Schizoaffective Disorder, Schizophrenia Smoking Status: Former smoker, Vaper Past Alcohol Use History: None Reported Past Drug Use History: None Reported - Past Family History Father History Unknown: Yes Family Medical History: Hypertension Mother History Unknown: Yes Family Medical History: Hypertension General Exam Limitations: no limitations General appearance: alert, in no apparent distress Head exam: Present: atraumatic, normocephalic, normal inspection Eye exam: Present: normal appearance, PERRL, EOMI. Absent: scleral icterus, conjunctival injection, periorbital swelling ENT exam: Present: TM's normal bilaterally, other (Patient has some thickening to the ear canal with white drainage) Course Vital Signs 04/02/24 04/02/24 04:40 06:45 Temperature 98.5 F Pulse Rate 61 56 L Respiratory 18 16 Rate Blood Pressure 141/92 126/86 O2 Sat by Pulse 96 97 Oximetry Medical Decision Making - Medical Decision Making Was pt. sent in by a medical professional or institution (, [facility], COMMUNITY HEALTH DIRECTOR, urgent care, hospital, or detention...) When possible be specific @ -No Did you speak to anyone other than the patient for history (EMS, parent, family, police, friend...)? What history was obtained from this source @ -No Did you review nursing and triage notes (agree or disagree)? Why? @ -I reviewed and agree with nursing and triage notes Were old charts reviewed (outside hosp., previous admission, EMS record, old EKG, old radiological studies, urgent care reports/EKG's, detention records)? Report findings @ -No old charts were reviewed Differential Diagnosis (chest pain, altered mental status, abdominal pain women, abdominal pain men, vaginal bleeding, weakness, fever, dyspnea, syncope, headache, dizziness, GI bleed, back pain, seizure, CVA, palpatations, mental health, musculoskeletal)? @ -Otitis media, otitis externa, cerumen impaction EKG interpreted by me (3pts min.). @ -Not done X-rays interpreted by me (1pt min.). @ -None done CT interpreted by me (1pt min.). @ -None done U/S interpreted by me (1pt. min.). @ -None done What testing was considered but not performed or refused? (CT, X-rays, U/S, labs)? Why? @ -None What meds were considered but not given or refused? Why? @ -None Did you discuss the management of the patient with other professionals (professionals i.e. [facility] Soliman, COMMUNITY HEALTH DIRECTOR, lab, RT, psych nurse, social services director, barrel cap setter, teacher, building drafting officer, family independence case manager)? Give summary @ -No Was smoking cessation discussed for >3mins.? @ -No Was critical care preformed (if so, how long)? @ -No Were there social determinants of health that impacted care today? How? (Homelessness, low income, unemployed, alcoholism, drug addiction, transportation, low edu. Level, literacy, decrease access to med. care, half-way, rehab)? @ -No Was there de-escalation of care discussed even if they declined (Discuss DNR or withdrawal of care, Hospice)? DNR status @ -No What co-morbidities impacted this encounter? (DM, HTN, Smoking, COPD, CAD, Cancer, CVA, ARF, Chemo, Hep., AIDS, mental health diagnosis, sleep apnea, morbid obesity)? @ -None Was patient admitted / discharged? Hospital course, mention meds given and route, prescriptions, significant lab abnormalities, going to OR and other pertinent info. @ -Upon arrival patient seen and evaluated in room 31. Thorough history and physical exam was performed. Clinical exam does demonstrate concern for otitis externa. I did order eardrops for the patient. He will administer these as directed. Follow-up with his doctor and return for any new or worsening symptoms. Patient agreeable plan was discharged in stable condition Undiagnosed new problem with uncertain prognosis? @ -No Drug Therapy requiring intensive monitoring for toxicity (Heparin, Nitro, Insulin, Cardizem)? @ -No Were any procedures done? @ -No Diagnosis/symptom? @ -Acute otalgia, acute otitis externa Acute, or Chronic, or Acute on Chronic? @ -Acute Uncomplicated (without systemic symptoms) or Complicated (systemic symptoms)? @ -unComplicated Side effects of treatment? @ -No Exacerbation, Progression, or Severe Exacerbation? @ -No Poses a threat to life or bodily function? How? (Chest pain, USA, VT, pneumonia, PE, COPD, DKA, ARF, appy, cholecystitis, CVA, Diverticulitis, Homicidal, Suicidal, threat to staff... and all critical care pts) @ -No Disposition Clinical Impression: Otitis externa Disposition: HOME SELF-CARE Condition: Stable Instructions (If sedation given, give patient instructions): [facility] (ED) Additional Instructions: Please use the eardrops as directed. 10 drops to the right ear once daily. Follow-up with your doctor and return for any new or worsening symptoms Prescriptions: Ofloxacin 0.3% Ophth Soln [Ocuflox Ophth Soln] 10 drops RIGHT EAR DAILY 7 Days #10 ml Is patient prescribed a controlled substance at d/c from ED?: No Referrals: [facility] [Primary Care Provider] - 1-2 days Time of Disposition: 06:14
[2024-04-02] MEDS: OFLOXACIN 0.3% OPHTH DROPS 5 ML BOTTLE RIGHT EAR SCH (06:43)
[2024-04-02 06:48] VITALS: BP 126/86; PULSE 56; RESP 16
== END 2024-04-02 06:45 | disposition home or self-care (01) ==
LOC: EC 04:27
DX: H60.92 Unspecified otitis externa, left ear (principal)
CPT/HCPCS: 99282

== ENCOUNTER 2024-04-15 05:37 | Emergency (ER) | payer MEDICARE, OTHER ==
[2024-04-15 05:42] VITALS: RESP 20
[2024-04-15] MEDS: ACET/COD 300 MG/30 MG STARTER PACK 6 TAB BTL PO STA (06:19)
[2024-04-15] MEDS: KETOROLAC 15 MG/ML 1 ML VIAL IM STA (06:20)
--- NOTE | 2024-04-15 06:27 | ED ---
ENT HPI - General Chief complaint: Dental/Oral Stated complaint: Dental issue Time Seen by Provider: 04/15/24 06:07 Source: patient Mode of arrival: ambulatory Limitations: no limitations - History of Present Illness Initial comments: This is a 28-year-old male presenting to ER for right lower molar pain 9 out of 10 x 5 days. Patient endorses history of poor dentition. Endorses use of ibuprofen with minimal relief. Patient states he has appointment scheduled with dentist in April. MD complaint: tooth pain Onset/Timin -: days(s) Location: tooth # 1 - cracked/damaged Severity: severe Severity scale (1-10): 9 Quality: aching, constant Consistency: constant - Related Data Home Medications Medication Instructions Recorded Confirmed Fluticasone Nasal [place] [Flonase 1 spray EA NOSTRIL DAILY PRN 10/02/18 11/16/23 Nasal [place]] Loratadine [Alavert] 10 mg PO DAILY 01/23/19 11/16/23 Gabapentin [Neurontin] 100 mg PO TID PRN 11/16/23 11/16/23 Paliperidone Palmitate [Invega 1,560 mg IM Q180D 11/16/23 11/16/23 Hafyera] Previous Rx's Medication Instructions Recorded Albuterol Sulfate [Ventolin HFA] 2 puff INHALATION RT-Q4H PRN #1 11/23/23 each Famotidine [Pepcid] 20 mg PO DAILY 30 Days #30 tab 11/23/23 Fluticasone Furoate [Arnuity 2 puff INHALATION RT-DAILY #1 each 11/23/23 Ellipta] Ibuprofen [Motrin] 600 mg PO Q6HR PRN #0 tab 11/23/23 Lacosamide [Vimpat] 200 mg PO BID 30 Days #60 tab 11/23/23 Paliperidone [Invega] 3 mg PO HS 30 Days #30 tab 11/23/23 Sertraline [Zoloft] 50 mg PO HS 30 Days #30 tab 11/23/23 lamoTRIgine [LaMICtal] 200 mg PO BID 30 Days #120 tab 11/23/23 methocarbamoL [Robaxin] 500 mg PO BID PRN 30 Days #60 tab 11/23/23 Ofloxacin 0.3% Ophth Soln [Ocuflox 10 drops RIGHT EAR DAILY 7 Days 04/02/24 Ophth Soln] #10 ml Chlorhexidine Gluconate [Betasept] 1 applic TOPICAL DIRECTED 7 04/15/24 Days #118 ml Penicillin V Potassium [Pen Vee K] 500 mg PO QID 7 Days #28 tablet 04/15/24 Allergies Allergy/AdvReac Type Severity Reaction Status Date / Time hydroxyzine [From Vistaril] AdvReac Unknown Verified 04/15/24 05:40 Mushroom AdvReac Nausea & Verified 04/15/24 05:40 Vomiting polyethylene glycol AdvReac Nausea & Verified 04/15/24 05:40 [From Golytely] Vomiting polyethylene glycol 3350 AdvReac Nausea & Verified 04/15/24 05:40 [From Golytely] Vomiting potassium chloride AdvReac Nausea & Verified 04/15/24 05:40 [From Golytely] Vomiting sodium [From Golytely] AdvReac Nausea & Verified 04/15/24 05:40 Vomiting sodium bicarbonate AdvReac Nausea & Verified 04/15/24 05:40 [From Golytely] Vomiting sodium chloride AdvReac Nausea & Verified 04/15/24 05:40 [From Golytely] Vomiting sodium sulfate AdvReac Nausea & Verified 04/15/24 05:40 [From Golytely] Vomiting narcotics AdvReac Nausea & Uncoded 04/15/24 05:40 Vomiting Review of Systems ROS Statement: Those systems with pertinent positive or pertinent negative responses have been documented in the HPI. ROS Other: All systems not noted in ROS Statement are negative. Past Medical History Past Medical History: Asthma, Seizure Disorder Additional Past Medical History / Comment(s): seizure, anxiety, autism, ocd, asbergers, ADHD, recovering alcoholic x8 years History of Any Multi-Drug Resistant Organisms: None Reported Past Surgical History: No Surgical Hx Reported Additional Past Surgical History / Comment(s): Carpal Tunnel Repair left hand when 8 years old per patient.,, Past Anesthesia/Blood Transfusion Reactions: No Reported Reaction Past Psychological History: ADD/ADHD, Anxiety, Bipolar, PTSD, Schizoaffective Disorder, Schizophrenia Smoking Status: Former smoker, Vaper Past Alcohol Use History: None Reported Past Drug Use History: None Reported - Past Family History Father History Unknown: Yes Family Medical History: Hypertension Mother History Unknown: Yes Family Medical History: Hypertension General Exam Limitations: no limitations General appearance: alert, in no apparent distress Head exam: Present: atraumatic, normocephalic, normal inspection Eye exam: Present: normal appearance, PERRL, EOMI. Absent: scleral icterus, conjunctival injection, periorbital swelling ENT exam: Present: normal exam, mucous membranes moist, other (Positive for poor general dentition with multiple missing teeth. Cracked/damaged right lower second molar with tenderness to palpation and adjacent facial tenderness) Neck exam: Present: normal inspection. Absent: tenderness, meningismus, lymphadenopathy Respiratory exam: Present: normal lung sounds bilaterally. Absent: respiratory distress, wheezes, rales, rhonchi, stridor Cardiovascular Exam: Present: regular rate, normal rhythm, normal heart sounds. Absent: systolic murmur, diastolic murmur, rubs, gallop, clicks GI/Abdominal exam: Present: soft, normal bowel sounds. Absent: distended, tenderness, guarding, rebound, rigid Extremities exam: Present: normal inspection, full ROM, normal capillary refill. Absent: tenderness, pedal edema, joint swelling, calf tenderness Back exam: Present: normal inspection Neurological exam: Present: alert, oriented X3, CN II-XII intact Psychiatric exam: Present: normal affect, normal mood Skin exam: Present: warm, dry, intact, normal color. Absent: rash Course Vital Signs 04/15/24 05:39 Temperature 98.5 F Pulse Rate 117 H Respiratory 20 Rate Blood Pressure 123/87 O2 Sat by Pulse 97 Oximetry Medical Decision Making - Medical Decision Making Was pt. sent in by a medical professional or institution (, PA, TELETYPESETTER MONITOR, urgent care, hospital, or custodial...) When possible be specific @ -No Did you speak to anyone other than the patient for history (EMS, parent, family, police, friend...)? What history was obtained from this source @ -No Did you review nursing and triage notes (agree or disagree)? Why? @ -I reviewed and agree with nursing and triage notes Were old charts reviewed (outside hosp., previous admission, EMS record, old EKG, old radiological studies, urgent care reports/EKG's, custodial records)? Report findings @ -No old charts were reviewed Differential Diagnosis (chest pain, altered mental status, abdominal pain women, abdominal pain men, vaginal bleeding, weakness, fever, dyspnea, syncope, headache, dizziness, GI bleed, back pain, seizure, CVA, palpatations, mental health, musculoskeletal)? @ -Periapical abscess, dental carry, damage dentin, Cortes's angina, ANUG EKG interpreted by me (3pts min.). @ -As above X-rays interpreted by me (1pt min.). @ -None done CT interpreted by me (1pt min.). @ -None done U/S interpreted by me (1pt. min.). @ -None done What testing was considered but not performed or refused? (CT, X-rays, U/S, labs)? Why? @ -None What meds were considered but not given or refused? Why? @ -None Did you discuss the management of the patient with other professionals (professionals i.e. , PA, TELETYPESETTER MONITOR, lab, RT, psych nurse, professor of social work, whitesmith, teacher, collections officer, window caser)? Give summary @ -No Was smoking cessation discussed for >3mins.? @ -No Was critical care preformed (if so, how long)? @ -No Were there social determinants of health that impacted care today? How? (Homelessness, low income, unemployed, alcoholism, drug addiction, transportation, low edu. Level, literacy, decrease access to med. care, penitentiary, rehab)? @ -Patient has no ID. Patient only has access to prescription medication via mail. Was there de-escalation of care discussed even if they declined (Discuss DNR or withdrawal of care, Hospice)? DNR status @ -No What co-morbidities impacted this encounter? (DM, HTN, Smoking, COPD, CAD, Cancer, CVA, ARF, Chemo, Hep., AIDS, mental health diagnosis, sleep apnea, morbid obesity)? @ -None Was patient admitted / discharged? Hospital course, mention meds given and route, prescriptions, significant lab abnormalities, going to OR and other pertinent info. @ -Discharge. Patient was provided Toradol 15 mg IM for pain. Patient notes some pain relief. Patient prescribed penicillin 500 mg 4 times daily x 7 days and chlorhexidine mouthwash. Medication sent to [facility] pharmacy, patient states he will brain picker medication from pharmacy. Undiagnosed new problem with uncertain prognosis? @ -No Drug Therapy requiring intensive monitoring for toxicity (Heparin, Nitro, Insulin, Cardizem)? @ -No Were any procedures done? @ -No Diagnosis/symptom? @ -Default Acute, or Chronic, or Acute on Chronic? @ -Acute Uncomplicated (without systemic symptoms) or Complicated (systemic symptoms)? @ -Uncomplicated Side effects of treatment? @ -No Exacerbation, Progression, or Severe Exacerbation? @ -No Poses a threat to life or bodily function? How? (Chest pain, [place], [place], pneumonia, PE, COPD, DKA, ARF, appy, cholecystitis, CVA, Diverticulitis, Homicidal, Suicidal, threat to staff... and all critical care pts) @ -No Disposition Clinical Impression: Periapical abscess, Dental caries, Fracture of tooth Disposition: HOME SELF-CARE Condition: Good Instructions (If sedation given, give patient instructions): Toothache (ED) Prescriptions: Chlorhexidine Gluconate [Betasept] 1 applic TOPICAL DIRECTED 7 Days #118 ml Penicillin V Potassium [Pen Vee K] 500 mg PO QID 7 Days #28 tablet Is patient prescribed a controlled substance at d/c from ED?: No Referrals: [facility] [Primary Care Provider] - 1-2 days Time of Disposition: 06:35
[2024-04-15 06:41] VITALS: BP 125/84; PULSE 98; TEMP 97.9
== END 2024-04-15 06:48 | disposition home or self-care (01) ==
LOC: EC 05:37
CPT/HCPCS: 96372; 99282

== ENCOUNTER 2024-07-22 21:00 | Emergency (ER) | payer MEDICARE, OTHER ==
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
[2024-07-22 22:58] LABS: Amphetamine Screen,Urine Not Detected (NotDetected); Benzodiazepines Screen,Urine Not Detected (NotDetected); Cocaine Screen,Urine Not Detected (NotDetected); Opiate Screen,Urine Not Detected (NotDetected); Phencyclidine Screen,Urine Not Detected (NotDetected); Urn Cannabinoid Scrn Detected (NotDetected)
[2024-07-22 22:59] LABS: Barbiturate Screen,Urine Not Detected (NotDetected); Methadone Screen, Urine Not Detected (NotDetected); Oxycodone Screen, Urine Not Detected (NotDetected); Tricyclic Antidepressant,Urine Not Detected (NotDetected)
[2024-07-23 01:00] LABS: Basophils # (A) 0.1 k/uL (0-0.2); Basophils % (A) 1 %; Eosinophils # (A) 0.2 k/uL (0-0.7); Eosinophils % (A) 1 %; HCT 44.1 % (39.0-53.0); HGB 15.2 gm/dL (13.0-17.5); Lymphocytes # (A) 3.1 k/uL (1.0-4.8); Lymphocytes % (A) 28 %; MCH 29.7 pg (25.0-35.0); MCHC 34.4 g/dL (31.0-37.0); MCV 86.3 fL (80.0-100.0); Mean Platelet Volume 7.3; Monocytes # (A) 0.4 k/uL (0-1.0); Monocytes % (A) 4 %; Neutrophils # (A) 7.2 k/uL (1.3-7.7); Neutrophils % (A) 66 %; Platelet Count 281 k/uL (150-450); RBC 5.11 m/uL (4.30-5.90); RDW 13.2 % (11.5-15.5)
[2024-07-23 01:22] LABS: ALT 38 U/L (4-49); AST 27 U/L (17-59); African American GFR (CKD) >90 (>60 ml/min/1.73 sqM); Albumin 5.2 g/dL (3.5-5.0); Alkaline Phosphatase 93 U/L (38-126); Anion Gap 13 mmol/L; Blood Urea Nitrogen 16 mg/dL (9-20); Calcium 10.2 mg/dL (8.4-10.2); Carbon Dioxide 23 mmol/L (22-30); Chloride 103 mmol/L (98-107); Glucose 98 mg/dL (74-99); Non-African American GFR(CKD) >90 (>60 ml/min/1.73 sqM); Sodium 139 mmol/L (137-145); Total Bilirubin 0.4 mg/dL (0.2-1.3); Total Protein 8.3 g/dL (6.3-8.2)
[2024-07-23 01:35] LABS: Appearance,Urine Clear (Clear); Bilirubin,Urine Negative (Negative); Blood,Urine Negative (Negative); Color,Urine Light Yellow; Glucose,Urine (UA) Negative (Negative); Ketones,Urine Negative (Negative); Leukocyte Esterase,Urine Negative (Negative); Nitrite,Urine Negative (Negative); PH, Urine 5.5 (5.0-8.0); Protein,Urine Negative (Negative); Specific Gravity,Urine 1.023 (1.001-1.035); Urobilinogen,Urine <2.0 mg/dL (<2.0)
[2024-07-23] MEDS: NICOTINE 14MG/24HR PATCH TRANSDERM STA ×2 (01:36→20:04)
[2024-07-23] MEDS: PRAZOSIN 1 MG CAP PO STA (01:36)
[2024-07-23] MEDS: LACOSAMIDE 50 MG TABLET PO SCH (01:36)
[2024-07-23] MEDS: lamoTRIgine 100 MG TAB PO SCH (01:37)
[2024-07-23] MEDS: IBUPROFEN 200 MG TAB PO STA (04:51)
[2024-07-23] MEDS: MELATONIN 3 MG TABLET PO STA (04:52)
[2024-07-23] MEDS: ACETAMINOPHEN TAB 325 MG TAB PO STA (04:53)
[2024-07-23] MEDS: diphenhydrAMINE 50 MG CAP PO STA (04:54)
[2024-07-23 04:56] VITALS: TEMP 98.2
--- NOTE | 2024-07-23 05:34 | XR ---
EXAM: XR Left Lower Extremity, Infant, 2 or More Views CLINICAL HISTORY: ITS.REASON XR Reason: fall, TTP anterior lower tib, no deform TECHNIQUE: Frontal and lateral views of the left lower extremity. COMPARISON: X-ray dated 04/19/2016 FINDINGS: Bones/joints: Unremarkable. No acute fracture. No dislocation. Soft tissues: Unremarkable. No radiopaque foreign body. IMPRESSION: Normal left lower extremity x-rays.
[2024-07-23 18:20] VITALS: RESP 17
[2024-07-23 18:24] VITALS: BP 115/73; PULSE 78
== END 2024-07-23 21:24 ==
LOC: EC 21:00
DX: R45.851 Suicidal ideations (principal); F17.290 Nicotine dependence, other tobacco product, uncomplicated; Z88.5 Allergy status to narcotic agent; Z91.018 Allergy to other foods; Z88.8 Allergy status to other drugs, medicaments and biological substances; Z11.52 Encounter for screening for COVID-19
CPT/HCPCS: 82075; 36415; 80053; 84443; 85025; 81003; 80306; 87635; 73590; 99285; S4990

== ENCOUNTER 2024-09-26 00:07 | Emergency (ER) | payer MEDICARE, OTHER ==
[2024-09-26] MEDS: SODIUM CHLORIDE 0.9% 1,000 ML IV ONE (01:08)
[2024-09-26] MEDS: ONDANSETRON 4 MG/2 ML VIAL IVP STA (01:09)
[2024-09-26] MEDS: KETOROLAC 15 MG/ML 1 ML VIAL IVP STA (01:10)
[2024-09-26 01:31] LABS: Basophils # (A) 0.1 k/uL (0-0.2); Basophils % (A) 1 %; Eosinophils # (A) 0.1 k/uL (0-0.7); Eosinophils % (A) 1 %; HCT 42.2 % (39.0-53.0); HGB 14.2 gm/dL (13.0-17.5); Lymphocytes # (A) 2.8 k/uL (1.0-4.8); Lymphocytes % (A) 30 %; MCH 29.1 pg (25.0-35.0); MCHC 33.6 g/dL (31.0-37.0); MCV 86.6 fL (80.0-100.0); Mean Platelet Volume 7.1; Monocytes # (A) 0.5 k/uL (0-1.0); Monocytes % (A) 5 %; Neutrophils # (A) 5.8 k/uL (1.3-7.7); Neutrophils % (A) 62 %; Platelet Count 281 k/uL (150-450); RBC 4.87 m/uL (4.30-5.90); WBC 9.3 k/uL (3.8-10.6)
[2024-09-26 01:47] LABS: ALT 58 U/L (4-49); AST 35 U/L (17-59); African American GFR (CKD) >90 (>60 ml/min/1.73 sqM); Albumin 4.6 g/dL (3.5-5.0); Alkaline Phosphatase 94 U/L (38-126); Anion Gap 13 mmol/L; Blood Urea Nitrogen 28 mg/dL (9-20); Calcium 9.6 mg/dL (8.4-10.2); Carbon Dioxide 21 mmol/L (22-30); Chloride 104 mmol/L (98-107); Glucose 96 mg/dL (74-99); Non-African American GFR(CKD) >90 (>60 ml/min/1.73 sqM); Potassium 3.6 mmol/L (3.5-5.1); Sodium 138 mmol/L (137-145); Total Bilirubin 0.5 mg/dL (0.2-1.3); Total Protein 7.4 g/dL (6.3-8.2)
[2024-09-26 02:12] LABS: Influenza A Not Detected (Not Detectd); Influenza B Not Detected (Not Detectd); RSV Not Detected (Not Detectd)
--- NOTE | 2024-09-26 02:20 | ED ---
Nausea/Vomiting/Diarrhea HPI - General Chief complaint: Nausea/Vomiting/Diarrhea Stated complaint: Vomiting, ear ache Time Seen by Provider: 09/26/24 02:19 Source: patient, RN notes reviewed, old records reviewed Mode of arrival: ambulatory Limitations: no limitations - History of Present Illness Initial comments: 29 year old male presenting to the Er for evaluation of nausea and vomiting. He states for the past 2 to 3 days he has been experiencing bilateral ear pain, nausea and vomiting. He denies any abdominal pain, fevers, chills, Virk emesis, coffee ground emesis, diarrhea, hematochezia or melena. Patient does report recent cough but denies any shortness of breath, dizziness, lightheadedness, headache or other complaints at this time no history of also colitis, Crohn's disease. Patient has not taken anything for his symptoms at this time - Related Data Home Medications Medication Instructions Recorded Confirmed Fluticasone Nasal Wilmer [Flonase 1 spr EA NOSTRIL DAILY PRN 10/02/18 07/23/24 Nasal Wilmer] Paliperidone Palmitate [Invega 1,560 mg IM Q180D 11/16/23 07/23/24 Hafyera] Fenofibrate 54 mg PO DAILY 07/23/24 07/23/24 Ibuprofen [Motrin] 600 mg PO TID PRN 07/23/24 07/23/24 Loratadine 10 mg PO DAILY 07/23/24 07/23/24 Prazosin [Minipress] 1 mg PO HS 07/23/24 07/23/24 Previous Rx's Medication Instructions Recorded Albuterol Sulfate [Ventolin HFA] 2 puff INHALATION RT-Q4H PRN #1 11/23/23 each Famotidine [Pepcid] 20 mg PO DAILY 30 Days #30 tab 11/23/23 Fluticasone Furoate [Arnuity 2 puff INHALATION RT-DAILY #1 each 11/23/23 Ellipta] Lacosamide [Vimpat] 200 mg PO BID 30 Days #60 tab 11/23/23 Sertraline [Zoloft] 50 mg PO HS 30 Days #30 tab 11/23/23 lamoTRIgine [LaMICtal] 200 mg PO BID 30 Days #120 tab 11/23/23 methocarbamoL [Robaxin] 500 mg PO BID PRN 30 Days #60 tab 11/23/23 Allergies Allergy/AdvReac Type Severity Reaction Status Date / Time hydroxyzine [From Vistaril] AdvReac Unknown Verified 07/23/24 11:57 Mushroom AdvReac Nausea & Verified 07/23/24 11:57 Vomiting polyethylene glycol AdvReac Nausea & Verified 07/23/24 11:57 [From Golytely] Vomiting polyethylene glycol 3350 AdvReac Nausea & Verified 07/23/24 11:57 [From Golytely] Vomiting potassium chloride AdvReac Nausea & Verified 07/23/24 11:57 [From Golytely] Vomiting sodium [From Golytely] AdvReac Nausea & Verified 07/23/24 11:57 Vomiting sodium bicarbonate AdvReac Nausea & Verified 07/23/24 11:57 [From Golytely] Vomiting sodium chloride AdvReac Nausea & Verified 07/23/24 11:57 [From Golytely] Vomiting sodium sulfate AdvReac Nausea & Verified 07/23/24 11:57 [From Golytely] Vomiting narcotics AdvReac Nausea & Uncoded 07/23/24 11:57 Vomiting Review of Systems ROS Statement: Those systems with pertinent positive or pertinent negative responses have been documented in the HPI. ROS Other: All systems not noted in ROS Statement are negative. Past Medical History Past Medical History: Asthma, Seizure Disorder Additional Past Medical History / Comment(s): seizure, anxiety, autism, ocd, asbergers, ADHD, recovering alcoholic x8 years History of Any Multi-Drug Resistant Organisms: None Reported Past Surgical History: No Surgical Hx Reported Additional Past Surgical History / Comment(s): Carpal Tunnel Repair left hand wh en 8 years old per patient.,, Past Anesthesia/Blood Transfusion Reactions: No Reported Reaction Past Psychological History: ADD/ADHD, Anxiety, Bipolar, PTSD, Schizoaffective Disorder, Schizophrenia Smoking Status: Current every day smoker, Vaper Past Alcohol Use History: None Reported Past Drug Use History: None Reported - Past Family History Father History Unknown: Yes Family Medical History: Hypertension Mother History Unknown: Yes Family Medical History: Hypertension General Exam Limitations: no limitations General appearance: alert, in no apparent distress Respiratory exam: Present: normal lung sounds bilaterally. Absent: respiratory distress, wheezes, rales, rhonchi, stridor Cardiovascular Exam: Present: regular rate, normal rhythm, normal heart sounds. Absent: systolic murmur, diastolic murmur, rubs, gallop, clicks GI/Abdominal exam: Present: soft, normal bowel sounds. Absent: distended, tenderness, guarding, rebound, rigid Neurological exam: Present: alert, oriented X3, CN II-XII intact Skin exam: Present: warm, dry, intact, normal color. Absent: rash Course Vital Signs 09/26/24 09/26/24 00:08 02:26 Temperature 97.6 F 97.9 F Pulse Rate 87 79 Respiratory 20 16 Rate Blood Pressure 117/60 129/81 O2 Sat by Pulse 98 99 Oximetry Medical Decision Making - Medical Decision Making Was pt. sent in by a medical professional or institution (, PA, [employer], urgent care, hospital, or custodial...) When possible be specific @ -No Did you speak to anyone other than the patient for history (EMS, parent, family, police, friend...)? What history was obtained from this source @ -No Did you review nursing and triage notes (agree or disagree)? Why? @ -I reviewed and agree with nursing and triage notes Were old charts reviewed (outside hosp., previous admission, EMS record, old EKG, old radiological studies, urgent care reports/EKG's, custodial records)? Report findings @ -No old charts were reviewed Differential Diagnosis (chest pain, altered mental status, abdominal pain women, abdominal pain men, vaginal bleeding, weakness, fever, dyspnea, syncope, headache, dizziness, GI bleed, back pain, seizure, CVA, palpatations, mental health, musculoskeletal)? @ -Gastroenteritis, strep pharyngitis, otitis media, cholecystitis... This list is not meant to be all-inclusive EKG interpreted by me (3pts min.). @ -[None done X-rays interpreted by me (1pt min.). @ -None done CT interpreted by me (1pt min.). @ -None done U/S interpreted by me (1pt. min.). @ -None done What testing was considered but not performed or refused? (CT, X-rays, U/S, labs)? Why? @ -Imaging deferred at this time as patient has no focal tenderness, patient is agreeable. What meds were considered but not given or refused? Why? @ -None Did you discuss the management of the patient with other professionals (farrah harrison iron [place], PA, [employer], lab, RT, psych nurse, social services specialist, instrument shop supervisor, teacher, giving officer, continuous pillowcase cutter)? Give summary @ -No Was smoking cessation discussed for >3mins.? @ -No Was critical care preformed (if so, how long)? @ -No Were there social determinants of health that impacted care today? How? (Homelessness, low income, unemployed, alcoholism, drug addiction, transportation, low edu. Level, literacy, decrease access to med. care, [facility], rehab)? @ -No Was there de-escalation of care discussed even if they declined (Discuss DNR or withdrawal of care, Hospice)? DNR status @ -No What co-morbidities impacted this encounter? (DM, HTN, Smoking, COPD, CAD, Cancer, CVA, ARF, Chemo, Hep., AIDS, mental health diagnosis, sleep apnea, morbid obesity)? @ -None Was patient admitted / discharged? Hospital course, mention meds given and route, prescriptions, significant lab abnormalities, going to OR and other pertinent info. @ -Discharge. 29-year-old male presenting to the ER for evaluation of nausea and vomiting. Vitals within acceptable limits. Laboratory studies mild dehydration for which patient received IV fluids along with Toradol and Zofran. Viral swabs negative. Imaging deferred at this time as there is no focal abdominal tenderness, patient is agreeable. Upon reevaluation, patient sleeping in exam room no signs of acute distress. Results discussed with patient, all questions answered. Patient stable for discharge at this time. Strict return parameters discussed. Patient discharged in stable condition. Patient verbally expressed understanding and agreement with care plan. Case discussed with ED attending, Dr. Gaviria. Undiagnosed new problem with uncertain prognosis? @ -No Drug Therapy requiring intensive monitoring for toxicity (Heparin, Nitro, Insulin, Cardizem)? @ -No Were any procedures done? @ -No Diagnosis/symptom? @ -Nausea and vomiting Acute, or Chronic, or Acute on Chronic? @ -Acute Uncomplicated (without systemic symptoms) or Complicated (systemic symptoms)? @ -Uncomplicated Side effects of treatment? @ -No Exacerbation, Progression, or Severe Exacerbation? @ -No Poses a threat to life or bodily function? How? (Chest pain, USA, AR, pneumonia, PE, COPD, DKA, ARF, appy, cholecystitis, CVA, Diverticulitis, Homicidal, Suicidal, threat to staff... and all critical care pts) @ -No - Lab Data Result diagrams: 09/26/24 00:55 09/26/24 00:55 Lab Results 09/26/24 09/26/24 09/26/24 Range/Units 00:55 00:55 00:55 WBC 9.3 (3.8-10.6) k/uL RBC 4.87 (4.30-5.90) m/uL Hgb 14.2 (13.0-17.5) gm/dL Hct 42.2 (39.0-53.0) % MCV 86.6 (80.0-100.0) fL MCH 29.1 (25.0-35.0) pg MCHC 33.6 (31.0-37.0) g/dL RDW 13.0 (11.5-15.5) % Plt Count 281 (150-450) k/uL MPV 7.1 Neutrophils % 62 % Lymphocytes % 30 % Monocytes % 5 % Eosinophils % 1 % Basophils % 1 % Neutrophils # 5.8 (1.3-7.7) k/uL Lymphocytes # 2.8 (1.0-4.8) k/uL Monocytes # 0.5 (0-1.0) k/uL Eosinophils # 0.1 (0-0.7) k/uL Basophils # 0.1 (0-0.2) k/uL Sodium 138 (137-145) mmol/L Potassium 3.6 (3.5-5.1) mmol/L Chloride 104 (98-107) mmol/L Carbon Dioxide 21 L (22-30) mmol/L Anion Gap 13 mmol/L BUN 28 H (9-20) mg/dL Creatinine 0.98 (0.66-1.25) mg/dL Est GFR (CKD-EPI)AfAm >90 (>60 ml/min/1.73 sqM) Est GFR (CKD-EPI)NonAf >90 (>60 ml/min/1.73 sqM) Glucose 96 (74-99) mg/dL Plasma Lactic Acid Russell 0.9 (0.7-2.0) mmol/L Calcium 9.6 (8.4-10.2) mg/dL Total Bilirubin 0.5 (0.2-1.3) mg/dL AST 35 (17-59) U/L ALT 58 H (4-49) U/L Alkaline Phosphatase 94 (38-126) U/L Total Protein 7.4 (6.3-8.2) g/dL Albumin 4.6 (3.5-5.0) g/dL Influenza Type A (PCR) (Not Detectd) Influenza Type B (PCR) (Not Detectd) RSV (PCR) (Not Detectd) SARS-CoV-2 (PCR) (Not Detectd) 09/26/24 Range/Units 00:55 WBC (3.8-10.6) k/uL RBC (4.30-5.90) m/uL Hgb (13.0-17.5) gm/dL Hct (39.0-53.0) % MCV (80.0-100.0) fL MCH (25.0-35.0) pg MCHC (31.0-37.0) g/dL RDW (11.5-15.5) % Plt Count (150-450) k/uL MPV Neutrophils % % Lymphocytes % % Monocytes % % Eosinophils % % Basophils % % Neutrophils # (1.3-7.7) k/uL Lymphocytes # (1.0-4.8) k/uL Monocytes # (0-1.0) k/uL Eosinophils # (0-0.7) k/uL Basophils # (0-0.2) k/uL Sodium (137-145) mmol/L Potassium (3.5-5.1) mmol/L Chloride (98-107) mmol/L Carbon Dioxide (22-30) mmol/L Anion Gap mmol/L BUN (9-20) mg/dL Creatinine (0.66-1.25) mg/dL Est GFR (CKD-EPI)AfAm (>60 ml/min/1.73 sqM) Est GFR (CKD-EPI)NonAf (>60 ml/min/1.73 sqM) Glucose (74-99) mg/dL Plasma Lactic Acid Russell (0.7-2.0) mmol/L Calcium (8.4-10.2) mg/dL Total Bilirubin (0.2-1.3) mg/dL AST (17-59) U/L ALT (4-49) U/L Alkaline Phosphatase (38-126) U/L Total Protein (6.3-8.2) g/dL Albumin (3.5-5.0) g/dL Influenza Type A (PCR) Not Detected (Not Detectd) Influenza Type B (PCR) Not Detected (Not Detectd) RSV (PCR) Not Detected (Not Detectd) SARS-CoV-2 (PCR) Not Detected (Not Detectd) Disposition Clinical Impression: Nausea & vomiting Disposition: HOME SELF-CARE Condition: Stable Instructions (If sedation given, give patient instructions): Acute Nausea and Vomiting (ED) Additional Instructions: Follow-up with PCp. Return to the Er for any new or worsening concerns Is patient prescribed a controlled substance at d/c from ED?: No Referrals: James White MD [Primary Care Provider] - 1-2 days Time of Disposition: 02:19
[2024-09-26 02:43] VITALS: BP 129/81; PULSE 79; RESP 16; TEMP 97.9
== END 2024-09-26 02:26 | disposition home or self-care (01) ==
LOC: EC 00:07
DX: R11.2 Nausea with vomiting, unspecified (principal); F17.290 Nicotine dependence, other tobacco product, uncomplicated; Z88.5 Allergy status to narcotic agent; Z91.048 Other nonmedicinal substance allergy status; Z88.8 Allergy status to other drugs, medicaments and biological substances
CPT/HCPCS: 36415; 80053; 83605; 85025; 87636; 99284; 96374; 96375; 96361; J2405; J1885

== ENCOUNTER 2024-11-11 23:10 | Inpatient (IN) | payer MEDICARE, MEDICAID ==
[2024-11-12 00:55] LABS: Appearance,Urine Clear (Clear); Bilirubin,Urine Negative (Negative); Blood,Urine Negative (Negative); Color,Urine Colorless; Glucose,Urine (UA) Negative (Negative); Ketones,Urine Negative (Negative); Leukocyte Esterase,Urine Negative (Negative); Nitrite,Urine Negative (Negative); PH, Urine 5.5 (5.0-8.0); Protein,Urine Negative (Negative); Specific Gravity,Urine 1.011 (1.001-1.035); Urobilinogen,Urine <2.0 mg/dL (<2.0)
[2024-11-12 01:06] LABS: Amphetamine Screen,Urine Not Detected (NotDetected); Barbiturate Screen,Urine Not Detected (NotDetected); Benzodiazepines Screen,Urine Not Detected (NotDetected); Cocaine Screen,Urine Not Detected (NotDetected); Methadone Screen, Urine Not Detected (NotDetected); Opiate Screen,Urine Not Detected (NotDetected); Oxycodone Screen, Urine Not Detected (NotDetected); Phencyclidine Screen,Urine Not Detected (NotDetected); Tricyclic Antidepressant,Urine Not Detected (NotDetected); Urn Cannabinoid Scrn Not Detected (NotDetected)
--- NOTE | 2024-11-12 01:17 | ED ---
General Adult HPI - General Chief complaint: Psychiatric Symptoms Stated complaint: Mental Health Time Seen by Provider: 11/11/24 23:25 Source: patient, RN notes reviewed, old records reviewed Mode of arrival: ambulatory Limitations: no limitations - History of Present Illness Initial comments: Patient is a 29-year-old male who goes by "Leilani" who presents to the emergency department for suicidal ideations. There are chronic ideations but states they have been worse. This is why the patient came in for evaluation. Endorses plan of cutting throat. Denies attempts. Denies homicidal ideations, times, plans. Denies hallucinations. Denies drug or alcohol use. Presents for further evaluation at this time. - Related Data Home Medications Medication Instructions Recorded Confirmed Fluticasone Nasal [place] [Flonase 1 spr EA NOSTRIL DAILY PRN 10/02/18 07/23/24 Nasal [place]] Paliperidone Palmitate [Invega 1,560 mg IM Q180D 11/16/23 07/23/24 Hafyera] Fenofibrate 54 mg PO DAILY 07/23/24 07/23/24 Ibuprofen [Motrin] 600 mg PO TID PRN 07/23/24 07/23/24 Loratadine 10 mg PO DAILY 07/23/24 07/23/24 Prazosin [Minipress] 1 mg PO HS 07/23/24 07/23/24 Previous Rx's Medication Instructions Recorded Albuterol Sulfate [Ventolin HFA] 2 puff INHALATION RT-Q4H PRN #1 11/23/23 each Famotidine [Pepcid] 20 mg PO DAILY 30 Days #30 tab 11/23/23 Fluticasone Furoate [Arnuity 2 puff INHALATION RT-DAILY #1 each 11/23/23 Ellipta] Lacosamide [Vimpat] 200 mg PO BID 30 Days #60 tab 11/23/23 Sertraline [Zoloft] 50 mg PO HS 30 Days #30 tab 11/23/23 lamoTRIgine [LaMICtal] 200 mg PO BID 30 Days #120 tab 11/23/23 methocarbamoL [Robaxin] 500 mg PO BID PRN 30 Days #60 tab 11/23/23 Allergies Allergy/AdvReac Type Severity Reaction Status Date / Time hydroxyzine [From Vistaril] AdvReac Unknown Verified 11/11/24 23:29 Mushroom AdvReac Nausea & Verified 11/11/24 23:29 Vomiting polyethylene glycol AdvReac Nausea & Verified 11/11/24 23:29 [From Golytely] Vomiting polyethylene glycol 3350 AdvReac Nausea & Verified 11/11/24 23:29 [From Golytely] Vomiting potassium chloride AdvReac Nausea & Verified 11/11/24 23:29 [From Golytely] Vomiting sodium [From Golytely] AdvReac Nausea & Verified 11/11/24 23:29 Vomiting sodium bicarbonate AdvReac Nausea & Verified 11/11/24 23:29 [From Golytely] Vomiting sodium chloride AdvReac Nausea & Verified 11/11/24 23:29 [From Golytely] Vomiting sodium sulfate AdvReac Nausea & Verified 11/11/24 23:29 [From Golytely] Vomiting narcotics AdvReac Nausea & Uncoded 11/11/24 23:29 Vomiting Review of Systems ROS Statement: Those systems with pertinent positive or pertinent negative responses have been documented in the HPI. Review of Systems: CONST: Denies fever EYES: Denies blurry vision ENT: Denies nasal congestion C/V: Denies Chest pain RESP: Denies shortness of breath GI: Denies abdominal pain : Denies dysuria SKIN: Denies rash. MSK: Denies joint pain. NEURO: Denies headache ROS Other: All systems not noted in ROS Statement are negative. Past Medical History Past Medical History: Asthma, Seizure Disorder Additional Past Medical History / Comment(s): seizure, anxiety, autism, ocd, asbergers, ADHD, recovering alcoholic x8 years History of Any Multi-Drug Resistant Organisms: None Reported Past Surgical History: No Surgical Hx Reported Additional Past Surgical History / Comment(s): Carpal Tunnel Repair left hand when 8 years old per patient.,, Past Anesthesia/Blood Transfusion Reactions: No Reported Reaction Past Psychological History: ADD/ADHD, Anxiety, Bipolar, PTSD, Schizoaffective Disorder, Schizophrenia Smoking Status: Current every day smoker, Vaper Past Alcohol Use History: None Reported Past Drug Use History: Marijuana - Past Family History Father History Unknown: Yes Family Medical History: Hypertension Mother History Unknown: Yes Family Medical History: Hypertension General Exam - General Exam Comments Initial Comments: General: Appears in no acute distress. HEAD: Normal with no signs of head trauma. EYES: EOMI. ENT: Hearing grossly intact. RESPIRATORY: No respiratory distress. C/V: Regular rate and rhythm. ABD: Abdomen is nondistended. EXT: No obvious deformity. SKIN: No rashes or lesions observed on exposed skin. NEURO: Alert and oriented. Limitations: no limitations Course Vital Signs 11/11/24 23:26 Temperature 98 F Pulse Rate 75 Respiratory 18 Rate Blood Pressure 128/85 O2 Sat by Pulse 98 Oximetry Medical Decision Making - Medical Decision Making Was pt. sent in by a medical professional or institution (, [facility], [employer], urgent care, hospital, or fpc...) When possible be specific @ -No Did you speak to anyone other than the patient for history (EMS, parent, family, police, friend...)? What history was obtained from this source @ -No Did you review nursing and triage notes (agree or disagree)? Why? @ -I reviewed and agree with nursing and triage notes Were old charts reviewed (outside hosp., previous admission, EMS record, old EKG, old radiological studies, urgent care reports/EKG's, fpc records)? Report findings @ -Reviewed old charts and was last evaluated for suicidal ideations in July 2024 Differential Diagnosis (chest pain, altered mental status, abdominal pain women, abdominal pain men, vaginal bleeding, weakness, fever, dyspnea, syncope, headache, dizziness, GI bleed, back pain, seizure, CVA, palpatations, mental health, musculoskeletal)? @ -Differential Mental Health Depression, anxiety, bipolar, psychosis, schizophrenia, borderline personality, situational depression, adjustment disorder, behavioral disorder, brain tumor, malingering, substance abuse, encephalopathy, medication reaction, dementia, hypothyroidism, degenerative neurologic disorder, lupus.... This is not meant to be all-inclusive list EKG interpreted by me (3pts min.). @ -None done X-rays interpreted by me (1pt min.). @ -None done CT interpreted by me (1pt min.). @ -None done U/S interpreted by me (1pt. min.). @ -None done What testing was considered but not performed or refused? (CT, X-rays, U/S, labs)? Why? @ -None What meds were considered but not given or refused? Why? @ -None Did you discuss the management of the patient with other professionals (professionals i.e. , PA, [employer], lab, RT, psych nurse, social services counselor, [facility], teacher, flight communications officer, lead case manager)? Give summary @ -EPS notified of the consult Was smoking cessation discussed for >3mins.? @ -No Was critical care preformed (if so, how long)? @ -No Were there social determinants of health that impacted care today? How? (Homelessness, low income, unemployed, alcoholism, drug addiction, transportati on, low edu. Level, literacy, decrease access to med. care, detention, rehab)? @ -No Was there de-escalation of care discussed even if they declined (Discuss DNR or withdrawal of care, Hospice)? DNR status @ -No What co-morbidities impacted this encounter? (DM, HTN, Smoking, COPD, CAD, Cancer, CVA, ARF, Chemo, Hep., AIDS, mental health diagnosis, sleep apnea, morbid obesity)? @ -None Was patient admitted / discharged? Hospital course, mention meds given and route, prescriptions, significant lab abnormalities, going to OR and other pertinent info. @ -Patient presents for mental health evaluation with suicidal ideation with a plan. Vitals are within acceptable limits. BAT is 0. UDS is unremarkable. Urinalysis unremarkable. At this time, patient is medically cleared for evaluation by psychiatry. Disposition pending psychiatric evaluation.EPS evaluated the patient and determined that patient does meet inpatient psychiatric criteria. Patient admitted in stable condition. Undiagnosed new problem with uncertain prognosis? @ -No Drug Therapy requiring intensive monitoring for toxicity (Heparin, Nitro, Insulin, Cardizem)? @ -No Were any procedures done? @ -No Diagnosis/symptom? @ -Suicidal ideations Acute, or Chronic, or Acute on Chronic? @ -Acute Uncomplicated (without systemic symptoms) or Complicated (systemic symptoms)? @ -Complicated Side effects of treatment? @ -None Exacerbation, Progression, or Severe Exacerbation] @ -No Poses a threat to life or bodily function? @ -Yes - Lab Data Lab Results 11/12/24 Range/Units 00:42 Urine Color Colorless Urine Appearance Clear (Clear) Urine pH 5.5 (5.0-8.0) Ur Specific [place] 1.011 (1.001-1.035) Urine Protein Negative (Negative) Urine Glucose (UA) Negative (Negative) Urine Ketones Negative (Negative) Urine Blood Negative (Negative) Urine Nitrite Negative (Negative) Urine Bilirubin Negative (Negative) Urine Urobilinogen <2.0 (<2.0) mg/dL Ur Leukocyte Esterase Negative (Negative) Urine Opiates Screen Not Detected (NotDetected) Ur Oxycodone Screen Not Detected (NotDetected) Urine Methadone Screen Not Detected (NotDetected) Ur Barbiturates Screen Not Detected (NotDetected) U Tricyclic Antidepress Not Detected (NotDetected) Ur Phencyclidine Scrn Not Detected (NotDetected) Ur Amphetamines Screen Not Detected (NotDetected) U Methamphetamines Scrn Not Detected (NotDetected) U Benzodiazepines Scrn Not Detected (NotDetected) Urine Cocaine Screen Not Detected (NotDetected) U Marijuana (THC) Screen Not Detected (NotDetected) Disposition Clinical Impression: Suicidal ideations Disposition: TRANSFER TO PSYCH HOSP/UNIT Condition: Stable Referrals: [facility] [Primary Care Provider] - 1-2 days
[2024-11-12] MEDS ORDERED: haloperidoL 5 MG TAB PO PRN (03:59)
[2024-11-12] MEDS ORDERED: MAG HYDROX/AL HYDROX/SIMETH 355 ML BOTTLE PO PRN (03:59)
[2024-11-12] MEDS ORDERED: HALOPERIDOL LACTATE 5 MG/ML 1 ML VIAL IM PRN (03:59)
[2024-11-12] MEDS ORDERED: MAGNESIUM HYDROXIDE 2,400 MG/30 ML CUP PO PRN (03:59)
[2024-11-12] MEDS ORDERED: ACETAMINOPHEN TAB 325 MG TAB PO PRN (03:59)
[2024-11-12] MEDS ORDERED: LORazepam 2 MG/ML INJ IM PRN (03:59)
[2024-11-12] MEDS: NICOTINE 14MG/24HR PATCH TRANSDERM SCH (10:57)
[2024-11-12] MEDS: SERTRALINE 25 MG TAB PO SCH (12:13)
[2024-11-12 16:11] VITALS: RESP 16; TEMP 97.7
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
[2024-11-12] MEDS: lamoTRIgine 100 MG TAB PO SCH (21:10)
[2024-11-12] MEDS: IBUPROFEN 600 MG TAB PO PRN (21:10)
[2024-11-12] MEDS: LACOSAMIDE 50 MG TABLET PO SCH (21:10)
--- NOTE | 2024-11-13 02:22 | P.MDCNMH ---
History of Present Illness Patient is a 29-year-old male who goes by "Leilani" with asthma, seizure disorder, anxiety, ADHD, schizophrenia and current daily vape user and history of marijuana use here for suicidal ideation. Patient reported they have been having chronic suicidal ideations but states that they have been worse at this time. Has plans for cutting their throat but has denied doing any attempts. Denied homicidal ideation or plans. Denied hallucinations, drug or alcohol use recently, chest pain, shortness of breath, abdominal pain. Vitals: 98 F, OK 75, RR 18, BP 128/85, O2 saturation 98% on room air. Urinalysis unremarkable. UDS unremarkable. SARS COVID-negative. Review of systems: Pertinent positives and negatives as discussed in HPI, a complete review of systems was performed and all other systems are negative. Physical examination: Vital signs reviewed General: non toxic, no distress, appears at stated age, normal weight, on room air Derm: no unusual rashes/lesions, warm Head: atraumatic, normocephalic, symmetric Eyes: EOMI, anicteric sclera, pupils equal round reactive to light ENT: Nose and ears atraumatic Neck: No cervical lymphadenopathy, trachea midline, supple Mouth: no lip lesion, mucus membranes moist Cardiovascular: S1S2 reg, no murmur Lungs: CTA bilateral, no rhonchi, no rales, no accessory muscle use Abdominal: soft, nondistended, nontender to palpation, no guarding Ext: muscle strength 5 out of 5 in all 4 extremities grossly, no gross muscle atrophy, no contractures, positive dorsalis pedis pulse bilateral, no edema Neuro: CN II-XI as below, no gross focal neuro deficits Psych: Alert, oriented, appropriate affect and mood Assessment/Plan: #. Chronic conditions: Asthma, seizure disorder - Continue lacosamide 200 mg twice daily and Lamictal 200 mg twice daily, albuterol inhaler and Arnuity Ellipta inhaler #. Suicidal ideation with plan #. Anxiety #. Schozophrenia -Had taken last dose on Invega Hafyera last month -Suicide precautions -Management per psychiatry service We appreciate being part of this patient's care. Thank you for this consult. Claudette Smith MD PGY-1 Internal Medicine Past Medical History Past Medical History: Asthma, Seizure Disorder Additional Past Medical History / Comment(s): seizure, anxiety, autism, ocd, asbergers, ADHD, recovering alcoholic x9 years History of Any Multi-Drug Resistant Organisms: None Reported Past Surgical History: No Surgical Hx Reported Additional Past Surgical History / Comment(s): Carpal Tunnel Repair left hand when 8 years old per patient.,, Past Anesthesia/Blood Transfusion Reactions: No Reported Reaction Past Psychological History: ADD/ADHD, Anxiety, Bipolar, PTSD, Schizoaffective Disorder, Schizophrenia Smoking Status: Current every day smoker, Vaper Past Alcohol Use History: None Reported Additional Past Alcohol Use History / Comment(s): last drink nine years ago Past Drug Use History: Marijuana - Past Family History Father History Unknown: Yes Family Medical History: Hypertension Mother History Unknown: Yes Family Medical History: Hypertension Medications and Allergies Home Medications Medication Instructions Recorded Confirmed Type Fluticasone Nasal [place] [Flonase 1 spr EA NOSTRIL DAILY PRN 10/02/18 07/23/24 History Nasal [place]] Paliperidone Palmitate [Invega 1,560 mg IM Q180D 11/16/23 07/23/24 History Hafyera] Albuterol Sulfate [Ventolin HFA] 2 puff INHALATION RT-Q4H PRN #1 11/23/23 07/23/24 Rx each Famotidine [Pepcid] 20 mg PO DAILY 30 Days #30 tab 11/23/23 07/23/24 Rx Fluticasone Furoate [Arnuity 2 puff INHALATION RT-DAILY #1 each 11/23/23 07/23/24 Rx Ellipta] Lacosamide [Vimpat] 200 mg PO BID 30 Days #60 tab 11/23/23 07/23/24 Rx Sertraline [Zoloft] 50 mg PO HS 30 Days #30 tab 11/23/23 07/23/24 Rx lamoTRIgine [LaMICtal] 200 mg PO BID 30 Days #120 tab 11/23/23 07/23/24 Rx methocarbamoL [Robaxin] 500 mg PO BID PRN 30 Days #60 tab 11/23/23 07/23/24 Rx Fenofibrate 54 mg PO DAILY 07/23/24 07/23/24 History Ibuprofen [Motrin] 600 mg PO TID PRN 07/23/24 07/23/24 History Loratadine 10 mg PO DAILY 07/23/24 07/23/24 History Prazosin [Minipress] 1 mg PO HS 07/23/24 07/23/24 History Allergies Allergy/AdvReac Type Severity Reaction Status Date / Time hydroxyzine [From Vistaril] AdvReac Unknown Verified 11/11/24 23:29 Mushroom AdvReac Nausea & Verified 11/11/24 23:29 Vomiting polyethylene glycol AdvReac Nausea & Verified 11/11/24 23:29 [From Golytely] Vomiting polyethylene glycol 3350 AdvReac Nausea & Verified 11/11/24 23:29 [From Golytely] Vomiting potassium chloride AdvReac Nausea & Verified 11/11/24 23:29 [From Golytely] Vomiting sodium [From Golytely] AdvReac Nausea & Verified 11/11/24 23:29 Vomiting sodium bicarbonate AdvReac Nausea & Verified 11/11/24 23:29 [From Golytely] Vomiting sodium chloride AdvReac Nausea & Verified 11/11/24 23:29 [From Golytely] Vomiting sodium sulfate AdvReac Nausea & Verified 11/11/24 23:29 [From Golytely] Vomiting narcotics AdvReac Nausea & Uncoded 11/11/24 23:29 Vomiting Physical Exam Vitals: Vital Signs Temp Pulse Resp BP Pulse Ox 11/12/24 21:00 97.7 F 73 121/68 99 11/12/24 09:00 97.7 F 70 16 101/59 98 11/12/24 04:57 97.9 F 77 18 128/85 98 Cranial Nerve Examination - Cranial Nerves Cranial Nerve II- Optic: Intact Cranial Nerve III- Oculomotor: Intact Cranial Nerve IV- Trochlear: Intact Cranial Nerve V- Trigeminal: Intact Cranial Nerve - Abducens: Intact Cranial Nerve VII- Facial: Intact Cranial Nerve VIII- Auditory: Intact Cranial Nerve IX- Glossopharyngeal: Intact Cranial Nerve X- Vagus: Intact Cranial Nerve XI- Accessory: Intact Cranial Nerve XII- Hypoglossal: Intact
[2024-11-13 08:19] LABS: Basophils # (A) 0.07 10*3/uL (0.00-0.10); Basophils % (A) 0.8 %; Eosinophils # (A) 0.21 10*3/uL (0.04-0.35); Eosinophils % (A) 2.5 %; HCT 44.1 % (39.6-50.0); HGB 15.7 g/dL (13.0-17.0); Lymphocytes # (A) 3.62 10*3/uL (0.90-5.00); Lymphocytes % (A) 43.4 %; MCH 30.5 pg (27.0-32.0); MCHC 35.6 g/dL (32.0-37.0); MCV 85.6 fL (80.0-97.0); Mean Platelet Volume 9.5 fL (9.5-12.2); Neutrophils # (A) 3.91 10*3/uL (1.80-7.70); Neutrophils % (A) 46.9 %; Platelet Count 295 10*3/uL (140-440); RBC 5.15 10*6/uL (4.40-5.60); RDW 12.5 % (11.5-14.5); WBC 8.34 10*3/uL (4.50-10.00)
[2024-11-13 08:37] LABS: ALT 73 U/L (4-49); AST 33 U/L (17-59); African American GFR (CKD) >90 (>60 ml/min/1.73 sqM); Albumin 4.6 g/dL (3.5-5.0); Alkaline Phosphatase 80 U/L (38-126); Anion Gap 10 mmol/L; Bilirubin, Delta 0.1 mg/dL (0.0-0.2); Bilirubin,Unconjugated 0.6 mg/dL (0.0-1.1); Blood Urea Nitrogen 20 mg/dL (9-20); Calcium 10.2 mg/dL (8.4-10.2); Carbon Dioxide 24 mmol/L (22-30); Chloride 105 mmol/L (98-107); Glucose 90 mg/dL (74-99); Non-African American GFR(CKD) >90 (>60 ml/min/1.73 sqM); Potassium 4.4 mmol/L (3.5-5.1); Sodium 139 mmol/L (137-145); Total Bilirubin 0.7 mg/dL (0.2-1.3); Total Protein 7.6 g/dL (6.3-8.2)
[2024-11-13 08:52] VITALS: BP 124/82; PULSE 76
[2024-11-13] MEDS: ALBUTEROL INHALER 60 PUFF/8 GM INHALER (MHU) INHALATION PRN (09:23)
[2024-11-13] MEDS: FLUTICASONE 110 MCG INHALER (MHU) INHALATION SCH (09:55)
[2024-11-13] MEDS: LORazepam 1 MG TAB PO PRN (11:05)
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
[2024-11-13 15:01] LABS: Chol/HDL Ratio 4.88 Ratio; LDL Cholesterol,Calculated 140.6 mg/dL (0.0-131.0)
--- NOTE | 2024-11-13 18:09 | P.DS ---
Providers Date of admission: 11/12/24 03:45 Attending physician: Isabel Quezada MD Consults: 11/12/24 03:59 Consult Physician Routine Consulting Provider: Milton Physician Consult Reason/Comments: History and Physical, New Admission Do you want consulting provider notified?: Yes Primary care physician: [facility] Hospital Course: Admission HPI: Admission note was completed by press writer. Patient presented to the hospital for suicidal ideation, reported that there are chronic ideation however they reported it has been worsening, the patient endorsed plan to cutting throat, denied any attempts, denied homicidal ideation or hallucination. Denied any drugs or alcohol use. The patient has a past psychiatric history of anxiety, bipolar disorder, PTSD, schizoaffective disorder, autism, OCD, Asperger's, ADHD, recovering alcoholic time 8 years. This reported that patient was hospitalized at [facility] 7 times in the past with last hospitalization was in October 2023. Upon evaluation in the unit, the patient was in his room, agreed to meet with the press writer in the office, he states that she has been having hard time taking care of herself, has not been taking medication for months, and last night had enough, and decided to call the police to get help. She denied feeling depression, she denied any current SI, or self harm, reported that she had suicidal thoughts for few days prior to coming to the hospital, and had a plan to use a knife, she admitted to previous suicidal attempt via sitting in traffic, denied any other attempts. Denied any HI. She admitted to anxiety and poor concentration, and focus. Admitted to good sleep and appetite. Denied any current racing thoughts, or flight of ideas, denied any manic or hypomanic thoughts or behaviors. she denied any current AVH, and reported that it was there prior to being on Invega shots. States that she got the Invega Hafyara a month ago. Stats that she has not being taking his seizure medication, Lamictal and Vimbat. Reported that she has no seizures for 3 years. She does not remember when the last time she took her medication. Admitted to vaping and smoking daily, denied using alcohol, using cannabis at times, every few months, denied using any other substances. Hospital course: Upon admission to the unit patient was directable and agreeable to commence treatment and signed adult voluntary form. Patient got along well with other patients on the unit and followed unit protocol, the patient was admitted to the unit on 11/12/2024, 11/13/2024 in the morning came to the staff attention that there is another peer in the unit that the patient has a PPO against and there is a restraining order to not be in contact with that peer. Initially the patient was moved to the [facility], away from the other peer, he was placed on one-to-one staff supervision to ensure safety. Since the patient continued to endorse suicidal thoughts with a plan to harm himself and giving the PPO status, staff was advised to transfer the patient to another [facility], paperwork were sent out to [facility] who agreed to accept the patient. The patient agreed with the plan. The patient was transferred to [facility]. During his 1 day of hospitalization he was compliant with his medication, denied any side effects, he reported that he received Invega Hafyera however we could not confirm the date. While in the unit the patient was calm, cooperative and pleasant. He continued to endorse suicidal ideation which was increasing since he saw that appear in the unit and he felt uncomfortable, he was feeling better afterward when was placed with one-to-one staff supervision and agreed to transfer to [facility] since he was there before. Mental status exam: General Appearance: Patient appears to be stated age is alert, directable, and attempts to cooperate. Patient appears to have poor hygiene and grooming. Behavior: Patient is seated without any agitated behavior. Speech: Patient's speech is fluent and nonpressured. Mood/Affect: Patient reports their mood is " okay", affect is congruent and constricted. Suicidality/Homicidality: Patient denies having any homicidal ideation intent or plan. Denies any suicidal ideations intent or plan Perceptions: Patient denies any visual hallucinations and denies any auditory hallucinations Though content/process: There is no evidence of any delusional thought content and thought process is linear and goal-directed. Memory and concentration: AOX3, grossly intact for the purposes of this session. Judgment and insight: poor Impression: Schizoaffective disorder Autism spectrum disorder Anxiety disorder, unspecified History of ADHD Nicotine use disorder Plan: -Continue with discharge today as a transfer to [facility] since he has a PPO against another peer in the unit. -Patient continued to endorse suicidal ideation and he will benefit from inpatient psychiatric treatment at [facility], petition was completed by staff, clinical CERT was completed by the press writer for transfer. The patient was admitted initially under voluntary status to MHU for stabilization of psychiatric symptoms and safety. Patient has signed adult voluntary form and medication consent and is placed in patient's chart. -Continue medications: - Zoloft 25 mg p.o. daily Patient reported that she received Domenic Ramirez last month, high school social studies tutor to confirm from [facility] report -Patient was counselled on substance abuse and desired to cut back on use, however patient reported he does not consider cutting down his nicotine use -Patient was informed of the risks, benefits and side effects of the medication and patient verbally consented to taking the medications. Patient signed med consent form and was placed in chart. -Internal Medicine consult to perform medical evaluation and physical. The patient was placed on his seizure medication by medicine which include Lamictal 200 mg p.o. twice daily and lacosamide 200 mg p.o. twice daily Allergies Allergy/AdvReac Type Severity Reaction Status Date / Time hydroxyzine [From Vistaril] AdvReac Unknown Verified 11/11/24 23:29 Mushroom AdvReac Nausea & Verified 11/11/24 23:29 Vomiting polyethylene glycol AdvReac Nausea & Verified 11/11/24 23:29 [From Golytely] Vomiting polyethylene glycol 3350 AdvReac Nausea & Verified 11/11/24 23:29 [From Golytely] Vomiting potassium chloride AdvReac Nausea & Verified 11/11/24 23:29 [From Golytely] Vomiting sodium [From Golytely] AdvReac Nausea & Verified 11/11/24 23:29 Vomiting sodium bicarbonate AdvReac Nausea & Verified 11/11/24 23:29 [From Golytely] Vomiting sodium chloride AdvReac Nausea & Verified 11/11/24 23:29 [From Golytely] Vomiting sodium sulfate AdvReac Nausea & Verified 11/11/24 23:29 [From Golytely] Vomiting narcotics AdvReac Nausea & Uncoded 11/11/24 23:29 Vomiting Abnormal Labs 11/13/24 07:53 ALT 73 H Cholesterol 209.00 H LDL Cholesterol, Calc 140.6 H Laboratory Results WBC 8.34 10*3/uL (4.50-10.00) 11/13/24 07:53 RBC 5.15 10*6/uL (4.40-5.60) 11/13/24 07:53 Hgb 15.7 g/dL (13.0-17.0) 11/13/24 07:53 Hct 44.1 % (39.6-50.0) 11/13/24 07:53 MCV 85.6 fL (80.0-97.0) 11/13/24 07:53 MCH 30.5 pg (27.0-32.0) 11/13/24 07:53 MCHC 35.6 g/dL (32.0-37.0) 11/13/24 07:53 Plt Count 295 10*3/uL (140-440) 11/13/24 07:53 MPV 9.5 fL (9.5-12.2) 11/13/24 07:53 Immature Gran % (Auto) 0.4 % 11/13/24 07:53 Neutrophils % 46.9 % 11/13/24 07:53 Lymphocytes % 43.4 % 11/13/24 07:53 Monocytes % 6.0 % 11/13/24 07:53 Eosinophils % 2.5 % 11/13/24 07:53 Basophils % 0.8 % 11/13/24 07:53 Immature Gran # 0.03 10*3/uL (0.00-0.04) 11/13/24 07:53 Neutrophils # 3.91 10*3/uL (1.80-7.70) 11/13/24 07:53 Lymphocytes # 3.62 10*3/uL (0.90-5.00) 11/13/24 07:53 Monocytes # 0.50 10*3/uL (0.20-1.00) 11/13/24 07:53 Eosinophils # 0.21 10*3/uL (0.04-0.35) 11/13/24 07:53 Basophils # 0.07 10*3/uL (0.00-0.10) 11/13/24 07:53 Sodium 139 mmol/L (137-145) 11/13/24 07:53 Potassium 4.4 mmol/L (3.5-5.1) 11/13/24 07:53 Chloride 105 mmol/L (98-107) 11/13/24 07:53 Carbon Dioxide 24 mmol/L (22-30) 11/13/24 07:53 Anion Gap 10 mmol/L 11/13/24 07:53 BUN 20 mg/dL (9-20) 11/13/24 07:53 Creatinine 1.04 mg/dL (0.66-1.25) 11/13/24 07:53 Est GFR (CKD-EPI)AfAm >90 (>60 ml/min/1.73 sqM) 11/13/24 07:53 Est GFR (CKD-EPI)NonAf >90 (>60 ml/min/1.73 sqM) 11/13/24 07:53 Glucose 90 mg/dL (74-99) 11/13/24 07:[address] Glu mg/dL 103 mg/dL 11/13/24 07:53 Hemoglobin A1c 5.2 % (<=6.0) 11/13/24 07:53 Calcium 10.2 mg/dL (8.4-10.2) 11/13/24 07:53 Total Bilirubin 0.7 mg/dL (0.2-1.3) 11/13/24 07:53 Conjugated Bilirubin 0.0 mg/dL (0.0-0.3) 11/13/24 07:53 Unconjugated Bilirubin 0.6 mg/dL (0.0-1.1) 11/13/24 07:53 Delta Bilirubin 0.1 mg/dL (0.0-0.2) 11/13/24 07:53 AST 33 U/L (17-59) 11/13/24 07:53 ALT 73 U/L (4-49) H 11/13/24 07:53 Alkaline Phosphatase 80 U/L (38-126) 11/13/24 07:53 Total Protein 7.6 g/dL (6.3-8.2) 11/13/24 07:53 Albumin 4.6 g/dL (3.5-5.0) 11/13/24 07:53 Triglycerides 128.00 mg/dL (0.00-149.00) 11/13/24 07:53 Cholesterol 209.00 mg/dL (0.00-200.00) H 11/13/24 07:53 LDL Cholesterol, Calc 140.6 mg/dL (0.0-131.0) H 11/13/24 07:53 VLDL Cholesterol, Calc 25.60 mg/dL (5.00-40.00) 11/13/24 07:53 HDL Cholesterol 42.80 mg/dL (40.00-60.00) 11/13/24 07:53 Cholesterol/HDL Ratio 4.88 Ratio 11/13/24 07:53 TSH 2.890 mIU/L (0.465-4.680) 11/13/24 07:53 Urine Color Colorless 11/12/24 00:42 Urine Appearance Clear (Clear) 11/12/24 00:42 Urine pH 5.5 (5.0-8.0) 11/12/24 00:42 Ur Specific [place] 1.011 (1.001-1.035) 11/12/24 00:42 Urine Protein Negative (Negative) 11/12/24 00:42 Urine Glucose (UA) Negative (Negative) 11/12/24 00:42 Urine Ketones Negative (Negative) 11/12/24 00:42 Urine Blood Negative (Negative) 11/12/24 00:42 Urine Nitrite Negative (Negative) 11/12/24 00:42 Urine Bilirubin Negative (Negative) 11/12/24 00:42 Urine Urobilinogen <2.0 mg/dL (<2.0) 11/12/24 00:42 Ur Leukocyte Esterase Negative (Negative) 11/12/24 00:42 Urine Opiates Screen Not Detected (NotDetected) 11/12/24 00:42 Ur Oxycodone Screen Not Detected (NotDetected) 11/12/24 00:42 Urine Methadone Screen Not Detected (NotDetected) 11/12/24 00:42 Ur Barbiturates Screen Not Detected (NotDetected) 11/12/24 00:42 U Tricyclic Antidepress Not Detected (NotDetected) 11/12/24 00:42 Ur Phencyclidine Scrn Not Detected (NotDetected) 11/12/24 00:42 Ur Amphetamines Screen Not Detected (NotDetected) 11/12/24 00:42 U Methamphetamines Scrn Not Detected (NotDetected) 11/12/24 00:42 U Benzodiazepines Scrn Not Detected (NotDetected) 11/12/24 00:42 Urine Cocaine Screen Not Detected (NotDetected) 11/12/24 00:42 U Marijuana (THC) Screen Not Detected (NotDetected) 11/12/24 00:42 SARS-CoV-2 (PCR) Not Detected (Not Detectd) 11/12/24 02:30 Patient Condition at Discharge: Stable Plan - Discharge Summary New Discharge Prescriptions: No Action Fluticasone Nasal [place] [Flonase Nasal [place]] 1 spr EA NOSTRIL DAILY PRN PRN Reason: Allergy Symptoms Paliperidone Palmitate [Invega Hafyera] 1,560 mg IM Q180D methocarbamoL [Robaxin] 500 mg PO BID PRN 30 Days #60 tab PRN Reason: Muscle Spasm Lacosamide [Vimpat] 200 mg PO BID 30 Days #60 tab Fenofibrate 54 mg PO DAILY lamoTRIgine [LaMICtal] 200 mg PO BID 30 Days #120 tab Sertraline [Zoloft] 50 mg PO HS 30 Days #30 tab Fluticasone Furoate [Arnuity Ellipta] 2 puff INHALATION RT-DAILY #1 each Famotidine [Pepcid] 20 mg PO DAILY 30 Days #30 tab Albuterol Sulfate [Ventolin HFA] 2 puff INHALATION RT-Q4H PRN #1 each PRN Reason: Shortness Of Breath Loratadine 10 mg PO DAILY Prazosin [Minipress] 1 mg PO HS Ibuprofen [Motrin] 600 mg PO TID PRN PRN Reason: Pain Discharge Medication List Fluticasone Nasal [place] [Flonase Nasal [place]] 1 spr EA NOSTRIL DAILY PRN 10/02/18 [History] Paliperidone Palmitate [Invega Hafyera] 1,560 mg IM Q180D 11/16/23 [History] Albuterol Sulfate [Ventolin HFA] 2 puff INHALATION RT-Q4H PRN #1 each 11/23/23 [Rx] Famotidine [Pepcid] 20 mg PO DAILY 30 Days #30 tab 11/23/23 [Rx] Fluticasone Furoate [Arnuity Ellipta] 2 puff INHALATION RT-DAILY #1 each 11/23/23 [Rx] Lacosamide [Vimpat] 200 mg PO BID 30 Days #60 tab 11/23/23 [Rx] Sertraline [Zoloft] 50 mg PO HS 30 Days #30 tab 11/23/23 [Rx] lamoTRIgine [LaMICtal] 200 mg PO BID 30 Days #120 tab 11/23/23 [Rx] methocarbamoL [Robaxin] 500 mg PO BID PRN 30 Days #60 tab 11/23/23 [Rx] Fenofibrate 54 mg PO DAILY 07/23/24 [History] Ibuprofen [Motrin] 600 mg PO TID PRN 07/23/24 [History] Loratadine 10 mg PO DAILY 07/23/24 [History] Prazosin [Minipress] 1 mg PO HS 07/23/24 [History] Follow up Appointment(s)/Referral(s): C[facility] Kauffman [Other] - As Needed [facility] [Primary Care Provider] - 1-2 days Patient Instructions/Handouts: Schizoaffective Disorder (DC) Activity/Diet/Wound Care/Special Instructions: [facility] Discharge Info Avoid the use of street drugs and alcohol. Take all medications as prescribed. When you are in need of refills on your medications, please contact your outpatient medical provider and/or outpatient psychiatrist. Please go to your scheduled outpatient appointments for aftercare treatment. If symptoms return or become worse, call the crisis line at or and/or visit the nearest emergency room for assistance. National Suicide and Crisis Lifeline - call or text 517.
== END 2024-11-13 17:30 | DRG 885 ==
LOC: EC 23:10 → 3MHU 11-12 03:45
PROVIDERS: ADMIT Psychiatry & Neurology Psychiatry; ATTEND Psychiatry & Neurology Psychiatry
DX: F25.9 Schizoaffective disorder, unspecified (principal); R45.851 Suicidal ideations; F10.21 Alcohol dependence, in remission; G40.909 Epilepsy, unspecified, not intractable, without status epilepticus; F31.9 Bipolar disorder, unspecified; J45.909 Unspecified asthma, uncomplicated; F84.0 Autistic disorder; F17.290 Nicotine dependence, other tobacco product, uncomplicated; F41.9 Anxiety disorder, unspecified; F90.9 Attention-deficit hyperactivity disorder, unspecified type; F42.9 Obsessive-compulsive disorder, unspecified; Z79.899 Other long term (current) drug therapy; Z88.9 Allergy status to unspecified drugs, medicaments and biological substances; Z88.8 Allergy status to other drugs, medicaments and biological substances; Z91.018 Allergy to other foods
CPT/HCPCS: 80053; 80061; 80306; 81003; 82075; 82248; 83036; 84443; 85025; 87635; 99285

== ENCOUNTER 2024-11-29 14:35 | Emergency (ER) | payer MEDICARE, OTHER ==
--- NOTE | 2024-11-29 15:06 | ED ---
General Adult HPI - General Chief complaint: ENT Stated complaint: SOB Time Seen by Provider: 11/29/24 14:45 Source: patient, RN notes reviewed Mode of arrival: ambulatory Limitations: no limitations - History of Present Illness Initial comments: 29 year old male presents to the ED for evaluation of productive cough for the past 2-3 days. He reports that he was recently in a psych facility where other people may have been sick but denies any recent fevers, shortness of breath, abdominal pain, or chest pain. Patient states he has increased runny nose, cough mild sore throat denies any productive cough - Related Data Home Medications Medication Instructions Recorded Confirmed Fluticasone Nasal [place] [Flonase 1 spr EA NOSTRIL DAILY PRN 10/02/18 07/23/24 Nasal [place]] Paliperidone Palmitate [Invega 1,560 mg IM Q180D 11/16/23 07/23/24 Hafyera] Fenofibrate 54 mg PO DAILY 07/23/24 07/23/24 Ibuprofen [Motrin] 600 mg PO TID PRN 07/23/24 07/23/24 Loratadine 10 mg PO DAILY 07/23/24 07/23/24 Prazosin [Minipress] 1 mg PO HS 07/23/24 07/23/24 Previous Rx's Medication Instructions Recorded Albuterol Sulfate [Ventolin HFA] 2 puff INHALATION RT-Q4H PRN #1 11/23/23 each Famotidine [Pepcid] 20 mg PO DAILY 30 Days #30 tab 11/23/23 Fluticasone Furoate [Arnuity 2 puff INHALATION RT-DAILY #1 each 11/23/23 Ellipta] Lacosamide [Vimpat] 200 mg PO BID 30 Days #60 tab 11/23/23 Sertraline [Zoloft] 50 mg PO HS 30 Days #30 tab 11/23/23 lamoTRIgine [LaMICtal] 200 mg PO BID 30 Days #120 tab 11/23/23 methocarbamoL [Robaxin] 500 mg PO BID PRN 30 Days #60 tab 11/23/23 Allergies Allergy/AdvReac Type Severity Reaction Status Date / Time hydroxyzine [From Vistaril] AdvReac Unknown Verified 11/29/24 14:44 Mushroom AdvReac Nausea & Verified 11/29/24 14:44 Vomiting polyethylene glycol AdvReac Nausea & Verified 11/29/24 14:44 [From Golytely] Vomiting polyethylene glycol 3350 AdvReac Nausea & Verified 11/29/24 14:44 [From Golytely] Vomiting potassium chloride AdvReac Nausea & Verified 11/29/24 14:44 [From Golytely] Vomiting sodium [From Golytely] AdvReac Nausea & Verified 11/29/24 14:44 Vomiting sodium bicarbonate AdvReac Nausea & Verified 11/29/24 14:44 [From Golytely] Vomiting sodium chloride AdvReac Nausea & Verified 11/29/24 14:44 [From Golytely] Vomiting sodium sulfate AdvReac Nausea & Verified 11/29/24 14:44 [From Golytely] Vomiting narcotics AdvReac Nausea & Uncoded 11/29/24 14:44 Vomiting Review of Systems ROS Statement: Those systems with pertinent positive or pertinent negative responses have been documented in the HPI. ROS Other: All systems not noted in ROS Statement are negative. Past Medical History Past Medical History: Asthma, Seizure Disorder Additional Past Medical History / Comment(s): seizure, anxiety, autism, ocd, asbergers, ADHD, recovering alcoholic x9 years History of Any Multi-Drug Resistant Organisms: None Reported Past Surgical History: No Surgical Hx Reported Additional Past Surgical History / Comment(s): Carpal Tunnel Repair left hand when 8 years old per patient.,, Past Anesthesia/Blood Transfusion Reactions: No Reported Reaction Past Psychological History: ADD/ADHD, Anxiety, Bipolar, PTSD, Schizoaffective Disorder, Schizophrenia Smoking Status: Current every day smoker, Vaper Past Alcohol Use History: None Reported Past Drug Use History: Marijuana - Past Family History Father History Unknown: Yes Family Medical History: Hypertension Mother History Unknown: Yes Family Medical History: Hypertension General Exam Limitations: no limitations General appearance: alert, in no apparent distress Head exam: Present: atraumatic, normocephalic, normal inspection Eye exam: Present: normal appearance, PERRL, EOMI. Absent: scleral icterus, conjunctival injection, periorbital swelling ENT exam: Present: normal exam, normal oropharynx, mucous membranes moist, TM's normal bilaterally, normal external ear exam Neck exam: Present: normal inspection, full ROM. Absent: tenderness, meningismus, lymphadenopathy Respiratory exam: Present: normal lung sounds bilaterally. Absent: respiratory distress, wheezes, rales, rhonchi, stridor Cardiovascular Exam: Present: regular rate, normal rhythm, normal heart sounds. Absent: systolic murmur, diastolic murmur, rubs, gallop, clicks Course Vital Signs 11/29/24 11/29/24 14:41 14:52 Temperature 97.9 F Pulse Rate 77 Respiratory 22 18 Rate Blood Pressure 123/80 O2 Sat by Pulse 98 Oximetry Medical Decision Making - Medical Decision Making Was pt. sent in by a medical professional or institution ([facility], [facility], urgent care, hospital, or correction...) When possible be specific @ -No Did you speak to anyone other than the patient for history (EMS, parent, family, police, friend...)? What history was obtained from this source @ -No Did you review nursing and triage notes (agree or disagree)? Why? @ -I reviewed and agree with nursing and triage notes Were old charts reviewed (outside hosp., previous admission, EMS record, old EKG, old radiological studies, urgent care reports/EKG's, correction records)? Report findings @ -No old charts were reviewed Differential Diagnosis (chest pain, altered mental status, abdominal pain women, abdominal pain men, vaginal bleeding, weakness, fever, dyspnea, syncope, headache, dizziness, GI bleed, back pain, seizure, CVA, palpatations, mental health, musculoskeletal)? @ -COVID 19, RSV, influenza, pneumonia, acute bronchitis, URI, this list is not all inclusive EKG interpreted by me (3pts min.). @ -[None X-rays interpreted by me (1pt min.). @ -Chest x-ray shows no acute cardiopulmonary process. CT interpreted by me (1pt min.). @ -None done U/S interpreted by me (1pt. min.). @ -None done What testing was considered but not performed or refused? (CT, X-rays, U/S, labs)? Why? @ -None What meds were considered but not given or refused? Why? @ -None Did you discuss the management of the patient with other professionals (professionals i.e. [facility], [facility], lab, RT, psych nurse, psychologist social, mixing house operator, teacher, corporate compliance officer, case management specialist)? Give summary @ -No Was smoking cessation discussed for >3mins.? @ -No Was critical care preformed (if so, how long)? @ -No Were there social determinants of health that impacted care today? How? (Homelessness, low income, unemployed, alcoholism, drug addiction, transportation, low edu. Level, literacy, decrease access to med. care, retirement, rehab)? @ -No Was there de-escalation of care discussed even if they declined (Discuss DNR or withdrawal of care, Hospice)? DNR status @ -No What co-morbidities impacted this encounter? (DM, HTN, Smoking, COPD, CAD, Cancer, CVA, ARF, Chemo, Hep., AIDS, mental health diagnosis, sleep apnea, morbid obesity)? @ -None Was patient admitted / discharged? Hospital course, mention meds given and route, prescriptions, significant lab abnormalities, going to OR and other pertinent info. @ -discharge patient has viral URI. Negative x-ray patient discharged in stable condition return for as discussed. Undiagnosed new problem with uncertain prognosis? @ -No Drug Therapy requiring intensive monitoring for toxicity (Heparin, Nitro, Insulin, Cardizem)? @ -No Were any procedures done? @ -No Diagnosis/symptom? @ -URI Acute, or Chronic, or Acute on Chronic? @ -acute Uncomplicated (without systemic symptoms) or Complicated (systemic symptoms)? @ uncomplicated Side effects of treatment? @ -No Exacerbation, Progression, or Severe Exacerbation? @ -No Poses a threat to life or bodily function? How? (Chest pain, USA, IA, pneumonia, PE, COPD, DKA, ARF, appy, cholecystitis, CVA, Diverticulitis, Homicidal, Suicidal, threat to staff... and all critical care pts) @ -No Disposition Clinical Impression: Upper respiratory infection Disposition: HOME SELF-CARE Condition: Stable Instructions (If sedation given, give patient instructions): Upper Respiratory Infection (ED) Additional Instructions: Please return to the Emergency Department if symptoms worsen or any other concerns. Is patient prescribed a controlled substance at d/c from ED?: No Referrals: James White MD [Primary Care Provider] - 1-2 days Time of Disposition: 15:45
--- NOTE | 2024-11-29 15:29 | XR ---
EXAMINATION TYPE: XR chest 2V DATE OF EXAM: 11/29/2024 3:16 PM COMPARISON: 03/21/2019 CLINICAL INDICATION: Male, 29 years old with history of cough, , TECHNIQUE: PA and lateral views FINDINGS: The cardiomediastinal silhouette, aorta, and pulmonary vasculature are within normal limits. Mild kaci tral peribronchial cuffing. No consolidation or pleural effusion. IMPRESSION: Some central peribronchial cuffing could reflect bronchitis or asthma. No focal infiltrate. [facility], Workstation: [id number], 11/29/2024 3:26 PM
[2024-11-29 15:48] LABS: Influenza A Not Detected (Not Detectd); Influenza B Not Detected (Not Detectd); RSV Not Detected (Not Detectd)
[2024-11-29 16:18] VITALS: BP 111/69; PULSE 72; RESP 19; TEMP 97.8
== END 2024-11-29 16:18 | disposition home or self-care (01) ==
LOC: EC 14:35 → SUPCPDRO 14:35 → EC 16:18
DX: J06.9 Acute upper respiratory infection, unspecified (principal); F17.290 Nicotine dependence, other tobacco product, uncomplicated; Z88.5 Allergy status to narcotic agent; Z91.018 Allergy to other foods; Z88.8 Allergy status to other drugs, medicaments and biological substances
CPT/HCPCS: 71046; 87636; 99285